=== PATIENT | male | born 1950 | race Caucasian/White ===

== ENCOUNTER 2022-12-11 11:07 | Outpatient (CLI) | payer MEDICARE, BC, SELFPAY ==
[2022-12-11 11:21] VITALS: BP 124/67; RESP 16; O2SAT 96
[2022-12-11] MEDS: TETRACAINE 0.5% OPHTH 1 DROP EYE-BOTH ×3 (11:23→11:44)
[2022-12-11] MEDS: BRIMONIDINE TARTRATE 0.2% OPHTH 1 DROP EYE-BOTH ×2 (11:24→11:55)
--- NOTE | 2022-12-11 12:37 | W.PM.OPTPROC ---
Procedure Note Date of procedure: 12/11/22 Will [facility] bill your pro fee for this procedure?: Yes Procedure Description: SURGEON: Paula Yarbrough MD PREOPERATIVE DIAGNOSIS: Posterior capsular opacity, right and left eye POSTOPERATIVE DIAGNOSIS: Posterior capsular opacity, right and left eye PROCEDURE: YAG laser capsulotomy, both eyes ANESTHESIA: Topical. ESTIMATED BLOOD LOSS: None PATHOLOGY SPECIMEN: None COMPLICATIONS: None INDICATIONS: See consult note for details. The risks, benefits and alternatives of the procedure were explained to the patient, who elected to proceed and signed informed consent to do so. PROCEDURE: The patient was brought to the pre-holding area where the right and left eyes were identified as the operative eyes. I placed my initials above the eyes. The following was given in both eyes: The patient received 2 sets of 1 drop of 0.5% tetracaine and 1 drop of 1% tropicamide. They also received 1 drop of 0.2% brimonidine. They received 1 drop of 0.5% tetracaine immediately prior to bringing them back for the procedure. The patient was then brought to the procedure room where the right and left eyes were again identified as the operative eyes. A YAG Jorgito capsulotomy lens was placed on the right eye. The laser was administered using a total number of 18 shots with an energy of 2.4 mJ per shot for a total energy of 43 mJ. The patient tolerated the procedure well. A YAG Jorgito capsulotomy lens was placed on the left eye. The laser was administered using a total number of 27 shots with an energy of 2.4 mJ per shot for a total energy of 65 mJ. The patient tolerated the procedure well. DISPOSITION: The patient was taken back to the pre-holding area and given 1 drop of 0.2% brimonidine in both eyes. They were discharged to home in stable condition. The patient was instructed to call me or go to the emergency department with any sudden change, including dramatic loss of vision, severe pain in the eye or eyebrow region, nausea, or vomiting. The patient was instructed to use the 0.2% brimonidine 1 drop 2 times a day in both eyes for 1 week. The patient will follow up in the clinic in 1-2 weeks.
== END 2022-12-11 12:00 | disposition home or self-care (01) ==
LOC: OP CLINIC 11:08 → EYE PRC 11:18
PROVIDERS: PCP Surgery; Visit Provider Ophthalmology
DX: H26.9 Unspecified cataract (principal)
CPT/HCPCS: 66821; A9270

== ENCOUNTER 2022-12-17 11:30 | Outpatient (RCR) | payer MEDICARE, BC, SELFPAY | END 2023-03-10 14:36 | disposition home or self-care (01) | PROVIDERS: Visit Provider Family Medicine | DX: S46.812D Strain of other muscles, fascia and tendons at shoulder and upper arm level, left arm, subsequent encounter (principal); M47.817 Spondylosis without myelopathy or radiculopathy, lumbosacral region; M54.2 Cervicalgia; M62.81 Muscle weakness (generalized); M54.9 Dorsalgia, unspecified; Z74.09 Other reduced mobility; Z51.89 Encounter for other specified aftercare | CPT/HCPCS: 97110; 97161 ==

== ENCOUNTER 2023-05-01 12:04 | Outpatient (CLI) | payer OTHER, SELFPAY ==
--- NOTE | 2023-05-01 12:00 | CRLHL7_ITS ---
For Patients: As a result of the 21st Century Cures Act, medical imaging exams and procedure reports are released immediately into your electronic medical record. You may view this report before your referring provider. If you have questions, please contact your health care provider. INDICATION: Low back pain. COMPARISON: One 07/06/2013. TECHNIQUE: Sagittal T1, T2, and STIR sequences. Axial T1 and T2 weighted sequences. Post gadolinium 2 weighted sequences. FINDINGS: Normal alignment. No fractures. No vertebral body loss of height. Since the previous exam, interval postoperative changes of diskectomy interbody fusion L2-3, L3-4 and L4-5. Posterior natasha and transpedicular screw fixation L2-L5. Large fluid collection within the posterior soft tissue the operative bed likely represents postoperative seroma. This fluid collection extends into the dorsal epidural space resulting in compression of the dorsal aspect of thecal sac and overall severe narrowing of spinal canal at the mid body level of L3 through the L3-4 interspace (best appreciated on series 5, images 24-28). Normal conus terminates at L1. T12-L1 L1-2: No spinal canal or neural foraminal narrowing. L2-3: Disc degeneration diffuse disc bulge. Postoperative changes. Postop seroma in a dorsal epidural space flattens the dorsal aspect of thecal sac. Overall, mild narrowing of spinal canal. Mild to moderate narrowing of bilateral foramina. L3-4: Postoperative changes. As described above, there is severe narrowing of the spinal canal with compression of the dorsal aspect of the thecal sac due to presumed postop seroma. Ssyp-jo-dklfpuuf narrowing of the bilateral foramina. L4-5: Disc degeneration. Posterior disc bulge. Mild narrowing of spinal canal. Moderate narrowing of bilateral foramina. L5-S1: Disc degeneration diffuse disc bulge. No narrowing of spinal canal. No impingement of the traversing S1 nerve roots. No neural foraminal narrowing. Mild facet arthropathy. Degenerative changes of the SI joints. Right renal cysts. Although only partially visualized focal area of relative fullness and heterogeneous signal intensity involving the posterior aspect of the right kidney (best appreciated on series 5, image 3). Similarly, on the cold meat cook images, there is asymmetric fullness of the right kidney (series 1, images 10 and 11). Findings indeterminate but a renal mass cannot be completely excluded. Recommend followup with CT or ultrasound for further evaluation. IMPRESSION: 1. Interval recent postop changes of discectomy and interbody fusion at L2-3, L3-4 and L4-5. Posterior fusion hardware L2-L5. 2. Large fluid collection within the posterior soft tissues operative bed likely represents a seroma. This extends into the dorsal epidural space resulting in compression of the thecal sac and overall severe narrowing of spinal canal at the mid body level of L3 through the L3-4 interspace 3. Partially visualized asymmetric relative fullness and heterogeneous signal intensity involving the posterior aspect of the right kidney. An underlying renal mass cannot be completely excluded. Recommend follow-up with CT or ultrasound for further evaluation 4. Lumbar spondylosis. 5. Nqny-se-yjmsjqnk narrowing of either neural foramina at L2-3, L3-4. 6. At L4-5, mild narrowing of spinal canal. Moderate narrowing of bilateral neural foramina Dictated by Alan Suarez MD @ 05/02/2023 10:40:25 AM (Electronically Signed)
== END 2023-05-01 12:05 | disposition home or self-care (01) ==
PROVIDERS: PCP Surgery; Visit Provider Orthopaedic Surgery Orthopaedic Surgery of the Spine
DX: M54.50 Low back pain, unspecified (principal); M47.896 Other spondylosis, lumbar region; M51.26 Other intervertebral disc displacement, lumbar region
CPT/HCPCS: 72158; A9575

== ENCOUNTER 2023-08-29 02:19 | Emergency (ER) | payer MEDICARE, BC, SELFPAY ==
[2023-08-29 02:23] VITALS: BP 175/74; PULSE 53; RESP 18; TEMP 36.7; O2SAT 96; BMI 31.4
[2023-08-29 02:47] VITALS: PULSE 57; O2SAT 97
[2023-08-29 03:00] VITALS: PULSE 52; O2SAT 96
[2023-08-29 03:02] VITALS: BP 138/56; PULSE 51; RESP 18; O2SAT 96
[2023-08-29 03:04] LABS: Chloride* 112 mmol/L (96-114); Potassium* 5.7 mmol/L (3.6-5.1); Sodium* 139 mmol/L (135-149)
[2023-08-29 03:07] LABS: Anion Gap 5 mEq/L (7-15); Blood Urea Nitrogen* 64 mg/dL (7-30); Carbon Dioxide* 22 mmol/L (20-32); Creatinine* 2.3 mg/dL (0.5-1.5); Est. Creatinine Clearance* 31.38; Estimated Glomerular Filt Rate 30 ml/min; Glucose* 144 mg/dL (60-115)
[2023-08-29 03:08] LABS: Calcium* 9.1 mg/dL (8.4-10.6)
--- NOTE | 2023-08-29 03:19 | ED.GENADULT ---
HPI - General Adult General Chief complaint: Unspecified Complaint, Adult Stated complaint: dangerously high potassium levels Time Seen by Provider: 08/29/23 03:06 Source: patient Mode of arrival: ambulatory Limitations: no limitations History of Present Illness HPI narrative: Patient is a 72-year-old male who has been seen in the clinic 3 times in the past 10 days for elevated potassium. Despite that he still remains on lisinopril. His creatinine has also been climbing from a baseline of 1.6. To 90 received a phone call at about 2:[address] Siddiqui who had been paged with a critical potassium of 6.9. His creatinine was also up to 2.7. The patient is asymptomatic but was instructed to come to the emergency department because of his dangerously high potassium. He denies chest pains, shortness of breath, palpitations. In reviewing his medication list lisinopril/hydrochlorothiazide is the only one on the list likely to cause hyperkalemia. Again he is asymptomatic and was sound asleep when he received this call. Related Data Home Medications Medication Instructions Recorded Confirmed allopurinol 300 mg tablet 300 mg PO DAILY 04/29/23 08/29/23 amlodipine 5 mg tablet 5 mg PO DAILY 04/29/23 08/29/23 atenolol 50 mg tablet 50 mg PO DAILY 04/29/23 08/29/23 atorvastatin 20 mg tablet 20 mg PO DAILY 04/29/23 08/29/23 blood sugar diagnostic (Contour #10 ea 04/29/23 04/29/23 Next Test Strips) bupropion HCl 150 mg 24 hr tablet, 150 mg PO DAILY 04/29/23 08/29/23 extended release cyclosporine 0.05 % eye drops in a drp ophthalmic (eye) 04/29/23 04/29/23 dropperette (Restasis) hydroxyzine pamoate 25 mg capsule 25 mg PO Q8H PRN pain 04/29/23 08/29/23 lisinopril 20 1 tab PO DAILY 04/29/23 08/29/23 mg-hydrochlorothiazide 25 mg tablet metformin 500 mg tablet,extended 1,000 mg PO BID 04/29/23 08/29/23 release 24 hr omeprazole 20 mg capsule,delayed 20 mg PO DAILY 04/29/23 08/29/23 release oxycodone 5 mg tablet 5 - 10 mg PO Q4-6H PRN pain 04/29/23 08/29/23 paroxetine HCl 20 mg tablet 20 mg PO DAILY 04/29/23 08/29/23 trazodone 150 mg tablet 150 mg PO QPM 04/29/23 08/29/23 celecoxib 200 mg capsule 200 mg PO DAILY 08/29/23 08/29/23 Allergies Allergy/AdvReac Type Severity Reaction Status Date / Time No Known Drug Allergies Allergy Verified 08/29/23 02:28 Review of Systems Narrative: Review of systems is outlined above otherwise noted to be negative. PFSH PFS Social History Smoking Status: Former smoker Do you use any of these nicotine containing products: None Second hand tobacco smoke exposure: No How often do you have a drink containing alcohol: 2-3 times a week AUDIT-C Alcohol total score: 3 Non-prescribed substance use: denies use Exam Narrative: Exam Narrative: Vitals noted. Lungs: Clear to auscultation in all anthony. No wheezes, rales, rhonchi. Heart: Regular rate and rhythm without murmur. Abdomen: Soft and nontender. No guarding, rigidity, rebound. Bowel sounds are normal. No palpable masses. Extremities: No cyanosis or edema. Good distal pulses. Skin: He is pale. No abnormalities noted of the exposed skin. Neurologic: Awake, alert, fully oriented. Neurologic exam is nonfocal. Const: Vital Signs, click to edit/add: Vital Signs - 24 hr 08/29/23 02:23 08/29/23 02:47 08/29/23 03:00 Temperature 98.0 F Pulse Rate 57 L 52 L Pulse Rate [Pulse Oximeter] 53 L Respiratory Rate 18 Blood Pressure Blood Pressure [Ri ght Upper Arm] 175/74 H Pulse Oximetry 96 97 96 Oxygen Delivery Me thod Room Air 08/29/23 03:02 Temperature Pulse Rate 51 L Pulse Rate [Pulse Oximeter] Respiratory Rate 18 Blood Pressure 138/56 L Blood Pressure [Ri ght Upper Arm] Pulse Oximetry 96 Oxygen Delivery Me thod Room Air Course Course ED Course: Patient seen and examined. EKG shows sinus bradycardia with a rate of 57. No acute ST or T-wave changes noted. Specifically no peaked T-waves or prolonged QRS. His potassium was repeated and found to be at 5.7. His BUN is 64 and his creatinine is 2.3. All of these values are better than what he had had in the clinic earlier today. He is reassured by these values. I will ask him to stop his lisinopril and follow-up next week. Vital Signs Vital signs: Initial Vital Signs Temperature 98.0 F 08/29/23 02:23 Temperature Source Oral 08/29/23 02:23 Pulse Rate 53 L 08/29/23 02:23 Respiratory Rate 18 08/29/23 02:23 Blood Pressure 175/74 H 08/29/23 02:23 Blood Pressure Mean 107 H 08/29/23 02:23 Blood Pressure Position Sitting 08/29/23 02:23 Pulse Oximetry 96 08/29/23 02:23 Oxygen Delivery Method Room Air 08/29/23 02:23 Vital Signs Temperature 98.0 F 08/29/23 02:23 Pulse Rate 53 L 08/29/23 02:23 Respiratory Rate 18 08/29/23 02:23 Blood Pressure 175/74 H 08/29/23 02:23 Pulse Oximetry 96 08/29/23 02:23 Oxygen Delivery Method Room Air 08/29/23 02:23 Temperature 98.0 F 08/29/23 02:23 Pulse Rate 51 L 08/29/23 03:02 Respiratory Rate 18 08/29/23 03:02 Blood Pressure 138/56 L 08/29/23 03:02 Pulse Oximetry 96 08/29/23 03:02 Oxygen Delivery Method Room Air 08/29/23 03:02 Medical Decision Making Lab Data Labs: Lab Results 08/29/23 Range/Units 02:45 Sodium 139 (135-149) mmol/L Potassium 5.7 H (3.6-5.1) mmol/L Chloride 112 (96-114) mmol/L Carbon Dioxide 22 (20-32) mmol/L Anion Gap 5 L (7-15) mEq/L BUN 64 H (7-30) mg/dL Creatinine 2.3 H (0.5-1.5) mg/dL Estimated Creat Clear 31.38 Estimated GFR 30 ml/min Glucose 144 H (60-115) mg/dL Calcium 9.1 (8.4-10.6) mg/dL Discharge Plan Discharge Clinical Impression: Chronic hyperkalemia Patient Disposition: Home, Self-Care Condition: Stable Additional Instructions: Discontinue lisinopril. Continue monitor blood pressure. Follow-up with Dr. Harding next week for blood pressure check and repeat potassium. Prescriptions: No Action cyclosporine [Restasis] 0.05 % dropperette ophthalmic (eye) Patient Comments: [NO ORIGINAL SIG] hydroxyzine pamoate 25 mg capsule 25 mg PO Q8H PRN (Reason: pain) oxycodone 5 mg tablet 5 - 10 mg PO Q4-6H PRN (Reason: pain) allopurinol 300 mg tablet 300 mg PO DAILY omeprazole 20 mg capsule,delayed release(DR/EC) 20 mg PO DAILY amlodipine 5 mg tablet 5 mg PO DAILY atenolol 50 mg tablet 50 mg PO DAILY metformin 500 mg tablet extended release 24 hr 1,000 mg PO BID lisinopril-hydrochlorothiazide 20-25 mg tablet 1 tab PO DAILY trazodone 150 mg tablet 150 mg PO QPM paroxetine HCl 20 mg tablet 20 mg PO DAILY (DME) Contour Next Test Strips Strip See Rx Instructions .ROUTE BID Qty: 10 Rx Instructions: As directed atorvastatin 20 mg tablet 20 mg PO DAILY bupropion HCl 150 mg tablet extended release 24 hr 150 mg PO DAILY celecoxib 200 mg capsule 200 mg PO DAILY Follow Up/Referrals: Niall Harding MD [Primary Care Provider] - Stand Alone Forms: K94 [employer]ies Info Instructions
== END 2023-08-29 03:31 | disposition home or self-care (01) ==
PROVIDERS: Emergency Provider Family Medicine; PCP Surgery
DX: E87.6 Hypokalemia (principal)
CPT/HCPCS: 36415; 80048; 93005; 99281; 99284

== ENCOUNTER 2023-09-04 22:40 | Emergency (ER) | payer MEDICARE, BC, SELFPAY ==
[2023-09-04 22:43] VITALS: BP 164/79; PULSE 58; RESP 16; TEMP 35.9; O2SAT 98; BMI 32.3
[2023-09-04 23:24] LABS: Chloride* 111 mmol/L (96-114); Potassium* 5.4 mmol/L (3.6-5.1); Sodium* 138 mmol/L (135-149)
[2023-09-04 23:27] LABS: Anion Gap 5 mEq/L (7-15); Blood Urea Nitrogen* 39 mg/dL (7-30); Carbon Dioxide* 22 mmol/L (20-32); Creatinine* 2.1 mg/dL (0.5-1.5); Est. Creatinine Clearance* 33.31; Estimated Glomerular Filt Rate 33 ml/min
[2023-09-04 23:28] LABS: Calcium* 9.3 mg/dL (8.4-10.6); Glucose* 139 mg/dL (60-115)
--- OUTSIDE RECORDS SUMMARY | 2023-09-04 23:28 | XMS_ITS | Clinical Summary ---
Author Name Unknown Organization [facility] Address [address] [place] [id number] Care Team Providers Care Trailer Chief Name Role Phone Niall Harding MD Primary Care Provider [phone] Allergies No known active allergies Medications Medication Sig Dispensed Refills Start Date End Date Status amLODIPine (NORVASC) 5 MG tablet Take 5 mg by mouth daily Active atenolol (TENORMIN) 50 MG tablet Take 50 mg by mouth daily Active Glucosamine Sulfate 1500 MG PACK Take 1,500 mg by mouth 2 times daily 1500/1200 Active lisinopril-hydrochl orothiazide (ZESTORETIC) 20-25 MG tablet Take 1 tablet by mouth daily Active PARoxetine (PAXIL) 20 MG tablet Take 20 mg by mouth every morning Active Ascorbic Acid (VITAMIN C) 500 MG CAPS Take 500 mg by mouth daily Active allopurinol (ZYLOPRIM) 300 MG tablet Take 300 mg by mouth daily Active atorvastatin (LIPITOR) 20 MG tablet Take 20 mg by mouth daily Active calcium carbonate (OS-RIGO) 1500 (600 Ca) MG tablet Take 600 mg by mouth daily Active fish oil-omega-3 fatty acids 500 MG capsule Take 1,000 mg by mouth daily Active omeprazole (PRILOSEC) [address] capsule Take 20 mg by mouth daily Active traZODone (DESYREL) 150 MG tablet Take 150 mg by mouth at bedtime Active Vitamin D3 (CHOLECALCIFEROL) 25 mcg (1000 units) tabletIndications:S /P lumbar fusion Take 1 tablet (25 mcg) by mouth 2 times daily 180 tablet 04/17/2023 Active senna-docusate (SENOKOT-S/PERICOLA CE) 8.6-50 MG tabletIndications:S /P lumbar fusion Take 1-2 tablets by mouth 2 times daily Take while on oral narcotics to prevent or treat constipation. 30 tablet 04/17/2023 Active oxyCODONE (ROXICODONE) 5 MG tabletIndications:S /P lumbar fusion Take 1-2 tablets (5-10 mg) by mouth every 4 hours as needed for moderate to severe pain 30 tablet 04/17/2023 Active acetaminophen (TYLENOL) 500 MG tablet Take 1,000 mg by mouth every 6 hours as needed for mild pain Active buPROPion (WELLBUTRIN XL) 150 MG 24 hr tablet Take 150 mg by mouth every morning Active metFORMIN (GLUCOPHAGE XR) 500 MG 24 hr tablet Take 1,000 mg by mouth 2 times daily (with meals) Active methocarbamol (ROBAXIN) 750 MG tablet Take 750 mg by mouth every 6 hours as needed for muscle spasms Active cycloSPORINE (RESTASIS) 0.05 % ophthalmic emulsion Place 1 drop into both eyes 2 times daily Active Active Problems Problem Noted Date Diagnosed Date Postoperative back pain 05/01/2023 S/P lumbar fusion 04/16/2023 Family History Medical History Relation Comments Colon Cancer Brother Heart Disease Brother Diabetes Father Thyroid Disease Mother Relation Status Comments Brother Father Mother Social History Tobacco Use Types Packs/Day Years Used Date Smoking Tobacco: Former Cigarettes Q uit: 1970 Smokeless Tobacco: Never Tobacco Cessation:Counseling Given: Not Answered Alcohol Use Standard Drinks/Week Comments Yes 0 (1 standard drink = 0.6 oz pur e alcohol) 6-7 beers/week Adolescent Education Answer Date Record ed Getting School Help Needed Not on file 03/20 Sex and Gender Information Value Date Recorded Sex Assigned at Not on file Gender Identity Not on file Sexual Orientation Not on file Last Filed Vital Signs Vital Sign Reading Time Taken Comments Blood Pressure 127/52 05/05/2023 8:55 AM [facility] Pulse 64 05/05/2023 8:54 AM [facility] Temperature 36.6 ??C (97.8 ??F) 05/05/2023 7:20 AM CS T Respiratory Rate 18 05/05/2023 7:20 AM [facility] Oxygen Saturation 96% 05/05/2023 7:20 AM [facility] Inhaled Oxygen Concentration - - Weight 101.1 kg (222 lb 12.8 oz) 2022 12:36 AM [facility] Height 180.3 cm (5' 11) 05/02/2023 12: 36 AM [facility] Body Mass Index 31.07 05/02/2023 12:36 AM [facility] Plan of Treatment Health Maintenance Due Date Last Done Comments ADVANCE CARE PLANNING 1950 ANNUAL REVIEW OF HM ORDERS 1950 CT COLONOGRAPHY 1950 FIT 1950 FLEX SIG 1950 LIPID 1950 sDNA (Cologuard) 1950 COLONOSCOPY 09/29/1961 COLORECTAL CANCER SCREENING 09/29/1961 HEPATITIS C SCREENING 09/29/1969 RSV VACCINE ( & 60+) (1 - 1-dose 60+ series) 2011 AORTIC ANEURYSM SCREENING (SYSTEM ASSIGNED) 09/29/2016 FALL RISK ASSESSMENT 09/29/2016 MEDICARE ANNUAL WELLNESS VISIT 04/15/2023 04/15/2022, 03/13/2021 PHQ-2 (once per calendar year) 2023 GLUCOSE 05/05/2026 05/05/2023, 04/18, 05/05/2023, Additional history exists DTAP/TDAP/TD IMMUNIZATION (3 - Td or Tdap) 11/24/2029 11/25/2019, 08/01/2009, 11/02/1994 Pneumococcal Vaccine: 65+ Years Completed 02/24/2019, 10/30/2016, 01/28/2008 ZOSTER IMMUNIZATION Completed 02/21/2020, 11/25/2019, 03/05/2012 COVID-19 Vaccine Completed 02/17/2023, , 08/15/2021, Additional history exists INFLUENZA VACCINE Completed 02/17/2023, , 02/01/2021, Additional history exists HPV IMMUNIZATION Aged Out No longer e ligible based on patient's age to complete this topic IPV IMMUNIZATION Aged Out No longer e ligible based on patient's age to complete this topic MENINGITIS IMMUNIZATION Aged Out No l onger eligible based on patient's age to complete this topic RSV MONOCLONAL ANTIBODY Aged Out No l onger eligible based on patient's age to complete this topic Medical Devices Implanted Type Area Continuous Miner Operator Helper Device Identifier Shelf Expiration Date Model / Serial / Lot Graft Bone Magnifuse [id number] - [id number] Implanted:Qty : 1 on 04/16/2023 by Thang Negrete MD at [facility] Bone/Tissu e/Biologic N/A: Spine Lumbar [employer] [id number] 03/19/2025 [id number] / [id number] / Graft Bone Fibers Dbf 6ml Inj [id number] Preloaded - [id number] Implanted:Qty : 1 on 04/16/2023 by Thang Negrete MD at [facility] Bone/Tissu e/Biologic N/A: Spine Lumbar [employer] 10/21/2024 [id number] / [id number] / Pass Lp Crosslink [id number] Implanted:Qty : 1 on 04/16/2023 by Thang Negrete MD at [facility] Metallic Hardware/A nchor N/A: Spine Lumbar [employer] [id number] / / [id number] 2022 Imp Screw Bn Medt Spine 50x6.5mm 5.5/6mm Paul - [id number] Implanted:Qty : 6 on 04/16/2023 by Thang Negrete MD at [facility] Metallic Hardware/A nchor N/A: Spine Lumbar [employer] [id number] / / [id number] 2022 Imp Screw Bn Medt Spine 45x7.5mm 5.5/6mm Paul - [id number] Implanted:Qty : 2 on 04/16/2023 by Thang Negrete MD at [facility] Metallic Hardware/A nchor N/A: Spine Lumbar [employer] [id number] / / [id number] 2022 Imp Scr Set Medt Solera Break Off 5.5mm Ti [id number] - [id number] Implanted:Qty : 8 on 04/16/2023 by Thang Negrete MD at [facility] Metallic Hardware/A nchor N/A: Spine Lumbar [employer] [id number] / / [id number] 2022 Imp Spi Interbody Medt [address]ft [address] Long 7mm [id number] - [id number] Implanted:Qty : 1 on 04/16/2023 by Thang Negrete MD at [facility] Metallic Hardware/A nchor N/A: Spine Lumbar [employer] 12/26/2029 [id number] / / [id number] Imp Spi Interbody Medt Catalyft Pl Long 7mm [id number] - [id number] Implanted:Qty : 1 on 04/16/2023 by Thang Negrete MD at [facility] Metallic Hardware/A nchor N/A: Spine Lumbar [employer] 11/28/2029 [id number] / / [id number] Imp Spi Interbody Medt Catalyft Pl Long 7mm [id number] - [id number] Implanted:Qty : 1 on 04/16/2023 by Thang Negrete MD at [facility] Metallic Hardware/A nchor N/A: Spine Lumbar [employer] 11/26/2029 [id number] / / [id number] Imp Paul Medt Solera Cvd 5.5x90mm Ti [id number] - [id number] Implanted:Qty : 2 on 04/16/2023 by Thang Negrete MD at [facility] Metallic Hardware/A nchor N/A: Spine Lumbar [employer] [id number] / / [id number] 2022 Procedures Procedure Name Priority Date/Time Associated Diagnosis Comments GLUCOSE BY METER Routine 05/05/2023 1:59 AM [facility] from Last 3 Months or Most Recently Relevant to Health Maintenance Results * (ABNORMAL) Glucose by meter (05/05/2023 1:59 AM [facility]) GLUCOSE BY METER POCT 157(H) 70 - 99 mg/dL 05/05/2023 2:06 AM [facility] LABORATORY POC Blood, Capillary BLOOD SPECIMEN / Unknown 05/05/2023 1:59 AM [facility] 05/05/2023 2:06 AM [facility] Rohit GIRALDO POCT RH LABORATORY POC [facility] [address] Lab (1st floor, no room number) [place] [address], [facility] [phone] from Last 3 Months or Most Recently Relevant to Health Maintenance Advance Directives For more information, please contact: [phone] * Full Code (Latest Code Status on File) Date Activated Date Inactivated Comments 05/01/2023 11:46 PM 05/05/2023 4:39 PM All basic and advanced life-sustaining interventions are performed as appropriate Question Answer Comments Code status determined by: Discussion with patie nt/ legal decision maker * Full Code Date Activated Date Inactivated Comments 04/16/2023 3:21 PM 04/18/2023 2:50 PM All basic a nd advanced life-sustaining interventions are performed as appropriate Question Answer Comments Code status determined by: Other (please patricia t) Care Teams Trailer Chief Relationship Specialty Start Date End Date Niall Harding MD [address] [place] [address] PCP - General 04/16/23
--- OUTSIDE RECORDS SUMMARY | 2023-09-04 23:28 | XMS_ITS | Continuity of Care Document ---
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 Name Role Phone Vinod WARREN Kira Unavailable Unavailable Allergies, Adverse Reactions, Alerts Substance Reaction Status Criticality No Known Allergies Active No Inform ation Medications Medication Instructions Dosage Effective Dates (start - stop) Status Comments amlodipine 5 mg tablet take 1 tablet by oral route every day 5 MG - Active lisinopril 20 mg-hydrochlorothiazi de 25 mg tablet take 1 tablet by oral route every day 1.00 tablet - Active metformin 1,000 mg tablet take 1 tablet by oral route 2 times every day with morning and evening meals 1000 MG - Active paroxetine 20 mg tablet take 1 tablet by oral route every day 20 MG - Active allopurinol 300 mg tablet take 1 tablet by oral route every day 300 MG - Active omeprazole 20 mg capsule,delayed release take 1 capsule by oral route 2 times every day 30 minutes to 1 hour before a meal 20 MG - Active trazodone 150 mg tablet take 1 tablet by oral route every bedtime 150 MG - Active HYDROCODONE BITARTRATE ER (unknown strength) take 1 capsule by oral route every day as needed Not Available - Active Restasis 0.05 % eye drops in a dropperette instill 1 drop by ophthalmic route every 12 hours into affected eye(s) 1.00 drop - Active Dulcolax (bisacodyl) 5 mg tablet,delayed release Take 2 tablets per colonoscopy prep instructions received from [facility] - Active procedure 09/19/22 Miralax 17 gram/dose oral powder Take by oral route per colonoscopy prep instructions received from [facility] - Active 09/19/22 procedure atenolol 50 mg tablet take 1 tablet by oral route every day 50 MG - Active bupropion HCl SR 150 mg tablet,12 hr sustained-release take 1 tablet by ORAL route every day 150 MG - Active celecoxib 200 mg capsule take 1 Tablet by Oral route every day 1 Tablet - Active glimepiride 2 mg tablet take 1 tablet by oral route every day 2 MG - Active cyclobenzaprine 10 mg tablet take 1 tablet by oral route every day 10 MG - Active aspirin 81 mg chewable tablet chew 1 tablet by oral route every day 81 MG - Active atorvastatin 20 mg tablet take 1 tablet by oral route every day 20 MG - Active GLUCOSAMINE-CHONDROI TIN (unknown strength) Not Available - Active Procedures Procedure Date Colorectal Ca Screen Hi Risk I Colonoscopy With EMR Colonoscopy Flex; Dx (sep Pro) Offic Cons New/estab Low Advance Directives Directive Yes / No Effective Date File Name No Information Encounters Encounter Description Practice Location Reason(s) For Visit Diagnoses Date Provider Providers Copied on Encounter [facility], [address] [address], [place], [id number], [place] tel:[phone] [facility] No Information 3 Vinod Malone. [address] [facility], [facility] [address], [place], [place], [id number], [place]. tel:[phone] Referring Provider: Kadeem Acevedo, [address] [facility] [address], [place], [address]. tel:[phone] [facility] [address] [address], [place], [id number], [place] tel:[phone] [facility] GI Symptoms or Concerns (chief complaint) Personal history of colonic polypsEncount er for screening for malignant neoplasm of colonPersonal history of colonic polyps 3 Shahida Quan. [address] [facility], [address], [place], [place], [address], [place]. tel:[phone] Referring Provider: Jaunito Noble, [address] [place] [address], [place], [address]. tel:[phone] [facility], [address] [address], [place], [id number], [place] tel:[phone] [facility] No Information 3 Nain Sharma. [address] [facility], [facility] [address], [place], [place], [address], [place]. tel:[phone] [facility], [address] [address], [place], [place], [address], [place] tel:[phone] [facility] No Information 3 Nain Sharma. [address] [facility], [facility] [address], [place], [id number], [place]. tel:[phone] [facility], [address] [address], [place], [id number], [place] tel:[phone] [facility] No Information 1 Shahida Quan. [address] [facility], [facility] [address], [place], [place], [address], [place]. tel:[phone] Referring Provider: Kadeem Acevedo, [address] [facility] [address], [address]. tel:[phone] [facility], [address] [address], [place], [address], [place] tel:[phone] [facility] Colon adenoma 1 Shahida Quan. [address] [facility], [facility] [address], [place], [address], [place]. tel:[phone] [facility], [address] [address], [place], [address], [place] tel:[phone] [facility] No Information 1 Shahida Quan. [address] [facility], [address], [place], [place], [address], [place]. tel:[phone] Referring Provider: Kadeem Acevedo, [address] [facility] [address], [place], [address]. tel:[phone] [facility], [address] [address], [place], [address], [place] tel:[phone] [facility] Colon adenoma 1 Shahida Quan. [address] [facility], [facility] [address], [place], [address], [place]. tel:[phone] [facility], [address] [address], [place], [address], [place] tel:[phone] [facility] Colon adenoma 1 Shahida Quan. [address] [facility], [facility] [address], [place], [place], [id number], [place]. tel:[phone] Referring Provider: Referral Self, USE FOR SELF REFERRALS. Offic Cons New/estab Low [facility], [address] [address], [place], [address], [place] tel:[phone] [facility] GI Symptoms or Concerns (chief complaint) Personal history of colonic polyps 1 Tarik Segal. [address] [facility], [address], [place], [place], [address], [place]. tel:[phone] Referring Provider: Juanito Noble, [facility], [place], [address]. tel:[phone] [facility], [address] [address], [place], [address], [place] tel:[phone] [facility] No Information 1 Mg Carrera. [address] [address], [place], [place], [address], . tel:[phone] Family History Family Member Type Diagnosis Age At Onset Brother Problem (finding) cancer of colon Brother Problem (finding) Crohn's disease Sister Problem (finding) IBS Father Problem (finding) Cancer, pancreatic Immunizations Vaccine Date Status Comments influenza, high-dose seasona l, quadrivalent, 0.7mL dose, preservative free administered Note: [facility] bi-direct ional interface ; Source: Other Registry SARS-COV-2 (COVID-19) vaccin e, mRNA, spike protein, LNP, bivalent booster, preservative free, 30 mcg/0.3 mL dose, radha-sucrose formulation administered Note: [facility] bi-d irectional interface ; Source: Other Registry SARS-COV-2 (COVID-19) vaccin e, mRNA, spike protein, LNP, preservative free, 30 mcg/0.3mL dose, radha-sucrose formulation administered Note: [facility] C bi- directional interface ; Source: Other Registry SARS-COV-2 (COVID-19) vaccin e, mRNA, spike protein, LNP, preservative free, 30 mcg/0.3mL dose administered Note: [facility] bi-direct ional interface ; Source: Other Registry influenza, seasonal vaccine, quadrivalent, adjuvanted, 0.5mL dose, preservative free administered Note: [facility] bi-di rectional interface ; Source: Other Registry SARS-COV-2 (COVID-19) vaccin e, mRNA, spike protein, LNP, preservative free, 30 mcg/0.3mL dose administered Note: [facility] bi-direct ional interface ; Source: Other Registry SARS-COV-2 (COVID-19) vaccin e, mRNA, spike protein, LNP, preservative free, 30 mcg/0.3mL dose administered Note: [facility] bi-direct ional interface ; Source: Other Registry zoster vaccine recombinant administered N ote: [facility] bi-directional interface ; Source: Other Registry influenza, seasonal vaccine, quadrivalent, adjuvanted, 0.5mL dose, preservative free administered Note: [facility] bi-di rectional interface ; Source: Other Registry influenza, seasonal vaccine, quadrivalent, adjuvanted, .5mL dose, preservative free administered Note: [facility] bi-di rectional interface ; Source: Other Registry tetanus toxoid, reduced diphtheria toxoid, and acellular pertussis vaccine, adsorbed administered Note: [facility] b i-directional interface ; Source: Other Registry zoster vaccine recombinant administered N ote: [facility] bi-directional interface ; Source: Other Registry Seasonal trivalent influenza vaccine, adjuvanted, preservative free administered Note: [facility] bi-direct ional interface ; Source: Other Registry Pneumovax 23 administered Note: [facility] bi-d irectional interface ; Source: Other Registry Pneumovax administered Note: [facility] bi-d irectional interface ; Source: Other Registry influenza virus vaccine, unspecified formulation administered Note: [facility] bi-di rectional interface ; Source: Other Registry Seasonal trivalent influenza vaccine, adjuvanted, preservative free administered Note: [facility] bi-direct ional interface ; Source: Other Registry Seasonal trivalent influenza vaccine, adjuvanted, preservative free administered Note: [facility] bi-direct ional interface ; Source: Other Registry Prevnar 13 administered Note: [facility] bi-d irectional interface ; Source: Other Registry Afluria Qd administered Note: [facility] bi-directional interface ; Source: Other Registry Afluria Qd administered Note: [facility] bi-directional interface ; Source: Other Registry Influenza, seasonal, injectable administe red Note: [facility] bi- directional interface ; Source: Other Registry Afluria Qd administered Note: [facility] bi-directional interface ; Source: Other Registry Afluria Qd administered Note: [facility] bi-directional interface ; Source: Other Registry Influenza, seasonal, injectable administe red Note: [facility] bi- directional interface ; Source: Other Registry zoster vaccine, live administered Note: [facility] bi-directional interface ; Source: Other Registry Influenza, seasonal, injecta ble, preservative free administered Note: [facility] bi-direct ional interface ; Source: Other Registry tetanus toxoid, reduced diphtheria toxoid, and acellular pertussis vaccine, adsorbed administered Note: [facility] b i-directional interface ; Source: Other Registry Novel [id number], all formulations administered Note: [facility] bi-direct ional interface ; Source: Other Registry Influenza, seasonal, injecta ble, preservative free administered Note: [facility] bi-direct ional interface ; Source: Other Registry Influenza, seasonal, injectable administe red Note: [facility] bi- directional interface ; Source: Other Registry Pneumovax 23 administered Note: [facility] bi-d irectional interface ; Source: Other Registry Influenza, seasonal, injectable administe red Note: [facility] bi- directional interface ; Source: Other Registry Payers Payer name Insurance type Covered green party ID Authoriza tion(s) [employer] [place] [employer] BL [id number] Social History Type Description Quantity Date Captured Comments Sex Male Smoking Status No Information Chief Complaint And Reason For Visit No Information Reason For Referral Reason For Referral No Information Plan Of Treatment Date Type Action Status Referral Ordered: COVID-19 PCR Test Appointment date/timeframe: -today ordered Referral Ordered: Colonoscopy Appointment date/timeframe: -today ordered History Of Present Illness Encounter Date Complaint History Of Prese nt Illness GI Symptoms or Concerns GI Symptoms or Concerns Mr. Simons is here at the request of Dr. Niall Harding to discuss removal of 2 very large colon polyps. He has a personal history of colon polyps and has been getting exams every 5 years. A brother had colon cancer at the age of 37. He does not have any problems with bowel movements and is on no blood thinners. At his recent colonoscopy, 2 very large polyps were seen. They were not removed, but biopsies showed sessile serrated adenomas. One is 20 mm opposite the ileocecal valve and the other is 30 mm inferior to the appendix opening. It sounds like the larger of the polyps does not involve the appendiceal orifice. The endoscopist in [place] thought there was a potential that these could be endoscopically removed. Functional Status Date Functional Assessmen t No Information Instructions Date Instruction Additional Infor obed Colon Cancer Prevention Related to Personal history of colonic polyps Colon Cancer Prevention Related to Personal history of colonic polyps Assessments Type Assessment Date No Information Patient Care Teams Name Effective Dates (start - stop) Status Members No Information
--- OUTSIDE RECORDS SUMMARY | 2023-09-04 23:28 | XMS_ITS | Data Portability ---
Author Name Unknown Address [address] [place] [address] Phone [phone] Organization [facility], [facility] Address [address] [place] [address] Care Team Providers Care Freight Coordinator Name Role Phone ANTHONYGAURANG ALYSHA Primary Care Provider Assessment No assessment recorded. Plan of Treatment Reminders Order Date Submit Date Provider Last Modified By Organization Details Last Modified Time Details Appointments POST OP 10 2023 11:00A M Carlos Elizabeth MD Not available Not available Not available Lab None recorded. Referral None recorded. Procedures None recorded. Surgeries nephrecto my, hand assisted laparosco pic (SURG) 2023 024 VIVIEN Not available 08/27/2023 10:55:03 Imaging None recorded. Medication Orders None recorded. Patient TargetsNo targets recorded. Patient InstructionsNo instructions recorded. Reason for Referral None Reported. Results Created Date Observation Date Name Description Value Unit Range Abnormal Flag LastModifiedBy Organization Detail LastModifiedTime 07/31/1907/30/2023 MRI, abdom en, w/wo contr ast No observ ation record ed. Not Available 07/31/2023 16:01:11 07/31/19 24 07/24/2023 US, renal No observ ation record ed. Not Available 07/31/2023 16:02:06 Result Notes None recorded. Procedures Surgical History Date Name Laterality Status Provider Name and Address Organization Details Recorded Time 08/22/19 24 NEPHRECTOMY, HAND ASSISTED LAPAROSCOPIC (SURG) completed Teresa aguilar [facility] 08/27/2023 10:55:06 08/07/19 24 COMPLEX VISIT completed Carlos Elizabeth MD [address], [place], [address], [facility] 08/07/2023 13:52:16 procedure on back completed Carlos Elizabeth MD [address], [place], [address], [facility] 08/07/2023 12:10:59 total replacement of hip completed Carlos Elizabeth MD [address] [place] [address],[address], [place], [address], [facility] 08/07/2023 12:11:10 Imaging Results Imaging Date Name Status LastModified by Organiz ation Details LastModified Time 07/30/2023 MRI, abdomen, w/wo contrast completed Information not available 07/31/2023 16:01:11 07/24/2023 US, renal completed Information no t available 07/31/2023 16:02:06 Procedure Notes None recorded. Medical Equipment None Reported. Allergies No known drug allergies Medications Name Sig Start Date Stop Date Status Note LastModified by Organization Details LastModified Time celecoxib 200 mg capsule TAKE ONE CAPSULE BY MOUTH ONE TIME DAILY WITH A MEAL.* active Not Available Not Available No t Available cyclobenzap rine 10 mg tablet TAKE ONE TABLET BY MOUTH EVERY EIGHT HOURS NEEDED FOR MUSCLE SPASM* active Not Available Not Available No t Available acetaminoph en 325 mg tablet active Not Available Not Available Not Available atorvastati n 20 mg tablet TAKE ONE TABLET BY MOUTH ONE TIME DAILY* active Not Available Not Available No t Available hydrocodone 5 mg-acetamin ophen 325 mg tablet Take 1 Tablet by mouth every 4 hours if needed for Pain* active Not Available Not Available No t Available senna 8.6 mg tablet TAKE TWO TABLETS BY MOUTH TWO TIMES DAILY NEEDED while taking narcotics .* active Not Available Not Available No t Available prednisone 20 mg tablet TAKE 1 TABLET BY MOUTH THREE TIMES A DAY FOR 4 DAYS, THEN TAKE 1 TABLET TWICE A DAY FOR 4 DAYS, THEN TAKE 1 PILL A DAY FOR 4 DAYS* active Not Available Not Available No t Available amlodipine 5 mg tablet TAKE ONE TABLET BY MOUTH ONE TIME DAILY* active Not Available Not Available No t Available tramadol 50 mg tablet TAKE ONE TABLET BY MOUTH EVERY FOUR TO SIX HOURS NEEDED FOR PAIN* active Not Available Not Available No t Available methocarbam ol 750 mg tablet TAKE ONE TABLET BY MOUTH EVERY SIX HOURS NEEDED FOR MUSCLE SPASM* 08/06 completed Not Available Not Available Not Available cephalexin 500 mg capsule Take 1 Capsule (500 mg) by mouth three times daily for 7 days* 08/06 completed Not Available Not Available Not Available paroxetine 20 mg tablet TAKE ONE TABLET BY MOUTH EVERY DAY IN THE MORNING.* active Not Available Not Available No t Available trazodone 150 mg tablet TAKE ONE TABLET BY MOUTH ONE TIME DAILY AT BEDTIME* active Not Available Not Available No t Available omeprazole 20 mg capsule,del ayed release TAKE ONE CAPSULE BY MOUTH ONE TIME DAILY BEFORE A MEAL.* active Not Available Not Available No t Available lisinopril 20 mg-hydrochl orothiazide 25 mg tablet TAKE ONE TABLET BY MOUTH ONE TIME DAILY* active Not Available Not Available No t Available allopurinol 300 mg tablet TAKE ONE TABLET BY MOUTH ONE TIME DAILY* active Not Available Not Available No t Available methylpredn isolone 4 mg tablets in a dose pack Take by mouth as instructe d per packaging (on back of foil pouch).* active Not Available Not Available No t Available metformin ER 500 mg tablet,exte nded release 24 hr TAKE TWO TABLETS by mouth TWICE DAILY WITH MEALS* active Not Available Not Available No t Available atenolol 50 mg tablet TAKE ONE TABLET BY MOUTH ONE TIME DAILY* active Not Available Not Available No t Available oxycodone 5 mg tablet TAKE 1 TO 2 TABLETS by mouth EVERY 4 TO 6 HOURS NEEDED FOR PAIN.* active Not Available Not Available No t Available hydroxyzine pamoate 25 mg capsule TAKE ONE OR TWO CAPSULES BY MOUTH EVERY EIGHT HOURS NEEDED FOR MUSCLE SPASM* active Not Available Not Available No t Available Restasis 0.05 % eye drops in a dropperette instill 1 drop into both eyes twice a day* active Not Available Not Available No t Available Stool Softener-La xative 8.6 mg-50 mg tablet active Not Available Not Available Not Available bupropion HCl XL 300 mg 24 hr tablet, extended release TAKE ONE TABLET BY MOUTH ONE TIME DAILY* active Not Available Not Available No t Available bupropion HCl XL 150 mg 24 hr tablet, extended release TAKE ONE TABLET BY MOUTH ONE TIME DAILY* 08/06 completed Not Available Not Available Not Available cholecalcif hudson (vitamin D3) 25 mcg (1,000 unit) tablet active Not Available Not Available Not Available Contour Next Test Strips USE TO TEST BLOOD GLUCOSE LEVELS TWICE DAILY.* active Not Available Not Available No t Available Vitals Date Recorded Body weight Body mass index (BMI) Body height Provider Name and Address Organization Details Last Updated DateTime 08/07/2023 554510.28 g 31.4 kg/m2 180.34 cm Carlos Elizabeth MD [address] [place] [address],[address], [phone] [place] [address] Urolog 08/07/2023 12:07:38 Social History Question Answer Notes LastModified by Organizat ion Details LastModified Time Tobacco Smoking Status Former Smoker Carlos Elizabeth MD [address] [place] [address],[address] [address] 08/07/2023 12:10:26 What Is Your Level Of Alcohol Consumption? Occasional Information not available 08/07/2023 What Is Your Level Of Caffeine Consumption? Occasional Information not available 08/07/2023 When Did You Quit Smoking? 17+yearssinjudy diaz Information not available 08/07/2023 What Was The Date Of Your Most Recent Tobacco Screening? 08/07/2023 Information not available 08/07/2023 Sex: Male Functional Status None recorded. Mental Status None recorded. Family History Nothing Reported. Medical History Condition Response Sexually Transmitted Infection N Diabetes N Other N Bleeding Disorder N High Blood Pressure Y Kidney Stones N High Cholesterol Y GERD/Acid Reflux Y Heart Disease N Cancer N Lung Disease N Depression Y Immunizations Vaccine Type Date Status Provider Name and Address Organization Details Recorded Time influenza, trivalent, adjuvanted 02/24/2019 toribio Elizabeth MD [address] [place] [address],[address], [address], [facility] 08/07/2023 12:07:49 influenza, trivalent, adjuvanted 02/27/2018 toribio Elizabeth MD [address] [place] [address],[address], [address], [facility] 08/07/2023 12:07:49 influenza, trivalent, adjuvanted 04/09/2017 toribio Elizabeth MD [address] [place] [address],[address], [address], [facility] 08/07/2023 12:07:49 zoster recombinant 11/25/2019 completed Carlos ochoa MD [address] [place] [address],[address], [place], [address], [facility] 08/07/2023 12:07:49 zoster recombinant 02/21/2020 completed Carlos ochoa MD [address] [place] [address],[address], [place], [address], [facility] 08/07/2023 12:07:49 influenza, high-dose, quadrivalent 02/17/2023 completed Carlos Elizabeth MD [address] [place] [address],[address], [place], [address], [facility] 08/07/2023 12:07:49 influenza, high-dose, quadrivalent 03/14/2022 completed Carlos Elizabeth MD [address] [place] [address],[address], [place], [address], [facility] 08/07/2023 12:07:49 Influenza vaccine, quadrivalent, adjuvanted 02/01/2020 completed Carlos Elizabeth MD [address] [place] [address],[address], [place], [address], [facility] 08/07/2023 12:07:49 Influenza vaccine, quadrivalent, adjuvanted 02/01/2021 completed Carlos Elizabeth MD [address] [place] [address],[address], [place], [address], [facility] 08/07/2023 12:07:49 COVID-19, mRNA, LNP-S, PF, 30 mcg/0.3 mL dose 07/05/2020 completed Carlos Elizabeth MD [address] [place] [address],[address], [place], [address], [facility] 08/07/2023 12:07:50 COVID-19, mRNA, LNP-S, PF, 30 mcg/0.3 mL dose 07/26/2020 completed Carlos Elizabeth MD [address] [place] [address],[address], [place], [address], [facility] 08/07/2023 12:07:50 COVID-19, mRNA, LNP-S, PF, 30 mcg/0.3 mL dose 02/09/2021 completed Carlos Elizabeth MD [address] [place] [address],[address], [place], [address], [facility] 08/07/2023 12:07:50 COVID-19, mRNA, LNP-S, PF, 30 mcg/0.3 mL dose, radha-sucrose 08/15/2021 completed Carlos Elizabeth MD [address] [place] [address],[address], [place], [address], [facility] 08/07/2023 12:07:50 COVID-19, mRNA, LNP-S, bivalent, PF, 30 mcg/0.3 mL dose 03/14/2022 completed Carlos Elizabeth MD [address] [place] [address],[address], [place], [address], [facility] 08/07/2023 12:07:50 RSV, recombinant, protein subunit RSVpreF, adjuvant reconstituted, 0.5 mL, PF 03/19/2023 completed Carlos Elizabeth MD [address] [place] [address],[address], [place], [address], [facility] 08/07/2023 12:07:50 COVID-19, mRNA, LNP-S, PF, radha-sucrose, 30 mcg/0.3 mL 02/17/2023 completed Carlos Elizabeth MD [address] [place] [address],[address], [place], [address], [facility] 08/07/2023 12:07:50 pneumococcal polysaccharide PPV23 01/28/2008 completed Carlos Elizabeth MD [address] [place] [address],[address], [place], [address], [facility] 08/07/2023 12:07:50 pneumococcal polysaccharide PPV23 02/24/2019 completed Carlos Elizabeth MD [address] [place] [address],[address], [place], [address], [facility] 08/07/2023 12:07:50 influenza, unspecified formulation 03/11/2018 completed Carlos Elizabeth MD [address] [place] [address],[address], [place], [address], [facility] 08/07/2023 12:07:50 Tdap 08/01/2009 completed Carlos Elizabeth MD [address] [place] [address],[address], [place], [address], [facility] 08/07/2023 12:07:50 Tdap 11/25/2019 completed Carlos Elizabeth MD [address] [place] [address],[address], [place], [address], [facility] 08/07/2023 12:07:50 Novel [id number], all formulations 04/25/2009 completed Carlos Elizabeth MD [address] [place] [address],[address], [place], [address], [facility] 08/07/2023 12:07:50 Pneumococcal conjugate PCV 13 10/30/2016 completed Carlos Elizabeth MD [address] [place] [address],[address], [place], [address], [facility] 08/07/2023 12:07:50 zoster live 03/05/2012 completed Carlos Elizabeth MD [address] [place] [address],[address], [place], [address], [facility] 08/07/2023 12:07:50 Influenza, seasonal, injectable 02/20/2015 completed Carlos Elizabeth MD [address] [place] [address],[address], [place], [address], [facility] 08/07/2023 12:07:50 Influenza, seasonal, injectable 02/23/2013 completed Carlos Elizabeth MD [address] [place] [address],[address], [place], [address], [facility] 08/07/2023 12:07:50 Influenza, seasonal, injectable 03/03/2008 completed Carlos Elizabeth MD [address] [place] [address],[address], [place], [address], [facility] 08/07/2023 12:07:50 Influenza, seasonal, injectable 03/05/2012 completed Carlos Elizabeth MD [address] [place] [address],[address], [place], [address], [facility] 08/07/2023 12:07:50 Influenza, seasonal, injectable 04/01/2007 completed Carlos Elizabeth MD [address] [place] [address],[address] [place] [address], [address], [facility] 08/07/2023 12:07:50 Influenza, seasonal, injectable, preservative free 03/01/2011 completed Carlos Elizabeth MD [address] [place] [address],[address], [address], [facility] 08/07/2023 12:07:50 Influenza, seasonal, injectable, preservative free 04/25/2009 completed Carlos Elizabeth MD [address] [place] [address],[address], [address] [place] [address] Urolog 08/07/2023 12:07:50 influenza, injectable, quadrivalent, preservative free 03/03/2014 completed Carlos Elizabeth MD [address] [place] [address],[address], [address], [facility] 08/07/2023 12:07:50 influenza, injectable, quadrivalent, preservative free 04/05/2016 completed Carlos Elizabeth MD [address] [place] [address],[address], [address] [place] [address] Urolog 08/07/2023 12:07:50 Past Encounters Encounter ID Performer Location Encounter Start Date Encounter Closed Date Diagnosis/Indication Diagnosis SNOMED-CT Code [id number] Carlos Elizabeth MD [facility] [address] [id number] 08/07/2023 11:55:10 08/08/2023 09:52:10 Renal mass [id number] Health Concerns Section Related Observation LastModified by Organization Detai ls LastModified Time None Recorded Concern Status LastModified by Organization Details LastModified Time None Recorded Advance Directives Directive None Recorded Payers Encounter Date Sequence Insurance Name Policy Number Policy Lim Covered Member ID Lim Member ID Guarantor Name 08/07/2023 1 [place] - MEDICARE COST [id number] Edwardo Simons [id number] Edwardo Simons Notes Date Note Type Note Provider Name and Address Organization Details Recorded Time 08/07/2023 text/html HPI Notes: Referred for a large 10x6cm right renal mass. This was detected on a renal ultrasound done for renal insufficiency. I personally reviewed the MRI images with the patient and his , Janet. The mass is large, posterior and has replaced over half of the kidney. The renal artery and vein appear patent. There is a discreet round nodule c/w a lymph node bordering the artery, behind the cava. He is otherwise healthy. He's had two back surgeries and has hardware from that. Those were all from a posterior approach. Carlos Elizabeth MD [address] [place] [address],[address], [place], [address], [facility] 08/07/2023 13:52:30
--- OUTSIDE RECORDS SUMMARY | 2023-09-04 23:28 | XMS_ITS | Continuity of Care Document ---
Author Name Unknown Organization Z [facility] Address [address] [place] [address] [address] [place] [address] Phone Care Team Providers Care Process Coordinator Name Role Phone Sean Sena Unavailable Unavailable Advance Directives Directive Yes / No Effective Date File Name No Information Encounters Encounter Description Practice Location Reason(s) For Visit Diagnoses Date Provider Providers Copied on Encounter Z [facility], [address] [place], [place] [address] [address], [place], [address], [place] tel:[phone] [facility] No Information Jul-2 9-200 8 Louise Estrada. [address], [place], [place], [id number] , [place]. tel:[phone] Family History Family Member Type Diagnosis Age At Onset No Information Payers Payer name Insurance type Covered green party ID Authoriza tion(s) No Information Social History Type Description Quantity Date Captured Comments Sex Male Smoking Status No Information Chief Complaint And Reason For Visit No Information Reason For Referral Reason For Referral No Information History Of Present Illness Encounter Date Complaint History Of Prese nt Illness No Information Functional Status Date Functional Assessmen t No Information Instructions Date Instruction Additional Infor mation No Information Assessments Type Assessment Date No Information Patient Care Teams Name Effective Dates (start - stop) Status Members No Information
--- OUTSIDE RECORDS SUMMARY | 2023-09-04 23:28 | XMS_ITS | Referral Summary ---
Author Name Unknown Organization [facility] Address [address] [place] [address] Care Team Providers Care Ux Consultant Name Role Phone Niall Harding MD Primary Care Provider [phone] Allergies No known active allergies Medications Medication [...] back pain 05/01/2023 S/P lumbar fusion 04/16/2023 Social History Tobacco Use Types Packs/Day Years [...] Comments Blood Pressure 127/52 05/05/2023 8:55 AM [employer] Pulse 64 05/05/2023 8:54 AM [employer] Temperature 36.6 ??C (97.8 ??F) 05/05/2023 7:20 AM CS T Respiratory Rate 18 05/05/2023 7:20 AM [employer] Oxygen Saturation 96% 05/05/2023 7:20 AM [employer] Inhaled Oxygen Concentration - - Weight 101.1 kg (222 lb 12.8 oz) 2022 12:36 AM [employer] Height 180.3 cm (5' 11) 05/02/2023 12: 36 AM [employer] Body Mass Index 31.07 05/02/2023 12:36 AM [employer] Plan of Treatment Not on file Medical Devices Implanted Type Area Community Relations Rep Device Identifier Shelf Expiration Date Model / Serial / Lot Graft Bone Magnifuse [id number] - [id number] Implanted:Qty : 1 on 04/16/2023 by Thang Negrete MD at [facility] Bone/Tissu e/Biologic N/A: Spine Lumbar [employer] [id number] 03/19/2025 [id number] / [id number] / Graft Bone Fibers Dbf 6ml Inj [id number] Preloaded - [id number] Implanted:Qty : 1 on 04/16/2023 by Thang Negrete MD at [facility] Bone/Tissu e/Biologic N/A: Spine Lumbar [employer] 10/21/2024 [id number] / [id number] / Pass Lp Crosslink [id number] Implanted:Qty : 1 on 04/16/2023 by Thang Negrete MD at [facility] Metallic Hardware/A nchor N/A: Spine Lumbar [employer] [id number] / / [id number] NOV 2022 Imp Screw Bn Medt Spine 50x6.5mm 5.5/6mm Paul - [id number] Implanted:Qty : 6 on 04/16/2023 by Thang Negrete MD at [facility] Metallic Hardware/A nchor N/A: Spine Lumbar [employer] [id number] / / [id number] 2022 Imp Screw Bn Medt Spine 45x7.5mm 5.5/6mm Paul - [id number] Implanted:Qty : 2 on 04/16/2023 by Thang Negrete MD at [facility] Metallic Hardware/A nchor N/A: Spine Lumbar [employer] [id number] / / [id number] 2022 Imp Scr Set Medt Solera Break Off 5.5mm Ti [id number] - [id number] Implanted:Qty : 8 on 04/16/2023 by Thang Negrete MD at [facility] Metallic Hardware/A nchor N/A: Spine Lumbar [employer] [id number] / / [id number] [address] Imp Spi Interbody Medt [address] Long 7mm [id number] - [id number] Implanted:Qty : 1 on 04/16/2023 by Thang Negrete MD at [facility] Metallic Hardware/A nchor N/A: Spine Lumbar [employer] 12/26/2029 [id number] / / [id number] Imp Spi Interbody Medt [address] Long 7mm [id number] - [id number] Implanted:Qty : 1 on 04/16/2023 by Thang Negrete MD at [facility] Metallic Hardware/A nchor N/A: Spine Lumbar [employer] 11/28/2029 [id number] / / [id number] Imp Spi Interbody Medt [address] Long 7mm [id number] - [id number] Implanted:Qty : 1 on 04/16/2023 by Thang Negrete MD at [facility] Metallic Hardware/A nchor N/A: Spine Lumbar [employer] 11/26/2029 [id number] / / [id number] Imp Paul Medt Solera Cvd 5.5x90mm Ti [id number] - [id number] Implanted:Qty : 2 on 04/16/2023 by Thang Negrete MD at [facility] Metallic Hardware/A nchor N/A: Spine Lumbar [employer] [id number] / / [id number] 2022 Procedures Procedure Name Priority Date/Time Associated Diagnosis Comments GLUCOSE BY METER Routine 05/05/2023 1:59 AM [employer]GRAMMER [employer] from Last 3 Months or Most Recently Relevant to Health Maintenance Results * (ABNORMAL) Glucose by meter (05/05/2023 1:59 AM [employer]GRAMMER [employer]) GLUCOSE BY METER POCT 157(H) 70 - 99 mg/dL 05/05/2023 2:06 AM [employer]GRAMMER [employer] LABORATORY POC Blood, Capillary BLOOD SPECIMEN / Unknown 05/05/2023 1:59 AM PROGRAMMER BUSINESS 05/05/2023 2:06 AM PROGRAMMER BUSINESS Rohit [facility] [address] Lab (1st floor, no room number) [place] [address], [facility] [phone] from Last 3 Months or Most Recently Relevant to Health Maintenance Advance Directives For more information, please contact: [phone] * Full Code (Latest Code Status on [...] by: Other (please patricia t) Care Teams Ux Consultant Relationship Specialty Start Date End Date Niall Harding MD [address] [place] [address] PCP - General 04/16/23
--- OUTSIDE RECORDS SUMMARY | 2023-09-04 23:28 | XMS_ITS | Continuity of Care Document ---
Author Name Unknown Address [address] [place] [address] Phone [phone] Organization [facility], [facility] Address [address] [place] [address] Care Team Providers Care Stacker Driver Name Role Phone ALYSHA TREADWELL Primary Care Provider [phone] Assessment No assessment recorded. Plan of Treatment [...] HAND ASSISTED LAPAROSCOPIC (SURG) completed Teresa aguilar [facility] 08/27/2023 10:55:06 08/07/19 24 COMPLEX VISIT completed Carlos Elizabeth MD [address] [place], [place] [address], [place], [address], [facility] 08/07/2023 13:52:16 procedure on back completed Carlos Elizabeth MD [address] [place] [address],[address], [place], [address], [facility] 08/07/2023 12:10:59 total replacement of hip completed Carlos Elizabeth MD [address] [place] [address],[facility] [address], [place], [address], [facility] 08/07/2023 12:11:10 Imaging Results None recorded. Procedure Notes None recorded. Medical Equipment None [...] Address Organization Details Last Updated DateTime 08/07/2023 806249.28 g 31.4 kg/m2 180.34 cm Carlos Elizabeth MD [address] [place] [address],[facility] [address], [place], [phone] [place] [address] 08/07/2023 12:07:38 Social History Question Answer Notes LastModified by Organizat ion Details LastModified Time Tobacco Smoking Status Former Smoker Carlos Elizabeth MD [address] [place] [address],[address], [address], [facility] 08/07/2023 12:10:26 What Is Your Level Of Alcohol Consumption? Occasional Information not available 08/07/2023 What Is Your Level Of Caffeine Consumption? Occasional Information not available 08/07/2023 When Did You Quit Smoking? 17+yearssinjudy ellynphilip Information not available 08/07/2023 What Was The Date Of Your Most Recent Tobacco Screening? 08/07/2023 Information not available 08/07/2023 Sex: Male Functional Status None recorded. Mental Status None recorded. Family History Nothing Reported. Medical History Condition Response Other N High Blood Pressure Y Kidney Stones N Lung Disease N Depression Y GERD/Acid Reflux Y Diabetes N Sexually Transmitted Infection N Bleeding Disorder N Cancer N High Cholesterol Y Heart Disease N Immunizations Vaccine Type Date Status Provider Name and Address Organization Details Recorded Time influenza, trivalent, adjuvanted 02/24/2019 completed Carlos Elizabeth MD [address] [place] [address],[address], [phone] [place] [address] 08/07/2023 12:07:49 influenza, trivalent, adjuvanted 02/27/2018 completed Carlos Elizabeth MD [address] [place] [address],[address], [phone] [place] [address] 08/07/2023 12:07:49 influenza, trivalent, adjuvanted 04/09/2017 completed Carlos Elizabeth MD [address] [place] [address],[address] [phone] [place] [address] 08/07/2023 12:07:49 zoster recombinant 11/25/2019 completed Carlos ochoa MD [address] [place] [address],[address], [phone] [place] [address] Urolog 08/07/2023 12:07:49 zoster recombinant 02/21/2020 completed Carlos ochoa MD [address] [place] [address],[address], [place], [address], [facility] 08/07/2023 12:07:49 influenza, high-dose, quadrivalent 02/17/2023 completed Carlos Elizabeth MD [address] [place] [address],[address], [place], [address], [facility] 08/07/2023 12:07:49 influenza, high-dose, quadrivalent 03/14/2022 completed Carlos Elizabeth MD [address] [place] [address],[address], [place], [address], [facility] 08/07/2023 12:07:49 Influenza vaccine, quadrivalent, adjuvanted 02/01/2020 completed Carlos Elizabeth MD [address] [place] [address],[address], [place], [address], [facility] 08/07/2023 12:07:49 Influenza vaccine, quadrivalent, adjuvanted 02/01/2021 completed Carlos Elizabeth MD [address] [place] [address],[address], [place], [address], [facility] 08/07/2023 12:07:49 COVID-19, mRNA, LNP-S, PF, 30 mcg/0.3 mL dose 07/05/2020 completed Carlos Elizabeth MD [address] [place] [address],[address], [place], [address], [facility] 08/07/2023 12:07:50 COVID-19, mRNA, LNP-S, PF, 30 mcg/0.3 mL dose 07/26/2020 completed Carlos Elizabeth MD [address] [place] [address],[address], [place], [address], [facility] 08/07/2023 12:07:50 COVID-19, mRNA, LNP-S, PF, 30 mcg/0.3 mL dose 02/09/2021 completed Carlos Elizabeth MD [address] [place] [address],[address], [place], [address], [facility] 08/07/2023 12:07:50 COVID-19, mRNA, LNP-S, PF, 30 mcg/0.3 mL dose, radha-sucrose 08/15/2021 completed Carlos Elizabeth MD [address] [place] [address],[address], [place], [address], [facility] 08/07/2023 12:07:50 COVID-19, mRNA, LNP-S, bivalent, PF, 30 mcg/0.3 mL dose 03/14/2022 completed Carlos Elizabeth MD [address] [place] [address],[address], [place], [address], [facility] 08/07/2023 12:07:50 RSV, recombinant, protein subunit RSVpreF, adjuvant reconstituted, 0.5 mL, PF 03/19/2023 completed Carlos Elizabeth MD [address] [place] [address],[address], [place], [address], [facility] 08/07/2023 12:07:50 COVID-19, mRNA, LNP-S, PF, radha-sucrose, 30 mcg/0.3 mL 02/17/2023 completed Carlos Elizabeth MD [address] [place] [address],[address], [place], [address], [facility] 08/07/2023 12:07:50 pneumococcal polysaccharide PPV23 01/28/2008 completed Carlos Elizabeth MD [address] [place] [address],[address], [place], [address], [facility] 08/07/2023 12:07:50 pneumococcal polysaccharide PPV23 02/24/2019 completed Carlos Elizabeth MD [address] [place] [address],[facility] [address], [place], [address], [facility] 08/07/2023 12:07:50 influenza, unspecified formulation 03/11/2018 completed Carlos Elizabeth MD [address] [place] [address],[address], [place], [address], [facility] 08/07/2023 12:07:50 Tdap 08/01/2009 completed Carlos Elizabeht MD [address] [place] [address],[address], [place], [address], [facility] 08/07/2023 12:07:50 Tdap 11/25/2019 completed Carlos Elizabeth MD [address] [place] [address],[address], [place], [address], [facility] 08/07/2023 12:07:50 Novel [id number], all formulations 04/25/2009 completed Carlos Elizabeth MD [address] [place] [address],[address], [place], [address], [facility] 08/07/2023 12:07:50 Pneumococcal conjugate PCV 13 10/30/2016 completed Carlos Elizabeth MD [address] [place] [address],[address], [place], [address], [facility] 08/07/2023 12:07:50 zoster live 03/05/2012 completed Carlos Elizabeth MD [address] [place] [address],[address] [place] [address], [address], [facility] 08/07/2023 12:07:50 Influenza, seasonal, injectable 02/20/2015 completed Carlos Elizabeth MD [address] [place] [address],[address], [place], [address], [facility] 08/07/2023 12:07:50 Influenza, seasonal, injectable 02/23/2013 completed Carlos Elizabeth MD [address] [place] [address],[address] [place] [address], [address], [facility] 08/07/2023 12:07:50 Influenza, seasonal, injectable 03/03/2008 completed Carlos Elizabeth MD [address] [place] [address],[address], [place], [address], [facility] 08/07/2023 12:07:50 Influenza, seasonal, injectable 03/05/2012 completed Carlos Elizabeth MD [address] [place] [address],[address], [place], [address], [facility] 08/07/2023 12:07:50 Influenza, seasonal, injectable 04/01/2007 completed Carlos Elizabeth MD [address] [place] [address],[address] [place] [address], [address], [facility] 08/07/2023 12:07:50 Influenza, seasonal, injectable, preservative free 03/01/2011 completed Carlos Elizabeth MD [address] [place] [address],[address] [place] [address], [address], [facility] 08/07/2023 12:07:50 Influenza, seasonal, injectable, preservative free 04/25/2009 completed Carlos Elizabeth MD [address] [place] [address],[address], [address], [facility] 08/07/2023 12:07:50 influenza, injectable, quadrivalent, preservative free 03/03/2014 completed Carlos Elizabeth MD [address] [place] [address],[address], [address], [facility] 08/07/2023 12:07:50 influenza, injectable, quadrivalent, preservative free 04/05/2016 completed Carlos Elizabeth MD [address] [place] [address],[address], [address] [place] [address] Urolog 08/07/2023 12:07:50 Past Encounters Encounter ID Performer Location Encounter Start Date Encounter Closed Date Diagnosis/Indication Diagnosis SNOMED-CT Code [id number] Carlos Elizabeth MD [facility] [address] [place] [id number] 08/07/2023 11:55:10 08/08/2023 09:52:10 Renal mass [id number] Health Concerns Section Related Observation LastModified by Organization Detai ls LastModified Time None Recorded Concern Status LastModified by Organization Details LastModified Time None Recorded Payers Encounter Date Sequence Insurance Name Policy Number Policy Lim Covered Member ID Lim Member ID Guarantor Name 08/07/2023 1 [place] - MEDICARE COST [id number] Edwardo Simons [id number] Edwardo Simons Notes Date Note Type Note [...] from a posterior approach. Carlos Elizabeth MD [address] [facility],[address], [place], [address], [facility] 08/07/2023 13:52:30
--- OUTSIDE RECORDS SUMMARY | 2023-09-04 23:28 | XMS_ITS | Clinical Summary ---
Author Name Unknown Organization [facility] Address [address] [place] [address] Care Team Providers Care Dental Hygiene Professor Name Role Phone Sukhjinder Trinidad MD Primary Care Provider Unavail able Allergies No known active allergies Medications Medication Sig Dispensed Refills Start Date End Date Status aspirin 81 mg oral TbEC Take 81 mg by mouth Once Daily. Active atenolol (TENORMIN) 50 mg oral tablet Take 50 mg by mouth Once Daily. Active buPROPion XL (WELLBUTRIN XL) 150 mg oral 24 hr extended release tablet Take 150 mg by mouth Once Daily. Active celecoxib (CELEBREX) 200 mg oral capsule Take 200 mg by mouth twice a day as needed. Active citalopram (CELEXA) 40 mg oral tablet Take by mouth Once Daily. Active metFORMIN (GLUCOPHAGE) 500 mg oral Tab Take 1,000 mg by mouth once a day with breakfast. Active cyclobenzaprine (FLEXERIL) 10 mg oral tablet Take 10 mg by mouth three times a day as needed for Muscle spasm. Active atorvastatin (LIPITOR) 20 mg oral Tab Take 20 mg by mouth every morning. Active omeprazole (PRILOSEC) 20 mg oral CpDR Take 20 mg by mouth Once Daily. Active traZODone (DESYREL) 50 mg oral tablet Take 150 mg by mouth at bedtime as needed for Sleep. Active HYDROcodone 5 mg-acetaminophen 325 mg (NORCO) 5-325 mg oral Tab Take 2 tablets by mouth every 4 (four) hours as needed for Pain. Active multivitamin (CERTAVITE) 18-400 mg-mcg oral Tab Take 1 tablet by mouth Once Daily. Active peg 400-propylene glycol, PF, (SYSTANE, PF,) 0.4-0.3 % Opht Dpet 1 drop twice a day as needed. Active ascorbic acid, vitamin C, 500 mg oral tablet Take 500 mg by mouth once daily. Active GLUCOSAMINE HCL AND SULFATE (GLUCOSAMINE COMPLEX ORAL) Take by mouth Twice a Day. Active LORATADINE (CLARITIN ORAL) Take by mouth Twice a Day. Active calcium carbonate, 600 mg elemental calcium, 600 mg (1,500 mg) oral tablet Take 1 tablet by mouth Twice a Day. Active OMEGA-3 FATTY ACIDS/FISH OIL (OMEGA 3 FISH OIL ORAL) Take by mouth. Acti ve lifitegrast (XIIDRA OPHT) Instill into the eye. Active Active Problems Problem Noted Date Diagnosed Date Unilateral primary osteoarthritis, left hip 11/2017 Pain in unspecified hip 04/06/2018 Unspecified disturbances of skin sensation 08/07 Lumbosacral spondylosis 03/15/2016 Hx of lumbosacral spine surgery 02/26/2016 Overview: Bilateral medial branch block Lumbar-3 sacral 1 Spondylosis without myelopat hy or radiculopathy, lumbosacral region 01/29/2016 Disorder of sacrum 01/09/2016 Other intervertebral disc degeneration, lumbar r egion 12/19/2015 Spondylosis without myelopat hy or radiculopathy, lumbar region 12/19/2015 Sacrococcygeal disorders, not elsewhere classifi ed 12/19/2015 Immunizations Name Administration Dates Next Due Frengo 12+ Yrs MONOVALENT COVID Vaccine (purple cap) 07/26/2020,07/05/2020 Family History Medical History Relation Comments Colon Cancer Brother Diabetes Father Thyroid Disease Mother Relation Status Comments Brother Father Mother Social History Tobacco Use Types Packs/Day Years Used Date Smoking Tobacco: Former Smokeless Tobacco: Never Comments:quit 1985 Alcohol Use Standard Drinks/Week Comments Yes 4 (1 standard drink = 0.6 oz pur e alcohol) weekly Sex and Gender Information Value Date Recorded Sex Assigned at Male 07/04/2020 1:48 PM SWITCHBOARD AND CONTROL ROOM OPERATOR Gender Identity Male 07/04/2020 1:48 PM SWITCHBOARD AND CONTROL ROOM OPERATOR Sexual Orientation Straight 07/04/2020 1: 48 PM SWITCHBOARD AND CONTROL ROOM OPERATOR Last Filed Vital Signs Vital Sign Reading Time Taken Comments Blood Pressure 189/83 07/07/2018 12:15 PM SWITCHBOARD AND CONTROL ROOM OPERATOR Pulse 65 07/07/2018 12:15 PM SWITCHBOARD AND CONTROL ROOM OPERATOR Temperature 36.2 ??C (97.2 ??F) 07/07/2018 12:[address] Respiratory Rate 14 07/07/2018 12:15 PM SWITCHBOARD AND CONTROL ROOM OPERATOR Oxygen Saturation 96% 07/07/2018 12:15 PM SWITCHBOARD AND CONTROL ROOM OPERATOR Inhaled Oxygen Concentration - - Weight 114.8 kg (253 lb) 07/01/2018 10:20 AM SWITCHBOARD AND CONTROL ROOM OPERATOR Height 175.3 cm (5' 9) 07/01/2018 10:20 AM SWITCHBOARD AND CONTROL ROOM OPERATOR Body Mass Index 37.36 07/01/2018 10:20 AM SWITCHBOARD AND CONTROL ROOM OPERATOR Plan of Treatment Health Maintenance Due Date Last Done Comments AAA Ultrasound Screening 1950 Colonoscopy 1950 Eye Exam 1950 Hepatitis C Screening 1950 Depression Assessment (PHQ-2) 09/29/1952 RSV 60+ Yrs (1 - 1-dose 60+ series) 2011 HgbA1C 10/21/2018 04/22/2018 Creatinine 04/22/2019 04/22/2018 Yearly Review of HCD 06/30/2019 06/30/2018, 05/18/2018, 06/05/2016, Additional history exists COVID-19 Vaccine (2022-2 4 season) 2023 07/26/2020, 07/05/2020 Influenza Vaccine (Season Ended) 2024 04/05/2016, 03/03/2014, 03/01/2011, Additional history exists Adult Tetanus Booster 11/24/2029 11/25/2019 , 08/01/2009, 11/02/1994 Pneumococcal 65+ Completed 02/24/2019, , 01/28/2008 Zoster Vaccine Completed 02/21/2020, 07/0 01/2020, 03/05/2012 Procedures Procedure Name Priority Date/Time Associated Diagnosis Comments XR CHEST AP PORT 11/14/2005 6:40 AM CDT XR CHEST AP PORT 11/12/2005 11:3 9 AM CDT from Last 3 Months or Most Recently Relevant to Health Maintenance Results * XR CHEST AP PORT (11/14/2005 6:40 AM CDT) Only the most recent of2 resultswithin the time period is included. Anatomical Region Laterality Modality Chest Other 11/14/2005 6:40 AM CDT Impressions 11/14/2005 11:45 AM CDT Increased basilar infiltrates and pleural fluid Narrative 11/14/2005 11:45 AM CDT resp failure (SUPINE PORTABLE CHEST: 11/14/2005 (0630 HOURS) CLINICAL DATA: Respiratory failure. COMPARISON: 11/13. Endotracheal tube, feeding tube and right-sided central venous catheter are unchanged. Lungs are not fully expanded. There is increased density to basilar infiltrates and pleural fluid. Heart is enlarged and there is some vascular congestion. Marcus Asher MD XRAY ORDERABLE from Last 3 Months or Most Recently Relevant to Health Maintenance Care Teams Dental Hygiene Professor Relationship Specialty Start Date End Date Sukhjinder Trinidad MD PCP - General 01/15/16
--- OUTSIDE RECORDS SUMMARY | 2023-09-04 23:28 | XMS_ITS | Referral Summary ---
Author Name Unknown Organization [facility] Address [address] [place] [address] Care Team Providers Care Clothing Pattern Preparer Name Role Phone Sukhjinder Trinidad MD Primary [...] 12/19/2015 Immunizations Name Administration Dates Next Due Pfizer 12+ Yrs MONOVALENT COVID Vaccine (purple cap) 07/26/2020,07/05/2020 Social History Tobacco Use Types Packs/Day Years Used Date Smoking Tobacco: Former Smokeless Tobacco: Never Comments:quit 1985 Alcohol Use Standard Drinks/Week Comments Yes 4 (1 standard drink = 0.6 oz pur e alcohol) weekly Sex and Gender Information Value Date Recorded Sex Assigned at Male 07/04/2020 1:48 PM [employer] Gender Identity Male 07/04/2020 1:48 PM [employer] Sexual Orientation Straight 07/04/2020 1: 48 PM [employer] Last Filed Vital Signs Vital Sign Reading Time Taken Comments Blood Pressure 189/83 07/07/2018 12:15 PM [employer] Pulse 65 07/07/2018 12:15 PM [employer] Temperature 36.2 ??C (97.2 ??F) 07/07/2018 12:[address] Respiratory Rate 14 07/07/2018 12:15 PM [employer] Oxygen Saturation 96% 07/07/2018 12:15 PM [employer] Inhaled Oxygen Concentration - - Weight 114.8 kg (253 lb) 07/01/2018 10:20 AM [employer] Height 175.3 cm (5' 9) 07/01/2018 10:20 AM [employer] Body Mass Index 37.36 07/01/2018 10:20 AM [employer] Plan of Treatment Not on file Procedures Procedure Name Priority Date/Time Associated Diagnosis [...] Recently Relevant to Health Maintenance Care Teams Clothing Pattern Preparer Relationship Specialty Start Date End Date Sukhjinder Trinidad MD PCP - General 01/15/16
--- OUTSIDE RECORDS SUMMARY | 2023-09-04 23:29 | XMS_ITS | Clinical Summary ---
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 Right kidney ? 4 10:57 AM [facility] Final Diagnosis A) RIGHT KIDNEY, RADICAL NEPHRECTOMY: 1. Clear cell renal cell carcinoma, ISUP grade 4 of 4 2. Tumor grossly involves the renal vein, adipose tissue at the renal hilum, and pelvicalyceal system 3. The surgical margins are negative for tumor 4. Lymphatic/vascular invasion by tumor is present 5. 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 Please see kidney cancer staging parameters below 4 10:57 AM [facility] Comment Select slides of thi s case seen in consultation with Dr. Canales, who concurs with tumor classification, grade, and stage. 4 10:57 AM [facility] Clinical Information Right renal mass 4 10:57 AM [facility] Gross Description A) Received fresh, labeled with the patient's name and Right Kidney, is a 2800 g right radical nephrectomy specimen to include a kidney (15 x 9 x 7 cm), with attached ureter (10 x 0.4 cm) and attached perinephric fat to a thickness of up to 7 cm. ??The above weight includes a 25 x 18 x 7 cm aggregate of disrupted separate adipose. The hilar vessel margins appear patent without gross renal vein margin tumor involvement. The margins are trimmed en face as is the ureteral margin. The focally intact Gerota's fascia is inked blue. The perinephric fat is inked black. The kidney is bivalved to reveal a tumor located in the upper pole with the following characteristics: Tumor characteristics: Tumor size: 8.6 x 5.5 x 5 cm Tumor color: The mass displays 2 distinct color patterns and approximately 1:1 ratio, dubon-white and lobulated and yellow-dubon with hemorrhage and central white-dubon change Areas of dubon/white change: Present Areas of cystic change: Absent Areas of necrosis: Absent Areas of intra-tumor hemorrhage: Present (15%) Distance of tumor to margins: Ureter margin: 15 cm Vascular margins: 4.8 cm Hilar soft tissue margin: 3 cm Other: N/A Extent of involvement of tumor: Confined to the kidney: No - appears to extend to perinephric fat, into renal sinus and renal pelvis Extension through capsule into perinephric fat: Grossly abuts Involvement of renal vein: Yes Involvement of renal sinus fat: Yes Involvement of a major renal calyx: Yes Involvement of Gerota's fascia: No -Gerota's fascia detached and appears greater than 1 cm Additional findings: Other lesions: Two benign appearing unilocular cysts 2.1 x 1.5 cm and 6 x 5 cm Cortical thickness: 0.9 cm Ureter and renal pelvis: Grossly unremarkable Adrenal gland present: No Lymph nodes: No [employer]ing [employer] sections are submitted in 10 cassettes as follows: 1. ??Ureter and vascular margins, en face 2. ??Tumor invading renal sinus 3. ??Tumor involving renal pelvis 4. ??Tumor involving renal vein 4.8 cm from the margin 5. ??Dubon-white region of tumor 6. ??Transition from dubon-white to yellow area of tumor 7-8. ??Yellow hemorrhagic portion of mass with perinephric fat junction 9. ??Uninvolved kidney 10. ??Both cystic structures 11-12. ??Hilar fat [facility] 08/22/2023 10:57 AM CDT [facility] Microscopic Description The final diagnosis is based on microscopic examination of appropriate sections of all specimens. Immunohistochemical staining was performed, the results of which are as follows: - CK7: Negative - CD10: Positive (strong diffuse membranous) - RCC: Patchy positive - CAIX: Variably positive - GATA3: Negative Support for the interpretation of this case may have included the use of immunohistochemistry and/or in situ hybridization tests that were performed by [employer] and whose performance characteristics were evaluated by pathologists from [facility]. These tests have not been cleared or approved by the U.S. Food and Drug Administration. The FDA has determined that such clearance or approval is not necessary. These tests are used for clinical purposes and should not be regarded as investigational or for research. This laboratory is certified under the Clinical Laboratory Improvement Amendments of 1988 (CLIA) as qualified to perform high complexity clinical laboratory testing. 4 10:57 AM CDT [facility] SYNOPTIC REPORTING KIDNEY: Nephrectomy KIDNEY: NEPHRECTOMY - All Specimens 8th Edition - Protocol posted: 11/15/2020 SPECIMEN ?? Procedure: ?Radical nephrectomy ?? Specimen Laterality: ?Right TUMOR ?? Tumor Focality: ?Unifocal ?? Tumor Site: ?Upper pole ?? Tumor Size: ?Greatest Dimension (Centimeters): 8.6 cm ?? Histologic Type: ?Clear cell renal cell carcinoma ?? Histologic Grade (WHO / ISUP): ?G4 (extreme nuclear pleomorphism and / or multi-nuclear giant cells and / or rhabdoid and / or sarcomatoid differentiation) ?? Tumor Extent: ?Extends into renal sinus ?? Tumor Extent: ?Extends into major vein (renal vein or its segmental branches, inferior vena cava) ?? Tumor Extent: ?Extends into pelvicalyceal system ?? Sarcomatoid Features: ?Not identified ?? Rhabdoid Features: ?Not identified ?? Tumor Necrosis: ?Present ?? Lymphovascular Invasion: ?Present MARGINS ?? Margin Status: ?All margins negative for invasive carcinoma REGIONAL LYMPH NODES ?? Regional Lymph Node Status: ?Not applicable (no regional lymph nodes submitted or found) PATHOLOGIC STAGE CLASSIFICATION (pTNM, AJCC 8th Edition) ?? Reporting of pT, pN, and (when applicable) pM categories is based on information available to the pathologist at the time the report is issued. As per the AJCC (Chapter 1, 8th Ed.) it is the managing physician? s responsibility to establish the final pathologic stage based upon all pertinent information, including but potentially not limited to this pathology report. ?? Primary Tumor (pT): ?pT3a ?? Regional Lymph Nodes (pN): ?pN not assigned (no nodes submitted or found) ADDITIONAL FINDINGS ?? Additional Findings in Nonneoplastic Kidney: ?None identified ?? Additional Findings: ?Cyst(s): Cortical inclusion ?? Comment(s): ?Block for ancillary testing: A6 10:57 AM CDT [facility] Additional Information Interpreted at [facility] - [address] [facility] [address], [place] [address] 10:57 AM CDT [facility] Tissue (Right Kidney) 08/22/2023 11:51 AM CDT 08/22/2023 11:58 AM CDT Carlos Elizabeth MD PATHOLOGY/CYTOLOG Y [facility] [address] [place] [address], * HCHG TUBE PR1, HCHG STYLET PR1 (08/22/2023 10:59 AM CDT) Narrative Rashi Glaser CRNA - 08/22/2023 10:59 AM CDT Rashi Glaser CRNA ? 08/22/2023 11:06 AM Procedure: ETT Patient location during procedure: OR ETT Properties Mask Ventilation: easy Final Technique: direct laryngoscopy Type: straight Location: oral Cuffed: yes Tube Size: 7.5 mm Stylet: yes Laryngoscope Blade: Telles Blade Size: 2 Cormack-Lehane Grade View: 1 Insertion Attempts: 1 Placement Verification: auscultation, end tidal CO2 and symmetrical chest wall movement Assessment: pharynx clear, atraumatic and dentition unchanged Secured at: 22 Measured From: lips Bite Block: soft Difficulty: 0 (not difficult) Rashi Glaser CRNA ANESTHESIA PX NOTE ORDERABLES * (ABNORMAL) GLUCOSE METER (08/22/2023 8:45 AM CDT) GLUCOSE METER 185(H) 65 - 100 mg/dL 08/22/2023 8:51 AM CDT [facility] Blood BLOOD SPECIMEN / Unknown 08/22/2023 8:45 AM CDT 08/22/2023 8:50 AM CDT Carlos Elizabeth MD CHEMISTRY [facility] [address] [place] [address], * TYPE & SCREEN (08/22/2023 8:37 AM CDT) ABORH B Rh Positive 08/22/2023 10:02 AM CDT [facility] ANTIBODY SCREEN Negative Negative 08/22/2023 10:02 AM CDT [facility] SPECIMEN EXPIRATION DATE/TIME 08/25/23 23:59 08/22/2023 10:02 AM CDT [facility] Blood BLOOD SPECIMEN / Unknown Venipuncture / Unknown 08/22/2023 8:37 AM CDT 08/22/2023 9:19 AM CDT Marielle EMERSON BLOOD BANK Performing Organization Address [facility]/ZIP Co de Phone Number [facility] [address] [place] [address], * SCAN-CARDIAC STRIP (08/22/2023 12:00 AM CDT) Narrative 08/22/2023 12:00 AM CDT Ordered by an unspecified provider. Other Clinical Staff OTHER * POTASSIUM,ISTAT (08/21/2023 1:07 PM CDT) POTASSIUM, POCT 4.5 3.5 - 5.0 mmol/L 08/21/2023 1:09 PM CDT [facility] Blood BLOOD SPECIMEN / Unknown 08/21/2023 1:07 PM CDT 08/21/2023 1:09 PM CDT Ralf Siddiqui MD CHEMISTRY [facility] [address] [place] [address], [place] [phone] * (ABNORMAL) HEMOGLOBIN (08/20/2023 1:58 PM CDT) Only the most recent of2 resultswithin the time period is included. HEMOGLOBIN 10.5(L) 13.5 - 17.5 g/dL 08/20/2023 2:06 PM CDT [facility] MCV 81 80 - 100 fL 08/20/2023 2:06 PM CDT [facility] Blood BLOOD SPECIMEN / Unknown Venipuncture / Unknown 08/20/2023 1:58 PM CDT 08/20/2023 2:00 PM CDT Ralf Siddiqui MD HEMATOLOGY [facility] [address] [place] [address], * MR ABDOMEN RENAL WWO (07/30/2023 9:23 AM CDT) Anatomical Region Laterality Modality Abdomen, KIDNEY L, KIDNEY R, KIDNEYS Magnetic Resonance Narrative 07/31/2023 9:50 AM CDT Indication: Renal mass. Comparison: Renal ultrasound dated 24 July 2023. Technique: Abdominal MRI with T1 in and out of phase, T2, diffusion-weighted, and progressively delayed postcontrast images. ??Intravenous gadolinium administered. Findings: Minimal diffuse fatty filtration of the liver. 1.7 cm cyst extending off segment 6 of the liver. ??No other focal abnormalities identified in the visualized portions of the liver, spleen, pancreas, and adrenal glands. 10.0 x 6.3 x 6.0 cm heterogeneous enhancing mass extending posteriorly off the superior pole and interpolar regions of the right kidney. A few cysts in the kidneys with the largest extending off the anterior aspect of the interpolar region of the right kidney measuring 4.9 cm. 1.6 cm septated cyst, with possible minimal enhancement of the septations, extending anteriorly off the lower pole of the left kidney. No hydronephrosis. Right retroperitoneal adenopathy measuring up to 1.8 cm in short axis. The renal veins and IVC are patent. Stabilization hardware in the lumbar spine. Impression: 10.0 cm enhancing right renal mass likely represents a renal cell carcinoma. Recommend urology consultation. Retroperitoneal traci metastases. 1.6 cm septated cyst extending off the lower pole of the left kidney. Bosniak 2F cyst. Recommend follow-up CT or MRI in 6 months. Niall Harding MD MR * US RENAL AND BLADDER COMPLETE (07/24/2023 3:14 PM [facility] [facility]) Anatomical Region Laterality Modality Abdomen, AORTA, KIDNEYS Ultrasou nd 07/24/2023 3:14 PM [facility] Impressions 07/24/2023 3:18 PM [facility] [facility] 1. ??Findings suggestive of medical renal disease. 2. ??Heterogeneous mass in the upper pole of the right kidney measures 6.4 cm. Follow-up with renal mass MRI. 3. ??No hydronephrosis. 4. ??Benign right lower pole renal cyst. No follow up required. Narrative 07/24/2023 3:18 PM [facility] For Patients: As a result of the Cures Act, medical imaging exams and procedure reports are released immediately into your electronic medical record. You may view this report before your referring provider. If you have questions, please contact your health care provider. EXAM: US RENAL AND BLADDER COMPLETE LOCATION: [facility] DATE: 07/24/2023 INDICATION: Stage 3a Chronic Kidney Disease (hc) COMPARISON: None. TECHNIQUE: Routine Bilateral Renal and Bladder Ultrasound. FINDINGS: RIGHT KIDNEY: 13.2 cm. Increased renal cortical echogenicity. No hydronephrosis. Benign right lower pole renal cyst measures 5.3 x 5.3 x 4.9 cm. Heterogeneous mass in the upper pole the right kidney measures 6.4 x 5.5 x 5.1 cm. LEFT KIDNEY: 12.7 cm. Increased renal cortical echogenicity. No hydronephrosis. BLADDER: The bladder is incompletely distended accentuating wall thickening. Procedure Note Adria Pulliam MD - 07/24/2023 For Patients: As a result of the Cures Act, medical imagingexams and procedure reports are released immediately into your electronicmedical record. You may view this report before your referring provider.If you have questions, please contact your health care provider. EXAM: US RENAL AND BLADDER COMPLETE LOCATION: [facility] DATE: 07/24/2023 INDICATION: Stage 3a Chronic Kidney Disease (hc) COMPARISON: None. TECHNIQUE: Routine Bilateral Renal and Bladder Ultrasound. FINDINGS: RIGHT KIDNEY: 13.2 cm. Increased renal cortical echogenicity. Nohydronephrosis. Benign right lower pole renal cyst measures 5.3 x 5.3 x4.9 cm. Heterogeneous mass in the upper pole the right kidney measures 6.4x 5.5 x 5.1 cm. LEFT KIDNEY: 12.7 cm. Increased renal cortical echogenicity. Nohydronephrosis. BLADDER: The bladder is incompletely distended accentuating wallthickening. IMPRESSION: 1. Findings suggestive of medical renal disease. 2. Heterogeneous mass in the upper pole of the right kidney measures 6.4cm. Follow-up with renal mass MRI. 3. No hydronephrosis. 4. Benign right lower pole renal cyst. No follow up required. Niall Harding MD US * (ABNORMAL) PROTEIN ELP SERUM W REFLEX (07/08/2023 1:39 PM [facility] [facility]) ELP,ALBUMIN 2.96(L) 3.31 - 5.31 g/dL 07/09/2023 10:32 AM [employer] [facility] ELP,ALPHA 1 0.52(H) 0.19 - 0.42 g/dL 07/09/2023 10:32 AM [employer] ELP,ALPHA 2 1.10(H) 0.44 - 1.03 g/dL 07/09/2023 10:32 AM [facility] ELP,GAMMA 0.67 0.59 - 1.46 g/dL 07/09/2023 10:32 AM [facility] ELP,BETA 0.74 0.52 - 1.05 g/dL 07/09/2023 10:32 AM [facility] ELP INTERP,SERUM Increased Alpha-globulins, probably reactive. ??Moderate hypoalbuminemia, may be seen in nephrosis, malnutrition, malabsorption and chronic disease. No monoclonal protein detected. Interpreted and electronically signed by: Rodolfo Rodas Jr, MD 07/09/2023 10:32 AM [facility] PROTEIN,TOTAL 6.0 6.0 - 8.0 g/dL 07/09/2023 10:32 AM [facility] Blood BLOOD SPECIMEN / Unknown Venipuncture / Unknown 07/08/2023 1:39 PM [facility] [facility] 07/08/2023 1:40 PM [facility] [facility] Niall Harding MD [facility] [address] [place] [address], * (ABNORMAL) CBC WITH AUTO DIFFERENTIAL (07/08/2023 1:39 PM [facility]) WHITE BLOOD COUNT 9.3 4.5 - 11.0 thou/cu mm 07/08/2023 2:33 PM [facility] RED BLOOD COUNT 3.93(L) 4.30 - 5.90 mil/cu mm 07/08/2023 2:33 PM [facility] HEMOGLOBIN 11.1(L) 13.5 - 17.5 g/dL 07/08/2023 2:33 PM [facility] HEMATOCRIT 34.2(L) 37.0 - 53.0 % 07/08/2023 2:33 PM [facility] MCV 87 80 - 100 fL 07/08/2023 2:33 PM [facility] MCH 28.2 26.0 - 34.0 pg 07/08/2023 2:33 PM [facility] MCHC 32.5 32.0 - 36.0 g/dL 07/08/2023 2:33 PM [facility] RDW 14.9 11.5 - 15.5 % 07/08/2023 2:33 PM [facility] PLATELET COUNT 399 140 - 440 thou/cu mm 07/08/2023 2:33 PM [facility] MPV 10.0 6.5 - 11.0 fL 07/08/2023 2:33 PM [facility] [facility] % NEUT 65.7 % 07/08/2023 2:33 PM [facility] [facility] % LYMPH 24.2 % 07/08/2023 2:33 PM [facility] [facility] % MONO 9.2 % 07/08/2023 2:33 PM [facility] [facility] % EOS 0.7 % 07/08/2023 2:33 PM [facility] [facility] % BASO 0.2 % 07/08/2023 2:33 PM [facility] [facility] ABSOLUTE NEUTROPHILS 6.1 1.7 - 7.0 thou/cu mm 07/08/2023 2:33 PM [facility] [facility] ABSOLUTE LYMPHOCYTES 2.3 0.9 - 2.9 thou/cu mm 07/08/2023 2:33 PM [facility] ABSOLUTE MONOCYTES 0.9(H) <0.9 thou/cu mm 07/08/2023 2:33 PM [facility] ABSOLUTE EOSINOPHILS 0.1 <0.5 thou/cu mm 07/08/2023 2:33 PM [facility] ABSOLUTE BASOPHILS 0.0 <0.3 thou/cu mm 07/08/2023 2:33 PM [facility] Blood BLOOD SPECIMEN / Unknown Venipuncture / Unknown 07/08/2023 1:39 PM [facility] [facility] 07/08/2023 1:40 PM [facility] [facility] Niall Harding MD HEMATOLOGY [facility] [address] [place] [address], * TSH (07/08/2023 1:39 PM [facility] [facility]) TSH 1.95 0.27 - 4.20 uIU/mL 07/09/2023 3:37 AM [facility] [facility] Blood BLOOD SPECIMEN / Unknown Venipuncture / Unknown 07/08/2023 1:39 PM [facility] [facility] 07/08/2023 1:40 PM [facility] [facility] Narrative [facility] - 07/09/2023 3:37 AM [facility] In Adults, TSH values between 5.00 and 10.00 uIU/ml do not necessarily indicate the presence of Hypothyroidism. Correlation with clinical findings such as presence of goiter and/or Thyroperoxidase (TPO) Antibody may be helpful. For more information please refer to DAR 2004; 291: 228-238. Niall Harding MD CHEMISTRY [facility] [address] [place] [address], [place] * PERIPHERAL BLD MORPHOLOGY - ORDER WITH RETIC COUNT AND CBC (07/08/2023 1:39 PM [facility] [facility]) Case Report Special Hematology Report ? Case: [id number] ? Authorizing Provider: ??Niall Harding MD ?Collected: ? 07/08/2023 1339 ? Ordering Location: ? [facility] ?? Received: ?07/08/2023 2212 ? Clinic ? Pathologist: ? Heather Dickens MD ? Specimen: ?Blood ? 07/10/2023 9:36 AM [facility] [employer] LABORAT[facility]-C ENTRAL LABORATORY Final Diagnosis PERIPHERAL BLOOD: 1. Mild normocytic anemia 2. No evidence of dysplasia 3. See comment 07/10/2023 9:36 AM [facility] [employer] [facility]ORAT[facility]-C ENTRAL LABORATORY Comment The features of the anemia are nonspecific. The normal ferritin level (254 ng/mL) performed 07/08/2023 argues against an iron deficiency anemia. The differential includes anemia of chronic disease, anemia of chronic renal insufficiency (EGFR = 46), anatomic blood loss and medication effect. There is no morphologic evidence of hemolysis or findings to suggest a primary bone marrow disorder. This case was also reviewed by Sheridan Nicole MT, MS ([facility]). 07/10/2023 9:36 AM [facility] [employer] LABORATORY-C ENTRAL LABORATORY Clinical Information The patient is a 72-year-old male. Pertinent clinical information: Worsening anemia. ??Please evaluate for MDS. 07/08/23 13:39 CREATININE: ?1.60 (H) eGFR: ?46 (L) FERRITIN: ?254.0 VITAMIN B12: ? 423 HAPTOGLOBIN ?: 434 (H) 07/10/2023 9:36 AM [facility] [employer] LABORATORY-C ENTRAL LABORATORY CBC and Differential HEMATOLOGY PARAMETERS Tested at: ?? [facility] ? RESULTS ??EXPECTED VALUES WBC: ? 9.3 ?4.5-71d5526/cu mm ? RBC: ? 3.93 ? 4.30-5.90 mil/cumm ??DECREASED HGB: ? 11.1 ? 13.5-17.5 gm/di ? DECREASED HCT: ? 34.2 ? 37-53% ?DECREASED MCV: ? 87.0 ? 80-100 fl ? NORMOCYTIC MCH: ? 28.2 ? 26-34 pg ? MCHC: ?32.5 ? 32-36 gm/dl ? NORMOCHROMIC RDW: ? 14.9 ? 11.5-15.5% ? PLT: ? 399 ?140-801k2223/u L ? MPV: ? 10.0 ? 6.5-11 fl ? Retic: ?? 1.5 ?0.5-1.5% ? Differential ?Absolute (%) ?Expected (%) ?(x10*9/L) ? (x10*9/L) Neutrophils: ?6.1 (65.6) ?1.7-7.0 (42-72%) ? Lymphocytes: ?2.3 (24.7) ?0.9-2.9 (20-44%) ?? Monocytes: ?0.9 (9.7) ?<0.9 (0-11%) ? ELEVATED Eosinophils: ?0.1 (1.1) ?<0.5 (0-2%) ? 07/10/2023 9:36 AM [facility] [employer] LABORATORY-C ENTRAL LABORATORY Microscopic Description The final diagnosis is based on microscopic examination of an appropriately stained blood smear. 07/10/2023 9:36 AM [facility] [facility]AL LABORATORY Additional Information Interpreted at [facility], Central Laboratory - [address] [place] [address] [facility] [address], [place] [address] 07/10/2023 9:36 AM [facility]TRAL LABORATORY Blood BLOOD SPECIMEN / Unknown 07/08/2023 1:39 PM [facility] [facility] 07/08/2023 10:12 PM [facility] [facility] Comment:CURRENT MEDICATIONSC urrent Outpatient Medications: ? ? allopurinoL (ZYLOPRIM) 300 mg tablet, Take 1 Tablet (300 mg) by mouth once daily., Disp: 90 Tablet, Rfl: 3? ? amLODIPine (NORVASC) 5 mg tablet, Take 1 Tablet (5 mg) by mouth once daily., Disp: 90 Tablet, Rfl: 3? ? artificial tears, peg 400-propylene glycol, (SYSTANE) 0.4-0.3 % drop ophthalmic, Place 1 Drop into both eyes 2 times daily if needed for Dry Eyes., Disp: 0.1 mL, Rfl: 0? ? ascorbic acid (VITAMIN C) 500 mg tablet, Take 1 tablet by mouth once daily., Disp: , Rfl: 0? ? ASPIRIN 81 MG ORAL TBEC, DAILY, Disp: , Rfl: 0? ? atenoloL (TENORMIN) 50 mg tablet, Take 1 Tablet (50 mg) by mouth once daily., Disp: 90 Tablet, Rfl: 3? ? atorvastatin (LIPITOR) 20 mg tablet, Take 1 Tablet (20 mg) by mouth once daily., Disp: 90 Tablet, Rfl: 3? ? blood sugar diagnostic (Contour Next Test Strips) strip, USE TO TEST BLOOD GLUCOSE LEVELS TWICE DAILY., Disp: 200 Each, Rfl: 3? ? blood-glucose meter, Dispense meter, test strips, lancets covered by pt ins. E11.9 NIDDM type II - Test 1 time/day, Disp: 1 Each, Rfl: 0? ? buPROPion (WELLBUTRIN XL) 300 mg Extended-Release tablet, TAKE ONE TABLET BY MOUTH ONE TIME DAILY, Disp: 90 Tablet, Rfl: 3? ? CALCIUM 600 600 MG TAB, 1 tab BID, Disp: , Rfl: 0? ? celecoxib (CELEBREX) 200 mg capsule, Take 1 Capsule (200 mg) by mouth once daily with a meal., Disp: 90 Capsule, Rfl: 3? ? cholecalciferol (VITAMIN D3) 1,000 unit tablet, Take 25 mcg by mouth once daily., Disp: , Rfl: ? ? CPAP, CPAP machine for home use at pressure 5-15 cmw, nasal mask x1/3month with nasal pillows x 2/mo, Disp: 1 Each, Rfl: 11? ? hydrOXYzine pamoate (VISTARIL) 25 mg capsule, Take 25 mg by mouth every 8 hours if needed., Disp: , Rfl: ? ? indomethacin (INDOCIN) 25 mg capsule, Take 1 Capsule (25 mg) by mouth every 8 hours if needed for Gout Pain., Disp: 30 Capsule, Rfl: 0? ? lancets, Test 2 times per day., Disp: 100 Each, Rfl: PRN? ? lisinopril-hydrochlorothiazide, 20-25 mg, (PRINZIDE, ZESTORETIC) 20-25 mg per tablet, Take 1 Tablet by mouth once daily., Disp: 90 Tablet, Rfl: 3? ? loratadine-pseudoephedrine, 5-120 mg, 12hr (CLARITIN-D 12 HOUR) tablet, Take 1 tablet by mouth every 12 hours., Disp: , Rfl: 0? ? melatonin 3 mg tablet, Take 2 Tablets (6 mg) by mouth once daily., Disp: , Rfl: ? ? metFORMIN (GLUCOPHAGE XR) 500 mg Extended-Release tablet, Take 2 Tablets (1,000 mg) by mouth two times daily with meals., Disp: 360 Tablet, Rfl: 3? ? multivitamin (MULTIPLE VITAMINS) tablet, Take 1 tablet by mouth once daily., Disp: , Rfl: 0? ? omeprazole (PRILOSEC) 20 mg Delayed-Release capsule, Take 1 Capsule (20 mg) by mouth once daily before a meal., Disp: 90 Capsule, Rfl: 3? ? oxyCODONE (ROXICODONE) 5 mg immediate release tablet, Take 1 Tablet (5 mg) by mouth every 6 hours if needed for Pain., Disp: , Rfl: ? ? PARoxetine (PAXIL) 20 mg tablet, Take 1 Tablet (20 mg) by mouth every morning., Disp: 90 Tablet, Rfl: 3? ? RESTASIS 0.05 % ophthalmic emulsion, , Disp: , Rfl: ? ? traZODone (DESYREL) 150 mg tablet, Take 1 Tablet (150 mg) by mouth at bedtime., Disp: 90 Tablet, Rfl: 3 Niall aHrding MD HEMATOLOGY Performing Organization Address [facility] de Phone Number [facility] [address] [address], [place] * BILIRUBIN,TOTAL/DIRECT (07/08/2023 1:39 PM STEAM PAN SPONGER) BILIRUBIN,TOTA L <0.2 0.0 - 1.2 mg/dL 07/09/2023 3:37 AM STEAM PAN SP[employer]ER [facility] BILIRUBIN,DIRE CT <0.2 0.0 - 0.3 mg/dL 07/09/2023 3:37 AM STE[employer] PAN [employer]ER [facility] BILIRUBIN,HILARY RECT 07/09/2023 3:37 AM STE[employer] PAN [employer]ER [facility] Comment:Unable to calculate, Direct Bili <0.2 Blood BLOOD SPECIMEN / Unknown Venipuncture / Unknown 07/08/2023 1:39 PM STEAM PAN [employer]ER 07/08/2023 1:40 PM STEAM PAN SP[employer]ER Niall Harding MD CHEMISTRY Performing Organization Address [facility] de Phone Number [facility] [address] [address], [place] * RETICULOCYTES (07/08/2023 1:39 PM STEAM PAN SPONGER) RETIC% 1.5 0.5 - 1.5 % 07/08/2023 9:33 PM STEAM PAN SP[employer]ER [facility] RETIC (ABSOLUTE) 0.06 0.03 - 0.08 mil/cu mm 07/08/2023 9:33 PM STE[employer] PAN [employer]ER [facility] Blood BLOOD SPECIMEN / Unknown Venipuncture / Unknown 07/08/2023 1:39 PM STEAM PAN SP[employer]ER 07/08/2023 1:40 PM STE[employer] PAN [employer]ER Niall Harding MD HEMATOLOGY Performing Organization Address City/[facility]/ZIP Co de Phone Number [facility] [address] [place] [address], * URIC ACID (07/08/2023 1:39 PM STEAM PAN SPONGER) URIC ACID 4.8 3.4 - 7.0 mg/dL 07/09/2023 3:55 AM STEAM PAN SP[employer]ER [facility] Blood BLOOD SPECIMEN / Unknown Venipuncture / Unknown 07/08/2023 1:39 PM STEAM PAN SPONGER 07/08/2023 1:40 PM STEAM PAN [employer]ER Niall Harding MD CHEMISTRY Performing Organization Address [facility] Co de Phone Number [facility] [address] [place] [address], * (ABNORMAL) HEMOGLOBIN A1C MONITORING (POCT) (07/08/2023 1:39 PM STEAM PAN SPONGER) HEMOGLOBIN A1C MONITORING (POCT) 6.7(H) <=6.4 % 07/08/2023 1:49 PM STEAM PAN SPONGER [facility] Blood BLOOD SPECIMEN / Unknown Venipuncture / Unknown 07/08/2023 1:39 PM STEAM PAN SPONGER 07/08/2023 1:40 PM STEAM PAN SPONGER Narrative [facility] - 07/08/2023 1:49 PM STEAM PAN SPONGER ? (<=6.9%) ? Indicates good control ? (7.0% to 7.9%) ? Indicates fair control ? (>=8.0%) ? Indicates poor control ?? NOTE: ??These thresholds are guidelines and ?individual targets may vary. Falsely low levels may be seen with: Recent Transfusion, Recent Significant Blood Loss, Hemolytic Diseases, or Falsely elevated levels may be seen with: Untreated Anemias, Splenectomy ? Niall Harding MD CHEMISTRY [facility] [address] [place] [address], * (ABNORMAL) HAPTOGLOBIN (07/08/2023 1:39 PM STEAM PAN SPONGER) Haptoglobin 434(H) 30 - 200 mg/dL 07/09/2023 3:41 AM STEAM PAN SPONGER [facility] Blood BLOOD SPECIMEN / Unknown Venipuncture / Unknown 07/08/2023 1:39 PM STEAM PAN SPONGER 07/08/2023 1:40 PM STEAM PAN SPONGER Niall Harding MD CHEMISTRY Performing Organization Address City/[facility]/ZIP Co de Phone Number [facility] [address] [place] [address], * FERRITIN (07/08/2023 1:39 PM STEAM PAN SPONGER) FERRITIN 254.0 30.0 - 400.0 ng/mL 07/09/2023 3:37 AM STEAM PAN SPONGER [facility] Blood BLOOD SPECIMEN / Unknown Venipuncture / Unknown 07/08/2023 1:39 PM STEAM PAN SPONGER 07/08/2023 1:40 PM STEAM PAN SPONGER Niall Harding MD CHEMISTRY Performing Organization Address City/[facility]/ZIP Co de Phone Number [facility] [address] [place] [address], * VITAMIN B12 (07/08/2023 1:39 PM STEAM PAN SPONGER) VITAMIN B12 423 232 - 1,245 pg/mL 07/09/2023 3:37 AM STEAM PAN SP[employer]ER [facility] Blood BLOOD SPECIMEN / Unknown Venipuncture / Unknown 07/08/2023 1:39 PM STEAM PAN SPONGER 07/08/2023 1:40 PM STEAM PAN SPONGER Narrative [facility] - 07/09/2023 3:37 AM STEAM PAN SPONGER Biotin supplements may cause clinically significant interference for this test assay. ??If interference is suspected, it is strongly recommended that biotin is discontinued for at least one week prior to retesting. Niall Harding MD CHEMISTRY Performing Organization Address City/[facility]/ZIP Co de Phone Number [facility] [address] [place] [address], [place] * (ABNORMAL) LIPID PANEL (07/08/2023 1:39 PM STEAM PAN SPONGER) CHOLESTEROL,TOTAL 111 100 - 199 mg/dL 07/09/2023 3:37 AM STEAM PAN SPONGER [facility] Comment: Cholesterol, Total Reference Ranges Desirable <200 mg/dL Borderline 200-239 mg/dL High >=240 mg/dL TRIGLYCERIDES 225(H) <150 mg/dL 07/09/2023 3:37 AM [facility] HDL CHOLESTEROL 33(L) >40 mg/dL 3:37 AM [facility] NON-HDL CHOLESTEROL 78 <145 mg/dl 07/09/2023 3:37 AM [facility] CHOL/HDL RATIO 3.36 <4.50 07/09/2023 3:37 AM [employer]ER [facility] LDL CHOLESTEROL 33 <=130 mg/dL 07/09/2023 3:37 AM [facility] VLDL CHOLESTEROL 45(H) <=30 mg/dL 07/09/2023 3:37 AM STE[employer] PAN [employer]ER [facility] PROVIDER ORDERED STATUS RANDOM 07/09/2023 3:37 AM [facility] Blood BLOOD SPECIMEN / Unknown Venipuncture / Unknown 07/08/2023 1:39 PM STEAM PAN SPONGER 07/08/2023 1:40 PM STEAM PAN SPONGER Niall Harding MD CHEMISTRY Performing Organization Address [facility]/ZIP Co de Phone Number [facility] [address] [place] [address], [place] * PSA TOTAL SCREEN (07/08/2023 1:39 PM STEAM PAN SPONGER) PSA TOTAL (SCREEN) 0.35 <4.00 ng/mL 07/09/2023 3:37 AM STEAM PAN SPONGER [facility] Blood BLOOD SPECIMEN / Unknown Venipuncture / Unknown 07/08/2023 1:39 PM STEAM PAN SPONGER 07/08/2023 1:40 PM STEAM PAN SPONGER Narrative [facility] - 07/09/2023 3:37 AM STEAM PAN SPONGER The test method changed on 11/12/2022. If this test has been used for serial monitoring, rebaselining is recommended. Rebaselining consists of 2 measurements, collected 3-6 weeks apart. The Cher Elecsys total PSA assay is an electrochemiluminescence immunoassay ECLIA performed on the Cher Juliana e immunoassay analyzers. Values obtained with different assay methods may be different and cannot be used interchangeably. Niall Harding MD LABORATORY [facility] [address] [place] [address], * SCAN-COLONOSCOPY (09/19/2022 11:30 AM CDT) Narrative Procedure Note Kadeem Chavira MD - 09/19/2022 10:51 AM CDT [facility] [address] [place] [address], [facility] [address] [address] Patient Name: Edwardo Simons Gender: Male Exam Date: 09/19/2022 Visit Number: [id number] Age: 71 Years 11 Months Date of : 1950 Attending MD: Kadeem Pinedo MD Medical Record#: [id number] ----- Procedure: Colonoscopy Indications: Previous advanced adenomatous polyp(s), high risk colorectalcancer screening Referring MD: Juanito Weston MD Primary MD: Niall Harding MD Medications: Intra Procedure Medications: Patient received monitored anesthesia care. Complications: No immediate complications Procedure: An examination of the heart and lungs was performed and found to be withinacceptable limits. The patient was therefore deemed a reasonablecandidate for endoscopy and monitored anesthesia care. The risks and benefits of the procedure were explained to the patient.After obtaining informed consent, the patient received monitoredanesthesia care and I passed the scope without difficulty via the rectum to the cecum. The appendiceal orificeand ic valve were identified. The scope was retroflexed during theexamination The quality of the prep was good (Esa/Gat Split). This was a complete examination throughout the entire colon. Findings: Normal finding. Location - entire colon. Hemorrhoids. Internal and external hemorrhoids without bleeding. Impression: Personal history of colonic polyps Plan Repeat colonoscopy in 5 years. We will attempt to contact you at appropriate intervals via U.[place]. mail. Wemay not be able to find you or contact you at that time, therefore youshould know that the responsibility for following our recommendation restswith you. If you don't hear from us at the time your procedure is due,please contact our office to schedule an appointment. If your contactinformation should change, please contact our office so that we can updateyour records. Electronically signed by: Kadeem Pinedo MD 09/19/2022 Medications: Medication Dose Sig Description PRN Status PRN Reason Comments allopurinol 300 mg tablet 300 mg take 1 tablet by oral route every day Ntaking as directed amlodipine 5 mg tablet 5 mg take 1 tablet by oral route every day Ntaking as directed aspirin 81 mg chewable tablet 81 mg chew 1 tablet by oral route every dayN taking as directed atenolol 50 mg tablet 50 mg take 1 tablet by oral route every day Ntaking as directed atorvastatin 20 mg tablet 20 mg take 1 tablet by oral route every day Ntaking as directed bupropion HCl SR 150 mg tablet,12 hr sustained-release 150 mg take 1tablet by ORAL route every day N taking as directed celecoxib 200 mg capsule 200 mg take 1 Tablet by Oral route every day Ntaking as directed cyclobenzaprine 10 mg tablet 10 mg take 1 tablet by oral route every dayN taking as directed Dulcolax (bisacodyl) 5 mg tablet,delayed release 5 mg Take 2 tablets percolonoscopy prep instructions received from [facility] N taking as directed glimepiride 2 mg tablet 2 mg take 1 tablet by oral route every day Ntaking as directed glucosamine/chondr chakraborty A sod UNKNOWN N taking as directed hydrocodone bitartrate UNKNOWN take 1 capsule by oral route every day asneeded Y taking as directed lisinopril 20 mg-hydrochlorothiazide 25 mg tablet 20 mg-25 mg take 1tablet by oral route every day N taking as directed metformin 1,000 mg tablet 1,000 mg take 1 tablet by oral route 2 timesevery day with morning and evening meals N taking as directed Miralax 17 gram/dose oral powder 17 gram/dose Take by oral route percolonoscopy prep instructions received from [facility] N taking as directed omeprazole 20 mg capsule,delayed release 20 mg take 1 capsule by oralroute 2 times every day 30 minutes to 1 hour before a meal N taking asdirected paroxetine 20 mg tablet 20 mg take 1 tablet by oral route every day Ntaking as directed Restasis 0.05 % eye drops in a dropperette 0.05 % instill 1 drop byophthalmic route every 12 hours into affected eye(s) N taking asdirected trazodone 150 mg tablet 150 mg take 1 tablet by oral route every bedtimeN taking as directed Allergies: Medication Name Ingredient Reaction Comment NO KNOWN ALLERGIES Vital Signs: Date Time Systolic Diastolic Height Weight BMI 09/19/2022 11:10 AM 146 63 68 in 238.01 36.20 Smoking Status: Use Status Type Smoking Status Usage Per Day Years Used Total Pack Years yes Former smoker Race: White Preferred Language: Bulgarian cc: Niall Harding MD cc: Juanito Weston MD [facility] [phone] Kadeem Barroso MD OTHER * ANTI HCV (07/28/2020 2:14 PM STEAM PAN SPONGER) HEPATITIS C ANTIBODY Non-React carl Non-React carl 07/28/2020 9:31 PM STEAM PAN SPONGER [facility] Comment:Antibodies to HCV no t detected; does not exclude the possibility of exposure to HCV. Blood BLOOD SPECIMEN / Unknown Venipuncture / Unknown 07/28/2020 2:14 PM STEAM PAN SPONGER 07/28/2020 2:14 PM STEAM PAN SPONGER Niall Harding MD SEND OUTS [facility] [address] [place] [address], [place] * US AORTA (12/31/2018 10:05 AM CDT) Anatomical Region Laterality Modality Abdomen, AORTA Ultrasound 12/31/2018 10:1 3 AM CDT Narrative 12/31/2018 10:13 AM CDT INDICATION: Abdominal aortic aneurysm screen COMPARISON: none TECHNIQUE: Salazar scale and color Doppler images were acquired of the abdominal aorta and iliac arteries. FINDINGS: Evaluation of the aorta is limited due to body habitus. The proximal aorta is not visualized. The mid aorta measures 2.0 x 2.1 centimeters. The distal aorta measures 2.0 x 1.7 centimeters. The right common iliac artery measures 1.6 x 1.3 centimeters. The left common iliac artery measures 1.4 x 1.4 centimeters. IMPRESSION: Limited evaluation of the abdominal aorta due to body habitus reveals no evidence of abdominal aortic aneurysm. Dictated by Sukhjinder Boudreaux MD @ Dec 31 2018 10:13AM (Electronically Signed) Procedure Note Sukhjinder Boudreaux MD - 12/31/2018 INDICATION: Abdominal aortic aneurysm screen COMPARISON: none TECHNIQUE: Salazar scale and color Doppler images were acquired of the abdominal aortaand iliac arteries. FINDINGS: Evaluation of the aorta is limited due to body habitus. The proximal aortais not visualized. The mid aorta measures 2.0 x 2.1 centimeters. Thedistal aorta measures 2.0 x 1.7 centimeters. The right common iliac arterymeasures 1.6 x 1.3 centimeters. The left common iliac artery measures 1.4x 1.4 centimeters. IMPRESSION: Limited evaluation of the abdominal aorta due to body habitus reveals noevidence of abdominal aortic aneurysm. 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 Healthcare Directive 01/27/2015 015 * Full Code (Latest Code Status on File) Date Activated Date Inactivated Comments 08/22/2023 8:12 AM 08/24/2023 1:03 PM Question Answer Comments Code Status Discussion: Unable to Assess Preferences, Provider to review later * Full Code Date Activated Date Inactivated Comments 11/15/2020 1:46 PM 11/15/2020 5:35 PM Question Answer Comments Code Status Discussion: Not Discussed * Full Code Date Activated Date Inactivated Comments 11/08/2020 9:00 AM 11/08/2020 5:03 PM Question Answer Comments Code Status Discussion: Not Discussed Care Teams [place] 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
--- OUTSIDE RECORDS SUMMARY | 2023-09-04 23:30 | XMS_ITS | Continuity of Care Document ---
Author Name Unknown Organization [facility] Address [address] [address] [place] [address] Phone Care Team Providers Care Shank Stitcher Name Role Phone Vinod WARREN Kira Unavailable [...] tablets per colonoscopy prep instructions received from [facility] - Active procedure 09/19/22 Miralax 17 gram/dose oral powder Take by oral route per colonoscopy prep instructions received from [facility] - Active 09/19/22 procedure atenolol 50 [...] Diagnoses Date Provider Providers Copied on Encounter [facility], [address] [address], [place], [id number], [place] tel:[phone] [facility] No Information 3 Vinod Malone. [address] [facility], [facility] [address], [place], [place], [id number], [place]. tel:[phone] Referring Provider: Kadeem Acevedo, [address] [facility] [address], [place], [address]. tel:[phone] [facility] [address] [address], [place], [id number], [place] tel:[phone] [facility] GI Symptoms or Concerns (chief complaint) Personal history of colonic polypsEncount er for screening for malignant neoplasm of colonPersonal history of colonic polyps 3 Shahida Quan. [address] [facility], [address], [place], [place], [id number], [place]. tel:[phone] Referring Provider: Juanito Noble, [address] [place] [address], [place], [address]. tel:[phone] [facility], [address] [address], [place], [address], [place] tel:[phone] [facility] No Information 3 Nain Sharma. [address] [facility], [facility] [address], [place], [place], [address], [place]. tel:[phone] [facility], [address] [address], [place], [id number], [place] tel:[phone] [facility] No Information 3 Nain Sharma. [address] [facility], [facility] [address], [place], [id number], [place]. tel:[phone] [facility], [address] [address], [place], [address], [place] tel:[phone] [facility] No Information 1 Shahida Quan. [address] [facility], [facility] [address], [place], [place], [address], [place]. tel:[phone] Referring Provider: Kadeem Acevedo, [address] [facility] [address], [address]. tel:[phone] [facility], [address] [address], [place], [address], [place] tel:[phone] [facility] Colon adenoma 1 Shahida Quan. [address] [facility], [facility] [address], [place], [id number], [place]. tel:[phone] [facility], [address] [address], [place], [address], [place] tel:[phone] [facility] No Information 1 Shahida Quan. [address] [facility], [address], [place], [place], [address], [place]. tel:[phone] Referring Provider: Kadeem Acevedo, [address] [facility] [address], [place], [address]. tel:[phone] [facility], [address] [address], [place], [address], [place] tel:[phone] [facility] Colon adenoma 1 Shahida Quan. [address] [facility], [facility] [address], [place], [address], [place]. tel:[phone] [facility], [address] [address], [place], [address], [place] tel:[phone] [facility] Colon adenoma 1 Shahida Quan. [address] [facility], [facility] [address], [place], [place], [address], [place]. tel:[phone] Referring Provider: Referral Self, USE FOR SELF REFERRALS. Offic Cons New/estab Low [facility], [address] [address], [place], [address], [place] tel:[phone] [facility] GI Symptoms or Concerns (chief complaint) Personal history of colonic polyps 1 Tarik Segal. [address] [facility], [address], [place], [place], [address], [place]. tel:[phone] Referring Provider: Juanito Noble, [facility] [place], [address]. tel:[phone] [facility], [address] [address], [place], [address], [place] tel:[phone] [facility] No Information 1 Mg Carrera. [address] [address], [place], [place], [address], . tel:[phone] Family History Family Member Type Diagnosis Age [...] i-directional interface ; Source: Other Registry Novel [id number], all formulations administered Note: [facility] bi-direct ional [...] Registry Payers Payer name Insurance type Covered constitution party ID Authoriza tion(s) Blue Cross [place] [employer] BL [id number] Social History Type Description Quantity Date Captured [...] involve the appendiceal orifice. The endoscopist in [place] thought there was a potential that these [...]
--- OUTSIDE RECORDS SUMMARY | 2023-09-04 23:30 | XMS_ITS | Continuity of Care Document ---
Author Name Unknown Organization [facility] Address [address] [place] [address] [address] [place] [address] Phone Care Team Providers Care Supervisor Mixing Name Role Phone Sean Sena Unavailable Unavailable Advance Directives Directive Yes / No Effective Date File Name No Information Encounters Encounter Description Practice Location Reason(s) For Visit Diagnoses Date Provider Providers Copied on Encounter [facility], [address] [place], [place] [address] [address], [place], [address], [place] tel:[phone] No Information Jul-2 9-200 8 Louise Estrada. [address], [place], [place], [address] , [place]. tel:[phone] Family History Family Member Type Diagnosis Age [...]
--- NOTE | 2023-09-04 23:39 | ED.GENADULT ---
HPI - General Adult General Chief complaint: Unspecified Complaint, Adult Stated complaint: redraw potassium Time Seen by Provider: 09/04/23 22:53 History of Present Illness HPI narrative: This 72-year-old male comes in to have his potassium recheck. He had a clinic appointment today and his potassium at that visit returned at 6.2. His primary physician called and instructed him to come here for a recheck. He did have some elevation of his potassium a few weeks ago and was checked. The results returned at 6.8 but then after another lab draw at returned at 5.7. The patient did have a nephrectomy a few weeks ago. He states that he feels well and is not having any symptoms. Related Data Home Medications Medication Instructions Recorded Confirmed allopurinol 300 mg tablet 300 mg PO DAILY 04/29/23 08/29/23 amlodipine 5 mg tablet 5 mg PO DAILY 04/29/23 08/29/23 atenolol 50 mg tablet 50 mg PO DAILY 04/29/23 08/29/23 atorvastatin 20 mg tablet 20 mg PO DAILY 04/29/23 08/29/23 blood sugar diagnostic (Contour #10 ea 04/29/23 04/29/23 Next Test Strips) bupropion HCl 150 mg 24 hr tablet, 150 mg PO DAILY 04/29/23 08/29/23 extended release cyclosporine 0.05 % eye drops in a drp ophthalmic (eye) 04/29/23 04/29/23 dropperette (Restasis) hydroxyzine pamoate 25 mg capsule 25 mg PO Q8H PRN pain 04/29/23 08/29/23 lisinopril 20 1 tab PO DAILY 04/29/23 08/29/23 mg-hydrochlorothiazide 25 mg tablet metformin 500 mg tablet,extended 1,000 mg PO BID 04/29/23 08/29/23 release 24 hr omeprazole 20 mg capsule,delayed 20 mg PO DAILY 04/29/23 08/29/23 release oxycodone 5 mg tablet 5 - 10 mg PO Q4-6H PRN pain 04/29/23 08/29/23 paroxetine HCl 20 mg tablet 20 mg PO DAILY 04/29/23 08/29/23 trazodone 150 mg tablet 150 mg PO QPM 04/29/23 08/29/23 celecoxib 200 mg capsule 200 mg PO DAILY 08/29/23 08/29/23 Allergies Allergy/AdvReac Type Severity Reaction Status Date / Time No Known Drug Allergies Allergy Verified 08/29/23 02:28 Review of Systems Status of ROS: Reports: 10 or more systems reviewed and unremarkable except as noted in History and below Narrative: Constitutional: No fevers, no weight gain or loss. Eyes: No discharge. No vision changes. HENT: No congestion, no sore throat, no ear pain. Cardiovascular: No chest pain, no palpitations. Respiratory: No shortness of breath, no wheezes, no cough. Gastrointestinal: No abdominal pain, no vomiting, no diarrhea. Genitourinary: No dysuria, no hematuria. Musculoskeletal: Normal range of motion. Skin: No rashes, no pruritis. Neurological: No dizziness, weakness, sensory change, speech change. Endo/Heme/Allergies: No bruising or bleeding. No polydipsia. Pysch: no suicidality, no anxiety, no insomnia. All other systems reviewed and are negative. PFSH PFSH Social History Smoking Status: Former smoker Do you use any of these nicotine containing products: None Second hand tobacco smoke exposure: No How often do you have a drink containing alcohol: 2-3 times a week AUDIT-C Alcohol total score: 3 Non-prescribed substance use: denies use Exam Narrative: Exam Narrative: Constitutional: Well-developed, well-nourished, no acute distress. HEENT: Normocephalic, atraumatic. Neck: Normal range of motion. Nontender. Supple. Heart: Intact distal pulses. Lungs: No chest discomfort. No wheezes, rhonchi, or rales. Abdomen: Nontender. Back: Normal range of motion. Extremities: Normal range of motion. No injury. Skin: Intact. No rash. Warm. No erythema or pallor. Neurologic: No altered sensation. No weakness. Alert and oriented. Psychiatric: No suicidality. No anxiety or depression. No insomnia. Nursing notes and vitals signs are reviewed. Const: Vital Signs, click to edit/add: Vital Signs - 24 hr 09/04/23 22:43 Temperature 96.6 F L Pulse Rate [Left P ulse Oximeter] 58 L Respiratory Rate 16 Blood Pressure [Ri ght Upper Arm] 164/79 H Pulse Oximetry 98 Oxygen Delivery Me thod Room Air Course Vital Signs Vital signs: Initial Vital Signs Temperature 96.6 F L 09/04/23 22:43 Temperature Source Temporal Artery Scan 09/04/23 22:43 Pulse Rate 58 L 09/04/23 22:43 Pulse Rhythm Regular 09/04/23 22:43 Respiratory Rate 16 09/04/23 22:43 Blood Pressure 164/79 H 09/04/23 22:43 Blood Pressure Mean 107 H 09/04/23 22:43 Blood Pressure Position Sitting 09/04/23 22:43 Pulse Oximetry 98 09/04/23 22:43 Oxygen Delivery Method Room Air 09/04/23 22:43 Vital Signs Temperature 96.6 F L 09/04/23 22:43 Pulse Rate 58 L 09/04/23 22:43 Respiratory Rate 16 09/04/23 22:43 Blood Pressure 164/79 H 09/04/23 22:43 Pulse Oximetry 98 09/04/23 22:43 Oxygen Delivery Method Room Air 09/04/23 22:43 Temperature 96.6 F L 09/04/23 22:43 Pulse Rate 58 L 09/04/23 22:43 Respiratory Rate 16 09/04/23 22:43 Blood Pressure 164/79 H 09/04/23 22:43 Pulse Oximetry 98 09/04/23 22:43 Oxygen Delivery Method Room Air 09/04/23 22:43 Medical Decision Making MDM Narrative Medical decision making narrative: This patient had an elevated potassium level at a clinic visit earlier today. He comes in to recheck his potassium here. Basic metabolic panel returns with potassium at 5.4. This is a bit elevated but according to up-to-date guidelines he can attend to this matter slowly over time. I encouraged him to increase some fluids in avoid potassium rich foods for the time being. He is taking hydrochlorothiazide which can also waist potassium. He does have a follow-up appointment with his primary physician tomorrow. Lab Data Labs: Lab Results 09/04/23 Range/Units 22:58 Sodium 138 (135-149) mmol/L Potassium 5.4 H (3.6-5.1) mmol/L Chloride 111 (96-114) mmol/L Carbon Dioxide 22 (20-32) mmol/L Anion Gap 5 L (7-15) mEq/L BUN 39 H (7-30) mg/dL Creatinine 2.1 H (0.5-1.5) mg/dL Estimated Creat Clear 33.31 Estimated GFR 33 ml/min Glucose 139 H (60-115) mg/dL Calcium 9.3 (8.4-10.6) mg/dL Discharge Plan Discharge Clinical Impression: Feared condition not demonstrated Patient Disposition: Home, Self-Care Condition: Stable Additional Instructions: Continue current medications. Take ample amounts of fluids orally. Avoid potassium rich foods for the time being. Follow up with MD in clinic as scheduled. Return if worsening. Prescriptions: No Action cyclosporine [Restasis] 0.05 % dropperette ophthalmic (eye) Patient Comments: [NO ORIGINAL SIG] hydroxyzine pamoate 25 mg capsule 25 mg PO Q8H PRN (Reason: pain) oxycodone 5 mg tablet 5 - 10 mg PO Q4-6H PRN (Reason: pain) allopurinol 300 mg tablet 300 mg PO DAILY omeprazole 20 mg capsule,delayed release(DR/EC) 20 mg PO DAILY amlodipine 5 mg tablet 5 mg PO DAILY atenolol 50 mg tablet 50 mg PO DAILY metformin 500 mg tablet extended release 24 hr 1,000 mg PO BID lisinopril-hydrochlorothiazide 20-25 mg tablet 1 tab PO DAILY trazodone 150 mg tablet 150 mg PO QPM paroxetine HCl 20 mg tablet 20 mg PO DAILY (DME) Contour Next Test Strips Strip See Rx Instructions .ROUTE BID Qty: 10 Rx Instructions: As directed atorvastatin 20 mg tablet 20 mg PO DAILY bupropion HCl 150 mg tablet extended release 24 hr 150 mg PO DAILY celecoxib 200 mg capsule 200 mg PO DAILY Follow Up/Referrals: Niall Harding MD [Primary Care Provider] - Stand Alone Forms: [employer] Info Instructions
== END 2023-09-04 23:48 | disposition home or self-care (01) ==
PROVIDERS: Emergency Provider Emergency Medicine Emergency Medical Services; PCP Surgery
DX: Z71.1 Person with feared health complaint in whom no diagnosis is made (principal)
CPT/HCPCS: 36415; 80048; 99283; 99284

== ENCOUNTER 2023-09-25 11:15 | Outpatient (RCR) | payer OTHER, SELFPAY | END 2023-12-04 09:26 | disposition home or self-care (01) | PROVIDERS: PCP Surgery; Visit Provider Physician Assistant | DX: Z98.890 Other specified postprocedural states (principal); Z51.89 Encounter for other specified aftercare | CPT/HCPCS: 97110; 97112; 97140; 97161 ==

== ENCOUNTER 2023-10-08 07:24 | Outpatient (CLI) | payer MEDICARE, BC, SELFPAY ==
--- OUTSIDE RECORDS SUMMARY | 2023-10-08 07:27 | XMS_ITS | Clinical Summary ---
Author Organization [facility] Address [address] [place] [address] Phone Care Team Providers Care Operator Command Support Systems Name Role Phone Niall Harding MD Primary Care Provider [phone] Allergies No known active allergies Medications Medication Sig Dispensed Refills Start Date End Date Status omeprazole (PriLOSEC) [address] capsule Take 20 mg by mouth 1 (one) time each day 03/08/2021 Active melatonin 3 MG tablet Take 6 mg by mouth 1 (one) time each day 05/29/2023 Active oxyCODONE (ROXICODONE) 5 MG immediate release tablet Take 5 mg by mouth every 6 (six) hours if needed (pain) 09/06/2023 Active tamsulosin (FLOMAX) 0.4 MG 24 hr capsule Take 0.4 mg by mouth 1 (one) time each day 09/16/2023 Active traZODone (DESYREL) 150 MG tablet TAKE ONE TABLET BY MOUTH ONE TIME DAILY AT BEDTIME* 05/04/2021 Active PARoxetine (PAXIL) 20 MG tablet Take 20 mg by mouth 1 (one) time each day in the morning 10/04/2022 Active cycloSPORINE (Restasis) 0.05 % ophthalmic emulsion Administer 1 drop into both eyes every 12 (twelve) hours 12/28/2018 Active Glycerin-Hypromel lose-PEG 400 0.2-0.2-1 % solution Place 1 Drop into both eyes 2 times daily if needed for Dry Eyes. 03/17/2014 Active atenolol (TENORMIN) 50 MG tablet Take 50 mg by mouth 1 (one) time each day 03/07/2021 Active allopurinol (ZYLOPRIM) 100 MG tablet Take 100 mg by mouth 1 (one) time each day 09/05/2023 Active amLODIPine (NORVASC) 5 MG tablet Take 5 mg by mouth 1 (one) time each day 03/08/2021 Active atorvastatin (LIPITOR) 20 MG tablet Take 20 mg by mouth 1 (one) time each day 04/25/2021 Active Docusate Sodium (DSS) 100 MG capsule Take 1 Capsule (100 mg) by mouth 2 times daily if needed for Constipation. 08/23/2023 Active hydroCHLOROthiazi de 25 MG tablet Take 25 mg by mouth 1 (one) time each day 08/29/2023 Active buPROPion XL (WELLBUTRIN XL) 150 MG 24 hr tablet Take 150 mg by mouth 1 (one) time each day in the morning 03/17/2021 Active predniSONE (DELTASONE) 20 MG tablet take 2 tablets by mouth every day for the first 5 days; then 1 tablet daily for the next 5 days* 09/22/2023 Active loratadine-pseudo ephedrine (CLARITIN-D 12-hour) 5-120 MG per 12 hr tablet Take 1 tablet by mouth 2 (two) times a day if needed for allergies 08/19/2014 09/25/2023 Discontinued (Med List Maintenance) hydrOXYzine (VISTARIL) 25 MG capsule Take 25 mg by mouth every 8 (eight) hours if needed 05/27/2023 09/25/2023 Discontinued (Med List Maintenance) calcium carbonate 1500 (600 Ca) MG tablet Take 600 mg by mouth 1 (one) time each day 09/25/2023 Discontinued (Med List Maintenance) Ferrous Sulfate (IRON PO) Take 1 tablet by mouth 1 (one) time each day 09/25/2023 Discontinued (Med List Maintenance) Active Problems Problem Noted Date Diagnosed Date Hyperkalemia 09/24/2023 Last Assessment & Plan: As result of diminished GFR. Continue current medications as ordered, including hydrochlorothiazide to maintain normokalemia. If this becomes a recurrent, troubling issue, I would consider hydrochlorothiazide discontinuation in favor of loop diuretic initiation at 40 mg a day. No plans to initiate GI based potassium binder at this time. Acute kidney failure with tubular necrosis 09/23 Renal mass 09/24/2023 Overview: Right kidney is first identified on renal ultrasound 07/24/2023. 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 Status post hand-assisted laparoscopic right nephrectomy 08/22/2023. 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 Chronic kidney disease stage 4 06/17/2021 Overview: Baseline creatinine between 1.2-1.4 range stretching back to 2005. Historically benign urinalyses with samples normal from 2006, 2008, 2020, and March 2003. No albuminuria on serial urine albumin/creatinine assays with most recent from March 2023. Renal ultrasound July 2023: Right kidney 13.2 cm, left kidney 12.7 cm; increased renal cortical echogenicity in both kidneys; heterogeneous mass in the upper pole of the right kidney at 2.4 x 5.5 x 5.1 cm. Last Assessment & Plan: Expected loss of GFR following 50% of kidney mass being removed from right nephrectomy earlier this year. GFR has improved slightly which is certainly encouraging. I cannot rule out that we may see some ongoing improvement but at the same time, we may be here chronically. I base the latter conclusion on the findings of the histology of the right kidney as described by the pathologist. Patient had a fair amount of interstitial fibrosis and interstitial nephritis present, most likely driven by chronic exposure to NSAIDs (although I cannot rule out the possibility of chronically administered PPI contributing but my suspicion for this being present is low). I suspect he also had significant glomerular disease as result of secondary FSGS (history of obesity and therefore, hyperfiltration related FSGS), small vessel disease, etc. No further workup at this time aside from avoiding all nephrotoxins. He is at a higher than average risk for requiring renal replacement therapy in his lifetime but also, especially with acute, critical illnesses. Narcotic-based chronic chronic pain management is more than safe and appropriate at this time. Avoid any and all forms of NSAIDs moving forward. Ideally, avoidance of conventional IV contrast is also ideal. At this point in time, I do not feel he is an appropriate candidate for the application of RAAS inhibitors nor sodium glucose transporter-2 inhibitor class of medications. Follow-up basic metabolic panel in early October would be more than appropriate. We will tentatively plan to see him again in 6 months. Hypertensive chronic kidney disease, benign, with chronic kidney disease stage I through stage IV, or unspecified 03/05/2007 Last Assessment & Plan: Currently fine shape overall. Appropriate to maintain systolic blood pressure between 120-145 for the time being as he continues to recover from 2 major surgeries this past year. Also he is at slightly higher than average risk for falls and gait instability based on these recent surgeries and the weakness that has come forth. Again as noted in the CKD section, I do not feel he is an appropriate candidate for RAAS inhibitors application at this time. Encounters Date Type Department Care Team Description 09/25/2023 1:30 PM EDT Office Visit [facility] [place] [place] [address] Giorgio Callejas MD Chronic kidney disease stage 4 (HCC) (Primary Dx); Renal mass; Hypertensive chronic kidney disease, benign, with chronic kidney disease stage I through stage IV, or unspecified; Hyperkalemia 09/09/2023 Office Communication [facility] [address] [place] [place] [address] Niall Harding MD 09/08/2023 Documentation Only [facility] [place] [address] No, Pcp 09/08/2023 Documentation Only [facility] [place] [address] No, Pcp 09/08/2023 Documentation Only [facility] [place] [address] No, Pcp from Last 3 Months Immunizations Name Administration Dates Next Due Influenza Split High Dose Preservative Free IM 1 Market76 Sars-cov-2 (Covid-19) Vaccine, Mrna, Segundo Protein 02/17/2023 Family History Medical History Relation Comments Cancer Brother colon cancer Heart disease Brother from heart cond ition Cancer Father Diabetes Father Heart disease Mother Thyroid disease Mother No Known Problems Sister Relation Status Comments Brother Father Mother Sister Alive Social History Tobacco Use Types Packs/Day Years Used Date Smoking Tobacco: Former Cigarettes 2 22 1 965 - 1986 Smokeless Tobacco: Never Tobacco Cessation:Counseling Given: Not Answered Alcohol Use Standard Drinks/Week Comments Not Currently 4 (1 standard drink = 0.6 oz pur e alcohol) Sex and Gender Information Value Date Recorded Sex Assigned at Not on file Gender Identity Not on file Sexual Orientation Not on file Last Filed Vital Signs Vital Sign Reading Time Taken Comments Blood Pressure 138/66 09/25/2023 1:32 PM CDT Pulse 60 09/25/2023 1:32 PM CDT Temperature - - Respiratory Rate - - Oxygen Saturation 97% 09/25/2023 1:32 PM CDT Inhaled Oxygen Concentration - - Weight 97.1 kg (214 lb) 09/25/2023 1:32 PM CDT Height 179.1 cm (5' 10.5) 09/25/2023 1:32 PM CD T Body Mass Index 30.27 09/25/2023 1:32 PM CDT Plan of Treatment Upcoming Encounters Date Type Department Care Team (Late st Contact Info) Description 10/18/2023 Orders Only [facility] [address] [place] [address] Giorgio Callejas MD [address] [facility] [address] [address] Chronic kidney disease stage 4 (HCC) Health Maintenance Due Date Last Done Comments Pneumococcal Vaccine: 65+ Ye ars (1 of 2 - PCV) 09/29/1956 Colorectal Cancer Screening: Annual FOBT 09/29/2000 Colorectal Cancer Screening: Sigmoidoscopy 09/29/2000 Diabetes: Ophthalmology Exam 09/08/2023 Diabetes: Pedal Pulse Checked 09/08/2023 Diabetes: Sensory Foot Exam 09/08/2023 Diabetes: Visual Foot Exam 09/08/2023 Diabetes: Hemoglobin A1C 10/06/2023 07/08/2023 Colorectal Cancer Screening: Colonoscopy 09/19/2032 09/19/2022 Influenza Vaccine Completed 02/17/2023 Hepatitis B Vaccine Aged Out No longe r eligible based on patient's age to complete this topic Procedures Procedure Name Priority Date/Time Associated Diagnosis Comments CBC Routine 08/28/2023 COMPREHENSIVE METABOLIC PANEL (CMP) (EXTERNAL LAB ENTRY) Routine 08/28/2023 from Last 3 Months Results * (ABNORMAL) Comprehensive Metabolic Panel (CMP) (08/28/2023) Glucose 196(H) mg/dL [facility] BUN 60(H) mg/dL [facility] Creatinine 2.70(H) mg/dL [facility] Sodium 137 mEq/L [facility] Potassium 6.9(Critic al Hig) mEq/L [facility] Chloride 110(H) [facility] Carbon Dioxide 19(L) mmol/L [facility] Calcium 9.3 mg/dL [facility] Albumin (Blood) 3.0(L) g/dL [facility] AST (SGOT) 35 U/L [facility] ALT (SGPT) 44 U/L [facility] Alkaline Phosphatase 103 U/L [facility] Total Bilirubin 0.2 MG/DL [facility] eGFR 24(L) [facility] Total Protein, Serum 5.7(L) [facility] Anion Gap 8 [facility] Blood 08/28/2023 Historical Provider LAB BLOOD ORDERAB LES [facility] * (ABNORMAL) CBC (08/28/2023) WBC 9.1 K/uL [facility] Red Blood Cell Count 3.84(L) [facility] Hemoglobin 10.1(L) g/dL [facility] Hematocrit 30.4(L) % [facility] MCV 79(L) [facility] MCH 26.3 [facility] MCHC 33.2 [facility] RDW 16.1(H) [facility] Platelet Count 523(H) [facility] MPV 9.6 [facility] Blood (Blood, Venous) 08/28/2023 Historical Provider LAB BLOOD ORDERAB LES [facility] from Last 3 Months Care Teams Operator Command Support Systems Relationship Specialty Start Date End Date Niall Harding MD [address] [place] [address] PCP - General Family Medicine 09/08/23
--- OUTSIDE RECORDS SUMMARY | 2023-10-08 07:27 | XMS_ITS | Encounter Summary ---
Author Organization [facility] Address [address] [place] [address] Care Team Providers Care Garment Sewer Hand Name Role Phone Niall Harding MD Primary Care Provider Encounter Details Date Type Department Care Team (Late st Contact Info) Description 09/09/2023 Office Communication [facility] [address] [place] [address] Niall Harding MD [address] [place], [place] [id number] Social History Tobacco Use Types Packs/Day Years Used Date Smoking Tobacco: Never Assessed Sex and Gender Information Value Date Recorded Sex Assigned at Not on file Gender Identity Not on file Sexual Orientation Not on file documented as of this encounter Miscellaneous Notes * Telephone Encounter - Joyce Barrientos RN BSN - 09/10/2023 3:11 PM CDT Pt's returned call and was transferred to the front office help to assist with making a new pt appointment. * Telephone Encounter - Karely Russo - 09/09/2023 2:40 PM CDT Left message for the patient in regards to scheduling a New Patient consultation per the referral received from Niall Harding. documented in this encounter Plan of Treatment Upcoming Encounters Date Type Department Care Team (Late st Contact Info) Description 10/18/2023 Orders Only [facility] [address] [place] [address] Giorigo Callejas MD [address] [id number] Chronic kidney disease stage 4 (HCC) documented as of this encounter Visit Diagnoses Not on filedocumented in this encounter Care Teams Garment Sewer Hand Relationship Specialty Start Date End Date Niall Harding MD [address] [place] [address] PCP - General Family Medicine 09/08/23 documented as of this encounter
--- OUTSIDE RECORDS SUMMARY | 2023-10-08 07:27 | XMS_ITS | Encounter Summary ---
Author Organization [facility] Address [address] [place] [address] Care Team Providers Care Trust Manager Name Role Phone Niall Harding MD Primary Care Provider [phone] Encounter Details Date Type Department Care Team (Late st Contact Info) Description 09/08/2023 Documentation Only [facility] [address] [place] [address] No, Pcp Social History Tobacco Use Types Packs/Day Years Used Date Smoking Tobacco: Former Cigarettes 1 960 - 1970 Smokeless Tobacco: Never Tobacco Cessation:Counseling Given: Not Answered Alcohol Use Standard Drinks/Week Comments Yes 3 (1 standard drink = 0.6 oz pur e alcohol) Sex and Gender Information Value Date Recorded Sex Assigned at Not on file Gender Identity Not on file Sexual Orientation Not on file documented as of this encounter Plan of Treatment Upcoming Encounters Date Type Department Care Team (Late st Contact Info) Description 10/18/2023 Orders Only [facility] [address] [place] [address] Giorgio Callejas MD [address] [place] [address] Chronic kidney disease stage 4 (HCC) documented as of this encounter Procedures Procedure Name Priority Date/Time Associated Diagnosis Comments COMPREHENSIVE METABOLIC PANEL (CMP) (EXTERNAL LAB ENTRY) Routine 08/28/2023 CBC Routine 08/28/2023 BASIC METABOLIC PANEL (BMP) (EXTERNAL LAB ENTRY) Routine 11/05/2022 CBC Routine 11/05/2022 BASIC METABOLIC PANEL (BMP) (EXTERNAL LAB ENTRY) Routine 05/24/2022 documented in this encounter Results * (ABNORMAL) CBC (08/28/2023) WBC 9.1 K/uL [facility] Red Blood Cell Count 3.84(L) [facility] Hemoglobin 10.1(L) g/dL [facility] Hematocrit 30.4(L) % [facility] MCV 79(L) [facility] MCH 26.3 [facility] MCHC 33.2 [facility] RDW 16.1(H) [facility] Platelet Count 523(H) [facility] MPV 9.6 [facility] Blood (Blood, Venous) 08/28/2023 Historical Provider MD LAB BLOOD ORDERAB LES [facility] * (ABNORMAL) Comprehensive Metabolic Panel (CMP) (08/28/2023) [...] Gap 8 [facility] Blood 08/28/2023 Historical Provider MD LAB BLOOD ORDERAB LES Performing Organization Address [facility] Co de Phone Number [facility] * CBC (11/05/2022) WBC 10.0 K/uL [facility] Red Blood Cell Count 4.91 [facility] Hemoglobin 15.4 g/dL [facility] Hematocrit 45.5 % [facility] MCV 93 [facility] MCH 31.4 [facility] MCHC 33.8 [facility] RDW 13.4 [facility] Platelet Count 271 [facility] MPV 10.3 [facility] Blood (Blood, Venous) 11/05/2022 Historical Provider LAB BLOOD ORDERAB LES Performing Organization Address [facility] Co de Phone Number [facility] * (ABNORMAL) Basic Metabolic Panel (BMP) (11/05/2022) Sodium 141 mEq/L [facility] Potassium 4.7 mEq/L [facility] Chloride 104 [facility] Carbon Dioxide 23 mmol/L [facility] Calcium 10.6(H) mg/dL [facility] BUN 25 mg/dL [facility] Creatinine 1.59(H) mg/dL [facility] Glucose 139(H) mg/dL [facility] eGFR 46(L) [facility] Anion Gap 14 [facility] 11/05/2022 Historical Provider LAB BLOOD ORDERAB LES Performing Organization Address [facility] Co de Phone Number [facility] * (ABNORMAL) Basic Metabolic Panel (BMP) (05/24/2022) Sodium 140 mEq/L [facility] Potassium 4.6 mEq/L [facility] Chloride 102 [facility] Carbon Dioxide 23 mmol/L [facility] Calcium 10.3(H) mg/dL [facility] BUN 28(H) mg/dL [facility] Creatinine 1.45(H) mg/dL [facility] Glucose 135(H) mg/dL [facility] eGFR 52(L) [facility] Anion Gap 15 [facility] 05/24/2022 Historical Provider MD LAB BLOOD ORDERAB LES Performing Organization Address [facility] Co de Phone Number [facility] documented in this encounter Visit Diagnoses Not on filedocumented in this encounter Care Teams Trust Manager Relationship Specialty Start Date End Date Niall Harding MD [address] [place] [address] PCP - General Family Medicine 09/08/23 documented as of this encounter
--- OUTSIDE RECORDS SUMMARY | 2023-10-08 07:27 | XMS_ITS | Encounter Summary ---
Author Organization [facility] Address [address] [place] [address] Care Team Providers Care Harm Reduction Worker Name Role Phone Niall Harding MD Primary Care Provider [phone] Encounter Details Date Type Department Care Team (Late st Contact Info) Description 09/08/2023 Documentation Only [facility] [address] [place] [address] No, Pcp Social History Tobacco Use [...] [facility] [address] [place] [address] Giorgio Callejas MD [address] [place] [address] Chronic kidney disease stage 4 (HCC) documented as of this encounter Visit Diagnoses Not on filedocumented in this encounter Care Teams Harm Reduction Worker Relationship Specialty Start Date End Date Niall Harding MD [address] [place] [address] PCP - General Family Medicine 09/08/23 documented as of this encounter
--- OUTSIDE RECORDS SUMMARY | 2023-10-08 07:27 | XMS_ITS | Encounter Summary ---
Author Organization [facility] Address [address] [place] [address] Care Team Providers Care Mc Kay Stitcher Name Role Phone Niall Harding MD Primary Care Provider [phone] Reason for Visit * Reason Comments CKD New Patient * Nephrology Services (Urgent) - Closed Specialty Diagnoses / Procedures Referred By Contac t Referred To Contact Nephrology Diagnoses Chronic kidney disease stage 4 (HCC) Niall Harding MD [address] [place] [address] [facility] [address] [place] [id number] Referral ID Status Reason Start Date Expiration Date Visits Re quested Visits Authorized [id number] Closed 09/08/2023 09/07/2024 1 1 Encounter Details Date Type Department Care Team (Late st Contact Info) Description 09/25/2023 1:30 PM EDT Office Visit [facility] [address] [place] [id number] Giorgio Callejas MD [address] [place] [address] Chronic kidney disease stage 4 (HCC) (Primary Dx); Renal mass; Hypertensive chronic kidney disease, benign, with chronic kidney disease stage I through stage IV, or unspecified; Hyperkalemia Social History Tobacco Use Types Packs/Day Years [...] on file documented as of this encounter Last Filed Vital Signs Vital Sign Reading [...] Mass Index 30.27 09/25/2023 1:32 PM CDT documented in this encounter Patient Instructions * Patient Instructions* Lorraine Burton - 09/25/2023 1:30 PM CDT It was very nice to meet you today. Please contact me anytime with questions or concerns that I canassist you with. Your current medications that you are on at this time are kidney safe. Continue toavoid the medications in the family of NSAIDs (e.g. ibuprofen, Motrin, Advil, Aleve, naproxen). Thenarcotic-based medications for pain management are kidney safe as we discussed. Lets get a surveillance basic metabolic panel in early October as we discussed. Keep healing and keep up the good work. I look forward to seeing you soon. We will contact you to schedule your 6 month follow up when the schedule becomes available. Labs should be completed 1-2 weeks prior. They will be faxed to Blane Roberts. Dr. Callejas/ROB Peters Welcome to [facility] Although we are experts in the care of patients with chronic kidney disease, we understand that youare the expert regarding your own life. Our goal is to work with you in providing the best possiblecare and to meet your individual needs. In addition to our Nephrologists, we have a team of Advanced Practice Providers (DEBRA's) to help closely monitor our patients. Our DEBRA's have specialized training and experience in caring for renal patients. If your Rn Surgery deems it appropriate, you will be scheduled with an DEBRA to manage your care. The keys to managing our patient's care include: Blood Pressure: Our goal is to keep your blood pressure 130/80 or lower. Heart and blood vessels: We want your LDL (bad cholesterol) to be below 100. Blood and Urine testing: Provides a more in depth 'picture' into the current renal status of a patient. If you smoke, it is important to quit. We want you to maintain good nutrition to keep your body healthy, so we do have a Renal Substance Abuse Technician to help you with this. We encourage keeping a log of blood pressures for monitoring efficiency of any blood pressure medications. If you have diabetes, we want to keep your hemoglobin A1c at 7.0 or lower and your blood sugar 80 to 130. Avoid cold medications that include ephedrine, phenylpropolamine or pseudoephedrine (Sudafed, Actifed). If your doctor wants you to have a CT scan or MRI with IV contrast, be sure to let them know that you see a instructor apparel manufacture for your kidney disease. Ask that they contact your instructor apparel manufacture before this type of test is scheduled. When to call for your kidneys: Any new medications prescribed to you by other providers. Any new leg swelling or unexplained weight gain > 3-5 pounds. Consistently elevated Blood Pressure or dizziness (BP greater than 140/90) When to go to the Emergency Room: If you get dehydrated, or have excessive nausea, headache or vomiting, you may need to get IV fluids. If you cannot pass your urine completely (empty your bladder) as this may be a sign of an Acute Injury to your Kidney. Our Doctors, Advanced Practice Providers, nurses, and Renal Substance Abuse Technician are here to provide you with the best renal care. We want you to feel free to call us when you have questions or concerns. To call the nurse at your instructor apparel manufacture's office, please see the address and telephone number listed on your After Visit Summary. Thank you, The Physicians and staff at [facility] UNDERSTANDING YOUR BLOOD PRESSURE & LAB RESULTS People who develop chronic kidney disease may have some or all of the following tests. This sheet is to help you understand the results: Blood Pressure: Achieving the blood pressure goals identified by your kidney doctor is very important in slowing the progression of your kidney disease. Always take blood pressure medications as directed. Other steps to follow may include cutting down on the amount of salt in your diet, losing excess weight and following a regular exercise program. Serum Creatinine: Creatinine is a waste product in your blood that comes from muscle activity. It is normally removed from your blood by your kidneys, but when kidney function slows down, the creatinine level rises. (Lab Normal Range: Male: 0.5--1.3, Female: 0.4--1.1) BUN (Blood Urea Nitrogen): BUN is a waste product in your blood that is normally removed from your body by the kidneys. When your kidney function slows down or if you become dehydrated, the BUN levels rise. (Lab Normal Range: 7--24) Glomerular Filtration Rate (GFR): Your GFR tells how much kidney function you have. It is calculated from your blood level of creatinine. (Lab Normal Range: Equal to or greater than 60) Potassium: Potassium is a mineral in your blood that helps your heart and muscles work properly, too much or too little potassium can be harmful to your heart and other muscles in your body. Potassium levels can be controlled by careful dietary restrictions. Our dietitian can help plan your diet toget the right amount of potassium. (Lab Normal Range: 3.5--5.1) Phosphorus: Failing kidneys do not remove phosphorus efficiently. A high phosphorus level can lead to weak bones. If your level is too high, your kidney doctor may ask you to reduce your intake of foods that are high in phosphorus and take medications called phosphate binders with your meals and snacks. (Lab Normal Range: 2.5--4.9) Calcium: Calcium is a mineral that is important for strong bones. To help balance the amount of calcium in your blood, your kidney doctor may ask you to take calcium supplements and Vitamin D. Take only the supplements and medications recommended by your kidney doctor. (Lab Normal Range: 8.5--10.1) Parathyroid Hormone (PTH): This hormone is a marker for your bone health. High levels may result from a poor balance of calcium and phosphorus in your body that can cause bone disease. Your kidney doctor may order a special prescription form of Vitamin D to help lower your PTH. (Lab Normal Range: 14--72) Hemoglobin: Hemoglobin is the part of red blood cells that carries oxygen from your lungs to all parts of your body. A low hemoglobin level indicates too few red blood cells, which is called anemia. Anemia can make you feel tired or have a low energy level. If you have anemia, you may need treatment with iron supplements or a hormone called erythropoietin (EPO). You will be referred to a [facility] ([facility]) to manage your anemia. (Lab Normal Range: Males: 14-18, Females: 12-16) TSAT and Serum Ferritin: Your TSAT (% iron saturation) and serum ferritin are measures of iron in your body. Abnormal values may indicate iron deficiency. Your kidney doctor may recommend iron supplements when needed. (Lab Normal Range: TSAT: 15--50; Serum Ferritin: 8--388) Cholesterol tests: Patients with kidney disease have an increased risk for cardiovascular disease (heart disease), therefore it is important that your cholesterol is well controlled. Dietary changes,exercise, and cholesterol lowering medication can lower cholesterol levels and decrease cardiovascular risk. Total Cholesterol: Cholesterol is a fat-like substance found in your blood. A high cholesterol level may increase your chance of having heart and circulation problems. For many patients, the target level is less than 200. HDL Cholesterol: HDL is a type of 'good' cholesterol that protects your heart. For many patients, the target level for HDL is above 40. LDL Cholesterol: LDL is a type of 'bad' cholesterol. A high LDL level may increase your chance of having heart and circulation problems. For many patients, a good level for LDL cholesterol is below 100, but some patients may have an even lower goal. Triglyceride: Triglyceride is a type of fat found in your body. A high triglyceride level along with high levels of total and LDL cholesterol may increase your chance of heart and circulation problems. For many patients, the target level is less than 150. HgbA1c: The HgbA1c is a marker of diabetes control for the past two to three months. Adequate diabetes control has been proven to slow the progression of kidney failure. (Lab Normal Range: Less than or equal to 5.6 if average glucose is less than or equal to 114.) Avoiding Non-Steroidal Anti-Inflammatory Drugs (NSAIDs) Taking medications called NSAIDS (list of names below) can damage your kidneys and we recommend youdo not take them. Because many patients do not recognize NSAIDs by their brand or generic names, there may be overlap in prescription and Over the Counter (OTC) use. NSAIDs are sold under many different brand names, so ask your pharmacist or health care provider if the medicines you take are safe to use. Below is a list of common NSAIDs: ibuprofen (Advil, Motrin, Midol, Wal-Profin) naproxen (Aleve, Naprosyn, Midol Extended Relief, Anaprox) meloxicam (Mobic), oxaprozin (Daypro), piroxicam (Feldene) celecoxib (Celebrex) indomethacin (Indocin) If you take OTC or prescription medicines for headaches, pain, fever, or colds, you may be taking NSAIDs. If you are unsure if a product contains an NSAID, ask your pharmacist or your health care provider. You can also look for product contents on the Drug Facts labels. documented in this encounter Progress Notes * Giorgio Callejas MD - 09/25/2023 1:30 PM CDT Images from the original note were not included. Patient: Edwardo Simons Date of : 1950 Chart: [id number] PCP: Niall Harding MD Referring Provider: Niall Harding Date of Service: 09/25/2023 Chief Complaint: I was asked by Josie Harding MD to evaluate Edwardo Simons for elevated creatinine Subjective: Patient is a 72-year-old man referred for the above. He has baseline CKD as described in the CKD section below. Laboratory work performed in June 2023 revealed higher than usual creatinine at 1.60. A renal ultrasound followed thereafter on 07/24/2023 that showed a large right renal mass that was confirmed on MRI of the abdomen on 07/30/2023. He traveled to the operating room at [facility] on 08/22/2023 and underwent hand-assisted laparoscopic right nephrectomy. He was discharged on 08/24/2023. Hospital discharge medications included daily celecoxib, lisinopril, and metformin. Since hospital discharge he has manifested hyperkalemia with a potassium level as high as 6.9 on 08/28/2023 along with a creatinine of 2.70 during that day. Reassessment on 09/04/2019 for potassium of 6.2 and a creatinine of 2.09. Most recent potassium and creatinine on 09/16/2023 were 5.2 and 2.30, respectively. Patient continues to feel well physically speaking. Not noted above is he also had a very recent back surgery that he is recovering from. Physical therapy has been going well. He is completely avoiding any Lemon 2 inhibitors and NSAIDs. He presents today with his spouse. Assessment & Plan Problem List Hypertensive chronic kidney disease, benign, with chronic kidney disease stage I through stage IV, or unspecified Current Assessment & Plan Currently fine shape overall. Appropriate to maintain [...] for RAAS inhibitors application at this time. Chronic kidney disease stage 4 (HCC) - Primary Overview Baseline creatinine between 1.2-1.4 range stretching back [...] at 2.4 x 5.5 x 5.1 cm. Current Assessment & Plan Expected loss of GFR following 50% of kidney mass being removed from right nephrectomy earlier thisyear. GFR has improved slightly which is certainly encouraging. I cannot rule out that we may see some ongoing improvement but at the same time, we may be here chronically. I base the latter conclusion on the findings of the histology of the right kidney as described by the pathologist. Patient hada fair amount of interstitial fibrosis and interstitial nephritis present, most likely driven by chronic exposure to NSAIDs (although I cannot rule out the possibility of chronically administered PPIcontributing but my suspicion for this being present is low). I suspect he also had significant glom erular disease as result of secondary FSGS (history of obesity and therefore, hyperfiltration related FSGS), small vessel disease, etc. No further workup at this time aside from avoiding all nephrotoxins. He is at a higher than average risk for requiring renal replacement therapy in his lifetime but also, especially with acute, critical illnesses. Narcotic-based chronic chronic pain management ismore than safe and appropriate at this time. Avoid any and all forms of NSAIDs moving forward. Ideally, avoidance of conventional IV contrast is also ideal. At this point in time, I do not feel he isan appropriate candidate for the application of RAAS inhibitors nor sodium glucose transporter- 2 inhibitor class of medications. Follow-up basic metabolic panel in early October would be more than appropriate. We will tentatively plan to see him again in 6 months. Relevant Orders Basic metabolic panel Basic metabolic panel Hyperkalemia (Chronic) Current Assessment & Plan As result of diminished GFR. Continue current medications as ordered, including hydrochlorothiazideto maintain normokalemia. If this becomes a recurrent, troubling issue, I would consider hydrochlorothiazide discontinuation in favor of loop diuretic initiation at 40 mg a day. No plans to initiate GI based potassium binder at this time. Renal mass Overview Right kidney is first identified on renal [...] and fibrosis, glomerulosclerosis, and cortical inclusion cysts. Return in about 6 months (around 03/27/2024) for Recheck. Giorgio Callejas MD [facility] The following portions of the patient's chart were reviewed in this encounter and updated as appropriate: Tobacco Allergies Meds Problems Med Hx Surg Hx Fam Hx Review of Systems Musculoskeletal: Positive for back pain. All other systems reviewed and are negative. Comprehensive ROS was obtained and negative unless otherwise noted in HPI Active Problems Patient Active Problem List Diagnosis Hypertensive chronic kidney disease, benign, with chronic kidney disease stage I through stage IV, or unspecified Chronic kidney disease stage 4 (HCC) Hyperkalemia Acute kidney failure with tubular necrosis (HCC) Renal mass History of Present Illness Past Medical History: Diagnosis Date Chronic kidney disease Diabetes mellitus without mention of complication, type II or unspecified type, not stated as uncontrolled (HCC) Esophageal reflux Essential hypertension Gout Other malignant neoplasm of unspecified site (HCC) Renal cell carcinoma <Right side> (HCC) Sleep apnea Past Surgical History: Procedure Laterality Date ABDOMINAL SURGERY NEPHRECTOMY Family History Problem Relation Age of Onset Heart disease Mother Thyroid disease Mother Cancer Father Diabetes Father No Known Problems Sister Heart disease Brother 38 from heart condition Cancer Brother 40 colon cancer Social History Tobacco Use Smoking status: Former Packs/day: 2.00 Years: 22.00 Additional pack years: 0.00 Total pack years: 44.00 Types: Cigarettes Start date: 1964 Quit date: 1986 Years since quittin.3 Smokeless tobacco: Never Vaping Use Vaping Use: Never used Substance Use Topics Alcohol use: Not Currently Alcohol/week: 4.0 standard drinks of alcohol Types: 4 Standard drinks or equivalent per week Drug use: Never Taking? Provider allopurinol (ZYLOPRIM) 100 MG tablet Pattie Forde MD Take 100 mg by mouth 1 (one) time each day amLODIPine (NORVASC) 5 MG tablet Pattie Forde MD Take 5 mg by mouth 1 (one) time each day atenolol (TENORMIN) 50 MG tablet Pattie Forde MD Take 50 mg by mouth 1 (one) time each day atorvastatin (LIPITOR) 20 MG tablet Pattie Forde MD Take 20 mg by mouth 1 (one) time each day buPROPion XL (WELLBUTRIN XL) 150 MG 24 hr tablet Pattie Forde MD Take 150 mg by mouth 1 (one) time each day in the morning cycloSPORINE (Restasis) 0.05 % ophthalmic emulsion Pattie Forde MD Administer 1 drop into both eyes every 12 (twelve) hours Docusate Sodium (DSS) 100 MG capsule Pattie Forde MD Take 1 Capsule (100 mg) by mouth 2 times daily if needed for Constipation. Qsnszvdj-Gupuscawhimz-XPY 400 0.2-0.2-1 % solution Pattie Forde MD Place 1 Drop into both eyes 2 times daily if needed for Dry Eyes. hydroCHLOROthiazide 25 MG tablet Pattie Forde MD Take 25 mg by mouth 1 (one) time each day melatonin 3 MG tablet Pattie Forde MD Take 6 mg by mouth 1 (one) time each day omeprazole (PriLOSEC) [address] capsule Pattie Forde MD Take 20 mg by mouth 1 (one) time each day oxyCODONE (ROXICODONE) 5 MG immediate release tablet Pattie Forde MD Take 5 mg by mouth every 6 (six) hours if needed (pain) PARoxetine (PAXIL) 20 MG tablet Pattie Forde MD Take 20 mg by mouth 1 (one) time each day in the morning predniSONE (DELTASONE) 20 MG tablet Pattie Forde MD take 2 tablets by mouth every day for the first 5 days; then 1 tablet daily for the next 5 days* tamsulosin (FLOMAX) 0.4 MG 24 hr capsule Pattie Forde MD Take 0.4 mg by mouth 1 (one) time each day traZODone (DESYREL) 150 MG tablet Pattie Forde MD TAKE ONE TABLET BY MOUTH ONE TIME DAILY AT BEDTIME* No Known Allergies Physical Exam BP 138/66 (BP Location: Left upper arm, Patient Position: Sitting, BP Cuff Size: Adult) Pulse 60 Ht 5' 10.5 (1.791 m) Wt 214 lb (97.1 kg) SpO2 97% BMI 30.27 kg/m?? Vitals reviewed. Constitutional: He is oriented to person, place, and time. Cardiovascular: Normal rate and regular rhythm. He exhibits no edema. Pulmonary/Chest: Effort normal and breath sounds normal. Abdominal: Soft. Bowel sounds are normal. Musculoskeletal: Normal range of motion. Neurological: He is alert and oriented to person, place, and time. Skin: Skin is warm and dry. Psychiatric: He has a normal mood and affect. His behavior is normal. Judgment normal. Chemistry and Bone Mineral Lab Units 08/28/23 0000 11/05/22 0000 05/24/22 0000 SODIUM mEq/L 137 141 140 POTASSIUM mEq/L 6.9* 4.7 4.6 CHLORIDE 110* 104 102 CO2 mmol/L 19* 23 23 CALCIUM mg/dL 9.3 10.6* 10.3* ALK PHOS U/L 103 -- -- GLUCOSE mg/dL 196* 139* 135* ALBUMIN g/dL 3.0* -- -- BUN mg/dL 60* 25 28* CREATININE mg/dL 2.70* 1.59* 1.45* EGFR 24* 46* 52* CBC and Iron Studies Lab Units 08/28/23 0000 11/05/22 0000 WBC AUTO K/uL 9.1 10.0 HEMATOCRIT % 30.4* 45.5 HEMOGLOBIN g/dL 10.1* 15.4 MCV 79* 93 PLATELETS AUTO 523* 271 No lab exists for component: GLUCOSEUR, BILIRUBINUR, SPECGRAV, RBCUR, LEUKOCYTESUR, NITRITE I have performed a complete review of pertinent lab results. documented in this encounter Miscellaneous Notes * Assessment & Plan Note - Giorgio Callejas MD - 09/25/2023 2:29 PM CDTAssociated Problem(s): Hyperkalemia As result of diminished GFR. Continue current medications as ordered, including hydrochlorothiazideto maintain normokalemia. If this becomes a recurrent, troubling issue, I would consider hydrochlorothiazide discontinuation in favor of loop diuretic initiation at 40 mg a day. No plans to initiate GI based potassium binder at this time. * Assessment & Plan Note - Giorgio Callejas MD - 09/25/2023 2:28 PM CDTAssociated Problem(s): Hypertensive chronic kidney disease, benign, with chronic kidney disease stage I through stage IV, or unspecified Currently fine shape overall. Appropriate to maintain [...] for RAAS inhibitors application at this time. * Assessment & Plan Note - Giorgio Callejas MD - 09/25/2023 2:27 PM CDTAssociated Problem(s): Chronic kidney disease stage 4 (HCC) Expected loss of GFR following 50% of kidney mass being removed from right nephrectomy earlier thisyear. GFR has improved slightly which is certainly encouraging. I cannot rule out that we may see some ongoing improvement but at the same time, we may be here chronically. I base the latter conclusion on the findings of the histology of the right kidney as described by the pathologist. Patient hada fair amount of interstitial fibrosis and interstitial nephritis present, most likely driven by chronic exposure to NSAIDs (although I cannot rule out the possibility of chronically administered PPIcontributing but my suspicion for this being present is low). I suspect he also had significant glom erular disease as result of secondary FSGS (history of obesity and therefore, hyperfiltration related FSGS), small vessel disease, etc. No further workup at this time aside from avoiding all nephrotoxins. He is at a higher than average risk for requiring renal replacement therapy in his lifetime but also, especially with acute, critical illnesses. Narcotic-based chronic chronic pain management ismore than safe and appropriate at this time. Avoid any and all forms of NSAIDs moving forward. Ideally, avoidance of conventional IV contrast is also ideal. At this point in time, I do not feel he isan appropriate candidate for the application of RAAS inhibitors nor sodium glucose transporter- 2 inhibitor class of medications. Follow-up basic metabolic panel in early October would be more than appropriate. We will tentatively plan to see him again in 6 months. documented in this encounter Plan of Treatment Upcoming Encounters Date Type Department Care Team (Late st Contact Info) Description 10/18/2023 Orders Only [facility] [address], [place] [id number] Giorgio Callejas MD [address] [facility] [address] [place] [id number] Chronic kidney disease stage 4 (HCC) Scheduled Orders Name Type Priority Associated Diagnoses Orde r Schedule Basic metabolic panel Lab Routine Chronic kidney disease stage 4 (HCC) Expected: 10/18/2023 (Approximate), Expires: 10/25/2024 Basic metabolic panel Lab Routine Chronic kidney disease stage 4 (HCC) Expected: 03/27/2024 (Approximate), Expires: 10/25/2024 documented as of this encounter Visit Diagnoses Diagnosis Chronic kidney disease stage 4 (HCC)- Primary Renal mass Hypertensive chronic kidney disease, benign, with chronic kidney disease stage I through stage IV, or unspecified Hyperkalemia Chronic kidney disease stage 4 (HCC) documented in this encounter Care Teams Mc Kay Stitcher Relationship Specialty Start Date End Date Niall Harding MD [address] [place] [address] PCP - General Family Medicine 09/08/23 documented as of this encounter
--- OUTSIDE RECORDS SUMMARY | 2023-10-08 07:27 | XMS_ITS | Encounter Summary ---
Author Organization [facility] Address [address] [place] [address] Care Team Providers Care Railroad Dining Car Steward/Stewardess Name Role Phone Niall Harding MD Primary Care Provider [phone] Encounter Details Date Type Department Care Team (Late st Contact Info) Description 09/08/2023 Documentation Only [facility] [address] [place] [address] No, Pcp Social History Tobacco Use [...] [facility] [address] [place] [address] Giorgio Callejas MD [address] [place] [address] Chronic kidney disease stage 4 (HCC) documented as of this encounter Visit Diagnoses Not on filedocumented in this encounter Care Teams Railroad Dining Car Steward/Stewardess Relationship Specialty Start Date End Date Niall Harding MD [address] [place] [address] PCP - General Family Medicine 09/08/23 documented as of this encounter
--- OUTSIDE RECORDS SUMMARY | 2023-10-08 07:28 | XMS_ITS | Referral Summary ---
Author Organization [facility] Address [address] [place] [address] Care Team Providers Care Presser Machine Name Role Phone Niall Harding MD Primary Care Provider [phone] Allergies No known active allergies Medications Medication [...] Comments Blood Pressure 127/52 05/05/2023 8:55 AM [employer] SUPERVISOR Pulse 64 05/05/2023 8:54 AM [employer] SUPERVISOR Temperature 36.6 ??C (97.8 ??F) 05/05/2023 7:20 AM CS T Respiratory Rate 18 05/05/2023 7:20 AM [employer] SUPERVISOR Oxygen Saturation 96% 05/05/2023 7:20 AM [employer] SUPERVISOR Inhaled Oxygen Concentration - - Weight 101.1 kg (222 lb 12.8 oz) 2022 12:36 AM [employer] SUPERVISOR Height 180.3 cm (5' 11) 05/02/2023 12: 36 AM [employer] SUPERVISOR Body Mass Index 31.07 05/02/2023 12:36 AM [employer] SUPERVISOR Plan of Treatment Not on file Medical Devices Implanted Type Area Clothing Trades Workers Device Identifier Shelf Expiration Date Model / Serial / Lot Graft Bone Magnifuse [id number] - [id number] Implanted:Qty : 1 on 04/16/2023 by Thang Negrete MD at [facility] Bone/Tissu e/Biologic N/A: Spine Lumbar [employer] [id number] 03/19/2025 [id number] / [id number] / Graft Bone Fibers Dbf 6ml Inj [id number] Preloaded - [id number] Implanted:Qty : 1 on 04/16/2023 by Thang Negrete MD at [facility] Bone/Tissu e/Biologic N/A: Spine Lumbar [employer] 10/21/2024 [id number] / [id number] / Pass Lp Crosslink [id number] Implanted:Qty : 1 on 04/16/2023 by Thang Negrete MD at [facility] Metallic Hardware/A nchor N/A: Spine Lumbar [employer] [id number] / / [id number] 2022 Imp Screw Bn Medt Spine 50x6.5mm 5.5/6mm Paul - [id number] Implanted:Qty : 6 on 04/16/2023 by Thang Negrete MD at [facility] Metallic Hardware/A nchor N/A: Spine Lumbar [employer] [id number] / / [id number] NOV 2022 Imp Screw Bn Medt Spine 45x7.5mm 5.5/6mm Paul - [id number] Implanted:Qty : 2 on 04/16/2023 by Thang Negrete MD at [facility] Metallic Hardware/A nchor N/A: Spine Lumbar [employer] [id number] / / [id number] 2022 Imp Scr Set Medt Solera Break Off 5.5mm Ti [id number] - [id number] Implanted:Qty : 8 on 04/16/2023 by Thang Negrete MD at [facility] Metallic Hardware/A nchor N/A: Spine Lumbar [employer] [id number] / / [id number] NOV [address]pi [address]body Medt [address] Long 7mm [id number] - [id number] Implanted:Qty : 1 on 04/16/2023 by Thang Negrete MD at [facility] Metallic Hardware/A nchor N/A: Spine Lumbar [employer] 12/26/2029 [id number] / / [id number] Imp Spi Interbody Medt [address] Long 7mm [id number] - [id number] Implanted:Qty : 1 on 04/16/2023 by Thang Negrete MD at [facility] Metallic Hardware/A nchor N/A: Spine Lumbar [employer] 11/28/2029 [id number] / / [id number] Imp Spi Interbody Medt [address] Long 7mm [id number] - [id number] Implanted:Qty : 1 on 04/16/2023 by Thang Negrete MD at [facility] Metallic Hardware/A nchor N/A: Spine Lumbar [employer] 11/26/2029 [id number] / / [id number] Imp Paul Medt Solera Cvd 5.5x90mm Ti [id number] - [id number] Implanted:Qty : 2 on 04/16/2023 by Thang Negrete MD at [facility] Metallic Hardware/A nchor N/A: Spine Lumbar [employer] [id number] / / [id number] 2022 Procedures Procedure Name Priority Date/Time Associated Diagnosis Comments GLUCOSE BY METER Routine 05/05/2023 1:59 AM [employer] SUPERVISOR US AORTA/IVC/ILIAC DUPLEX LIMITED Routine 12/31/2018 10:05 AM CDT from Last 3 Months or Most Recently Relevant to Health Maintenance Results * (ABNORMAL) Glucose by meter (05/05/2023 1:59 AM [employer] SUPERVISOR) GLUCOSE BY METER POCT 157(H) 70 - 99 mg/dL 05/05/2023 2:06 AM [employer] SUPERVISOR LABORATORY POC Blood, Capillary BLOOD SPECIMEN / Unknown 05/05/2023 1:59 AM [employer] SUPERVISOR 05/05/2023 2:06 AM [employer] SUPERVISOR Rohit Page [facility] [address] (1st floor, no room number) [place] [address], [facility] [phone] from Last 3 Months or Most Recently Relevant to Health Maintenance Advance Directives For more information, please contact: [phone] * Full Code (Latest Code Status on File) Date Activated Date Inactivated Comments 05/01/2023 11:46 PM 05/05/2023 4:39 PM All basic and advanced life-sustaining interventions are performed as appropriate Question Answer Comments Code status determined by: Discussion with mariam nt/ legal decision maker * Full Code Date Activated Date Inactivated Comments 04/16/2023 3:21 PM 04/18/2023 2:50 PM All basic a nd advanced life-sustaining interventions are performed as appropriate Question Answer Comments Code status determined by: Other (please documen t) Care Teams Presser Machine Relationship Specialty Start Date End Date Niall Harding MD [address] [place] [address] PCP - General 04/16/23
--- OUTSIDE RECORDS SUMMARY | 2023-10-08 07:28 | XMS_ITS | Continuity of Care Document ---
Author Organization [facility] Address [address] [place] [address] Care Team Providers Care Trade Sales Assistant Name Role Phone ANTHONYALYSHA MERLOS Primary Care Provider Assessment No assessment recorded. Plan of Treatment Reminders Order Date Submit Date Provider Last Modified By Organization Details Last Modified Time Details Appointments ESTABLISH ED 10 2023 10:50A M Carlos Elizabeth MD Not available Not available Not available Lab None recorded. Referral None recorded. Procedures None recorded. Surgeries None recorded. Imaging CT, chest + abdomen + pelvis, w/o contrast 09/30/ 024 [facility], [address] [place], [address], 10/08/2023 04:05:42 Medication Orders None recorded. Patient TargetsNo targets recorded. Patient InstructionsNo instructions recorded. Reason for Referral None Reported. 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 Carlos Elizabeth MD [address] [place] [address],[address], [address], [facility] 09/18/2023 12:35:18 Problem Notes None recorded. Procedures Surgical History Date Name Laterality Status Provider Name and Address Organization Details Recorded Time 09/18/19 24 COMPLEX VISIT completed Carlos Elizabeth MD [address] [place] [address],[address], [address], [facility] 09/18/2023 14:25:08 08/22/19 24 NEPHRECTOMY, HAND ASSISTED LAPAROSCOPIC (SURG) completed Teresa aguilar [facility] 08/27/2023 10:55:06 08/07/19 24 COMPLEX VISIT completed Carlos Elizabeth MD [address] [place] [address],[address], [place], [address], [facility] 08/07/2023 13:52:16 procedure on back completed Carlos Elizabeth MD [address] [place] [address],[address], [place], [address], [facility] 08/07/2023 12:10:59 total replacement of hip completed Carlos Elizabeth MD [address] [place] [address],[address], [place], [address], [facility] 08/07/2023 12:11:10 Imaging Results None recorded. Procedure Notes None recorded. Medical Equipment None Reported. Allergies No known drug allergies Medications Name Sig Start Date Stop Date Status Note LastModified by Organization Details LastModified Time celecoxib 200 mg capsule TAKE ONE CAPSULE BY MOUTH ONE TIME DAILY WITH A MEAL.* 09/17 completed Not Available Not Available Not Available cyclobenzap rine 10 mg tablet TAKE ONE TABLET BY MOUTH EVERY EIGHT HOURS NEEDED FOR MUSCLE SPASM* active Not Available Not Available No t Available acetaminoph en 325 mg tablet 09/17 completed Not Available Not Available Not Available atorvastati [...] 1 PILL A DAY FOR 4 DAYS* 09/17 completed Not Available Not Available Not Available amlodipine 5 mg tablet TAKE ONE TABLET BY MOUTH ONE TIME DAILY* active Not Available Not Available No t Available allopurinol 100 mg tablet Take 1 Tablet (100 mg) by mouth once daily.* active Not Available Not Available No t Available tramadol 50 mg tablet TAKE ONE TABLET BY MOUTH EVERY FOUR TO SIX HOURS NEEDED FOR PAIN* active Not Available Not Available No t Available methocarbam ol 750 mg tablet TAKE ONE TABLET BY MOUTH EVERY SIX HOURS NEEDED FOR MUSCLE SPASM* 08/06 completed Not Available Not Available Not Available tamsulosin 0.4 mg capsule TAKE ONE CAPSULE BY MOUTH ONE TIME DAILY after a meal.* active Not Available Not Available No t Available cephalexin 500 mg capsule Take 1 [...] ONE TABLET BY MOUTH ONE TIME DAILY* 09/17 completed Not Available Not Available Not Available allopurinol 300 mg tablet TAKE ONE TABLET BY MOUTH ONE TIME DAILY* active Not Available Not Available No t Available hydrochloro thiazide 25 mg tablet TAKE ONE TABLET BY MOUTH ONE TIME DAILY* active Not Available Not Available No t Available methylpredn isolone 4 mg tablets in a dose pack Take by mouth as instructe d per packaging (on back of foil pouch).* 09/17 completed Not Available Not Available Not Available metformin ER 500 mg tablet,exte nded release 24 hr Take 1 Tablet (500 mg) by mouth two times daily with meals.* 09/17 completed Not Available Not Available Not Available atenolol 50 mg tablet TAKE ONE TABLET BY MOUTH ONE TIME DAILY* active Not Available Not Available No t Available oxycodone 5 mg tablet Take 1 Tablet (5 mg) by mouth every 6 hours if needed for Pain.* active Not Available Not Available No t [...] Stool Softener-La xative 8.6 mg-50 mg tablet 09/17 completed Not Available Not Available Not Available bupropion HCl XL 300 mg 24 hr tablet, extended release TAKE ONE TABLET BY MOUTH ONE TIME DAILY* active Not Available Not Available No t Available bupropion HCl XL 150 mg 24 hr tablet, extended release Take 1 Tablet (150 mg) by mouth once daily.* active Not Available Not Available No t Available cholecalcif hudson (vitamin D3) 25 mcg (1,000 unit) tablet active Not Available Not Available Not Available Contour Next Test Strips USE TO TEST BLOOD GLUCOSE LEVELS TWICE DAILY.* active Not Available Not Available No t Available Vitals Date Recorded Body height Body mass index (BMI) Body weight Provider Name and Address Organization Details Last Updated DateTime 09/18/2023 180.34 cm 31.4 kg/m2 127316.28 g Carlos Elizabeth MD [address] [place] [address],[address], [id number] [place] [address] [facility] 09/18/2023 12:04:31 Social History Question Answer Notes LastModified by Organizat ion Details LastModified Time Tobacco Smoking Status Former Smoker Carlos Elizabeth MD [address] [place] [address],[address] [address], [facility] 08/07/2023 12:10:26 What Is Your Level Of Alcohol Consumption? Occasional Information not available 08/07/2023 What Is Your Level Of Caffeine Consumption? Occasional Information not available 08/07/2023 When Did You Quit Smoking? 17+yearssinjudy ellynphilip Information not available 08/07/2023 What Was The Date Of Your Most Recent Tobacco Screening? 09/18/2023 Information not available 09/18/2023 Sex: Male Functional Status None recorded. Mental Status None recorded. Family History Nothing Reported. Medical History Condition Response Diabetes N Sexually Transmitted Infection N Other N Bleeding Disorder N High Blood Pressure Y Kidney Stones N Cancer N Lung Disease N Depression Y High Cholesterol Y GERD/Acid Reflux Y Heart Disease N Immunizations Vaccine Type Date Status Provider Name and Address Organization Details Recorded Time influenza, trivalent, adjuvanted 02/24/2019 completed Carlos Elizabeth MD [address] [place] [address],[address], [place], [address], [facility] 08/07/2023 12:07:49 influenza, trivalent, adjuvanted 02/27/2018 completed Carlos Elizabeth MD [address] [place] [address],[address], [place], [address], [facility] 08/07/2023 12:07:49 influenza, trivalent, adjuvanted 04/09/2017 completed Carlos Elizabeth MD [address] [place] [address],[address], [place], [address], [facility] 08/07/2023 12:07:49 zoster recombinant 11/25/2019 completed Carlos ochoa MD [address] [place] [address],[address], [place], [address], [facility] 08/07/2023 12:07:49 zoster recombinant 02/21/2020 completed Carlos ochoa MD [address] [place] [address],[address], [place], [address], [facility] 08/07/2023 12:07:49 influenza, high-dose, quadrivalent 02/17/2023 completed Carlos Elizabeth MD [address] [place] [address],[address], [place], [address], [facility] 08/07/2023 12:07:49 influenza, high-dose, quadrivalent 03/14/2022 completed Carlos Elizabeth MD [address] [place] [address],[address], [place], [address], [facility] 08/07/2023 12:07:49 Influenza vaccine, quadrivalent, adjuvanted 02/01/2020 completed Carlos Elizabeth MD [address] [place] [address],[address], [place], [address], [facility] 08/07/2023 12:07:49 Influenza vaccine, quadrivalent, adjuvanted 02/01/2021 completed Carlos Elizabeth MD [address] [place] [address],[address], [place], [address], [facility] 08/07/2023 12:07:49 COVID-19, mRNA, LNP-S, PF, 30 mcg/0.3 mL dose 07/05/2020 completed Carlos Elizabeth MD [address] [place] [address],[address], [place], [address], [facility] 08/07/2023 12:07:50 COVID-19, mRNA, LNP-S, PF, 30 mcg/0.3 mL dose 07/26/2020 completed Carlos Elizabeth MD [address] [place] [address],[address], [place], [address], [facility] 08/07/2023 12:07:50 COVID-19, mRNA, LNP-S, PF, 30 mcg/0.3 mL dose 02/09/2021 completed Carlos Elizabeth MD [address] [place] [address],[address], [place], [address], [facility] 08/07/2023 12:07:50 COVID-19, mRNA, LNP-S, PF, 30 mcg/0.3 mL dose, radha-sucrose 08/15/2021 completed Carlos Elizabeth MD [address] [place] [address],[address], [place], [address], [facility] 08/07/2023 12:07:50 COVID-19, mRNA, LNP-S, bivalent, PF, 30 mcg/0.3 mL dose 03/14/2022 completed Carlos Elizabeth MD [address] [place] [address],[address], [place], [address], [facility] 08/07/2023 12:07:50 RSV, recombinant, protein subunit RSVpreF, adjuvant reconstituted, 0.5 mL, PF 03/19/2023 completed Carlos Elizabeth MD [address] [place] [address],[address], [place], [address], [facility] 08/07/2023 12:07:50 COVID-19, mRNA, LNP-S, PF, radha-sucrose, 30 mcg/0.3 mL 02/17/2023 completed Carlos Elizabeth MD [address] [place] [address],[address], [place], [address], [facility] 08/07/2023 12:07:50 pneumococcal polysaccharide PPV23 01/28/2008 completed Carlos Elizabeth MD [address] [place] [address],[address], [place], [address], [facility] 08/07/2023 12:07:50 pneumococcal polysaccharide PPV23 02/24/2019 completed Carlos Elizabeth MD [address] [place] [address],[address], [place], [address], [facility] 08/07/2023 12:07:50 influenza, unspecified formulation 03/11/2018 completed Carlos Elizabeth MD [address] [place] [address],[address], [place], [address], [facility] 08/07/2023 12:07:50 Tdap 08/01/2009 completed Carlos Elizabeth MD [address] [place] [address],[address], [place], [address], [facility] 08/07/2023 12:07:50 Tdap 11/25/2019 completed Carlos Elizabeth MD [address] [place] [address],[address], [place], [address], [facility] 08/07/2023 12:07:50 Novel [id number], all formulations 04/25/2009 completed Carlos Elizabeth MD [address] [place] [address],[address], [place], [address], [facility] 08/07/2023 12:07:50 Pneumococcal conjugate PCV 13 10/30/2016 completed Carlos Elizabeth MD [address] [place] [address],[address], [place], [address], [facility] 08/07/2023 12:07:50 zoster live 03/05/2012 completed Carlos Elizabeth MD [address] [place] [address],[address], [place], [address], [facility] 08/07/2023 12:07:50 Influenza, seasonal, injectable 02/20/2015 completed Carlos Elizabeth MD [address] [place] [address],[address], [place], [address], [facility] 08/07/2023 12:07:50 Influenza, seasonal, injectable 02/23/2013 completed Carlos Elizabeth MD [address] [place] [address],[address] [place] [address], [address], [facility] 08/07/2023 12:07:50 Influenza, seasonal, injectable 03/03/2008 completed Carlos Elizabeth MD [address] [place] [address],[address], [place], [address], [facility] 08/07/2023 12:07:50 Influenza, seasonal, injectable 03/05/2012 completed Carlos Elizabeth MD [address] [place] [address],[address] [place] [address], [address], [facility] 08/07/2023 12:07:50 Influenza, seasonal, injectable 04/01/2007 completed Carlos Elizabeth MD [address] [place] [address],[address] [place] [address], [address], [facility] 08/07/2023 12:07:50 Influenza, seasonal, injectable, preservative free 03/01/2011 completed Carlos Elizabeth MD [address] [place] [address],[address] [place] [address], [address], [facility] 08/07/2023 12:07:50 Influenza, seasonal, injectable, preservative free 04/25/2009 completed Carlos Elizabeth MD [address] [place] [address],[address] [place] [address], [address], [facility] 08/07/2023 12:07:50 influenza, injectable, quadrivalent, preservative free 03/03/2014 completed Carlos Elizabeth MD [address] [place] [address],[address] [place] [address], [address], [facility] 08/07/2023 12:07:50 influenza, injectable, quadrivalent, preservative free 04/05/2016 completed Carlos Elizabeth MD [address] [place] [address],[address], [address], [facility] 08/07/2023 12:07:50 Past Encounters Encounter ID Performer Location Encounter Start Date Encounter Closed Date Diagnosis/Indication Diagnosis SNOMED-CT Code [id number] Carlos Elizabeth MD [facility] [address] [address] 09/18/2023 11:53:48 09/19/2023 11:26:56 Malignant tumor of kidney [id number] Health Concerns Section Related Observation LastModified by Organization Detai ls LastModified Time None Recorded Concern Status LastModified by Organization Details LastModified Time None Recorded Payers Encounter Date Sequence Insurance Name Policy Number Policy Lim Covered Member ID Lim Member ID Guarantor Name 09/18/2023 1 [employer] [employer] [place] [employer] - MEDICARE COST [id number] Edwardo Simons [id number] Edwardo Simons Notes Date Note Type Note Provider Name and Address Organization Details Recorded Time 09/18/2023 text/html HPI Notes: Suha w up kidney cancer. He had a nephrectomy and the final pathology showed Grade 4 RCC with invasion into the hilum. 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 He came with his and son. Carlos Elizabeth MD [address] [place] [address],[address], [place], [address], [facility] 09/18/2023 14:25:17
--- OUTSIDE RECORDS SUMMARY | 2023-10-08 07:28 | XMS_ITS | Data Portability ---
Author Organization [place] [facility] [place] [facility], [facility] Address [address] [facility] [address] [place] [address] Care Team Providers Care Outside Maintenance Worker Name Role Phone ANTHONYGAURANGALYSHA Primary Care Provider [phone] Assessment No assessment recorded. Plan of Treatment Reminders Order Date Submit Date Provider Last Modified By Organization Details Last Modified Time Details Appointments ESTABLISH ED 10 2023 10:50A M Carlos Elizabeth MD Not available Not available Not available Lab None recorded. Referral None recorded. Procedures None recorded. Surgeries nephrecto my, hand assisted laparosco pic (SURG) [id number] VIVIEN Not available 08/27/2023 10:55:[address], chest + abdomen + pelvis, w/o contrast 2023 024 [facility], [address] [place], [address], 10/08/2023 04:05:42 Medication Orders None recorded. Patient [...] Available 07/31/2023 16:02:06 Result Notes None recorded. 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 Carlos Elizabeth MD [address] [place] [address],[address], [place], [address], [facility] 09/18/2023 12:35:18 Problem Notes None recorded. Procedures Surgical History Date Name Laterality Status Provider Name and Address Organization Details Recorded Time 09/18/19 24 COMPLEX VISIT completed Carlos Elizabeth MD [address] [place] [address],[facility] [address], [place], [address], [facility] 09/18/2023 14:25:08 08/22/19 24 NEPHRECTOMY, HAND ASSISTED LAPAROSCOPIC [facility]SURG) [facility] 10:55:06 08/07/19 24 COMPLEX VISIT completed Carlos Elizabeth MD [address] [place] [address],[address], [place], [address], [facility] 08/07/2023 13:52:16 procedure on back completed Carlos Elizabeth MD [address] [place] [address],[address], [place], [address], [facility] 08/07/2023 12:10:59 total replacement of hip completed Carlos Elizabeth MD [address] [place] [address],[address], [address], [facility] 08/07/2023 12:11:10 Imaging Results Imaging Date Name [...] Address Organization Details Last Updated DateTime 08/07/2023 871594.28 g 31.4 kg/m2 180.34 cm Carlos Elizabeth MD [address] [place] [address],[address], [address], [facility] 08/07/2023 12:07:38 Date Recorded Body height Body mass index (BMI) Body weight Provider Name and Address Organization Details Last Updated DateTime 09/18/2023 180.34 cm 31.4 kg/m2 788953.28 g Carlos Elizabeth MD [address] [place] [address],[address], [address], [facility] 09/18/2023 12:04:31 Social History Question Answer Notes LastModified by Organizat ion Details LastModified Time Tobacco Smoking Status Former Smoker Carlos Elizabeth MD [address] [place] [address],[address], [address], [facility] 08/07/2023 12:10:26 What Is Your Level Of [...] trivalent, adjuvanted 02/24/2019 completed Carlos Elizabeth MD [address] [place] [address],[address], [address], [facility] 08/07/2023 12:07:49 influenza, trivalent, adjuvanted 02/27/2018 completed Carlos Elizabeth MD [address] [place] [address],[address], [address], [facility] 08/07/2023 12:07:49 influenza, trivalent, adjuvanted 04/09/2017 completed Carlos Elizabeth MD [address] [place] [address],[address], [address], [facility] 08/07/2023 12:07:49 zoster recombinant 11/25/2019 completed Carlos ochoa MD [address] [place] [address],[address], [address], [facility] 08/07/2023 12:07:49 zoster recombinant 02/21/2020 completed Carlos ochoa MD [address] [place] [address],[address], [address], [facility] 08/07/2023 12:07:49 influenza, high-dose, quadrivalent 02/17/2023 completed Carlos Elizabeth MD [address] [place] [address],[address], [place], [address], [facility] 08/07/2023 12:07:49 influenza, high-dose, quadrivalent 03/14/2022 completed Carlos Elizabeth MD [address] [place] [address],[address], [place], [address], [facility] 08/07/2023 12:07:49 Influenza vaccine, quadrivalent, adjuvanted 02/01/2020 completed Carlos Elizabeth MD [address] [place] [address],[address], [place], [address], [facility] 08/07/2023 12:07:49 Influenza vaccine, quadrivalent, adjuvanted 02/01/2021 completed Carlos Elizabeth MD [address] [place] [address],[address], [place], [address], [facility] 08/07/2023 12:07:49 COVID-19, mRNA, LNP-S, PF, 30 mcg/0.3 mL dose 07/05/2020 completed Carlos Elizabeth MD [address] [place] [address],[address], [place], [address], [facility] 08/07/2023 12:07:50 COVID-19, mRNA, LNP-S, PF, 30 mcg/0.3 mL dose 07/26/2020 completed Carlos Elizabeth MD [address] [place] [address],[address], [place], [address], [facility] 08/07/2023 12:07:50 COVID-19, mRNA, LNP-S, PF, 30 mcg/0.3 mL dose 02/09/2021 completed Carlos Elizabeth MD [address] [place] [address],[address], [place], [address], [facility] 08/07/2023 12:07:50 COVID-19, mRNA, LNP-S, PF, 30 mcg/0.3 mL dose, rahda-sucrose 08/15/2021 completed Carlos Elizabeth MD [address] [place] [address],[address], [place], [address], [facility] 08/07/2023 12:07:50 COVID-19, mRNA, LNP-S, bivalent, PF, 30 mcg/0.3 mL dose 03/14/2022 completed Carlos Elizabeth MD [address] [place] [address],[address], [place], [address], [facility] 08/07/2023 12:07:50 RSV, recombinant, protein subunit RSVpreF, adjuvant reconstituted, 0.5 mL, PF 03/19/2023 completed Carlos Elizabeth MD [address] [place] [address],[address], [place], [address], [facility] 08/07/2023 12:07:50 COVID-19, mRNA, LNP-S, PF, radha-sucrose, 30 mcg/0.3 mL 02/17/2023 completed Carlos Elizabeth MD [address] [place] [address],[address], [place], [address], [facility] 08/07/2023 12:07:50 pneumococcal polysaccharide PPV23 01/28/2008 completed Carlos Elizabeth MD [address] [place] [address],[address], [place], [address], [facility] 08/07/2023 12:07:50 pneumococcal polysaccharide PPV23 02/24/2019 completed Carlos Elizabeth MD [address] [place] [address],[address], [place], [address], [facility] 08/07/2023 12:07:50 influenza, unspecified formulation 03/11/2018 completed Carlos Elizabeth MD [address] [place] [address],[address], [place], [address], [facility] 08/07/2023 12:07:50 Tdap 08/01/2009 completed Carlos Elizabeth MD [address] [place] [address],[address], [place], [address], [facility] 08/07/2023 12:07:50 Tdap 11/25/2019 completed Carlos Elizabeth MD [address] [place] [address],[address], [place], [address], [facility] 08/07/2023 12:07:50 Novel Tsbhollvm-[id number], all formulations 04/25/2009 completed Carlos Elizabeth MD [address] [place] [address],[address], [place], [address], [facility] 08/07/2023 12:07:50 Pneumococcal conjugate PCV 13 10/30/2016 completed Carlos Elizabeth MD [address] [place] [address],[address], [place], [address], [facility] 08/07/2023 12:07:50 zoster live 03/05/2012 completed Carlos Elizabeth MD [address] [place] [address],[address], [place], [address], [facility] 08/07/2023 12:07:50 Influenza, seasonal, injectable 02/20/2015 completed Carlos Elizabeth MD [address] [place] [address],[address], [place], [address], [facility] 08/07/2023 12:07:50 Influenza, seasonal, injectable 02/23/2013 completed Carlos Elizabeth MD [address] [place] [address],[address], [place], [address], [facility] 08/07/2023 12:07:50 Influenza, seasonal, injectable 03/03/2008 completed Carlos Elizabeth MD [address] [place] [address],[address], [place], [address], [facility] 08/07/2023 12:07:50 Influenza, seasonal, injectable 03/05/2012 completed Carlos Elizabeth MD [address] [place] [address],[address], [place], [address], [facility] 08/07/2023 12:07:50 Influenza, seasonal, injectable 04/01/2007 completed Carlos Elizabeth MD [address] [place] [address],[address], [place], [address], [facility] 08/07/2023 12:07:50 Influenza, seasonal, injectable, preservative free 03/01/2011 completed Carlos Elizabeth MD [address] [place] [address],[address], [place], [address], [facility] 08/07/2023 12:07:50 Influenza, seasonal, injectable, preservative free 04/25/2009 completed Carlos Elizabeth MD [address] [place] [address],[address], [place], [address], [facility] 08/07/2023 12:07:50 influenza, injectable, quadrivalent, preservative free 03/03/2014 completed Carlos Elizabeth MD [address] [place] [address],[address], [address], [facility] 08/07/2023 12:07:50 influenza, injectable, quadrivalent, preservative free 04/05/2016 completed Carlos Elizabeth MD [address] [place] [address],[address], [address], [facility] 08/07/2023 12:07:50 Past Encounters Encounter ID Performer Location Encounter Start Date Encounter Closed Date Diagnosis/Indication Diagnosis SNOMED-CT Code [id number] MD [facility] [address] [place] [id number] 08/07/2023 11:55:10 08/08/2023 09:52:10 Renal mass [id number] MD [facility] [address] [place] [id number] 09/18/2023 11:53:48 09/19/2023 11:26:56 Malignant tumor of kidney [id number] Health Concerns Section Related Observation LastModified by Organization Detai ls LastModified Time None Recorded Concern Status LastModified by Organization Details LastModified Time None Recorded Advance Directives Directive None Recorded Payers Encounter Date Sequence Insurance Name Policy Number Policy Lim Covered Member ID Lim Member ID Guarantor Name 09/18/2023 1 [place] [id number] Brooke J Ronak [id number] Brooke Ronak 08/07/2023 1 [place] [id number] Brooke J Ronak [id number] Brooke Ronak Notes Date Note Type Note Provider Name [...] from a posterior approach. Carlos Elizabeth MD [address] [place] [address],[address], [place], [address], [facility] 08/07/2023 13:52:30 09/18/2023 text/html HPI Notes: Follo w up kidney cancer. He had a nephrectomy and the final pathology showed Grade 4 RCC with invasion into the hilum. Stage T3a. He came with his and son. Carlos Elizabeth MD [address],[address], [place], [address], [facility] 09/18/2023 14:25:17
--- OUTSIDE RECORDS SUMMARY | 2023-10-08 07:28 | XMS_ITS | Referral Summary ---
Author Organization [facility] Address [address] [place] [address] Care Team Providers Care Turntable Operator Name Role Phone Sukhjinder Trinidad MD Primary [...] Sex Assigned at Male 07/04/2020 1:48 PM PARALEGAL Gender Identity Male 07/04/2020 1:48 PM PARALEGAL Sexual Orientation Straight 07/04/2020 1: 48 PM PARALEGAL Last Filed Vital Signs Vital Sign Reading Time Taken Comments Blood Pressure 189/83 07/07/2018 12:15 PM PARALEGAL Pulse 65 07/07/2018 12:15 PM PARALEGAL Temperature 36.2 ??C (97.2 ??F) 07/07/2018 12:[address] Respiratory Rate 14 07/07/2018 12:15 PM PARALEGAL Oxygen Saturation 96% 07/07/2018 12:15 PM PARALEGAL Inhaled Oxygen Concentration - - Weight 114.8 kg (253 lb) 07/01/2018 10:20 AM PARALEGAL Height 175.3 cm (5' 9) 07/01/2018 10:20 AM PARALEGAL Body Mass Index 37.36 07/01/2018 10:20 AM PARALEGAL Plan of Treatment Not on file Care Teams Turntable Operator Relationship Specialty Start Date End Date Sukhjinder Trinidad MD PCP - General 01/15/16
--- OUTSIDE RECORDS SUMMARY | 2023-10-08 07:28 | XMS_ITS | Clinical Summary ---
Author Organization [facility] Address [address] [place] [address] Care Team Providers Care Manager Film Name Role Phone Sukhjinder Trinidad MD Primary [...] 12/19/2015 Immunizations Name Administration Dates Next Due [employer] 12+ Yrs MONOVALENT COVID Vaccine (purple cap) [...] Sex Assigned at Male 07/04/2020 1:48 PM [employer] SUPERVISOR Gender Identity Male 07/04/2020 1:48 PM [employer] SUPERVISOR Sexual Orientation Straight 07/04/2020 1: 48 PM [employer] SUPERVISOR Last Filed Vital Signs Vital Sign Reading Time Taken Comments Blood Pressure 189/83 07/07/2018 12:15 PM [employer] SUPERVISOR Pulse 65 07/07/2018 12:15 PM [employer] SUPERVISOR Temperature 36.2 ??C (97.2 ??F) 07/07/2018 12:[address] Respiratory Rate 14 07/07/2018 12:15 PM [employer] SUPERVISOR Oxygen Saturation 96% 07/07/2018 12:15 PM [employer] SUPERVISOR Inhaled Oxygen Concentration - - Weight 114.8 kg (253 lb) 07/01/2018 10:20 AM [employer] SUPERVISOR Height 175.3 cm (5' 9) 07/01/2018 10:20 AM [employer] SUPERVISOR Body Mass Index 37.36 07/01/2018 10:20 AM [employer] SUPERVISOR Plan of Treatment Health Maintenance Due Date [...] Zoster Vaccine Completed 02/21/2020, 07/0 01/2020, 03/05/2012 Care Teams Manager Film Relationship Specialty Start Date End Date Sukhjinder Trinidad MD PCP - General 01/15/16
--- OUTSIDE RECORDS SUMMARY | 2023-10-08 07:28 | XMS_ITS | Continuity of Care Document ---
Author Organization [facility], [facility] Address [address] [place] [address] Care Team Providers Care Dial Polisher Name Role Phone ALYSHA TREADWELL Primary Care Provider Assessment No assessment recorded. 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 Carlos Elizabeth MD [address] [facility],[address], [place], [address], [facility] 09/18/2023 12:35:18 Problem Notes None recorded. Procedures Surgical History Date Name Laterality Status Provider Name and Address Organization Details Recorded Time 09/18/19 24 COMPLEX VISIT completed Carlos Elizabeth MD [address] [place] [address],[address] [facility], [place], [address], [facility] 09/18/2023 14:25:08 08/22/19 24 NEPHRECTOMY, HAND ASSISTED LAPAROSCOPIC (SURG) [facility] 08/27/2023 10:55:06 08/07/19 24 COMPLEX VISIT completed Carlos Elizabeth MD [address] [place] [address],[address], [place], [address], [facility] 08/07/2023 13:52:16 procedure on back completed Carlos Elizabeth MD [address] [place] [address],[address], [address], [facility] 08/07/2023 12:10:59 total replacement of hip completed Carlos Elizabeth MD [address] [place] [address],[address], [address], [facility] 08/07/2023 12:11:10 Imaging Results None recorded. [...] Address Organization Details Last Updated DateTime 08/07/2023 746973.28 g 31.4 kg/m2 180.34 cm Carlos Elizabeth MD [address] [place] [address],[address], [address] [place] [address] [facility] 08/07/2023 12:07:38 Social History Question Answer Notes LastModified by Organizat ion Details LastModified Time Tobacco Smoking Status Former Smoker Carlos Elizabeth MD [address] [place] [address],[address], [address], [facility] 08/07/2023 12:10:26 What Is Your Level Of Alcohol Consumption? Occasional Information not available 08/07/2023 What Is Your Level Of Caffeine Consumption? Occasional Information not available 08/07/2023 When Did You Quit Smoking? 17+yearssinjuan luisa emily Information not available 08/07/2023 What Was The Date Of Your Most Recent Tobacco Screening? 09/18/2023 Information not available 09/18/2023 Sex: Male Functional Status None recorded. Mental Status None recorded. Family History Nothing Reported. Medical History Condition Response Other N High Blood Pressure Y Kidney Stones N Depression Y Lung Disease N GERD/Acid Reflux Y Diabetes N Sexually Transmitted Infection N Bleeding Disorder N Cancer N High Cholesterol Y Heart Disease N Immunizations Vaccine Type Date Status Provider Name and Address Organization Details Recorded Time influenza, trivalent, adjuvanted 02/24/2019 completed Cralos Elizabeth MD [address] [place] [address],[address], [place], [address], [facility] 08/07/2023 12:07:49 influenza, trivalent, adjuvanted 02/27/2018 completed Carlos Elizabeth MD [address] [place] [address],[address], [place], [address], [facility] 08/07/2023 12:07:49 influenza, trivalent, adjuvanted 04/09/2017 completed Carlos Elizabeth MD [address] [place] [address],[address], [place], [address], [facility] 08/07/2023 12:07:49 zoster recombinant 11/25/2019 completed Carlos ochoa MD [address] [place] [address],[address], [place], [address], [facility] 08/07/2023 12:07:49 zoster recombinant 02/21/2020 completed Carlos ochoa MD [address] [place] [address],[address], [place], [address], [facility] 08/07/2023 12:07:49 influenza, high-dose, quadrivalent 02/17/2023 completed Carlos Elizabeth MD [address] [place] [address],[address], [place], [address], [facility] 08/07/2023 12:07:49 influenza, high-dose, quadrivalent 03/14/2022 completed Carlos Elizabeth MD [address] [place] [address],[address], [place], [address], [facility] 08/07/2023 12:07:49 Influenza vaccine, quadrivalent, adjuvanted 02/01/2020 completed Carlos Elizabeth MD [address] [place] [address],[address], [place], [address], [facility] 08/07/2023 12:07:49 Influenza vaccine, quadrivalent, adjuvanted 02/01/2021 completed Carlos Elizabeth MD [address] [place] [address],[address], [place], [address], [facility] 08/07/2023 12:07:49 COVID-19, mRNA, LNP-S, PF, 30 mcg/0.3 mL dose 07/05/2020 completed Carlos Elizabeth MD [address] [place] [address],[address], [place], [address], [facility] 08/07/2023 12:07:50 COVID-19, mRNA, LNP-S, PF, 30 mcg/0.3 mL dose 07/26/2020 completed Carlos Elizabeth MD [address] [place] [address],[address], [place], [address], [facility] 08/07/2023 12:07:50 COVID-19, mRNA, LNP-S, PF, 30 mcg/0.3 mL dose 02/09/2021 completed Carlos Elizabeth MD [address] [place] [address],[address], [place], [address], [facility] 08/07/2023 12:07:50 COVID-19, mRNA, LNP-S, PF, 30 mcg/0.3 mL dose, radha-sucrose 08/15/2021 completed Carlos Elizabeth MD [address] [place] [address],[address], [place], [address], [facility] 08/07/2023 12:07:50 COVID-19, mRNA, LNP-S, bivalent, PF, 30 mcg/0.3 mL dose 03/14/2022 completed Carlos Elizabeth MD [address] [place] [address],[address], [place], [address], [facility] 08/07/2023 12:07:50 RSV, recombinant, protein subunit RSVpreF, adjuvant reconstituted, 0.5 mL, PF 03/19/2023 completed Carlos Elizabeth MD [address] [place] [address],[address], [place], [address], [facility] 08/07/2023 12:07:50 COVID-19, mRNA, LNP-S, PF, radha-sucrose, 30 mcg/0.3 mL 02/17/2023 completed Carlos Elizabeth MD [address] [place] [address],[address], [place], [address], [facility] 08/07/2023 12:07:50 pneumococcal polysaccharide PPV23 01/28/2008 completed Carlos Elizabeth MD [address] [place] [address],[address], [place], [address], [facility] 08/07/2023 12:07:50 pneumococcal polysaccharide PPV23 02/24/2019 completed Carlos Elizabeth MD [address] [place] [address],[address], [place], [address], [facility] 08/07/2023 12:07:50 influenza, unspecified formulation 03/11/2018 completed Carlos Elizabeth MD [address] [place] [address],[address], [place], [address], [facility] 08/07/2023 12:07:50 Tdap 08/01/2009 completed Carlos Elizabeth MD [address] [place] [address],[address], [place], [address], [facility] 08/07/2023 12:07:50 Tdap 11/25/2019 completed Carlos Elizabeth MD [address] [place] [address],[address], [place], [address], [facility] 08/07/2023 12:07:50 Novel Cnvaprvhl-[id number], all formulations 04/25/2009 completed Carlos Elizabeth MD [address] [place] [address],[address], [address], [facility] 08/07/2023 12:07:50 Pneumococcal conjugate PCV 13 10/30/2016 completed Carlos Elizabeth MD [address] [place] [address],[address], [place], [address], [facility] 08/07/2023 12:07:50 zoster live 03/05/2012 completed Carlos Elizabeth MD [address] [place] [address],[address], [place], [address], [facility] 08/07/2023 12:07:50 Influenza, seasonal, injectable 02/20/2015 completed Carlos Elizabeth MD [address] [place] [address],[address], [place], [address], [facility] 08/07/2023 12:07:50 Influenza, seasonal, injectable 02/23/2013 completed Carlos Elizabeth MD [address] [place] [address],[address], [address], [facility] 08/07/2023 12:07:50 Influenza, seasonal, injectable 03/03/2008 completed Carlos Elizabeth MD [address] [place] [address],[address], [address], [facility] 08/07/2023 12:07:50 Influenza, seasonal, injectable 03/05/2012 completed Carlos Elizabeth MD [address] [place] [address],[address], [address], [facility] 08/07/2023 12:07:50 Influenza, seasonal, injectable 04/01/2007 completed Carlos Elizabeth MD [address] [place] [address],[address], [address], [facility] 08/07/2023 12:07:50 Influenza, seasonal, injectable, preservative free 03/01/2011 completed Carlos Elizabeth MD [address] [place] [address],[address], [address], [facility] 08/07/2023 12:07:50 Influenza, seasonal, injectable, preservative free 04/25/2009 completed Carlos Elizabeth MD [address] [place] [address],[address], [address], [facility] 08/07/2023 12:07:50 influenza, injectable, quadrivalent, preservative free 03/03/2014 completed Carlos Elizabeth MD [address] [place] [address],[address], [address], [facility] 08/07/2023 12:07:50 influenza, injectable, quadrivalent, preservative free 04/05/2016 completed Carlos Elizabeth MD [address] [place] [address],[address], [address], [facility] 08/07/2023 12:07:50 Past Encounters Encounter ID Performer Location Encounter Start Date Encounter Closed Date Diagnosis/Indication Diagnosis SNOMED-CT Code [id number] Carlos Elizabeth MD [facility] [address] [place] [id number] 08/07/2023 11:55:10 08/08/2023 09:52:10 Renal mass [id number] Health Concerns Section Related Observation LastModified by Organization Detai ls LastModified Time None Recorded Concern Status LastModified by Organization Details LastModified Time None Recorded Payers Encounter Date Sequence Insurance Name Policy Number Policy Lim Covered Member ID Lim Member ID Guarantor Name 08/07/2023 1 [place] COST [id number] Edwardo Simons [id number] Edwardo Simons Notes Date Note Type Note [...] from a posterior approach. Carlos Elizabeth MD [address] [facility],[address], [place], [address], [facility] 08/07/2023 13:52:30
--- OUTSIDE RECORDS SUMMARY | 2023-10-08 07:28 | XMS_ITS | Clinical Summary ---
Author Organization [place] Address [address] [place] [address] Care Team Providers Care Client Success Manager Name Role Phone Niall Harding MD Primary Care Provider [phone] Allergies No known active allergies Medications Medication [...] Comments Blood Pressure 127/52 05/05/2023 8:55 AM [facility] Pulse 64 05/05/2023 8:54 AM [facility] Temperature 36.6 ??C (97.8 ??F) 05/05/2023 7:20 AM CS T Respiratory Rate 18 05/05/2023 7:20 AM [facility] Oxygen Saturation 96% 05/05/2023 7:20 AM [facility] Inhaled Oxygen Concentration - - Weight 101.1 kg (222 lb 12.8 oz) 2022 12:36 AM [facility] Height 180.3 cm (5' 11) 05/02/2023 12: 36 AM [facility] Body Mass Index 31.07 05/02/2023 12:36 AM [facility] Plan of Treatment Health Maintenance Due Date Last Done Comments ADVANCE CARE PLANNING 1950 ANNUAL REVIEW OF HM ORDERS 1950 CT COLONOGRAPHY 1951 FIT 1950 FLEX SIG 1950 LIPID 1950 sDNA (Cologuard) 1950 COLONOSCOPY 09/29/1961 COLORECTAL CANCER SCREENING 09/29/1961 HEPATITIS C SCREENING 09/29/1969 RSV VACCINE ( & 60+) (1 - 1-dose 60+ series) 2011 FALL RISK ASSESSMENT 09/29/2016 COVID-19 Vaccine (2022- season) 2023 02/17/2023, 03/14/2022, 08/15/2021, Additional history exists MEDICARE ANNUAL WELLNESS VISIT 04/15/2023 04/15/2022, 03/13/2021 PHQ-2 (once per calendar year) 2023 GLUCOSE 05/05/2026 05/05/2023, 04/18, 05/05/2023, Additional history exists DTAP/TDAP/TD IMMUNIZATION (3 - Td or Tdap) 11/24/2029 11/25/2019, 08/01/2009, 11/02/1994 AORTIC ANEURYSM SCREENING (SYSTEM ASSIGNED) Completed 12/31/2018 Pneumococcal Vaccine: 65+ Years Completed 02/24/2019, 10/30/2016, 01/28/2008 ZOSTER IMMUNIZATION Completed 02/21/2020, 11/25/2019, 03/05/2012 INFLUENZA VACCINE Completed 02/17/2023, , 02/01/2021, Additional [...] this topic Medical Devices Implanted Type Area Filament Cutter Device Identifier Shelf Expiration Date Model / Serial / Lot Graft Bone Magnifuse [id number] - [id number] Implanted:Qty : 1 on 04/16/2023 by Thang Negrete MD at [facility] Bone/Tissu e/Biologic N/A: Spine Lumbar [employer] [id number] 03/19/2025 [id number] / [id number] / Graft Bone Fibers Dbf 6ml Inj [id number] Preloaded - [id number] Implanted:Qty : 1 on 04/16/2023 by Thang Negrete MD at [facility] Bone/Tissu e/Biologic N/A: Spine Lumbar [employer] 10/21/2024 [id number] / [id number] / Pass Lp Crosslink [id number] Implanted:Qty : 1 on 04/16/2023 by Thang Negrete MD at [facility] Metallic Hardware/A nchor N/A: Spine Lumbar [employer] [id number] / / [id number] 2022 Imp Screw Bn Medt Spine 50x6.5mm 5.5/6mm Paul - [id number] Implanted:Qty : 6 on 04/16/2023 by Thang Negrete MD at [facility] Metallic Hardware/A nchor N/A: Spine Lumbar [employer] [id number] / / [id number] 2022 Imp Screw Bn Medt Spine 45x7.5mm 5.5/6mm Paul - [id number] Implanted:Qty : 2 on 04/16/2023 by Thang Negrete MD at [facility] Metallic Hardware/A nchor N/A: Spine Lumbar [employer] [id number] / / [id number] 2022 Imp Scr Set Medt Solera Break Off 5.5mm Ti [id number] - [id number] Implanted:Qty : 8 on 04/16/2023 by Thang Negrete MD at [facility] Metallic Hardware/A nchor N/A: Spine Lumbar [employer] [id number] / / [id number] [address]pi Interbody Medt [address] Long 7mm [id number] - [id number] Implanted:Qty : 1 on 04/16/2023 by Thang Negrete MD at [facility] Metallic Hardware/A nchor N/A: Spine Lumbar [employer] 12/26/2029 [id number] / / [id number] Imp Spi Interbody Medt [address] Long 7mm [id number] - [id number] Implanted:Qty : 1 on 04/16/2023 by Thang Negrete MD at [facility] Metallic Hardware/A nchor N/A: Spine Lumbar [employer] 11/28/2029 [id number] / / [id number] Imp Spi Interbody Medt [address] Long 7mm [id number] - [id number] Implanted:Qty : 1 on 04/16/2023 by Thang Negrete MD at [facility] Metallic Hardware/A nchor N/A: Spine Lumbar [employer] 11/26/2029 [id number] / / [id number] Imp Paul Medt Solera Cvd 5.5x90mm Ti [id number] - [id number] Implanted:Qty : 2 on 04/16/2023 by Thang Negrete MD at [facility] Metallic Hardware/A nchor N/A: Spine Lumbar [employer] [id number] / / [id number] 2022 Procedures Procedure Name Priority Date/Time Associated Diagnosis Comments GLUCOSE BY METER Routine 05/05/2023 1:59 AM [facility]ER US AORTA/IVC/ILIAC DUPLEX LIMITED Routine 12/31/2018 10:05 AM CDT from Last 3 Months or Most Recently Relevant to Health Maintenance Results * (ABNORMAL) Glucose by meter (05/05/2023 1:59 AM B[facility]ER) GLUCOSE BY METER POCT 157(H) 70 - 99 mg/dL 05/05/2023 2:06 AM [facility] LABORATORY POC Blood, Capillary BLOOD SPECIMEN / Unknown 05/05/2023 1:59 AM [facility]ER 05/05/2023 2:06 AM [facility] Rohit GIRALDO POCT RH LABORATORY POC [facility] [address] Lab (1st floor, no room number) [place] [address], [facility] [phone] from Last 3 Months or Most Recently Relevant to Health Maintenance Advance Directives For more information, please contact: [phone] * Full Code (Latest Code Status on [...] Code status determined by: Other (please patricia montes) Care Teams Client Success Manager Relationship Specialty Start Date End Date Niall Harding MD [address] [facility] [address] P[facility] - General 04/16/23
--- OUTSIDE RECORDS SUMMARY | 2023-10-08 07:28 | XMS_ITS | Continuity of Care Document ---
Author Organization [facility] Address [address] [place] [address] [address] [place] [address] Phone Care Team Providers Care Visual Inspector Name Role Phone Sean Sena Unavailable Unavailable Advance Directives Directive Yes / No Effective Date File Name No Information Encounters Encounter Description Practice Location Reason(s) For Visit Diagnoses Date Provider Providers Copied on Encounter [facility], [address] [place], [place] [address] [address], [place], [address], [place] tel:[phone] [facility] No Information Mar-2 9-200 8 Louise Estrada. [address], [place], [place], [id number] , [place]. tel:[phone] Family History Family Member Type Diagnosis Age At Onset No Information Payers Payer name Insurance type Covered republican ID Authoriza tion(s) No Information Social History [...]
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
--- NOTE | 2023-10-08 08:00 | CT_ITS ---
Patient: ESTHER DOUGLAS Facility:?[facility] Patient ID:?[id number] Site Patient ID:?[id number]. Site :?1950 Study:?CT-Chest/Abd/Pelvis WITHOUT-10/08/2023 7:50:27 AM Ordering Physician:?DR. AYALA Final Report: Indication: Follow-up kidney cancer Technique: Noncontrast CT chest, abdomen and pelvis Please note that all CT scans at this facility use dose modulation, iterative reconstruction, and/or weight-based dosing when appropriate to reduce radiation dose to as low as reasonably achievable. Comparison: None Findings: In the chest, multiple pulmonary nodules are present bilaterally. The largest on the right measures up to 1.1 cm within the posterior right lower lobe. The largest on the left is a lobular nodule measuring up to 15 millimeters within the lingula. An additional 15 millimeter lobular cluster of nodules within the more inferior lingula noted. Other nodular densities including a peripheral nodule within the right lung adjacent to the fissure measuring 9 millimeters. Smaller nodules are present elsewhere. No pleural effusion. There is an enlarged lymph node at the left thoracic inlet measuring 1.5 cm. Additional enlarged lymph node in the prevascular space measuring 1.1 cm. AP window lymph node measures 9 millimeters. Subcarinal lymph node measures 15 millimeters. Subcentimeter GE junction lymph node noted. Axillary lymph nodes are normal. No fracture. Degenerative disc disease midthoracic spine and lower cervical spine. In the abdomen, the noncontrast enhanced liver is unremarkable. Normal gallbladder. The pancreas is normal. Normal spleen. Adrenal glands are normal. Right kidney is absent. Coarse calcifications associated with the left kidney involving an exophytic structure. Enlarged lymph nodes are present at the upper retroperitoneum superior to the pancreas within the aortocaval space measuring up to 14 millimeters. Bulky adenopathy in the aortocaval space measuring up to 3.7 cm within the lower retroperitoneum. Atherosclerotic change. No aneurysm. No bowel obstruction. In the pelvis, no enlarged inguinal or pelvic sidewall lymph nodes. Bladder normal. No pelvic mass. No bowel obstruction or free air. No free fluid. Old ostomy noted within the right lateral abdomen which is filled with fat. No fracture. Postop changes lumbar spine. Left hip replacement hardware. Impression: Bilateral pulmonary nodules measuring up to 15 millimeters. Mediastinal and upper abdominal adenopathy including bulky aortocaval adenopathy measuring up to 3.7 cm. Status post right nephrectomy. Postprocedural changes to an exophytic structure arising from the anterior left kidney. Please note that all CT scans at this facility use dose modulation, iterative reconstruction, and/or weight-based dosing when appropriate to reduce radiation dose to as low as reasonably achievable. Dictated by Sukhjinder Boudreaux MD @ 10/08/2023 11:40:21 AM Signed by:?Sukhjinder Boudreaux MD @10/08/2023 11:40:21 AM (Electronic Signature)
== END 2023-10-08 07:25 | disposition home or self-care (01) ==
PROVIDERS: PCP Surgery; Visit Provider Urology
DX: C64.9 Malignant neoplasm of unspecified kidney, except renal pelvis (principal); R91.8 Other nonspecific abnormal finding of lung field
CPT/HCPCS: 71250; 74176

== ENCOUNTER 2023-10-23 15:27 | Outpatient (CLI) | payer MEDICARE, BC, SELFPAY ==
--- NOTE | 2023-10-23 15:30 | PE_ITS ---
[facility] [address] [address] Phone:?[phone] Fax:?[phone] Referring Physician Information: Karen Tiwari M.D. [address] [facility] [address] Phone:?[phone] Fax:?[phone] Patient:?Edwardo Simons D.O.B:?1950 Sex:?Male Phone:?[phone] [facility] MRN:?[id number] Exam Date:?10/23/2023 EXAM:?PET/CT EYES TO THIGHS, CANCER INITIAL STAGING CLINICAL INFORMATION: Kidney cancer. History of recent retroperitoneal biopsy. TECHNICAL INFORMATION: Helical acquisition of data was obtained from the orbits to the upper thighs with reconstruction of 3.75 mm thick images at 3.[address] data was used for attenuation correction. PET scanning was performed through the same anatomic range 60 minutes following administration of 12.45 mCi of 18-FDG delivered intravenously. The patient's glucose at the time of the injection was 144 mg/dL. PET, CT and PET/CT fusion images are interpreted using a computer viewing workstation. PET, CT and PET/CT fusion images were archived and saved in the patient's permanent medical record. COMPARISON: CT chest, abdomen and pelvis 10/08/2023 INTERPRETATION: Head and Neck: There is enlarged left level 4 lymph node measuring 1.4 cm in short axis with an SUV max of 6.15. There is physiologic uptake in the intracranial soft tissues. Chest: Mediastinal blood pool activity with an mean SUV of 2.47. Enlarged radiotracer avid mediastinal and bilateral hilar lymph nodes. A customer solutions representative subcarinal lymph node measures 1.0 cm in short axis with an SUV max of 20.63. A customer solutions representative right hilar lymph node is difficult to measure with an SUV max of 19.06. A left hilar lymph node measures 1.1 cm in short axis with an SUV max of 18.04. Scattered radiotracer avid pulmonary nodules bilaterally which appear similar in size to the comparison CT chest, within the limitations of this exam. A customer solutions representative right lower lobe nodule measures 0.8 cm (series 202 image 121) with an SUV max of 4.84. Cluster of nodular densities in the left upper lobe (series 202 image 110) with a conglomerate measurement of 1.1 x 1.2 cm an SUV max of 6.91. Ectatic ascending thoracic aorta measuring up to 4.1 cm. No pericardial effusion. Abdomen and Pelvis: Background liver parenchymal uptake with a mean SUV of. Enlarged radiotracer avid retroperitoneal lymph nodes. A customer solutions representative conglomerate lymph node in the aortocaval region measures 4.5 x 1.9 cm (series 202 image 199) with an SUV max of 21.07. Postsurgical changes of right nephrectomy. A 1 cm focus of soft tissue adjacent to the sutures with associated radiotracer avidity with an SUV max of 9.51 (series 202 image 180). A nodular soft tissue focus in the region is better appreciated on the recent comparison CT. There is physiologic excretion of radiotracer in the urine and bowel. There is inflammation adjacent to the ascending colon (series 202 image 192) with a few foci of gas in the region. Redemonstrated postsurgical changes of the anterior left kidney. Aortoiliac atherosclerosis. Skeleton, Musculature, and Integument: No abnormal hypermetabolic foci within the skeleton. No sergio osteoblastic or osteolytic disease. Posterior fixation hardware in the lumbar spine. Postsurgical changes of left hip arthroplasty. CONCLUSION: * Radiotracer avid lymphadenopathy in the left lower neck, chest and retroperitoneal regions suspicious for metastasis. * Scattered mildly FDG avid lung nodules are stable in size from the recent comparison CT chest and are suspicious for metastasis. * Postsurgical changes of right nephrectomy. A small radiotracer avid lesion adjacent to the surgical sutures. A nodular focus was better visualized on the comparison CT chest and this may reflect an adjacent lymph node versus residual disease. Attention on follow up imaging. * Minimal inflammation adjacent to the ascending colon posteriorly in the right upper quadrant region with a few small foci of gas in the region. Findings may be related to provided history of recent retroperitoneal biopsy. Electronically signed on 10/27/2023 9:23:00 AM by Zachary Howard D.O
--- OUTSIDE RECORDS SUMMARY | 2023-10-23 15:31 | XMS_ITS | Encounter Summary ---
Author Organization [facility] Address [address] [place] [address] Care Team Providers Care Oil Field Equipment Mechanic Name Role Phone Niall Harding MD Primary Care Provider [phone] Encounter Details Date Type Department Care Team (Late st Contact Info) Description 09/08/2023 Documentation Only [facility] [address] [place], [place] [address] [address] No, Pcp Social History Tobacco Use Types Packs/Day Years Used Date Smoking Tobacco: Former Cigarettes 1 960 - 1969 Smokeless Tobacco: Never Tobacco Cessation:Counseling Given: Not Answered Alcohol Use Standard Drinks/Week Comments Yes 3 (1 standard drink = 0.6 oz pur e alcohol) Sex and Gender Information Value Date Recorded Sex Assigned at Not on file Gender Identity Not on file Sexual Orientation Not on file documented as of this encounter Plan of Treatment Not on file documented as of this encounter Procedures Procedure [...] MD LAB BLOOD ORDERAB LES [facility] * CBC (11/05/2022) WBC 10.0 K/uL [facility] Red Blood Cell Count 4.91 [facility] Hemoglobin 15.4 g/dL [facility] Hematocrit 45.5 % [facility] MCV 93 [facility] MCH 31.4 [facility] MCHC 33.8 [facility] RDW 13.4 [facility] Platelet Count 271 [facility] MPV 10.3 [facility] Blood (Blood, Venous) 11/05/2022 Historical Provider LAB BLOOD ORDERAB LES Performing Organization Address [facility] Co de Phone Number [facility] * (ABNORMAL) Basic Metabolic Panel (BMP) (11/05/2022) Sodium 141 mEq/L [facility] Potassium 4.7 mEq/L [facility] Chloride 104 [facility] Carbon Dioxide 23 mmol/L [facility] Calcium 10.6(H) mg/dL [facility] BUN 25 mg/dL [facility] Creatinine 1.59(H) mg/dL [facility] Glucose 139(H) mg/dL [facility] eGFR 46(L) [facility] Anion Gap 14 [facility] 11/05/2022 Historical Provider LAB BLOOD ORDERAB LES Performing Organization Address [facility] Co de Phone Number [facility] * (ABNORMAL) Basic Metabolic Panel (BMP) (05/24/2022) Sodium 140 mEq/L [facility] Potassium 4.6 mEq/L [facility] Chloride 102 [facility] Carbon Dioxide 23 mmol/L [facility] Calcium 10.3(H) mg/dL [facility] BUN 28(H) mg/dL [facility] Creatinine 1.45(H) mg/dL [facility] Glucose 135(H) mg/dL [facility] eGFR 52(L) [facility] Anion Gap 15 [facility] 05/24/2022 Historical Provider LAB BLOOD ORDERAB LES Performing Organization Address [facility] Co de Phone Number [facility] documented in this encounter Visit Diagnoses Not on filedocumented in this encounter Care Teams Oil Field Equipment Mechanic Relationship Specialty Start Date End Date Niall Harding MD [address] [place] [address] PCP - General Family Medicine 09/08/23 documented as of this encounter
--- OUTSIDE RECORDS SUMMARY | 2023-10-23 15:31 | XMS_ITS | Continuity of Care Document ---
Author Organization [facility] Address [address] [place] [address] Care Team Providers Care Desktop Analyst Name Role Phone ALYSHA TREADWELL Primary Care Provider [phone] Assessment No assessment recorded. Plan of Treatment Reminders Order Date Submit Date Provider Last Modified By Organization Details Last Modified Time Details Appointments ESTABLI SHED 10 2023 10:50A M Carlos Elizabeth MD Not available Not available Not available Lab None recorde d. Referral None recorde d. Procedures None recorde d. Surgeries None recorde d. Imaging CT, chest + abdomen + pelvis, w/o contras t 2023 0515/ 024 [facility], [address] [place], [address], 10/08/2023 08:51:15 Medication Orders None recorde d. Patient TargetsNo targets recorded. Patient InstructionsNo instructions recorded. Reason for Referral None Reported. Results Created Date Observation Date Name Description Value Unit Range Abnormal Flag LastModifiedBy Organization Detail LastModifiedTime 10/08/19 24 10/08/2023 CT, chest + abdom en + pelvi s, w/o contr ast No observ ation record ed. [facility] [address] [place], [address], 10/10/2023 12:32:02 Result Notes None recorded. 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 Carlos Elizabeth MD [address] [facility],[address], [place], [address], [facility] 09/18/2023 12:35:18 Problem Notes None recorded. Procedures Surgical History Date Name Laterality Status Provider Name and Address Organization Details Recorded Time 09/18/19 24 COMPLEX VISIT completed Carlos Elizabeth MD [address] [place] [address],[address], [place], [address], [facility] 09/18/2023 14:25:08 08/22/19 24 NEPHRECTOMY, HAND ASSISTED LAPAROSCOPIC (SURG) [facility] 10:55:06 08/07/19 24 COMPLEX VISIT completed Carlos Elizabeth MD [address] [place] [address],[address], [place], [address], [facility] 08/07/2023 13:52:16 procedure on back completed Carlos Elizabeth MD [address] [place] [address],[address], [place], [address], [facility] 08/07/2023 12:10:59 total replacement of hip completed Carlos Elizabeth MD [address] [place] [address],[address], [place], [address], [facility] 08/07/2023 12:11:10 Imaging Results None recorded. Procedure [...] Updated DateTime 09/18/2023 180.34 cm 31.4 kg/m2 479870.28 g Carlos Elizabeth MD [address] [place] [address], [phone] 09/18/2023 12:04:31 Social History Question Answer Notes LastModified by Organizat ion Details LastModified Time Tobacco Smoking Status Former Smoker Carlos Elizabeth MD [address] [place] [address], [phone] 08/07/2023 12:10:26 What Is Your Level Of Alcohol Consumption? Occasional Information not available 08/07/2023 What Is Your Level Of Caffeine Consumption? Occasional Information not available 08/07/2023 When Did You Quit Smoking? 17+yearstheodore diaz Information not available 08/07/2023 What Was [...] Name and Address Organization Details Recorded Time Influenza, adjuvanted, trivalent, PF 02/24/2019 completed Carlos Elizabeth MD [address] [place] [address],[address], [place], [address], [facility] 08/07/2023 12:07:49 Influenza, adjuvanted, trivalent, PF 02/27/2018 completed Carlos Elizabeth MD [address] [place] [address],[address], [place], [address], [facility] 08/07/2023 12:07:49 Influenza, adjuvanted, trivalent, PF 04/09/2017 completed Carlos Elizabeth MD [address] [place] [address],[address], [place], [address], [facility] 08/07/2023 12:07:49 zoster recombinant 11/25/2019 completed Carlos ochoa MD [address] [place] [address],[address] [place] [address], [address], [facility] 08/07/2023 12:07:49 zoster recombinant 02/21/2020 completed Carlos ochoa MD [address] [place] [address],[address] [place] [address], [address], [facility] 08/07/2023 12:07:49 Influenza, high-dose, quadrivalent, PF 02/17/2023 completed Carlos Elizabeth MD [address] [place] [address],[address], [address], [facility] 08/07/2023 12:07:49 Influenza, high-dose, quadrivalent, PF 03/14/2022 completed Carlos Elizabeth MD [address] [place] [address],[address] [place] [address], [address], [facility] 08/07/2023 12:07:49 Influenza, adjuvanted, quadrivalent, PF 02/01/2020 completed Carlos Elizabeth MD [address] [place] [address],[address], [place], [address], [facility] 08/07/2023 12:07:49 Influenza, adjuvanted, quadrivalent, PF 02/01/2021 completed Carlos Elizabeth MD [address] [place] [address],[address], [place], [address], [facility] 08/07/2023 12:07:49 COVID-19, mRNA, LNP-S, PF, 30 mcg/0.3 mL dose 07/05/2020 completed Carlos Elizabeth MD [address] [place] [address],[address], [place], [address], [facility] 08/07/2023 12:07:50 COVID-19, mRNA, LNP-S, PF, 30 mcg/0.3 mL dose 07/26/2020 completed Carlos Elizabeth MD [address] [place] [address],[address], [place], [address], [facility] 08/07/2023 12:07:50 COVID-19, mRNA, LNP-S, PF, 30 mcg/0.3 mL dose 02/09/2021 completed Carlos Elizabeth MD [address] [place] [address],[address], [place], [address], [facility] 08/07/2023 12:07:50 COVID-19, mRNA, LNP-S, PF, 30 mcg/0.3 mL dose, radha-sucrose 08/15/2021 completed Carlos Elizabeth MD [address] [place] [address],[address], [place], [address], [facility] 08/07/2023 12:07:50 COVID-19, mRNA, LNP-S, bivalent, PF, 30 mcg/0.3 mL dose 03/14/2022 completed Carlos Elizabeth MD [address] [place] [address],[address], [place], [address], [facility] 08/07/2023 12:07:50 RSV, recombinant, protein subunit RSVpreF, adjuvant reconstituted, 0.5 mL, PF 03/19/2023 completed Carlos Elizabeth MD [address] [place] [address],[address], [place], [address], [facility] 08/07/2023 12:07:50 COVID-19, mRNA, LNP-S, PF, radha-sucrose, 30 mcg/0.3 mL 02/17/2023 completed Carlos Elizabeth MD [address] [place] [address],[address], [place], [address], [facility] 08/07/2023 12:07:50 pneumococcal polysaccharide PPV23 01/28/2008 completed aCrlos Elizabeth MD [address] [place] [address],[address], [place], [address], [facility] 08/07/2023 12:07:50 pneumococcal polysaccharide PPV23 02/24/2019 completed Carlos Elizabeth MD [address] [place] [address],[address], [place], [address], [facility] 08/07/2023 12:07:50 influenza, unspecified formulation 03/11/2018 completed Carlos Elizabeth MD [address] [place] [address],[address], [place], [address], [facility] 08/07/2023 12:07:50 Tdap 08/01/2009 completed Carlos Elizabeth MD [address] [place] [address],[address] [place] [address], [address], [facility] 08/07/2023 12:07:50 Tdap 11/25/2019 completed Carlos Elizabeth MD [address] [place] [address],[address] [place] [address], [address], [facility] 08/07/2023 12:07:50 Novel Ganonqizv-U6S3-40, all formulations 04/25/2009 completed Carlos Elizabeth MD [address] [place] [address],[address] [place] [address], [address], [facility] 08/07/2023 12:07:50 Pneumococcal conjugate PCV 13 10/30/2016 completed Carlos Elizabeth MD [address] [place] [address],[address], [place], [address], [facility] 08/07/2023 12:07:50 zoster live 03/05/2012 completed Carlos Elizabeth MD [address] [place] [address],[address], [place], [address], [facility] 08/07/2023 12:07:50 Influenza, split virus, trivalent, preservative 02/20/2015 completed Carlos Elizabeth MD [address] [place] [address],[address] [place] [address], [address], [facility] 08/07/2023 12:07:50 Influenza, split virus, trivalent, preservative 02/23/2013 completed Carlos Elizabeth MD [address] [place] [address],[address], [place], [address], [facility] 08/07/2023 12:07:50 Influenza, split virus, trivalent, preservative 03/03/2008 completed Carlos Elizabeth MD [address] [place] [address],[address], [place], [address], [facility] 08/07/2023 12:07:50 Influenza, split virus, trivalent, preservative 03/05/2012 completed Carlos Elizabeth MD [address] [place] [address],[address], [place], [address], [facility] 08/07/2023 12:07:50 Influenza, split virus, trivalent, preservative 04/01/2007 completed Carlos Elizabeth MD [address] [place] [address],[address], [place], [address], [facility] 08/07/2023 12:07:50 Influenza, split virus, trivalent, PF 03/01/2011 completed Carlos Elizabeth MD [address] [place] [address],[address], [place], [address], [facility] 08/07/2023 12:07:50 Influenza, split virus, trivalent, PF 04/25/2009 completed Carlos Elizabeth MD [address] [place] [address],[address], [address], [facility] 08/07/2023 12:07:50 Influenza, split virus, quadrivalent, PF 03/03/2014 completed Carlos Elizabeth MD [address] [place] [address],[address], [address], [facility] 08/07/2023 12:07:50 Influenza, split virus, quadrivalent, PF 04/05/2016 completed Carlos Elizabeth MD [address] [place] [address],[address], [place], [address], [facility] 08/07/2023 12:07:50 Past Encounters Encounter ID Performer Location Encounter Start Date Encounter Closed Date Diagnosis/Indication Diagnosis SNOMED-CT Code [id number] Carlos Elizabeth MD [facility] [address] [address] 09/18/2023 11:53:48 09/19/2023 11:26:56 Malignant tumor of kidney [id number] Health Concerns Section Related Observation LastModified by Organization Detai ls LastModified Time None Recorded Concern Status LastModified by Organization Details LastModified Time None Recorded Payers Encounter Date Sequence Insurance Name Policy Number Policy Lim Covered Member ID Lim Member ID Guarantor Name 09/18/2023 1 [place] MEDICARE COST [id number] Edwardo Hernandeza [id number] Edwardo Simons Notes Date Note Type Note Provider Name and Address Organization Details Recorded Time 09/18/2023 text/html HPI Notes: Follo w up kidney cancer. He had a nephrectomy and the final pathology showed Grade 4 RCC with invasion into the hilum. Stage T3a. He came with his and son. Carlos Elizabeth MD [address] [facility],[address], [place], [address], [facility] 09/18/2023 14:25:17
--- OUTSIDE RECORDS SUMMARY | 2023-10-23 15:31 | XMS_ITS | Encounter Summary ---
Author Organization [facility] Address [address] [place] [address] Care Team Providers Care Fiberglass Luggage Molder Name Role Phone Niall Harding MD Primary Care Provider [phone] Encounter Details Date Type Department Care Team (Late st Contact Info) Description 10/18/2023 Orders Only [facility] [address] [place] [address] Giorgio Callejas MD [address] [place] [address] Chronic kidney disease stage 4 (HCC) Social History Tobacco Use Types Packs/Day Years Used Date Smoking Tobacco: Former Cigarettes 2 1 965 - 1987 Smokeless Tobacco: Never Alcohol Use Standard Drinks/Week Comments Not Currently 4 (1 standard drink = 0.6 oz pur e alcohol) Sex and Gender Information Value Date Recorded Sex Assigned at Not on file Gender Identity Not on file Sexual Orientation Not on file documented as of this encounter Plan of Treatment Not on file documented as of this encounter Visit Diagnoses Diagnosis Chronic kidney disease stage 4 (HCC) documented in this encounter Care Teams Fiberglass Luggage Molder Relationship Specialty Start Date End Date Niall Harding MD [address] [facility] [place] [address] PCP - General Family Medicine 09/08/23 documented as of this encounter
--- OUTSIDE RECORDS SUMMARY | 2023-10-23 15:31 | XMS_ITS | Encounter Summary ---
Author Organization [facility] Address [address] [place] [address] Care Team Providers Care Parts Counter Associate Name Role Phone Niall Harding MD Primary Care Provider Encounter Details Date Type Department Care Team (Late st Contact Info) Description 10/08/2023 Telephone [facility] [address] [place] [address] Lorraine Burton [address] [place] [address] Social History Tobacco Use Types Packs/Day Years Used Date Smoking Tobacco: Former Cigarettes 2 22 1 965 - 1987 Smokeless Tobacco: Never Alcohol Use Standard Drinks/Week Comments Not Currently 4 (1 standard drink = 0.6 oz pur e alcohol) Sex and Gender Information Value Date Recorded Sex Assigned at Not on file Gender Identity Not on file Sexual Orientation Not on file documented as of this encounter Miscellaneous Notes * Telephone Encounter - Lorraine Burton - 10/08/2023 12:34 PM CDT Called patient to remind them to get recheck labs completed in early October. Order faxed to Blane Roberts. documented in this encounter Plan of Treatment Not on file documented as of this encounter Visit Diagnoses Not on filedocumented in this encounter Care Teams Parts Counter Associate Relationship Specialty Start Date End Date Niall Harding MD [address] [place] [address] PCP - General Family Medicine 09/08/23 documented as of this encounter
--- OUTSIDE RECORDS SUMMARY | 2023-10-23 15:31 | XMS_ITS | Clinical Summary ---
Author Organization [facility] Address [address] [place] [address] Phone Care Team Providers Care Talent Acquisition Program Manager Name Role Phone Niall Harding MD Primary Care Provider [phone] Allergies No known active allergies Medications Medication [...] Encounters Date Type Department Care Team Description 10/18/2023 Orders Only [facility] [place] [address] Giorgio Callejas MD Chronic kidney disease stage 4 (HCC) 10/08/2023 Telephone [facility] [address] [facility] [address] [place] [address] Lorraine Burton 09/25/2023 1:30 PM EDT Office Visit [facility] [address] [place] [address] Giorgio Callejas MD Chronic kidney disease stage 4 (HCC) (Primary Dx); Renal mass; Hypertensive chronic kidney disease, benign, with chronic kidney disease stage I through stage IV, or unspecified; Hyperkalemia 09/09/2023 Office Communication [facility] [address] [place] [address] Niall Harding MD 09/08/2023 Documentation Only [facility] [address] [place] [address] No, Pcp 09/08/2023 Documentation Only [facility] [place] [address] No, Pcp 09/08/2023 Documentation Only [facility] [place] [address] No, Pcp from Last 3 Months Immunizations Name Administration Dates Next Due Influenza Split High Dose Preservative Free IM 1 [email or web address] Sars-cov-2 (Covid-19) Vaccine, Mrna, Segundo Protein 02/17/2023 Family History Medical History Relation Comments Cancer Brother colon cancer Heart disease Brother from heart cond ition Cancer Father Diabetes Father Heart disease Mother Thyroid disease Mother No Known Problems Sister Relation Status Comments Brother Father Mother Sister Alive Social History Tobacco Use Types Packs/Day Years Used Date Smoking Tobacco: Former Cigarettes 2 1 965 - 1986 Smokeless Tobacco: Never [...] 09/25/2023 1:32 PM CDT Plan of Treatment Health Maintenance Due Date Last Done Comments Pneumococcal Vaccine: 65+ Years (1 of 2 - PCV) 09/29/1956 Colorectal Cancer Screening: Annual FOBT 09/29/2000 Colorectal Cancer Screening: Colonoscopy 09/29/2000 Colorectal Cancer Screening: Sigmoidoscopy 09/29/2000 Diabetes: Ophthalmology Exam 09/08/2023 Diabetes: Pedal Pulse Checked 09/08/2023 Diabetes: Sensory Foot Exam 09/08/2023 Diabetes: Visual Foot Exam 09/08/2023 Diabetes: Hemoglobin A1C 01/07/2024 024, 07/08/2023 Influenza Vaccine Completed 02/17/2023 Hepatitis B Vaccine [...] ALLINA from Last 3 Months Care Teams Talent Acquisition Program Manager Relationship Specialty Start Date End Date Niall Harding MD [address] [place] [address] PCP - General Family Medicine 09/08/23
--- OUTSIDE RECORDS SUMMARY | 2023-10-23 15:31 | XMS_ITS | Encounter Summary ---
Author Organization [facility] Address [address] [place] [address] Care Team Providers Care Communications Intern Name Role Phone Niall Harding MD Primary Care Provider [phone] Encounter Details Date Type Department Care Team (Late st Contact Info) Description 09/08/2023 Documentation Only [facility] [address] [place] [address] No, Pcp Social History Tobacco Use [...] on filedocumented in this encounter Care Teams Communications Intern Relationship Specialty Start Date End Date Niall Harding MD [facility] [place] [address] PCP - General Family Medicine 09/08/23 documented as of this encounter
--- OUTSIDE RECORDS SUMMARY | 2023-10-23 15:31 | XMS_ITS | Clinical Summary ---
Author Organization [facility] Address [address] [place] [address] Care Team Providers Care Shift Engineer Name Role Phone Niall Harding MD Primary Care Provider [phone] Allergies No known active allergies Medications Medication [...] Comments Blood Pressure 127/52 05/05/2023 8:55 AM SECURITY DOOR INSTALLER Pulse 64 05/05/2023 8:54 AM SECURITY DOOR INSTALLER Temperature 36.6 ??C (97.8 ??F) 05/05/2023 7:20 AM CS T Respiratory Rate 18 05/05/2023 7:20 AM SECURITY DOOR INSTALLER Oxygen Saturation 96% 05/05/2023 7:20 AM SECURITY DOOR INSTALLER Inhaled Oxygen Concentration - - Weight 101.1 kg (222 lb 12.8 oz) 2022 12:36 AM SECURITY DOOR INSTALLER Height 180.3 cm (5' 11) 05/02/2023 12: 36 AM SECURITY DOOR INSTALLER Body Mass Index 31.07 05/02/2023 12:36 AM SECURITY DOOR INSTALLER Plan of Treatment Health Maintenance Due Date [...] this topic Medical Devices Implanted Type Area Craft Manager Device Identifier Shelf Expiration Date Model / Serial / Lot Graft Bone Magnifuse [id number] - [id number] Implanted:Qty : 1 on 04/16/2023 by Thang Negrete MD at [facility] Bone/Tissu e/Biologic N/A: Spine Lumbar [employer] [id number] 03/19/2025 [id number] / [id number] / Graft Bone Fibers Dbf 6ml Inj [id number] Preloaded - [id number] Implanted:Qty : 1 on 04/16/2023 by Thang Negrete MD at [facility] Bone/Tissu e/Biologic N/A: Spine Lumbar [employer] 10/21/2024 [id number] / [id number] / Pass Lp Crosslink [id number] Implanted:Qty : 1 on 04/16/2023 by Thang Negrete MD at [facility] Metallic Hardware/A nchor N/A: Spine Lumbar [employer] [id number] / / [id number] 2022 Imp Screw Bn Medt Spine 50x6.5mm 5.5/6mm Paul - [id number] Implanted:Qty : 6 on 04/16/2023 by Thang Negrete MD at [facility] Metallic Hardware/A nchor N/A: Spine Lumbar [employer] [id number] / / [id number] 2022 Imp Screw Bn Medt Spine 45x7.5mm 5.5/6mm Paul - [id number] Implanted:Qty : 2 on 04/16/2023 by Thang Negrete MD at [facility] Metallic Hardware/A nchor N/A: Spine Lumbar [employer] [id number] / / [id number] 2022 Imp Scr Set Medt Solera Break Off 5.5mm Ti [id number] - [id number] Implanted:Qty : 8 on 04/16/2023 by Thang Negrete MD at [facility] Metallic Hardware/A nchor N/A: Spine Lumbar [employer] [id number] / / [id number] [address] Medt [address] Long 7mm [id number] - [id number] Implanted:Qty : 1 on 04/16/2023 by Thang Negrete MD at [facility] Metallic Hardware/A nchor N/A: Spine Lumbar [employer] 12/26/2029 [id number] / / [id number] Imp Spi Interbody Medt [address] Long 7mm [id number] - [id number] Implanted:Qty : 1 on 04/16/2023 by Thang Negrete MD at [facility] Metallic Hardware/A nchor N/A: Spine Lumbar [employer] 11/28/2029 [id number] / / [id number] Imp Spi Interbody Medt [address] Long 7mm [id number] - [id number] Implanted:Qty : 1 on 04/16/2023 by Thang Negrete MD at [facility] Metallic Hardware/A nchor N/A: Spine Lumbar [employer] 11/26/2029 [id number] / / [id number] Imp Paul Medt Solera Cvd 5.5x90mm Ti [id number] - [id number] Implanted:Qty : 2 on 04/16/2023 by Thang Negrete MD at [facility] Metallic Hardware/A nchor N/A: Spine Lumbar [employer] [id number] / / [id number] 2022 Procedures Procedure Name Priority Date/Time Associated Diagnosis Comments GLUCOSE BY METER Routine 05/05/2023 1:59 AM SECURITY DOOR INSTALLER US AORTA/IVC/ILIAC DUPLEX LIMITED Routine 12/31/2018 10:05 AM CDT from Last 3 Months or Most Recently Relevant to Health Maintenance Results * (ABNORMAL) Glucose by meter (05/05/2023 1:59 AM SECURITY DOOR INSTALLER) GLUCOSE BY METER POCT 157(H) 70 - 99 mg/dL 05/05/2023 2:06 AM SECURITY DOOR INSTALLER LABORATORY POC Blood, Capillary BLOOD SPECIMEN / Unknown 05/05/2023 1:59 AM SECURITY DOOR INSTALLER 05/05/2023 2:06 AM SECURITY DOOR INSTALLER Rohit GIRALDO POCT RH LABORATORY POC [facility] [address] (1st floor, no room number) [place] [address], [facility] [phone] from Last 3 Months or Most Recently Relevant to Health Maintenance Advance Directives For more information, please contact: [phone] * Full Code (Latest Code Status on [...] by: Other (please patricia montes) Care Teams Shift Engineer Relationship Specialty Start Date End Date Niall Harding MD [address] [facility] [address] PCP - General 04/16/23
--- OUTSIDE RECORDS SUMMARY | 2023-10-23 15:31 | XMS_ITS | Referral Summary ---
Author Organization [facility] Address [address] [place] [address] Care Team Providers Care Securities Clerk Name Role Phone Sukhjinder Trinidad MD Primary [...] Sex Assigned at Male 07/04/2020 1:48 PM TELESALES TEAM LEADER Gender Identity Male 07/04/2020 1:48 PM TELESALES TEAM LEADER Sexual Orientation Straight 07/04/2020 1: 48 PM TELESALES TEAM LEADER Last Filed Vital Signs Vital Sign Reading Time Taken Comments Blood Pressure 189/83 07/07/2018 12:15 PM TELESALES TEAM LEADER Pulse 65 07/07/2018 12:15 PM TELESALES TEAM LEADER Temperature 36.2 ??C (97.2 ??F) 07/07/2018 12:[address] Respiratory Rate 14 07/07/2018 12:15 PM TELESALES TEAM LEADER Oxygen Saturation 96% 07/07/2018 12:15 PM TELESALES TEAM LEADER Inhaled Oxygen Concentration - - Weight 114.8 kg (253 lb) 07/01/2018 10:20 AM TELESALES TEAM LEADER Height 175.3 cm (5' 9) 07/01/2018 10:20 AM TELESALES TEAM LEADER Body Mass Index 37.36 07/01/2018 10:20 AM TELESALES TEAM LEADER Plan of Treatment Not on file Care Teams Securities Clerk Relationship Specialty Start Date End Date Sukhjinder Trinidad MD PCP - General 01/15/16
--- OUTSIDE RECORDS SUMMARY | 2023-10-23 15:31 | XMS_ITS | Encounter Summary ---
Author Organization [facility] Address [address] [place] [address] Care Team Providers Care Election Watcher Name Role Phone Niall Harding MD Primary Care Provider [phone] Encounter Details Date Type Department Care Team (Late st Contact Info) Description 09/08/2023 Documentation Only [facility] [place] [address] No, Pcp Social History Tobacco [...] on filedocumented in this encounter Care Teams Election Watcher Relationship Specialty Start Date End Date Niall Harding MD [facility] [place] [address] PCP - General Family Medicine 09/08/23 documented as of this encounter
--- OUTSIDE RECORDS SUMMARY | 2023-10-23 15:31 | XMS_ITS | Clinical Summary ---
Author Organization [facility] Address [address] [place] [address] Care Team Providers Care Correspondence Section Supervisor Name Role Phone Sukhjinder Trinidad MD Primary [...] 12/19/2015 Immunizations Name Administration Dates Next Due uberall 12+ Yrs MONOVALENT COVID Vaccine (purple cap) [...] Sex Assigned at Male 07/04/2020 1:48 PM CODING TEAM LEAD Gender Identity Male 07/04/2020 1:48 PM CODING TEAM LEAD Sexual Orientation Straight 07/04/2020 1: 48 PM CODING TEAM LEAD Last Filed Vital Signs Vital Sign Reading Time Taken Comments Blood Pressure 189/83 07/07/2018 12:15 PM CODING TEAM LEAD Pulse 65 07/07/2018 12:15 PM CODING TEAM LEAD Temperature 36.2 ??C (97.2 ??F) 07/07/2018 12:[address] Respiratory Rate 14 07/07/2018 12:15 PM CODING TEAM LEAD Oxygen Saturation 96% 07/07/2018 12:15 PM CODING TEAM LEAD Inhaled Oxygen Concentration - - Weight 114.8 kg (253 lb) 07/01/2018 10:20 AM CODING TEAM LEAD Height 175.3 cm (5' 9) 07/01/2018 10:20 AM CODING TEAM LEAD Body Mass Index 37.36 07/01/2018 10:20 AM CODING TEAM LEAD Plan of Treatment Health Maintenance Due Date [...] Completed 02/21/2020, 07/0 01/2020, 03/05/2012 Care Teams Correspondence Section Supervisor Relationship Specialty Start Date End Date Sukhjinder Trinidad MD PCP - General 01/15/16
--- OUTSIDE RECORDS SUMMARY | 2023-10-23 15:31 | XMS_ITS | Encounter Summary ---
Author Organization [facility] Address [address] [place] [address] Care Team Providers Care Bank Runner Name Role Phone Niall Harding MD Primary Care Provider [phone] Encounter Details Date Type Department Care Team (Late st Contact Info) Description 09/09/2023 Office Communication [facility] [address] [place] [address] Niall Harding MD [address] [place], [place] [id number] Social History Tobacco Use Types Packs/Day Years [...] call and was transferred to the front desk person to assist with making a new pt [...] on filedocumented in this encounter Care Teams Bank Runner Relationship Specialty Start Date End Date Niall Harding MD [address] [place] [address] PCP - General Family Medicine 09/08/23 documented as of this encounter
--- OUTSIDE RECORDS SUMMARY | 2023-10-23 15:31 | XMS_ITS | Encounter Summary ---
Author Organization [facility] Address [address] [place] [address] Care Team Providers Care Methods Study Analyst Name Role Phone Niall Harding MD Primary Care Provider [phone] Reason for Visit * Reason Comments CKD New Patient * Nephrology Services (Urgent) - Closed Specialty Diagnoses / Procedures Referred By Contac t Referred To Contact Nephrology Diagnoses Chronic kidney disease stage 4 (HCC) Niall Harding MD [address] [place] [address] [facility] [address] [place] [address] Referral ID Status Reason Start Date Expiration Date Visits Re quested Visits Authorized [id number] Closed 09/08/2023 09/07/2024 1 1 Encounter Details Date Type Department Care Team (Late st Contact Info) Description 09/25/2023 1:30 PM EDT Office Visit [facility] [address] [place] [address] Giorgio Callejas MD [address] [place] [address] Chronic kidney disease stage 4 [...] Callejas/ROB Peters Welcome to [facility] Although we are experts in the [...] in caring for renal patients. If your Refrigeration Mechanic deems it appropriate, you will be scheduled [...] healthy, so we do have a Renal Electrical And Instrument Technician to help you with this. We [...] let them know that you see a supervisor harvesting for your kidney disease. Ask that they contact your supervisor harvesting before this type of test is scheduled. [...] Doctors, Advanced Practice Providers, nurses, and Renal Electrical And Instrument Technician are here to provide you with the best renal care. We want you to feel free to call us when you have questions or concerns. To call the nurse at your supervisor harvesting's office, please see the address and telephone number listed on your After Visit Summary. Thank you, The Physicians and staff at [facility], Sh[facility].A. UNDERSTANDING YOUR BLOOD PRESSURE & LAB [...] Edwardo Simons Date of : 1950 Chart: [id number] PCP: Niall Harding MD Referring Provider: Niall [...] He traveled to the operating room at [facility] on 08/22/2023 and underwent hand-assisted laparoscopic right [...] Recheck. Giorgio Callejas MD [facility] The following portions of the patient's chart [...] 2 times daily if needed for Constipation. Imdpjeej-Fobupddvxwey-KFT 400 0.2-0.2-1 % solution Pattie Forde MD [...] documented in this encounter Plan of Treatment Scheduled Orders Name Type Priority Associated Diagnoses [...] I through stage IV, or unspecified Hyperkalemia documented in this encounter Care Teams Methods Study Analyst Relationship Specialty Start Date End Date Niall Harding MD [address] [place] [address] PCP - General Family Medicine 09/08/23 documented as of this encounter
--- OUTSIDE RECORDS SUMMARY | 2023-10-23 15:31 | XMS_ITS | Data Portability ---
Author Organization [facility] Address [address] [place] [address] Care Team Providers Care Elder Assistant Name Role Phone ALYSHA TREADWELL Primary Care Provider Assessment No assessment recorded. Plan of Treatment Reminders Order Date Submit Date Provider Last Modified By Organization Details Last Modified Time Details Appointments ESTABLI SHED 10 2023 10:50A M Carlos Elizabeth MD Not available Not available Not available Lab None recorde d. Referral None recorde d. Procedures None recorde d. Surgeries nephrec katlyn, hand assiste d laparos copic (SURG) 2023 024 VIVIEN Not available 08/27/2023 10:55:[address], chest + abdomen + pelvis, w/o contras t 2023 024 [facility], [address] [place], [address], 10/08/2023 08:51:15 Medication Orders None recorde d. [...] ation record ed. Not Available 07/31/2023 16:02:06 10/08/19 24 10/08/2023 CT, chest + abdom en + pelvi s, w/o contr ast No observ ation record ed. [facility] [address], [place], [address], 10/10/2023 12:32:02 Result Notes None recorded. 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 Carlos Elizabeth MD [address] [place] [address],[address], [place], [address], [facility] 09/18/2023 12:35:18 Problem Notes None recorded. Procedures Surgical History Date Name Laterality Status Provider Name and Address Organization Details Recorded Time 09/18/19 COMPLEX VISIT completed Carlos Elizabeth MD [address] [place] [address],[address], [place], [address], [facility] 09/18/2023 14:25:08 08/22/19 24 NEPHRECTOMY, HAND ASSISTED LAPAROSCOPIC (SURG) completed Teresa aguilar [facility] 08/27/2023 10:55:06 08/07/19 24 COMPLEX VISIT completed Carlos Elizabeth MD [address] [place] [address],[address], [place], [address], [facility] 08/07/2023 13:52:16 procedure on back completed Carlos Elizabeth MD [address] [place] [address],[address], [place], [address], [facility] 08/07/2023 12:10:59 total replacement of hip completed Carlos Elizabeth MD [address] [place] [address],[address], [place], [address], [facility] 08/07/2023 12:11:10 Imaging Results Imaging Date Name Status LastModified by Organiz ation Details LastModified Time 07/30/2023 MRI, abdomen, w/wo contrast completed Information not available 07/31/2023 16:01:11 07/24/2023 US, renal completed Information no t available 07/31/2023 16:02:06 10/08/2023 CT, chest + abdomen + pelvis, w/o contrast completed [facility] [address], [place], [address], 10/10/2023 12:32:02 Procedure Notes None recorded. Medical Equipment None [...] Address Organization Details Last Updated DateTime 08/07/2023 712093.28 g 31.4 kg/m2 180.34 cm Carlos Elizabeth MD [address] [place] [address],[place] [address] [place] [address] 08/07/2023 12:07:38 Date Recorded Body height Body mass index (BMI) Body weight Provider Name and Address Organization Details Last Updated DateTime 09/18/2023 180.34 cm 31.4 kg/m2 123689.28 g Carlos Elizabeth MD [address] [place] [address],[address] 09/18/2023 12:04:31 Social History Question Answer Notes LastModified by Organizat ion Details LastModified Time Tobacco Smoking Status Former Smoker Carlos Elizabeth MD [address] [place] [address],[address] [place] [address] 08/07/2023 12:10:26 What Is Your Level Of [...] trivalent, PF 02/24/2019 completed Carlos Elizabeth MD [address] [place] [address],[address], [address], [facility] 08/07/2023 12:07:49 Influenza, adjuvanted, trivalent, PF 02/27/2018 completed Carlos Elizabeth MD [address] [place] [address],[address], [address], [facility] 08/07/2023 12:07:49 Influenza, adjuvanted, trivalent, PF 04/09/2017 completed Carlos Elizabeth MD [address] [place] [address],[address], [place], [address], [facility] 08/07/2023 12:07:49 zoster recombinant 11/25/2019 completed Carlos ochoa MD [address] [place] [address],[address], [place], [address], [facility] 08/07/2023 12:07:49 zoster recombinant 02/21/2020 completed Carlos ochoa MD [address] [place] [address],[address], [place], [address], [facility] 08/07/2023 12:07:49 Influenza, high-dose, quadrivalent, PF 02/17/2023 completed Carlos Elizabeth MD [address] [place] [address],[address], [place], [address], [facility] 08/07/2023 12:07:49 Influenza, high-dose, quadrivalent, PF 03/14/2022 completed Carlos Elizabeth MD [address] [place] [address],[address], [place], [address], [facility] 08/07/2023 12:07:49 Influenza, adjuvanted, quadrivalent, PF 02/01/2020 completed Carlos Elizabeth MD [address] [place] [address],[address], [place], [address], [facility] 08/07/2023 12:07:49 Influenza, adjuvanted, quadrivalent, PF 02/01/2021 completed Carlos Elizabeth MD [address] [place] [address],[address], [place], [address], [facility] 08/07/2023 12:07:49 COVID-19, mRNA, LNP-S, PF, 30 mcg/0.3 mL dose 07/05/2020 completed Carlos Elizabeth MD [address] [place] [address],[address], [place], [address], [facility] 08/07/2023 12:07:50 COVID-19, mRNA, LNP-S, PF, 30 mcg/0.3 mL dose 07/26/2020 completed Carlos Elizabeth MD [address] [place] [address],[address], [place], [address], [facility] 08/07/2023 12:07:50 COVID-19, mRNA, LNP-S, PF, 30 mcg/0.3 mL dose 02/09/2021 completed Carlos Elizabeth MD [address] [place] [address],[address], [place], [address], [facility] 08/07/2023 12:07:50 COVID-19, mRNA, LNP-S, PF, 30 mcg/0.3 mL dose, radha-sucrose 08/15/2021 completed Carlos Elizabeth MD [address] [place] [address],[address], [place], [address], [facility] 08/07/2023 12:07:50 COVID-19, mRNA, LNP-S, bivalent, PF, 30 mcg/0.3 mL dose 03/14/2022 completed Carlos Elizabeth MD [address] [place] [address],[address], [place], [address], [facility] 08/07/2023 12:07:50 RSV, recombinant, protein subunit RSVpreF, adjuvant reconstituted, 0.5 mL, PF 03/19/2023 completed Carlos Elizabeth MD [address] [place] [address],[address], [place], [address], [facility] 08/07/2023 12:07:50 COVID-19, mRNA, LNP-S, PF, radha-sucrose, 30 mcg/0.3 mL 02/17/2023 completed Carlos Elizabeth MD [address] [place] [address],[address], [place], [address], [facility] 08/07/2023 12:07:50 pneumococcal polysaccharide PPV23 01/28/2008 completed Carlos Elizabeth MD [address] [place] [address],[address], [place], [address], [facility] 08/07/2023 12:07:50 pneumococcal polysaccharide PPV23 02/24/2019 completed Carlos Elizabeth MD [address] [place] [address],[address], [place], [address], [facility] 08/07/2023 12:07:50 influenza, unspecified formulation 03/11/2018 completed Carlos Elizabeth MD [address] [place] [address],[address], [place], [address], [facility] 08/07/2023 12:07:50 Tdap 08/01/2009 completed Carlos Elizabeth MD [address] [place] [address],[address], [place], [address], [facility] 08/07/2023 12:07:50 Tdap 11/25/2019 completed Carlos Elizabeth MD [address] [place] [address],[address], [place], [address], [facility] 08/07/2023 12:07:50 Novel [id number]-[id number], all formulations 04/25/2009 completed Carlos Elizabeth MD [address] [place] [address],[address], [place], [address], [facility] 08/07/2023 12:07:50 Pneumococcal conjugate PCV 13 10/30/2016 completed Carlos Elizabeth MD [address] [place] [address],[address], [place], [address], [facility] 08/07/2023 12:07:50 zoster live 03/05/2012 completed Carlos Elizabeth MD [address] [place] [address],[address] [place] [address], [address], [facility] 08/07/2023 12:07:50 Influenza, split virus, trivalent, preservative 02/20/2015 completed Carlos Elizabeth MD [address] [place] [address],[address], [place], [address], [facility] 08/07/2023 12:07:50 Influenza, split virus, trivalent, preservative 02/23/2013 completed Carlos Elizabeth MD [address] [place] [address],[address], [place], [address], [facility] 08/07/2023 12:07:50 Influenza, split virus, trivalent, preservative 03/03/2008 completed Carlos Elizabeth MD [address] [place] [address],[address], [place], [address], [facility] 08/07/2023 12:07:50 Influenza, split virus, trivalent, preservative 03/05/2012 completed Carlos Elizabeth MD [address] [place] [address],[address] [place] [address], [address], [facility] 08/07/2023 12:07:50 Influenza, split virus, trivalent, preservative 04/01/2007 completed Carlos Elizabeth MD [address] [place] [address],[address], [place], [address], [facility] 08/07/2023 12:07:50 Influenza, split virus, trivalent, PF 03/01/2011 completed Carlos Elizabeth MD [address] [place] [address],[address], [place], [address], [facility] 08/07/2023 12:07:50 Influenza, split virus, trivalent, PF 04/25/2009 completed Carlos Elizabeth MD [address] [place] [address],[address], [place], [address], [facility] 08/07/2023 12:07:50 Influenza, split virus, quadrivalent, PF 03/03/2014 completed Carlos Elizabeth MD [address] [place] [address],[address] [place] [address], [address], [facility] 08/07/2023 12:07:50 Influenza, split virus, quadrivalent, PF 04/05/2016 completed Carlos Elizabeth MD [address] [place] [address],[address] [place] [address], [address], [facility] 08/07/2023 12:07:50 Past Encounters Encounter ID Performer Location Encounter Start Date Encounter Closed Date Diagnosis/Indication Diagnosis SNOMED-CT Code [id number] MD May Jasmine [address] [place] [id number] 08/07/2023 11:55:10 08/08/2023 09:52:10 Renal mass [id number] MD May Jasmine [address] [place] [id number] 09/18/2023 11:53:48 09/19/2023 11:26:56 Malignant tumor of kidney [id number] Health Concerns Section Related Observation LastModified by Organization Detai ls LastModified Time None Recorded Concern Status LastModified by Organization Details LastModified Time None Recorded Advance Directives Directive None Recorded Payers Encounter Date Sequence Insurance Name Policy Number Policy Lim Covered Member ID Lim Member ID Guarantor Name 09/18/2023 1 [id number] [id number] Edwardo Simons [id number] Brooke Ronak 08/07/2023 1 [id number] [id number] Edwardo Simons [id number] Brooke Ronak Notes Date Note Type Note [...] from a posterior approach. Carlos Elizabeth MD [address] [place] [address],[address], [place], [address], [facility] 08/07/2023 13:52:30 09/18/2023 text/html HPI Notes: Follo w up kidney cancer. He had a nephrectomy and the final pathology showed Grade 4 RCC with invasion into the hilum. Stage T3a. He came with his and son. Carlos Elizabeth MD [address] [place] [address],[address], [place], [address], [facility] 09/18/2023 14:25:17
--- OUTSIDE RECORDS SUMMARY | 2023-10-23 15:31 | XMS_ITS | Referral Summary ---
Author Organization [facility] Address [address] [place] [address] Care Team Providers Care Recycling Crew Supervisor Name Role Phone Niall Harding MD Primary Care Provider [phone] Allergies No known active allergies Medications Medication [...] Comments Blood Pressure 127/52 05/05/2023 8:55 AM STEAM HEATING INSTALLER Pulse 64 05/05/2023 8:54 AM STEAM HEATING INSTALLER Temperature 36.6 ??C (97.8 ??F) 05/05/2023 7:20 AM CS T Respiratory Rate 18 05/05/2023 7:20 AM STEAM HEATING INSTALLER Oxygen Saturation 96% 05/05/2023 7:20 AM STEAM HEATING INSTALLER Inhaled Oxygen Concentration - - Weight 101.1 kg (222 lb 12.8 oz) 2022 12:36 AM STEAM HEATING INSTALLER Height 180.3 cm (5' 11) 05/02/2023 12: 36 AM STEAM HEATING INSTALLER Body Mass Index 31.07 05/02/2023 12:36 AM STEAM HEATING INSTALLER Plan of Treatment Not on file Medical Devices Implanted Type Area Directory Assistance Operator Device Identifier Shelf Expiration Date Model / Serial / Lot Graft Bone Magnifuse [id number] - [id number] Implanted:Qty : 1 on 04/16/2023 by Thang Negrete MD at [facility] Bone/Tissu e/Biologic N/A: Spine Lumbar [employer] [id number] 03/19/2025 [id number] / [id number] / Graft Bone Fibers Dbf 6ml Inj [id number] Preloaded - [id number] Implanted:Qty : 1 on 04/16/2023 by Thang Negrete MD at [facility] Bone/Tissu e/Biologic N/A: Spine Lumbar [employer] 10/21/2024 [id number] / [id number] / Pass Lp Crosslink [id number] Implanted:Qty : 1 on 04/16/2023 by Thang Negrete MD at [facility] Metallic Hardware/A nchor N/A: Spine Lumbar [employer] [id number] / / [id number] 2022 Imp Screw Bn Medt Spine 50x6.5mm 5.5/6mm Paul - [id number] Implanted:Qty : 6 on 04/16/2023 by Thang Negrete MD at [facility] Metallic Hardware/A nchor N/A: Spine Lumbar [employer] [id number] / / [id number] NOV 2022 Imp Screw Bn Medt Spine 45x7.5mm 5.5/6mm Paul - [id number] Implanted:Qty : 2 on 04/16/2023 by Thang Negrete MD at [facility] Metallic Hardware/A nchor N/A: Spine Lumbar [employer] [id number] / / [id number] 2022 Imp Scr Set Medt Solera Break Off 5.5mm Ti [id number] - [id number] Implanted:Qty : 8 on 04/16/2023 by Thang Negrete MD at [facility] Metallic Hardware/A nchor N/A: Spine Lumbar [employer] [id number] / / [id number] NOV [address]body Medt [address] Long 7mm [id number] - [id number] Implanted:Qty : 1 on 04/16/2023 by Thang Negrete MD at [facility] Metallic Hardware/A nchor N/A: Spine Lumbar [employer] 12/26/2029 [id number] / / [id number] Imp Spi Interbody Medt [address] Long 7mm [id number] - [id number] Implanted:Qty : 1 on 04/16/2023 by Thang Negrete MD at [facility] Metallic Hardware/A nchor N/A: Spine Lumbar [employer] 11/28/2029 [id number] / / [id number] Imp Spi Interbody Medt [address] Long 7mm [id number] - [id number] Implanted:Qty : 1 on 04/16/2023 by Thang Negrete MD at [facility] Metallic Hardware/A nchor N/A: Spine Lumbar [employer] 11/26/2029 [id number] / / [id number] Imp Paul Medt Solera Cvd 5.5x90mm Ti [id number] - [id number] Implanted:Qty : 2 on 04/16/2023 by Thang Negrete MD at [facility] Metallic Hardware/A nchor N/A: Spine Lumbar [employer] [id number] / / [id number] 2022 Procedures Procedure Name Priority Date/Time Associated Diagnosis Comments GLUCOSE BY METER Routine 05/05/2023 1:59 AM STEAM HEATING INSTALLER US AORTA/IVC/ILIAC DUPLEX LIMITED Routine 12/31/2018 10:05 AM CDT from Last 3 Months or Most Recently Relevant to Health Maintenance Results * (ABNORMAL) Glucose by meter (05/05/2023 1:59 AM STEAM HEATING INSTALLER) GLUCOSE BY METER POCT 157(H) 70 - 99 mg/dL 05/05/2023 2:06 AM STEAM HEATING INSTALLER LABORATORY POC Blood, Capillary BLOOD SPECIMEN / Unknown 05/05/2023 1:59 AM STEAM HEATING INSTALLER 05/05/2023 2:06 AM STEAM HEATING INSTALLER Rohit Page MD [facility] PO[facility] LAB[facility] POC [facility] [address] (1st floor, no room number) [place] [address], [facility] [phone] from Last 3 Months or Most Recently Relevant to Health Maintenance Advance Directives For more information, please contact: [phone] * Full Code (Latest Code Status on [...] by: Other (please documen t) Care Teams Recycling Crew Supervisor Relationship Specialty Start Date End Date Niall Harding MD [address] [place] [address] PCP - General 04/16/23
--- OUTSIDE RECORDS SUMMARY | 2023-10-23 15:32 | XMS_ITS | Clinical Summary ---
Author Organization [facility] Address [place], [place] [address] Care Team Providers [employer] Team Leader Name Role Phone Eliana Lakhwinder CASANOVA Unavailable + [phone] Niall Harding MD Primary Care Provider [phone] Allergies No known active allergies Medications Medication [...] for Pain (Pain). 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 28 Tablet 09/06/2023 Discontinue d(Reorder (E-cancel not sent)) Active Problems [...] Encounters Date Type Department Care Team Description 10/16/2023 9:30 AM CDT Ancillary Procedure [facility] [place] [address] [address] 10/16/2023 Travel 10/14/2023 Transcribe Orders [facility] [address] [place] [address] Karen Tiwari MBBS 10/09/2023 11:05 AM CDT Phone Office Visit [facility] [place] [address] [address] Niall Harding MD Results (CT results ) 10/09/2023 Telephone [facility] [address] [place] [address] [place], [facility] Referral (Clear cell adenocarcinoma of kidney, right) 10/09/2023 Travel 10/09/2023 Telephone [facility] [place] [address] [address] Niall Harding MD Results 10/07/2023 9:40 AM CDT Office Visit [facility] [place] [address] [address] Niall Harding MD Diabetes 10/07/2023 Travel 09/25/2023 Orders Only [facility] [place] [address] [address] [address] Niall Harding MD Outside Order (Ordered by Giorgio Callejas) 09/22/2023 Orders Only [facility] Scanner 1 scan: (1-Ord) INCOMING RECORDS-DIABETIC EYE, [facility], 09/22/2023 09/16/2023 9:15 AM CDT Office Visit [facility] [place] [address] [address] [address] Niall Harding MD Follow Up 09/16/2023 Travel 09/09/2023 Telephone [facility] [place] [address] [address] [address] Niall Harding MD FYI (Appointment) 09/05/2023 3:40 PM CDT Office Visit [facility] [address] [place] [address] Niall Harding MD ER Follow up 09/05/2023 Telephone [facility] [address] [place] [address] Alicia Ibrahim PA Abnormal Lab Results 09/04/2023 1:50 PM CDT Nurse/Clinic Staff Only [facility] [address] [place] [address] Blood Pressure (143/60) 09/04/2023 1:30 PM CDT Orders Only [facility] [address] [facility] [place] [address] Lab, [place] [facility] 09/04/2023 Telephone [facility] [address] [place] [place] [address] Niall Harding MD 09/04/2023 Travel 09/02/2023 Medical Messaging [facility] [address] [place] [place] [address] Niall Harding MD Talked to doctor 09/02/2023 Travel 09/01/2023 Telephone [facility] [address] [place] [address] Niall Harding MD Prior Authorization (oxyCODONE (ROXICODONE) 5 mg immediate release tablet (CLOSED/WORKERS COMP)) 08/29/2023 Telephone [facility] [address] [place] [address] Ralf Siddiqui MD Abnormal Lab Results 08/28/2023 12:45 PM CDT Office Visit [facility] [address] [place] [address] Niall Harding MD Hospital F/U 08/28/2023 Travel 08/25/2023 Patient Outreach [facility] [address] [facility] [place] [address] Stephanie Savage, RN Primary RN Care Management; Hospital F/U (LACE 30) 08/22/2023 10:35 AM CDT Anesthesia Event [facility] [address] [place] [address] Rufina Yan MD Howard, Darwin Thomas, CRNA 08/22/2023 9:43 AM CDT - 08/22/2023 11:56 AM CDT Surgery [facility] [address] [place] [address] Carlos Elizabeth MD HAND ASSISTED LAPAROSCOPIC RIGHT NEPHRECTOMY 08/22/2023 8:04 AM CDT - 08/24/2023 11:03 AM CDT Hospital Encounter [facility] [address] [place] [address] Carlos Elizabeth MD Renal mass (Primary Dx) Discharge Disposition: Home Self Care 08/22/2023 Refill [facility] [address] [place] [address] Ralf Siddiqui MD Refill Request (Oxycodone) 08/22/2023 Telephone [facility] [address] [place] [address] Ralf Siddiqui MD Letter (Work comp) 08/21/2023 1:00 PM CDT Orders Only [address] [address] Lab, [place] [facility] 08/21/2023 Travel 08/21/[address] [address] Ralf Siddiqui MD Results 08/20/2023 1:15 PM CDT Preop Visit [facility] [address] [place] [address] Ralf Siddiqui MD Preoperative Exam (DOS: 08/22/2023, HAND ASSISTED LAPAROSCOPIC RIGHT NEPHRECTOMY, ANW, Dr. Elizabeth) 08/20/2023 Travel 07/31/2023 Transcribe Orders [facility] [address] [place] [address] Niall Harding MD 07/30/2023 8:00 AM CDT - 07/30/2023 11:59 PM CDT Hospital Encounter [facility] [address] [place] [address] Niall Harding MD Renal mass 07/30/2023 Travel 07/24/2023 2:45 PM SECOND HELPER Ancillary Procedure [facility] [address] [place] [phone] 07/24/2023 Travel from Last 3 Months Immunizations Name Administration Dates Next Due AMB INFLUENZA IIV3 (AGE 65+ YRS) PF (Flu Clinic Only) 02/27/2018 COVID-19 vaccine (Simply [employer] NTNovaliq 30mcg/0.3mL) PF, MDV 02/09/2021,07/26/2020,07/05/2020 Influenza A (H1N1), [...] Description 01/09/2024 9:40 AM CDT Office Visit [facility] [address] [place] [address] Niall Harding MD [address] [place] [address] Health Maintenance Due Date Last Done Comments [...] Procedure Name Priority Date/Time Associated Diagnosis Comments MR HEAD BRAIN WO VAISHALI 10/16/2023 9:34 AM CDT Chronic kidney disease, stage 3a (HC) Dizziness and giddiness Hypercholesterolemia Hypertensive disorder Multiple pulmonary nodules Renal cell carcinoma (HC) 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) HEMOGLOBIN A1C Routine 10/07/2023 9:51 AM CDT [...] AND BLADDER COMPLETE Routine 07/24/2023 3:14 PM SECOND HELPER Stage 3a chronic kidney disease (HC) LIPID PANEL Routine 07/08/2023 1:39 PM SECOND HELPER Hyperlipidemia, unspecified hyperlipidemia type SCAN-COLONOSCOPY 09/19/2022 11:3 0 AM CDT ANTI HCV Routine 07/28/2020 2:14 PM SECOND HELPER Need for hepatitis C screening test US AORTA Routine 12/31/2018 10:05 AM CDT Screening for AAA (abdominal aortic aneurysm) from Last 3 Months or Most Recently Relevant to Health Maintenance Results * MR HEAD BRAIN WO (10/16/2023 9:34 AM CDT) Anatomical Region Laterality Modality BRAIN, HEAD Magnetic Resonan ce 10/16/2023 10:2 1 AM CDT Impressions 10/16/2023 10:21 AM CDT 1. No acute intracranial abnormality. 2. Mild diffuse cerebral volume loss and minimal chronic microvascular ischemic changes. Dictated by Manny Rendon MD @ 10/16/2023 10:21:01 AM (Electronically Signed) Narrative 10/16/2023 10:21 AM CDT For Patients: ??As a result of the Cures Act, medical imaging exams and procedure reports are released immediately into your electronic medical record. ??You may view this report before your referring provider. ??If you have questions, please contact your health care provider. INDICATION: Dizziness and giddiness. TECHNIQUE: Multiplanar multisequence noncontrast MR images of the brain. COMPARISON: None. FINDINGS: Mild diffuse cerebral volume loss. No mass effect or midline shift. Minimal FLAIR hyperintensities in the supratentorial white matter, typical for chronic microvascular ischemic changes. No diffusion restriction to suggest acute infarction. No intracranial hemorrhage or pathologic extra-axial fluid collection. The major arterial flow voids of the skullbase are preserved. Thinning of the ocular lenses. Minimal paranasal sinus mucosal thickening. The mastoid air cells are clear. Procedure Note Manny Rendon MD - 10/16/2023 For Patients: As a result of the Cures Act, medical imagingexams and procedure reports are released immediately into your electronicmedical record. You may view this report before your referring provider.If you have questions, please contact your health care provider. INDICATION: Dizziness and giddiness. TECHNIQUE: Multiplanar multisequence noncontrast MR images of the brain. COMPARISON: None. FINDINGS: Mild diffuse cerebral volume loss. No mass effect or midline shift.Minimal FLAIR hyperintensities in the supratentorial white matter, typicalfor chronic microvascular ischemic changes. No diffusion restriction to suggest acute infarction. No intracranialhemorrhage or pathologic extra-axial fluid collection. The major arterial flow voids of the skullbase are preserved. Thinning ofthe ocular lenses. Minimal paranasal sinus mucosal thickening. The mastoidair cells are clear. IMPRESSION: 1. No acute intracranial abnormality. 2. Mild diffuse cerebral volume loss and minimal chronic microvascularischemic changes. Dictated by Manny Rendon MD @ 10/16/2023 10:21:01 AM (Electronically Signed) Karen CASANOVA MR * (ABNORMAL) HEMOGLOBIN A1C MONITORING (POCT) (10/07/2023 9:51 AM CDT) HEMOGLOBIN A1C MONITORING (POCT) 7.2(H) <=6.4 % 10/07/2023 10:01 AM CDT [facility] Blood BLOOD SPECIMEN / Unknown Venipuncture / Unknown 10/07/2023 9:51 AM CDT 10/07/2023 9:52 AM CDT Narrative [facility] - 10/07/2023 10:01 AM CDT ? (<=6.9%) [...] Anemias, Splenectomy ? Niall Harding MD CHEMISTRY [facility] [address] [place] [address], [place] [phone] * SCAN-EYE EXAM (09/22/2023 12:00 AM CDT) Scanner OTHER * (ABNORMAL) POTASSIUM,ISTAT (09/16/2023 9:10 AM CDT) Only the most recent of2 resultswithin the time period is included. POTASSIUM, POCT 5.2(H) 3.5 - 5.0 mmol/L 09/16/2023 9:12 AM CDT [facility] Blood BLOOD SPECIMEN / Unknown 09/16/2023 9:10 AM CDT 09/16/2023 9:12 AM CDT Niall Harding MD CHEMISTRY Performing Organization Address [facility] Co de Phone Number [facility] [address] [place] [address], [place] [phone] * (ABNORMAL) CREATININE,ISTAT (09/16/2023 9:06 AM CDT) CREATININE, POCT 2.30(H) 0.57 - 1.11 mg/dL 09/16/2023 9:12 AM CDT [facility] Comment:Caution: Patients ta talisha Hydroxyurea have falsely increased iStat Creatinine results. Verify creatinine results ordering a Creatinine (37953.2) eGFR 30(L) >90 mL/min/1.7 3m2 09/16/2023 9:12 AM CDT [facility] Comment:As of 2021, eG FR is calculated by the CKD-EPI creatinine equation without race adjustment. eGFR can be influenced by muscle mass, exercise, and diet. The reported eGFR is an estimation only and is only applicable if the renal function is stable. Blood BLOOD SPECIMEN / Unknown 09/16/2023 9:06 AM CDT 09/16/2023 9:12 AM CDT Niall Harding MD CHEMISTRY Performing Organization Address [facility]/ZIP Co de Phone Number [facility] [address] [place] [address], [place] [phone] * (ABNORMAL) POTASSIUM (09/04/2023 1:34 PM CDT) [facility] POTASSIUM 6.2(HH) 3.5 - 5.1 mmol/L 09/04/2023 9:28 PM CDT [facility] Blood BLOOD SPECIMEN / Unknown Venipuncture / Unknown 09/04/2023 1:34 PM CDT 09/04/2023 1:34 PM CDT Niall Harding MD CHEMISTRY [facility] [address] [place] [address], * (ABNORMAL) CREATININE (09/04/2023 1:34 PM CDT) [facility] eGFR 33(L) >90 mL/min/1.7 3m2 09/04/2023 9:12 PM CDT [facility] Comment:As of 2021, eG FR is calculated by the CKD-EPI creatinine equation without race adjustment. ??eGFR can be influenced by muscle mass, exercise, and diet. ??The reported eGFR is an estimation only and is only applicable if the renal function is stable. CREATININE 2.09(H) 0.70 - 1.20 mg/dL 09/04/2023 9:12 PM CDT [facility] Blood BLOOD SPECIMEN / Unknown Venipuncture / Unknown 09/04/2023 1:34 PM CDT 09/04/2023 1:34 PM CDT Niall Harding MD CHEMISTRY [facility] [address] [place] [address], [place] * VITAMIN D 25 (DEFICIENCY) (08/28/2023 2:20 PM CDT) [facility] VITAMIN D TOTAL 57.9 20.0 - 80.0 ng/mL 08/28/2023 11:02 PM CDT [facility] Blood BLOOD SPECIMEN / Unknown Butterfly / Unknown 08/28/2023 2:20 PM CDT 08/28/2023 2:22 PM CDT Narrative [facility] - 08/28/2023 11:02 PM CDT ? Vitamin D Status Deficiency: ? <20 ng/mL Insufficiency: ?20-29 ng/mL Sufficiency: ?30-80 ng/mL Possible Toxicity: ??>80 ng/mL Based on [place] of Medicine recommendations Biotin supplements may cause clinically significant interference for this test assay. ??If interference is suspected, it is strongly recommended that biotin is discontinued for at least one week prior to retesting. Niall Harding MD SEND OUTS [facility] [address] [place] [address], [place] * (ABNORMAL) CBC W PLT NO DIFF (08/28/2023 2:20 PM CDT) Only the most recent of2 resultswithin the time period is included. WHITE BLOOD COUNT 9.1 4.5 - 11.0 thou/cu mm 08/28/2023 2:31 PM CDT [facility] RED BLOOD COUNT 3.84(L) 4.30 - 5.90 mil/cu mm 08/28/2023 2:31 PM CDT [facility] HEMOGLOBIN 10.1(L) 13.5 - 17.5 g/dL 08/28/2023 2:31 PM CDT [facility] HEMATOCRIT 30.4(L) 37.0 - 53.0 % 08/28/2023 2:31 PM CDT [facility] MCV 79(L) 80 - 100 fL 08/28/2023 2:31 PM CDT [facility] MCH 26.3 26.0 - 34.0 pg 08/28/2023 2:31 PM CDT [facility] MCHC 33.2 32.0 - 36.0 g/dL 08/28/2023 2:31 PM CDT [facility] RDW 16.1(H) 11.5 - 15.5 % 08/28/2023 2:31 PM CDT [facility] PLATELET COUNT 523(H) 140 - 440 thou/cu mm 08/28/2023 2:31 PM CDT [facility] MPV 9.6 6.5 - 11.0 fL 08/28/2023 2:31 PM CDT [facility] Blood BLOOD SPECIMEN / Unknown Butterfly / Unknown 08/28/2023 2:20 PM CDT 08/28/2023 2:22 PM CDT Niall Harding MD HEMATOLOGY [facility] [address] [place] [address], * (ABNORMAL) COMP METABOLIC PANEL (08/28/2023 2:20 PM CDT) SODIUM 137 136 - 145 mmol/L 08/29/2023 1:31 AM CDT [facility] POTASSIUM 6.9(HH) 3.5 - 5.1 mmol/L 08/29/2023 1:31 AM T [facility] CHLORIDE 110(H) 98 - 107 mmol/L 08/29/2023 1:31 AM T [facility] CO2,TOTAL 19(L) 22 - 29 mmol/L 08/29/2023 1:31 AM T [facility] ANION GAP 8 5 - 18 08/29/2023 1:31 AM T [facility] GLUCOSE 196(H) 70 - 99 mg/dL 08/29/2023 1:31 AM T [facility] CALCIUM 9.3 8.8 - 10.2 mg/dL 08/29/2023 1:31 AM T [facility] BUN 60(H) 8 - 23 mg/dL 08/29/2023 1:31 AM T [facility] CREATININE 2.70(H) 0.70 - 1.20 mg/dL 08/29/2023 1:31 AM CDT [facility] BUN/CREAT RATIO 22(H) 10 - 20 1:31 AM CDT [facility] eGFR 24(L) >90 mL/min/1.7 3m2 08/29/2023 1:31 AM CDT [facility] Comment:As of 2021, eG FR is calculated by the CKD-EPI creatinine equation without race adjustment. ??eGFR can be influenced by muscle mass, exercise, and diet. ??The reported eGFR is an estimation only and is only applicable if the renal function is stable. ALBUMIN 3.0(L) 4.0 - 4.9 g/dL 08/29/2023 1:31 AM CDT [facility] PROTEIN,TOTAL 5.7(L) 6.0 - 8.0 g/dL 08/29/2023 1:31 AM CDT [facility] BILIRUBIN,TOTAL 0.2 0.0 - 1.2 mg/dL 08/29/2023 1:31 AM CDT [facility] ALK PHOSPHATASE 103 40 - 129 IU/L 08/29/2023 1:31 AM CDT [facility] ALT (SGPT) 44 10 - 50 IU/L 08/29/2023 1:31 AM CDT [facility] AST (SGOT) 35 10 - 50 IU/L 08/29/2023 1:31 AM CDT [facility] Blood BLOOD SPECIMEN / Unknown Butterfly / Unknown 08/28/2023 2:20 PM CDT 08/28/2023 2:22 PM CDT Niall Harding MD CHEMISTRY [facility] [address] [place] [address], * (ABNORMAL) Basic Metabolic Panel (08/23/2023 5:53 AM CDT) Only the most recent of2 resultswithin the time period is included. SODIUM 134(L) 136 - 145 mmol/L 08/23/2023 7:[address] [facility] POTASSIUM 5.3(H) 3.5 - 5.1 mmol/L 08/23/2023 7:[address] [facility] CHLORIDE 102 98 - 107 mmol/L 08/23/2023 7:[address] [facility] CO2,TOTAL 21(L) 22 - 29 mmol/L [...] 38(L) >90 mL/min/1.7 3m2 08/23/2023 7:[address] [facility] Comment:As of 2021, eG FR is calculated by the CKD-EPI creatinine equation without race adjustment. ??eGFR can be influenced by muscle mass, exercise, and diet. ??The reported eGFR is an estimation only and is only applicable if the renal function is stable. Blood BLOOD SPECIMEN / Unknown Butterfly / Unknown 08/23/2023 5:53 AM CDT 08/23/2023 6:29 AM T Marielle EMERSON CHEMISTRY [facility] [address] [place] [address], * PATH TISSUE EXAM (08/22/2023 11:51 AM CDT) Case Report Pathology Report ?Case: [id number] ? Authorizing Provider: ??Carlos Elizabeth MD ?? Collected: ? 08/22/2023 1151 ? Ordering Location: ? [facility] ?Received: ?08/22/2023 1158 ? Hospital ? Pathologist: ? Godwin Dowell MD ? Specimen: ?Right Kidney, Right kidney ? 4 10:57 AM CDT [facility] Final Diagnosis A) RIGHT KIDNEY, [...] cancer staging parameters below 4 10:57 AM T [facility] Comment Select slides of thi s case seen in consultation with Dr. Canales, who concurs with tumor classification, grade, and stage. 4 10:57 AM T [facility] Clinical Information Right renal mass 10:57 AM T [facility] Gross Description A) Received fresh, [...] Adrenal gland present: No Lymph nodes: No Welcome Desk Agent sections are submitted in 10 cassettes as [...] ??Both cystic structures 11-12. ??Hilar fat [facility] 08/22/2023 10:57 AM [facility] Microscopic Description The final diagnosis is [...] situ hybridization tests that were performed by [employer] and whose performance characteristics were evaluated by [...] to perform high complexity clinical laboratory testing. 10:57 AM [facility] SYNOPTIC REPORTING KIDNEY: Nephrectomy KIDNEY: [...] ?? Comment(s): ?Block for ancillary testing: A6 4 10:57 AM T [facility] Additional Information Interpreted at [facility], Central Laboratory - [address] [facility] [address], [place] [address] 4 10:57 AM [facility] Tissue (Right Kidney) 08/22/2023 11:51 AM CDT 08/22/2023 11:58 AM CDT Carlos Elizabeth MD PATHOLOGY/CYTOLOG [facility] [address] [place] [address], [place] * HCHG TUBE PR1, HCHG STYLET PR1 [...] (ABNORMAL) GLUCOSE METER (08/22/2023 8:45 AM CDT) Pathologist [facility] GLUCOSE METER 185(H) 65 - 100 mg/dL 08/22/2023 8:51 AM CDT [facility] Blood BLOOD SPECIMEN / Unknown 08/22/2023 8:45 AM CDT 08/22/2023 8:50 AM CDT Carlos Elizabeth MD CHEMISTRY [facility] [address] [place] [address], [place] * TYPE & SCREEN (08/22/2023 8:37 AM CDT) Pathologist [facility] ABORH B Rh Positive 08/22/2023 10:02 AM CDT [facility] ANTIBODY SCREEN Negative Negative 08/22/2023 10:02 AM CDT [facility] BLOOD BANK SPECIMEN EXPIRATION DATE/TIME 08/25/23 23:59 08/22/2023 10:02 AM CDT [facility] BLOOD BANK Blood BLOOD SPECIMEN / Unknown Venipuncture / Unknown 08/22/2023 8:37 AM CDT 08/22/2023 9:19 AM CDT Marielle EMERSON BLOOD BANK [facility] BLOOD BANK [address] [place] [address], [place] [phone] * SCAN-CARDIAC STRIP (08/22/2023 12:00 AM CDT) Narrative 08/22/2023 12:00 AM CDT Ordered by an unspecified provider. Other Clinical Staff OTHER * (ABNORMAL) HEMOGLOBIN (08/20/2023 1:58 PM CDT) HEMOGLOBIN 10.5(L) 13.5 - 17.5 g/dL 08/20/2023 2:06 PM CDT [facility] MCV 81 80 - 100 fL 08/20/2023 2:06 PM CDT [facility] Blood BLOOD SPECIMEN / Unknown Venipuncture / Unknown 08/20/2023 1:58 PM CDT 08/20/2023 2:00 PM CDT Ralf Siddiqui MD HEMATOLOGY [facility] [address] [place] [address], [place] [phone] * MR ABDOMEN RENAL WWO (07/30/2023 9:23 [...] RENAL AND BLADDER COMPLETE (07/24/2023 3:14 PM SECOND HELPER) Anatomical Region Laterality Modality Abdomen, AORTA, KIDNEYS Ultrasou nd 07/24/2023 3:14 PM SECOND HELPER Impressions 07/24/2023 3:18 PM SECOND HELPER 1. ??Findings suggestive of medical renal disease. 2. ??Heterogeneous mass in the upper pole of the right kidney measures 6.4 cm. Follow-up with renal mass MRI. 3. ??No hydronephrosis. 4. ??Benign right lower pole renal cyst. No follow up required. Narrative 07/24/2023 3:18 PM SECOND HELPER For Patients: As a result of the 21st Century Cures Act, medical imaging exams and procedure reports are released immediately into your electronic medical record. You may view this report before your referring provider. If you have questions, please contact your health care provider. EXAM: US RENAL AND BLADDER COMPLETE LOCATION: [facility] DATE: 07/24/2023 INDICATION: Stage 3a Chronic Kidney [...] For Patients: As a result of the Century Cures Act, medical imagingexams and procedure reports are released immediately into your electronicmedical record. You may view this report before your referring provider.If you have questions, please contact your health care provider. EXAM: US RENAL AND BLADDER COMPLETE LOCATION: [facility] DATE: 07/24/2023 INDICATION: Stage 3a Chronic Kidney [...] No follow up required. Niall Harding MD * (ABNORMAL) LIPID PANEL (07/08/2023 1:39 PM SECOND HELPER) Pathologist [facility] CHOLESTEROL,TOTAL 111 100 - 199 mg/dL 07/09/2023 3:37 AM SECOND HELPER [facility] Comment: Cholesterol, Total Reference Ranges Desirable <200 mg/dL Borderline 200-239 mg/dL High >=240 mg/dL TRIGLYCERIDES 225(H) <150 mg/dL 07/09/2023 3:37 AM [facility] HDL CHOLESTEROL 33(L) >40 mg/dL 3:37 AM [facility] NON-HDL CHOLESTEROL 78 <145 mg/dl 07/09/2023 3:37 AM [facility] CHOL/HDL RATIO 3.36 <4.50 07/09/2023 3:37 AM [facility] LDL CHOLESTEROL 33 <=130 mg/dL 07/09/2023 3:37 AM [facility] VLDL CHOLESTEROL 45(H) <=30 mg/dL 07/09/2023 3:37 AM [facility] PROVIDER ORDERED STATUS RANDOM 07/09/2023 3:37 AM [facility] Blood BLOOD SPECIMEN / Unknown Venipuncture / Unknown 07/08/2023 1:39 PM SECOND HELPER 07/08/2023 1:40 PM SECOND HELPER Niall Harding MD CHEMISTRY [facility] [address] [place] [address], * SCAN-COLONOSCOPY (09/19/2022 11:30 AM CDT) Narrative Procedure Note Kadeem Chvaira MD - 09/19/2022 10:51 AM CDT [facility] [address] [place] [address], [address] [address] Patient Name: Edwardo Simons Gender: Male Exam Date: 09/19/2022 Visit Number: [id number] Age: 71 Years 11 Months Date of : 1950 Attending MD: Kadeem Pinedo MD Medical Record#: [id number] ----- Procedure: Colonoscopy Indications: Previous advanced adenomatous [...] we can updateyour records. Electronically signed by: Avel Pinedo MD 09/19/2022 Medications: Medication Dose Sig [...] 2 tablets percolonoscopy prep instructions received from [facility] N taking as directed glimepiride 2 mg [...] oral route percolonoscopy prep [facility] [facility] N taking as directed omeprazole 20 mg [...] yes Former smoker Race: White Preferred Language: Rwand[place] cc: Niall Harding MD cc: Juanito Weston MD [facility] [phone] Kadeem Barroso MD OTHER * ANTI HCV (07/28/2020 2:14 PM SECOND HELPER) HEPATITIS C ANTIBODY Non-React carl Non-React carl 07/28/2020 9:31 PM SECOND HELPER [facility] Comment:Antibodies to HCV no t detected; does not exclude the possibility of exposure to HCV. Blood BLOOD SPECIMEN / Unknown Venipuncture / Unknown 07/28/2020 2:14 PM SECOND HELPER 07/28/2020 2:14 PM SECOND HELPER Niall Harding MD SEND OUTS [facility] [address] [place] [address], * [place] AORTA (12/31/2018 10:05 AM CDT) [...] 2018 10:13AM (Electronically Signed) Sukhjinder Trinidad MD US from Last 3 Months or Most Recently Relevant to Health Maintenance Advance Directives Documents on File Type Date Recorded Patient Welcome Desk Agent Expl anation Healthcare Directive 01/27/2015 015 * [...] Code Status Discussion: Not Discussed Care Teams [employer] Team Leader Relationship Specialty Start Date End Date Niall Harding MD [address] [place] [address] PCP - General Family Practice 08/07/20 Lakhwinder Monroy MBBS [address] [place] [address] Physical Medicine and Rehabilitation 09/02/12
== END 2023-10-23 15:28 | disposition home or self-care (01) ==
LOC: RAD 15:28
PROVIDERS: PCP Surgery; Visit Provider Internal Medicine Hematology & Oncology
DX: N18.31 Chronic kidney disease, stage 3a (principal); R91.8 Other nonspecific abnormal finding of lung field; C64.1 Malignant neoplasm of right kidney, except renal pelvis; C77.9 Secondary and unspecified malignant neoplasm of lymph node, unspecified
CPT/HCPCS: 78815; A9552

== ENCOUNTER 2024-01-18 21:32 | Observation (INO) | payer MEDICARE, BC, SELFPAY ==
[2024-01-18 21:38] VITALS: BP 146/63; PULSE 73; RESP 20; TEMP 36.7; O2SAT 97; BMI 33.4
--- NOTE | 2024-01-18 21:43 | ED_ITS ---
HPI - General Adult General Date Seen: 01/18/24 <Sean Brito MD - Last Filed: 01/18/24 22:28> Chief complaint: Fall/Minor Trauma <Sean Brito MD - Last Filed: 01/18/24 22:28> Stated complaint: fall <Sean Brito MD - Last Filed: 01/18/24 22:28> Time Seen by Provider: 01/18/24 21:43 <Sean Brito MD - Last Filed: 01/18/24 22:28> History of Present Illness HPI narrative: 73-year-old male brought to the ER today by EMS. He has had 2 falls today. He had a fainting/near syncopal episode when EMS tried to stand him up. He denies any fever. No nausea or vomiting. No diarrhea. He has a history of stage IV kidney cancer and previous right nephrectomy. 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 Med list includes: Allopurinol Amlodipine 5 mg Atenolol 50 mg Hydrochlorothiazide 25 mg Bupropion Paxil Colace Gabapentin Yervoy (ipilimumab) Lantus 14 units per day (possibly higher dose) Melatonin Nivolumab Omeprazole Oxycodone Tamsulosin Trazodone He follows with [place] [facility] for treatment of his metastatic kidney cancer. He is currently on immunotherapy. He started his immunotherapy a couple of months ago but had to miss a couple of rounds because he was on prednisone for gout. He finished up his prednisone therapy for gout this week and had his most recent round of immunotherapy 3 days ago Two days ago started to have some chills and weakness. Yesterday evening he a lso developed diarrhea. He has had multiple episodes of watery brown/light brown diarrhea beginning yesterday evening and persisting overnight last night and through the day today. He is not nauseous or vomiting. No abdominal pain. He has had chills but no objective fever. No chest pain. No trouble breathing. The patient says he thinks he has had a bit of a cough, but his , who is very attentive to his care, has not noticed any cough lately. He has no recent travel. No suspicious food. No recent antibiotics. No headache. No blurry vision. This evening he was getting up to go to the bathroom but his legs got weak and he fell. He did not really black out the more he was just too weak to stand up. He tried to get up again later and fell a 2nd time. He had his called the ambulance because he was so weak. When paramedics arrived they tried to stand him up and he had another near syncopal event <Sean Brito MD - Last Filed: 01/18/24 22:28> Related Data Home medications: Home Medications ?Medication ?Instructions ?Recorded ?Confirmed amlodipine 5 mg tablet 5 mg PO DAILY 04/29/23 01/18/24 atenolol 50 mg tablet 50 mg PO DAILY 04/29/23 01/18/24 atorvastatin 20 mg tablet 20 mg PO DAILY 04/29/23 01/18/24 blood sugar diagnostic (Contour #10 ea 04/29/23 01/18/24 Next Test Strips) bupropion HCl 150 mg 24 hr tablet, 150 mg PO DAILY 04/29/23 01/18/24 extended release omeprazole 20 mg capsule,delayed 20 mg PO DAILY 04/29/23 01/18/24 release paroxetine HCl 20 mg tablet 20 mg PO DAILY 04/29/23 01/18/24 trazodone 150 mg tablet 150 mg PO QPM 04/29/23 01/18/24 allopurinol 100 mg tablet 100 mg PO DAILY 01/18/24 01/18/24 cyclosporine 0.05 % eye drops in a 1 drp ophthalmic (eye) BID 01/18/24 01/18/24 dropperette (Restasis) gabapentin 100 mg capsule 100 mg PO 3XD 01/18/24 01/18/24 hydrochlorothiazide 25 mg tablet 25 mg PO DAILY 01/18/24 01/18/24 insulin glargine 100 unit/mL (3 14 unit subcut DIRECTED 01/18/24 01/18/24 mL) subcutaneous pen (Lantus Solostar U-100 Insulin) tamsulosin 0.4 mg capsule 0.4 mg PO DAILY 01/18/24 01/18/24 <Sean Brito MD - Last Filed: 01/18/24 22:28> Allergies/adverse reactions: Allergies Allergy/AdvReac Type Severity Reaction Status Date / Time No Known Drug Allergies Allergy Verified 01/18/24 21:43 <Sean Brito MD - Last Filed: 01/18/24 22:28> [facility] Medical History: Medical History (Updated 01/18/24 @ 23:56 by Santhosh Barton MD) Stage 4 chronic kidney disease ?N18.4 - Chronic kidney disease, stage 4 (severe) (ICD-10) Obesity ?E66.9 - Obesity, unspecified (ICD-10) Gastroesophageal reflux disease ?K21.9 - Gastro-esophageal reflux disease without esophagitis (ICD-10) Hyperlipidemia ?E78.5 - Hyperlipidemia, unspecified (ICD-10) Low back pain ?M54.50 - Low back pain, unspecified (ICD-10) Hypertension ?I10 - Essential (primary) hypertension (ICD-10) Obstructive sleep apnea ?G47.33 - Obstructive sleep apnea (adult) (pediatric) (ICD-10) Diabetes mellitus ?E11.9 - Type 2 diabetes mellitus without complications (ICD-10) Metastatic clear cell carcinoma of kidney ?C64.9 - Malignant neoplasm of unspecified kidney, except renal pelvis (ICD-10) <Sean Brito MD - Last Filed: 01/18/24 22:28> Surgical History: Surgical History (Updated 01/18/24 @ 23:52 by Santhosh Barton MD) History of lumbar fusion ?Z98.1 - Arthrodesis status (ICD-10) History of nephrectomy ?Z90.5 - Acquired absence of kidney (ICD-10) H/O radiofrequency ablation (RFA) of nerve of lumbar spine ?Z98.890 - Other specified postprocedural states (ICD-10) H/O total hip arthroplasty ?Z96.649 - Presence of unspecified artificial hip joint (ICD-10) <Sean Brito MD - Last Filed: 01/18/24 22:28> Family History: Family History (Updated 01/18/24 @ 23:49 by Santhosh Barton MD) Brother Colon cancer Heart disease Father Diabetes Mother Thyroid disease <Sean Brito MD - Last Filed: 01/18/24 22:28> Social History: Social History (Updated 01/18/24 @ 23:50 by Santhosh Barton MD) Narrative: He lives with his Janet. She sets up in manages his medications. He is a former smoker with a remote history. He occasionally drinks beer, about 2 a week. Code status is full code for witnessed arrest. What is your current living situation?: I presently have a place to live Problems where you live: no known problems Problems where you live details: na In the past 12 months, utilities in danger of being shut off: no In past 12 months, lack of transportation kept you from medical appts, meetings, work, or getting things needed for daily living: no In the past 12 mos, have been you worried that your food would run out before you had money to buy more?: never true In the past 12 mos, the food you bought just didn't last and you didn't have money to buy more?: never true Highest level of school completed/degree received: high school graduate Smoking Status: Former smoker Do you use any of these nicotine containing products: None Second hand tobacco smoke exposure: No How often do you have a drink containing alcohol: 2-3 times a week How often do you have six or more drinks on one occasion: Never AUDIT-C Alcohol total score: 3 Non-prescribed substance use: denies use How often does anyone, including family, friends and others, physically hurt you : never How often does anyone, including family, friends and others, insult or talk down to you: never How often does anyone, including family, friends and others, threaten you with harm: never How often does anyone, including family, friends and others, scream or curse at you: never service: No <Sean Brito MD - Last Filed: 01/18/24 22:28> Exam Narrative: Exam Narrative: Constitutional: Appears well-developed and generally well-nourished (not cachectic). However he looks very tired and weak. He is alert and polite. Not ?septic? appearing HENT: Head: Atraumatic. Nose: Nose normal. Mouth/Throat: Oral mucosa is clear but mucous membranes are quite dry. no trismus. Pharynx normal. Tonsils symmetric. No tonsillar enlargement, erythema, or exudate. Eyes: Conjunctivae normal. EOM normal. Pupils equal, round, and reactive to light. No scleral icterus. Neck: Normal range of motion. Neck supple. No tracheal deviation present. No JVD Cardiovascular: Normal rate, regular rhythm. No gallop. No friction rub. No murmur heard. Symmetric radial and PT artery pulses Pulmonary/Chest: Effort normal. No stridor. No respiratory distress. No wheezes. No rales. No rhonchi . No tenderness. . Port site in right upper chest looks good Abdominal: Soft. Bowel sounds normal. No distension. No mass. Right lower quadrant and left lower quadrant tenderness. No rebound. No guarding. Healed right lower quadrant incision from right nephrectomy. Musculoskeletal: RUE: Normal range of motion. No tenderness. No deformity LUE: Normal range of motion. No tenderness. No deformity RLE: Normal range of motion. No edema. No tenderness. No deformity LLE: Normal range of motion. No edema. No tenderness. No deformity Neurological: Alert and oriented to person, place, and time. Normal strength. CN II-VII intact. No sensory deficit. GCS eye subscore is 4. GCS verbal subscore is 5. GCS motor subscore is 6. Normal coordination . No focal weakness. He has general weakness and requires assistance to sit up in bed. Skin: Skin is warm and dry. Skin looks pale but not mottled or diaphoretic. No rash noted. No pallor. Normal capillary refill. Psychiatric: Normal mood. Normal affect. Polite <Sean Brito MD - Last Filed: 01/18/24 22:28> Const: Vital Signs, click to edit/add: Vital Signs - 24 hr 01/18/24 21:38 Temperature 98.1 F Pulse Rate [Right Pulse Oximeter] 73 Respiratory Rate 20 Blood Pressure [Le ft Upper Arm] 146/63 H Pulse Oximetry 97 Oxygen Delivery Me thod Room Air <Sean Brito MD - Last Filed: 01/18/24 22:28> Vital Signs, click to edit/add: Vital Signs - 24 hr 01/18/24 21:38 Temperature 98.1 F Pulse Rate [Right Pulse Oximeter] 73 Respiratory Rate 20 Blood Pressure [Le ft Upper Arm] 146/63 H Pulse Oximetry 97 Oxygen Delivery Me thod Room Air <Brandi Miner MD - Last Filed: 01/19/24 02:15> Course Vital Signs Vital signs: Initial Vital Signs Temperature 98.1 F 01/18/24 21:38 Temperature Source Temporal Artery Scan 01/18/24 21:38 Pulse Rate 73 01/18/24 21:38 Pulse Rhythm Regular 01/18/24 21:38 Pulse Strength 3+ Normal 01/18/24 21:38 Respiratory Rate 20 01/18/24 21:38 Blood Pressure 146/63 H 01/18/24 21:38 Blood Pressure Mean 90 01/18/24 21:38 Blood Pressure Position Sitting 01/18/24 21:38 Pulse Oximetry 97 01/18/24 21:38 Oxygen Delivery Method Room Air 01/18/24 21:38 Vital Signs Temperature 98.1 F 01/18/24 21:38 Pulse Rate 73 01/18/24 21:38 Respiratory Rate 20 01/18/24 21:38 Blood Pressure 146/63 H 01/18/24 21:38 Pulse Oximetry 97 01/18/24 21:38 Oxygen Delivery Method Room Air 01/18/24 21:38 Temperature 101.1 F H 01/19/24 00:15 Pulse Rate 80 01/19/24 00:15 Respiratory Rate 20 01/19/24 00:15 Blood Pressure 143/60 H 01/19/24 00:15 Pulse Oximetry 97 01/19/24 00:15 Oxygen Delivery Method Room Air 01/19/24 00:15 <Sean Brito MD - Last Filed: 01/18/24 22:28> Initial Vital Signs Temperature 98.1 F 01/18/24 21:38 Temperature Source Temporal Artery Scan 01/18/24 21:38 Pulse Rate 73 01/18/24 21:38 Pulse Rhythm Regular 01/18/24 21:38 Pulse Strength 3+ Normal 01/18/24 21:38 Respiratory Rate 01/18/24 21:38 Blood Pressure 146/63 H 01/18/24 21:38 Blood Pressure Mean 90 01/18/24 21:38 Blood Pressure Position Sitting 01/18/24 21:38 Pulse Oximetry 97 01/18/24 21:38 Oxygen Delivery Method Room Air 01/18/24 21:38 Vital Signs Temperature 98.1 F 01/18/24 21:38 Pulse Rate 73 01/18/24 21:38 Respiratory Rate 20 01/18/24 21:38 Blood Pressure 146/63 H 01/18/24 21:38 Pulse Oximetry 97 01/18/24 21:38 Oxygen Delivery Method Room Air 01/18/24 21:38 Temperature 101.1 F H 01/19/24 00:15 Pulse Rate 80 01/19/24 00:15 Respiratory Rate 20 01/19/24 00:15 Blood Pressure 143/60 H 01/19/24 00:15 Pulse Oximetry 97 01/19/24 00:15 Oxygen Delivery Method Room Air 01/19/24 00:15 <Brandi Miner MD - Last Filed: 01/19/24 02:15> Medications Administered Medications: Generic Name Dose Route Start Last Admin Trade Name Freq PRN Reason Stop Dose Admin Enoxaparin Sodium 30 mg 01/18/24 23:30 01/19/24 00:05 Enoxaparin 30 Mg/0.3ml Inj SUBCUT 30 mg HS MARIA FERNANDA Administration Gabapentin 100 mg 01/18/24 23:30 01/19/24 00:05 Gabapentin 100 Mg Capsule PO 100 mg TID MARIA FERNANDA Administration Sodium Chloride 1,000 mls @ 125 mls/hr 01/19/24 00:30 01/19/24 00:30 0.9 % Sodium Chloride 1000 Ml IV 125 mls/hr .Q8H MARIA FERNANDA Administration Discontinued Medications Generic Name Dose Route Start Last Admin Trade Name Freq PRN Reason Stop Dose Admin Sodium Chloride 1,000 mls @ 1,000 mls/hr 01/18/24 22:15 01/19/24 01:40 0.9 % Sodium Chloride 1000 Ml IV 01/18/24 23:14 Infused .Q1H MARIA FERNANDA Infusion Lactated Ringer's 1,000 ml 01/18/24 22:04 01/19/24 01:40 Lactated Ringers 1000 Ml IV 01/18/24 22:05 Not Given ONCE ONE <Sean Brito MD - Last Filed: 01/18/24 22:28> Generic Name Dose Route Start Last Admin Trade Name Freq PRN Reason Stop Dose Admin Enoxaparin Sodium 30 mg 01/18/24 23:30 01/19/24 00:05 Enoxaparin 30 Mg/0.3ml Inj SUBCUT 30 mg HS MARIA FERNANDA Administration Gabapentin 100 mg 01/18/24 23:30 01/19/24 00:05 Gabapentin 100 Mg Capsule PO 100 mg TID MARIA FERNANDA Administration Sodium Chloride 1,000 mls @ 125 mls/hr 01/19/24 00:30 01/19/24 00:30 0.9 % Sodium Chloride 1000 Ml IV 125 mls/hr .Q8H MARIA FERNANDA Administration Discontinued Medications Generic Name Dose Route Start Last Admin Trade Name Celia PRN Reason Stop Dose Admin Sodium Chloride 1,000 mls @ 1,000 mls/hr 01/18/24 22:15 01/19/24 01:40 0.9 % Sodium Chloride 1000 Ml IV 01/18/24 23:14 Infused .Q1H MARIA FERNANDA Infusion Lactated Ringer's 1,000 ml 01/18/24 22:04 01/19/24 01:40 Lactated Ringers 1000 Ml IV 01/18/24 22:05 Not Given ONCE ONE <Brandi Miner MD - Last Filed: 01/19/24 02:15> Medical Decision Making MDM Narrative Medical decision making narrative: This is a 73-year-old medically complex male presenting to the ER today by EMS from home with generalized weakness, to falls related to weakness and near- syncope, in the setting of diarrhea. He is currently on immunotherapy for metastatic kidney cancer. 1. He has developed chills and weakness beginning 2 days ago and has had multiple episodes of diarrhea beginning last night and through today. Cause the diarrhea is unclear at this time. Could be infectious. Most likely would be viral given absence of bloody or mucousy stool, absence of fever. He is also currently on immunotherapy for his metastatic kidney cancer so this could be a side effect of that treatment. I have ordered stool culture and C diff just to check for bacterial enteritis and a CT scan of his abdomen pelvis to look for other causes such as diverticulitis, or colitis. He is having mild abdominal discomfort but no severe pain or guarding or rebound. 2. He had 2 episodes of falling due to generalized weakness tonight when he was trying to go to the bathroom. Fortunately no injury from falling. He did not hit his head. He is not anticoagulated. No neck pain or back pain or other symptoms of orthopedic injury. 3. Although we suspect that his falls are due to dehydration from the diarrhea, will check EKG and troponin to look for cardiac ischemia or arrhythmia as a cause for weakness and falls. 4. He does not have any recent black or bloody stools but clinically his skin looks a bit pale. Consider possible and anemia. Most recent hemoglobin measurement in his [facility] chart was 10.1 on August 27. Hemoglobin tonight is 12.2. 5. He does have chronic renal insufficiency with most recent baseline creatinine about 2.1 in August. He also has chronic hyperkalemia with potassium 6.2 in August 22. He has poorly controlled diabetes and has recently been trying to. Get under better control for that. Most recent hemoglobin A1c was 7.2 in September I have discussed this patient preliminarily with our hospitalist Dr. Barton who anticipates the patient will be admitted. I have also discussed with my ER partner, Dr. Schmitt who will follow-up with the patient lab results. She will contact Dr. Barton after labs/imaging are all back.. <Sean Brito MD - Last Filed: 01/18/24 22:28> This is a 73-year-old medically complex male presenting to the ER today by EMS from home with generalized weakness, to falls related to weakness and near- syncope, in the setting of diarrhea. He is currently on immunotherapy for metastatic kidney cancer. 1. He has developed chills and weakness beginning 2 days ago and has had multiple episodes of diarrhea beginning last night and through today. Cause the diarrhea is unclear at this time. Could be infectious. Most likely would be viral given absence of bloody or mucousy stool, absence of fever. He is also currently on immunotherapy for his metastatic kidney cancer so this could be a side effect of that treatment. I have ordered stool culture and C diff just to check for bacterial enteritis and a CT scan of his abdomen pelvis to look for other causes such as diverticulitis, or colitis. He is having mild abdominal discomfort but no severe pain or guarding or rebound. 2. He had 2 episodes of falling due to generalized weakness tonight when he was trying to go to the bathroom. Fortunately no injury from falling. He did not hit his head. He is not anticoagulated. No neck pain or back pain or other symptoms of orthopedic injury. 3. Although we suspect that his falls are due to dehydration from the diarrhea, will check EKG and troponin to look for cardiac ischemia or arrhythmia as a cause for weakness and falls. 4. He does not have any recent black or bloody stools but clinically his skin looks a bit pale. Consider possible and anemia. Most recent hemoglobin measurement in his [facility] chart was 10.1 on August 27. Hemoglobin tonight is 12.2. 5. He does have chronic renal insufficiency with most recent baseline creatinine about 2.1 in August. He also has chronic hyperkalemia with potassium 6.2 in August 22. He has poorly controlled diabetes and has recently been trying to. Get under better control for that. Most recent hemoglobin A1c was 7.2 in September I have discussed this patient preliminarily with our hospitalist Dr. Barton who anticipates the patient will be admitted. I have also discussed with my ER partner, Dr. Schmitt who will follow-up with the patient lab results. She will contact Dr. Barton after labs/imaging are all back.. Mr. Simons was initially seen by Dr. Brito and then signed out to myself after some talking with the hospitalist. Dr. Barton has assumed care of this patient. I did review the EKG which shows sinus rhythm at a rate of [address] or T-wave changes. Also QT and WA intervals were within normal limits. <Brandi Miner MD - Last Filed: 01/19/24 02:15> Medical Records Medical records reviewed: Yes I reviewed the patient's medical records <Brandi Miner MD - Last Filed: 01/19/24 02:15> Lab Data Lab results reviewed: Yes I reviewed the patient's lab results <Brandi Miner MD - Last Filed: 01/19/24 02:15> Labs: Lab Results 01/18/24 01/18/24 01/18/24 Range/Units 21:44 22:30 22:39 WBC 5.51 (4.50-11.00) K/uL RBC 4.34 (4.30-5.90) m/uL Hgb 12.2 L (13.5-17.5) gm/dL Hct 38.1 (37.0-53.0) % MCV 88 (80-100) fL MCH 28 (26-34) pg MCHC 32 (32-36) gm/dL RDW Coeff of Claudia 16.1 H (11.5-15.5) % Plt Count 185 (140-440) K/uL Neut % (Auto) 53.7 (42.0-72.0) % Lymph % (Auto) 31.0 (20-44) % [place] % (Auto) 13.8 H (0.0-11.0) % Eos % (Auto) 1.1 (0.0-7.0) % Baso % (Auto) 0.0 (0.0-3.0) % Neut # (Auto) 2.96 (1.7-7.0) K/uL Lymph # (Auto) 1.71 (0.90-2.90) K/uL [place] # (Auto) 0.80 (0.00-0.90) K/UL Eos # (Auto) 0.06 (0.00-0.50) K/uL Baso # (Auto) 0.00 (0.00-0.30) K/uL Abs Immat Gran (auto) 0.02 (0.00-0.30) K/uL Imm/Tot Granulo (auto) 0.4 % D-Dimer Quant (PE/DVT) 0.59 H (0.00-0.50) ug/ml Sodium 132 L (135-149) mmol/L Potassium 3.9 (3.6-5.1) mmol/L Chloride 101 (96-114) mmol/L Carbon Dioxide 22 (20-32) mmol/L Anion Gap 9 (7-15) mEq/L BUN 38 H (7-30) mg/dL Creatinine 2.2 H (0.5-1.5) mg/dL Estimated Creat Clear 27.39 Estimated GFR 31 ml/min Glucose 178 H (60-115) mg/dL Lactate 1.6 (0.5-1.9) mmol/L Calcium 9.2 (8.4-10.6) mg/dL Total Bilirubin 0.4 (0.1-1.5) mg/dL AST 14 (12-35) U/L ALT 14 (4-50) U/L Alkaline Phosphatase 76 (40-150) U/L Troponin I < 0.01 L (0.01-0.04) ng/mL C-Reactive Protein 6.5 H (0.5-1.0) mg/dL Total Protein 6.2 (6.0-8.3) g/dL Albumin 3.8 (3.3-5.0) g/dL TSH 0.771 (0.270-4.20) uIU/mL Urine Color Yellow (Yellow) Urine Appearance Clear (Clear) Urine pH 5.5 (5.0-8.5) Ur Specific [place] 1.010 (1.000-1.030) Urine Protein Negative (Negative) Urine Glucose (UA) Negative (Negative) Urine Ketones Negative (Negative) Urine Blood Negative (Negative) Urine Nitrite Negative (Negative) Urine Bilirubin Negative (Negative) Urine Urobilinogen 0.2 (0.2-1.0) Ur Leukocyte Esterase Negative (Negative) Urine RBC 0-2 (0-2) Urine WBC 0-2 (0-5) Ur Squamous Epith Cells Few (None-Few) Amorphous Sediment Many A (None) Urine Bacteria Few A (None) Stl C. diff Tox B Gene (Negative) Stl C. diff [id number]-NAP1-BI (Negative) SARS-CoV-2 (PCR) Negative SARS-CoV-2 (Negative) Influenza Type A (PCR) Negative PCR FLU A (Negative) Influenza Type B (PCR) Negative PCR FLU B (Negative) RSV (PCR) Negative PCR RSV (Negative) Lab Acknowledgement Test Added 01/18/24 Range/Units 22:40 WBC (4.50-11.00) K/uL RBC (4.30-5.90) m/uL Hgb (13.5-17.5) gm/dL Hct (37.0-53.0) % MCV (80-100) fL MCH (26-34) pg MCHC (32-36) gm/dL RDW Coeff of Claudia (11.5-15.5) % Plt Count (140-440) K/uL Neut % (Auto) (42.0-72.0) % Lymph % (Auto) (20-44) % [place] % (Auto) (0.0-11.0) % Eos % (Auto) (0.0-7.0) % Baso % (Auto) (0.0-3.0) % Neut # (Auto) (1.7-7.0) K/uL Lymph # (Auto) (0.90-2.90) K/uL [place] # (Auto) (0.00-0.90) K/UL Eos # (Auto) (0.00-0.50) K/uL Baso # (Auto) (0.00-0.30) K/uL Abs Immat Gran (auto) (0.00-0.30) K/uL Imm/Tot Granulo (auto) % D-Dimer Quant (PE/DVT) (0.00-0.50) ug/ml Sodium (135-149) mmol/L Potassium (3.6-5.1) mmol/L Chloride (96-114) mmol/L Carbon Dioxide (20-32) mmol/L Anion Gap (7-15) mEq/L BUN (7-30) mg/dL Creatinine (0.5-1.5) mg/dL Estimated Creat Clear Estimated GFR ml/min Glucose (60-115) mg/dL Lactate (0.5-1.9) mmol/L Calcium (8.4-10.6) mg/dL Total Bilirubin (0.1-1.5) mg/dL AST (12-35) U/L ALT (4-50) U/L Alkaline Phosphatase (40-150) U/L Troponin I (0.01-0.04) ng/mL C-Reactive Protein (0.5-1.0) mg/dL Total Protein (6.0-8.3) g/dL Albumin (3.3-5.0) g/dL TSH (0.270-4.20) uIU/mL Urine Color (Yellow) Urine Appearance (Clear) Urine pH (5.0-8.5) Ur Specific [place] (1.000-1.030) Urine Protein (Negative) Urine Glucose (UA) (Negative) Urine Ketones (Negative) Urine Blood (Negative) Urine Nitrite (Negative) Urine Bilirubin (Negative) Urine Urobilinogen (0.2-1.0) Ur Leukocyte Esterase (Negative) Urine RBC (0-2) Urine WBC (0-5) Ur Squamous Epith Cells (None-Few) Amorphous Sediment (None) Urine Bacteria (None) Stl C. diff Tox B Gene Negative (Negative) Stl C. diff [id number]-NAP1-[id number] PRESUMPTIVE NEGATIVE (Negative) SARS-CoV-2 (PCR) (Negative) Influenza Type A (PCR) (Negative) Influenza Type B (PCR) (Negative) RSV (PCR) (Negative) Lab Acknowledgement <Sean Brito MD - Last Filed: 01/18/24 22:28> Lab Results 01/18/24 01/18/24 01/18/24 Range/Units 21:44 22:30 22:39 WBC 5.51 (4.50-11.00) K/uL RBC 4.34 (4.30-5.90) m/uL Hgb 12.2 L (13.5-17.5) gm/dL Hct 38.1 (37.0-53.0) % MCV 88 (80-100) fL MCH 28 (26-34) pg MCHC 32 (32-36) gm/dL RDW Coeff of Claudia 16.1 H (11.5-15.5) % Plt Count 185 (140-440) K/uL Neut % (Auto) 53.7 (42.0-72.0) % Lymph % (Auto) 31.0 (20-44) % [place] % (Auto) 13.8 H (0.0-11.0) % Eos % (Auto) 1.1 (0.0-7.0) % Baso % (Auto) 0.0 (0.0-3.0) % Neut # (Auto) 2.96 (1.7-7.0) K/uL Lymph # (Auto) 1.71 (0.90-2.90) K/uL [place] # (Auto) 0.80 (0.00-0.90) K/UL Eos # (Auto) 0.06 (0.00-0.50) K/uL Baso # (Auto) 0.00 (0.00-0.30) K/uL Abs Immat Gran (auto) 0.02 (0.00-0.30) K/uL Imm/Tot Granulo (auto) 0.4 % D-Dimer Quant (PE/DVT) 0.59 H (0.00-0.50) ug/ml Sodium 132 L (135-149) mmol/L Potassium 3.9 (3.6-5.1) mmol/L Chloride 101 (96-114) mmol/L Carbon Dioxide 22 (20-32) mmol/L Anion Gap 9 (7-15) mEq/L BUN 38 H (7-30) mg/dL Creatinine 2.2 H (0.5-1.5) mg/dL Estimated Creat Clear 27.39 Estimated GFR 31 ml/min Glucose 178 H (60-115) mg/dL Lactate 1.6 (0.5-1.9) mmol/L Calcium 9.2 (8.4-10.6) mg/dL Total Bilirubin 0.4 (0.1-1.5) mg/dL AST 14 (12-35) U/L ALT 14 (4-50) U/L Alkaline Phosphatase 76 (40-150) U/L Troponin I < 0.01 L (0.01-0.04) ng/mL C-Reactive Protein 6.5 H (0.5-1.0) mg/dL Total Protein 6.2 (6.0-8.3) g/dL Albumin 3.8 (3.3-5.0) g/dL TSH 0.771 (0.270-4.20) uIU/mL Urine Color Yellow (Yellow) Urine Appearance Clear (Clear) Urine pH 5.5 (5.0-8.5) Ur Specific [place] 1.010 (1.000-1.030) Urine Protein Negative (Negative) Urine Glucose (UA) Negative (Negative) Urine Ketones Negative (Negative) Urine Blood Negative (Negative) Urine Nitrite Negative (Negative) Urine Bilirubin Negative (Negative) Urine Urobilinogen 0.2 (0.2-1.0) Ur Leukocyte Esterase Negative (Negative) Urine RBC 0-2 (0-2) Urine WBC 0-2 (0-5) Ur Squamous Epith Cells Few (None-Few) Amorphous Sediment Many A (None) Urine Bacteria Few A (None) Stl C. diff Tox B Gene (Negative) Stl C. diff 027-NAP1-BI (Negative) SARS-CoV-2 (PCR) Negative SARS-CoV-2 (Negative) Influenza Type A (PCR) Negative PCR FLU A (Negative) Influenza Type B (PCR) Negative PCR FLU B (Negative) RSV (PCR) Negative PCR RSV (Negative) Lab Acknowledgement Test Added 01/18/24 Range/Units 22:40 WBC (4.50-11.00) K/uL RBC (4.30-5.90) m/uL Hgb (13.5-17.5) gm/dL Hct (37.0-53.0) % MCV (80-100) fL MCH (26-34) pg MCHC (32-36) gm/dL RDW Coeff of Claudia (11.5-15.5) % Plt Count (140-440) K/uL Neut % (Auto) (42.0-72.0) % Lymph % (Auto) (20-44) % [place] % (Auto) (0.0-11.0) % Eos % (Auto) (0.0-7.0) % Baso % (Auto) (0.0-3.0) % Neut # (Auto) (1.7-7.0) K/uL Lymph # (Auto) (0.90-2.90) K/uL [place] # (Auto) (0.00-0.90) K/UL Eos # (Auto) (0.00-0.50) K/uL Baso # (Auto) (0.00-0.30) K/uL Abs Immat Gran (auto) (0.00-0.30) K/uL Imm/Tot Granulo (auto) % D-Dimer Quant (PE/DVT) (0.00-0.50) ug/ml Sodium (135-149) mmol/L Potassium (3.6-5.1) mmol/L Chloride (96-114) mmol/L Carbon Dioxide (20-32) mmol/L Anion Gap (7-15) mEq/L BUN (7-30) mg/dL Creatinine (0.5-1.5) mg/dL Estimated Creat Clear Estimated GFR ml/min Glucose (60-115) mg/dL Lactate (0.5-1.9) mmol/L Calcium (8.4-10.6) mg/dL Total Bilirubin (0.1-1.5) mg/dL AST (12-35) U/L ALT (4-50) U/L Alkaline Phosphatase (40-150) U/L Troponin I (0.01-0.04) ng/mL C-Reactive Protein (0.5-1.0) mg/dL Total Protein (6.0-8.3) g/dL Albumin (3.3-5.0) g/dL TSH (0.270-4.20) uIU/mL Urine Color (Yellow) Urine Appearance (Clear) Urine pH (5.0-8.5) Ur Specific [place] (1.000-1.030) Urine Protein (Negative) Urine Glucose (UA) (Negative) Urine Ketones (Negative) Urine Blood (Negative) Urine Nitrite (Negative) Urine Bilirubin (Negative) Urine Urobilinogen (0.2-1.0) Ur Leukocyte Esterase (Negative) Urine RBC (0-2) Urine WBC (0-5) Ur Squamous Epith Cells (None-Few) Amorphous Sediment (None) Urine Bacteria (None) Stl C. diff Tox B Gene Negative (Negative) Stl C. diff 027-NAP1-BI PRESUMPTIVE NEGATIVE (Negative) SARS-CoV-2 (PCR) (Negative) Influenza Type A (PCR) (Negative) Influenza Type B (PCR) (Negative) RSV (PCR) (Negative) Lab Acknowledgement <Brandi Miner MD - Last Filed: 01/19/24 02:15> ECG Data Attestation: I personally reviewed and interpreted this ECG as follows: <Brandi Miner MD - Last Filed: 01/19/24 02:15> Discharge Plan Discharge Clinical Impression: Diarrhea, Acute dehydration, Falls <Sean Brito MD - Last Filed: 01/18/24 22:28>
--- NOTE | 2024-01-18 22:04 | CRLHL7_ITS ---
For Patients: As a result of the Century Cures Act, medical imaging exams and procedure reports are released immediately into your electronic medical record. You may view this report before your referring provider. If you have questions, please contact your health care provider. Indication: Abdominal pain, diarrhea, history of renal cancer Technique: Noncontrast CT of the chest, abdomen, and pelvis with multiplanar reformats. Comparison: CT abdomen pelvis performed 10/08/2023, MRI of the abdomen performed 07/30/2023 Findings: Chest: Lungs: Allowing for respiratory motion degradation, no significant abnormality is appreciated. Mediastinum: No acute abnormality appreciated. Right chest MediPort. Calcified atherosclerosis. Mild cardiomegaly. Lymph nodes: No gross lymphadenopathy. Soft tissues: No acute abnormality appreciated. Bones: No acute abnormality appreciated. Abdomen and Pelvis: Hepatobiliary: No significant parenchymal abnormality is appreciated. Spleen: Unremarkable. Pancreas: No acute abnormality appreciated. Adrenal glands: No acute abnormality appreciated. Kidneys: Status post right nephrectomy. Partially calcified left renal nodule. Bowel: No obstruction. No focal perienteric or pericolonic stranding is appreciated. The appendix is visualized and appears unremarkable. Vascular: Calcified atherosclerosis. Lymph nodes: Enlarged upper mesenteric lymph nodes, largest measuring 14 millimeters. Peritoneum: No free air. No free fluid. : No acute abnormality appreciated. Soft tissues: No acute abnormality appreciated. Bones: No acute fracture. No lytic or blastic lesion. Lumbar fusion. Left hip replacement. Impression: 1. No acute abnormality appreciated. 2. Status post right nephrectomy. Decreased size of pulmonary nodules and abdominopelvic lymphadenopathy. Please note that all CT scans at this facility use dose modulation, iterative reconstruction, and/or weight-based dosing when appropriate to reduce radiation dose to as low as reasonably achievable. Dictated by Boubacar Taylor MD @ 01/19/2024 1:09:35 AM (Electronically Signed)
[2024-01-18 22:12] LABS: Lactate* 1.6 mmol/L (0.5-1.9)
--- OUTSIDE RECORDS SUMMARY | 2024-01-18 22:13 | XMS_ITS | Clinical Summary ---
Author Organization [facility] Address [address] [address] Phone Care Team Providers Care Otter Trawler Boatswain Name Role Phone Niall Harding MD Primary Care Provider [phone] Allergies No known active allergies Medications Medication Sig Dispensed Refills Start Date End Date Status ATENOLOL OR Take 50 mg by mouth. Act carl TRAZODONE HCL OR Take by mouth. Acti ve HYDROcodone-acetami nophen 2.5-325 MG oral tablet Take 1 Tab by mouth every six hours as needed for Pain or Other. Limit acetaminophen to 4000 mg per day from all sources. Active CYCLOBENZAPRINE HCL OR Take 10 mg by mouth. Acti ve Celecoxib (CELEBREX OR) Take 200 mg by mouth two times a day as needed. Active aspirin 81 MG chewable tablet Chew and swallow 81 mg one time a day. Take with food. Active buPROPion SR (WELLBUTRIN SR, ZYBAN) 150 MG 12 hour sustained release tablet Take 150 mg by mouth one time a day. Do not crush. Active Multiple Vitamins-Minerals (MULTIVITAL OR) Take by mouth. Activ e Ascorbic Acid (VITAMIN C) 500 MG Cap Take by mouth. Active citalopram (CELEXA) 40 MG tablet Take 40 mg by mouth one time a day. Active atorvaSTATin (LIPITOR) 20 MG tablet Take 20 mg by mouth one time a day. Active omega-3 fatty acid (FISH OIL) 1000 MG capsule Take 1,000 mg by mouth one time a day. Active Glucosamine-Chondro it-Vit C-Mn (GLUCOSAMINE CHONDR 1500 COMPLX) Cap Take by mouth. Acti ve traZODone (DESYREL) 150 MG tablet Take 150 mg by mouth at bedtime. Active omeprazole (PRILOSEC OTC) 20 MG delayed-release tablet Take 20 mg by mouth every morning before breakfast. Tablet should be swallowed whole; do not crush or chew. Take before meals. Active metFORMIN (GLUCOPHAGE) 500 MG tablet Take 2 Tabs by mouth two times a day with meals. 10/09/2018 Active Active Problems Problem Noted Date Diagnosed Date Essential hypertension 09/29/2015 Hyperlipidemia LDL goal <100 09/29/2015 Depression, major, in remission 09/29/2015 Prediabetes 09/29/2015 Gastroesophageal reflux disease without esophagi tis 09/29/2015 Encounters Date Type Department Care Team Description 12/30/2023 Telephone [facility] Emergency Department [address] [facility] [address] Karlee Romero RN 12/29/2023 3:59 PM CDT - 12/29/2023 7:27 PM CDT Emergency [facility] Emergency Department [address] [facility] [place] [address] Benito Gill MD Hyperglycemia (Primary Dx) Discharge Disposition: Home and/or Self Care 12/29/2023 Travel from Last 3 Months Immunizations Name Administration Dates Next Due Influenza Unspecified Formulation 2014,03/03/2014,02/23/2013, 2,03/01/2011,04/25/2009,03/03/2008 Pneumovax 23 01/28/2008 TD >7Yrs Preservative Free 08/01/2009 Zoster Zostavax (Shingles) 03/05/2012 Surgical History Surgery Date Site/Laterality Comments COLONOSCOPY 09/13/2015 [facility]; 5yr repeat TOTAL HIP ARTHROPLASTY Medical History Medical History Date Comments Hypertension Hyperlipidemia Insomnia Back pain Social History Tobacco Use Types Packs/Day Years Used Date Smoking Tobacco: Former Cigarettes Q uit: 1985 Smokeless Tobacco: Never PHQ-2 Answer Date Recorded PHQ-2 Score 0 03/08/2018 EH IP Custom IPV Answer Date Recorded Do you feel UNSAFE in any of your personal relationships with your family members or any other acquaintances? No 2023 Sex and Gender Information Value Date Recorded Sex Assigned at Not on file Gender Identity Not on file Sexual Orientation Not on file Job Start Date Occupation Industry Not on file Not on file Not on file Obstetrics History Last Filed Vital Signs Vital Sign Reading Time Taken Comments Blood Pressure 141/74 12/29/2023 2:56 PM CDT Pulse 74 12/29/2023 2:56 PM CDT Temperature 36.6 ??C (97.9 ??F) 12/29/2023 2:56 PM CD T Respiratory Rate 18 12/29/2023 2:56 PM CDT Oxygen Saturation 97% 12/29/2023 2:56 PM CDT Inhaled Oxygen Concentration - - Weight 118.8 kg (262 lb) 10/27/2018 4:38 PM CDT Height 180.3 cm (5' 11) 10/09/2018 12:51 PM CDT Body Mass Index 36.54 10/09/2018 12:51 PM CDT Plan of Treatment Health Maintenance Due Date Last Done Comments CT Colonography 1951 Cologuard 1950 Colonoscopy 1950 Colorectal Cancer Screening 1950 FIT/FOBT 1951 MEDICARE AWV 1951 Sigmoidoscopy 1950 PERTUSSIS (Standing Order) 09/29/1970 RSV Vaccination (60+ yrs) (Abrysvo/Arexvy) (1 - 1-dose 60+ series) 2011 Shingrix (Zoster recombinant) vaccine (Standing Order) (1 of 2) 04/30/2012 Pneumococcal Vaccine: 65+ yrs (Standing Order) (2 of 2 - PCV) 09/29/2016 01/28/2008 TETANUS (Standing Order) 08/02/2019 08/01/2009 COLONOSCOPY Q 5 YRS 09/12/2020 09/13/2015 ( Previously completed) Influenza Vaccine Seasonal (Standing Order) (#1) 2024 02/20/2015, 03/03/2014, 02/23/2013, Additional history exists HPV Vaccine (Standing Order) Aged Out No longer eligible based on patient's age to complete this topic Hepatitis B Vaccine (Standing Order) Aged Out No longer eligible based on patient's age to complete this topic Procedures Procedure Name Priority Date/Time Associated Diagnosis Comments GLUCOSE, METER Routine 12/29/2023 7:02 PM CDT GLUCOSE, METER Routine 12/29/2023 5:47 PM CDT HEMOGLOBIN A1C STAT 12/29/2023 4:38 PM CDT BASIC METABOLIC PANEL STAT 12/29/2023 4:38 PM CDT HEMOGRAM/DIFF STAT 12/29/2023 4:38 PM CDT BETA-HYDROXYBUTYRATE STAT 12/29/2023 4:38 PM CDT LACTIC ACID, VENOUS STAT 12/29/2023 4 :38 PM CDT GLUCOSE, METER Routine 12/29/2023 3:01 PM CDT from Last 3 Months Results * (ABNORMAL) GLUCOSE, METER (12/29/2023 7:02 PM CDT) Glucose Meter 279(H) 70 - 99 mg/dL 12/29/2023 7:09 PM CDT [facility] POINT OF CARE Blood WHOLE BLOOD SPECIMEN / Unknown 12/29/2023 7:02 PM CDT 12/29/2023 7:09 PM CDT Benito Gill MD EC CHEMISTRY ORDERAB LES Performing Organization Address City/State/[facility] Co de Phone Number [facility] POINT OF CARE [address] [place] [address] * (ABNORMAL) GLUCOSE, METER (12/29/2023 5:47 PM CDT) Glucose Meter 350(H) 70 - 99 mg/dL 12/29/2023 5:54 PM CDT [facility] POINT OF CARE Blood WHOLE BLOOD SPECIMEN / Unknown 12/29/2023 5:47 PM CDT 12/29/2023 5:54 PM CDT Benito Gill MD EC CHEMISTRY ORDERAB LES [facility] POINT OF CARE [address] [place] [address], [facility] * (ABNORMAL) BASIC METABOLIC PANEL (12/29/2023 4:38 PM CDT) Sodium 133(L) 134 - 143 mEq/L 12/29/2023 5:00 PM CDT [facility] Potassium 4.9 3.4 - 5.1 mEq/L 12/29/2023 5:00 PM CDT [facility] Chloride 101 99 - 110 mEq/L 12/29/2023 5:00 PM CDT [facility] Carbon Dioxide 24 19 - 29 mEq/L 12/29/2023 5:00 PM CDT [facility] Anion Gap 8.0 3.0 - 15.0 mEq/L 12/29/2023 5:00 PM CDT [facility] Blood Urea Nitrogen 43(H) 5 - 24 mg/dL 12/29/2023 5:00 PM CDT [facility] Creatinine 2.24(H) 0.70 - 1.20 mg/dL 12/29/2023 5:00 PM CDT [facility] Glomerular Filtration Rate 30(L) >60 mL/min/1. 73 m*2 12/29/2023 5:00 PM CDT [facility] Comment:Risk of cardiovascul ar disease increases when GFR is abnormal; persistently reduced GFR values are a specific indication of CKD. This calculation uses CKD- EPI 202 equation without adjustment for race; it has not been validated in women. Calcium 9.3 8.4 - 10.5 mg/dL 12/29/2023 5:00 PM CDT [facility] Glucose 416(H) 70 - 99 mg/dL 12/29/2023 5:00 PM CDT [facility] Blood BLOOD SPECIMEN / Unknown Venipuncture / Unknown 12/29/2023 4:38 PM CDT 12/29/2023 4:40 PM CDT Narrative [facility] - 12/29/2023 5:00 PM CDT Current ADA criteria for Glucose: ?Normal: 70-99 mg/dL ?Impaired Fasting Glucose: 100-125 mg/dL ?Diabetes Mellitus: at or above 126 mg/dL The diagnosis of diabetes must be confirmed on a subsequent day by measuring Fasting Plasma Glucose, 2-hr PG or random plasma glucose (if symptoms are present). Current ADA criteria for Glucose: ?Normal: 70-99 mg/dL ?Impaired Fasting Glucose: 100-125 mg/dL ?Diabetes Mellitus: at or above 126 mg/dL The diagnosis of diabetes must be confirmed on a subsequent day by measuring Fasting Plasma Glucose, 2-hr PG or random plasma glucose (if symptoms are present). Recommended NA correction for Glucose >250: Measured NA + (0.016X(glucose-100)) for the [employer] chemistry analyzers. Benito Gill MD EC CHEMISTRY ORDERAB LES [facility] [address] * (ABNORMAL) HEMOGRAM/DIFFERENTIAL (12/29/2023 4:38 PM CDT) WBC 8.5 3.2 - 11.0 10*9/L 12/29/2023 4:43 PM CDT [facility] RBC 4.39 4.14 - 5.76 10*12/L 12/29/2023 4:43 PM CDT [facility] HGB 12.3(L) 12.9 - 16.9 g/dL 12/29/2023 4:43 PM CDT [facility] HCT 37.5(L) 38.4 - 49.7 % 12/29/2023 4:43 PM CDT [facility] MCV 85.4 81.4 - 99.0 fL 12/29/2023 4:43 PM CDT [facility] MCH 28.0 26.7 - 33.1 pg 12/29/2023 4:43 PM [facility] MCHC 32.8 31.6 - 35.5 g/dL 12/29/2023 4:43 PM [facility] RDW 15.0(H) 11.3 - 14.6 % 12/29/2023 4:43 PM [facility] PLT 407(H) 130 - 375 10*9/L 12/29/2023 4:43 PM [facility] Neutrophils % 84.7 % 12/29/2023 4:43 PM [facility] Lymphocytes % 13.0 % 12/29/2023 4:43 PM [facility] Monocytes % 1.9 % 12/29/2023 4:43 PM [facility] Eosinophils % 0.0 % 12/29/2023 4:43 PM [facility] Basophils % 0.0 % 12/29/2023 4:43 PM [facility] Immature Granulocytes % 0.4 % 12/29/2023 4:43 PM [facility] Neutrophils Absolute 7.2 1.5 - 7.6 10*9/L 12/29/2023 4:43 PM [facility] Lymphocytes Absolute 1.1 0.8 - 3.3 10*9/L 12/29/2023 4:43 PM [facility] Monocytes Absolute 0.2 0.2 - 0.9 10*9/L 12/29/2023 4:43 PM [facility] Eosinophils Absolute 0.0 0.0 - 0.4 10*9/L 12/29/2023 4:43 PM [facility] Basophils Absolute 0.0 0.0 - 0.1 10*9/L 12/29/2023 4:43 PM [facility] Immature Granulocytes Absolute 0.03 0.00 - 0.06 10*9/L 12/29/2023 4:43 PM CDT [facility] Blood BLOOD SPECIMEN / Unknown Venipuncture / Unknown 12/29/2023 4:38 PM CDT 12/29/2023 4:41 PM CDT Benito Gill MD EC HEMATOLOGY ORDERA BLES Performing Organization Address City/[facility] Co de Phone Number [facility] [address] [place] [address] * LACTIC ACID, VENOUS (12/29/2023 4:38 PM CDT) Lactic Acid, Venous 1.2 0.5 - 2.0 mmol/L 12/29/2023 4:57 PM CDT [facility] Blood BLOOD SPECIMEN / Unknown Venipuncture / Unknown 12/29/2023 4:38 PM CDT 12/29/2023 4:40 PM CDT Benito Gill MD EC CHEMISTRY ORDERAB LES Performing Organization Address City/[facility] Co de Phone Number [facility] [address] [place] [address] * (ABNORMAL) HEMOGLOBIN A1C (12/29/2023 4:38 PM CDT) Hemoglobin A1c 9.2(H) 4.0 - 5.6 % 12/29/2023 4:50 PM CDT [facility] Estimated Average Glucose 217 mg/dL 12/29/2023 4:50 PM CDT [facility] Blood BLOOD SPECIMEN / Unknown Venipuncture / Unknown 12/29/2023 4:38 PM CDT 12/29/2023 4:41 PM CDT Narrative [facility] - 12/29/2023 4:50 PM CDT HGA1C Reference Ranges ??>= 6.5 ?? Diabetes* ??5.7-6.4 ??Impaired glucose tolerance ?? <5.7 ?Normal *In the absence of unequivocal hyperglycemia, results should be confirmed by repeat testing for the diagnosis of diabetes. [employer] 2018 Benito Gill MD EC CHEMISTRY ORDERAB LES ABN Performing Organization Address City/[facility]/ZIP Co de Phone Number [facility] [id number] [place] [address] * BETA-HYDROXYBUTYRATE (12/29/2023 4:38 PM CDT) Beta-Hydroxybu tyrate 0.07 0.02 - 0.27 mM 12/29/2023 5:00 PM CDT [facility] Blood BLOOD SPECIMEN / Unknown Venipuncture / Unknown 12/29/2023 4:38 PM CDT 12/29/2023 4:40 PM CDT Narrative [facility] - 12/29/2023 5:00 PM CDT Of the 3 ketone bodies contributing to ketosis and ketoacidosis (acetoacetate, acetone and B-hydroxybutyrate), the B-hydroxybutyrate normally represents over 75% of the total. Benito Gill MD EC CHEMISTRY ORDERAB LES Performing Organization Address [facility] Co de Phone Number [facility] [address] [address], [facility] * (ABNORMAL) GLUCOSE, METER (12/29/2023 3:01 PM CDT) Glucose Meter 405(H) 70 - 99 mg/dL 12/29/2023 3:09 PM CDT [facility] POINT [facility] CARE Blood WHOLE BLOOD SPECIMEN / Unknown 12/29/2023 3:01 PM CDT 12/29/2023 3:09 PM CDT Gregorio Mendez EC CHEMISTRY ORDERAB LES Performing Organization Address [facility] Co de Phone Number [facility] POINT OF CARE [address] [place] [address], [facility] from Last 3 Months Care Teams Otter Trawler Boatswain Relationship Specialty Start Date End Date Niall Harding MD [address] [place] [id number] PCP - General Family Medicine 12/29/23
--- OUTSIDE RECORDS SUMMARY | 2024-01-18 22:14 | XMS_ITS | Continuity of Care Document ---
Author Organization [facility] Address [address] [place] [address] Care Team Providers Care Community Nutrition Educator Name Role Phone ANTHONYALYSHA MERLOS Primary Care Provider [phone] Assessment No assessment recorded. Plan of Treatment Reminders Order Date Submit Date Provider Last Modified By Organization Details Last Modified Time Details Appointments ESTABLISH ED 10 2023 02:10P M Not available Not available Not available Lab None recorded. Referral None recorded. Procedures None recorded. Surgeries None recorded. Imaging None recorded. Medication Orders None recorded. Patient TargetsNo targets recorded. Patient InstructionsNo instructions recorded. Reason for Referral None Reported. 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 T3b. Carlos Elizabeth MD [address] [place] [address],[address] [place] [address], [phone], [facility] 12:18:57 Problem Notes None recorded. Procedures Surgical History Date Name Laterality Status Provider Name and Address Organization Details Recorded Time 09/18/19 24 COMPLEX VISIT completed Carlos Elizabeth MD [address] [place] [address],[address], [place], [address], [facility] 09/18/2023 14:25:08 08/22/19 24 NEPHRECTOMY, HAND ASSISTED LAPAROSCOPIC (SURG) completed Teresa aguilar [facility] 08/27/2023 10:55:06 08/07/19 24 COMPLEX VISIT completed Carlos Elizabeth MD [address] [place] [address],[address], [place], [address], [facility] 08/07/2023 13:52:16 procedure on back completed Carlos Elizabeth MD [address],[address], [place], [address], [facility] 08/07/2023 12:10:59 total replacement of hip completed Carlos Elizabeth MD [address],[address], [place], [address], [facility] 08/07/2023 12:11:10 Imaging Results None recorded. [...] every 4 hours if needed for Pain* 11/26 completed Not Available Not Available Not Available senna 8.6 mg tablet TAKE TWO TABLETS BY MOUTH TWO TIMES DAILY NEEDED while taking narcotics .* 11/26 completed Not Available Not Available Not Available prednisone 20 mg tablet take 2 tablets by mouth every day for the first 5 days; then 1 tablet daily for the next 5 days* 11/26 completed Not Available Not Available Not Available metronidazo le 500 mg tablet TAKE ONE TABLET BY MOUTH THREE TIMES DAILY UNTIL GONE* 11/26 completed Not Available Not Available Not Available [...] FOUR TO SIX HOURS NEEDED FOR PAIN* 11/26 completed Not Available Not Available Not Available methocarbam ol 750 mg tablet TAKE [...] ONE CAPSULE BY MOUTH ONE TIME DAILY before a meal.* active Not Available Not Available [...] Not Available Not Available No t Available gabapentin 100 mg capsule TAKE ONE CAPSULE BY MOUTH THREE TIMES DAILY as tolerated * active Not Available Not Available No t [...] every 6 hours if needed for Pain. for pain* 11/26 completed Not Available Not Available Not Available hydroxyzine pamoate 25 mg capsule TAKE [...] and Address Organization Details Last Updated DateTime 11/27/2023 180.34 cm 30 kg/m2 01684.36 g Carlos Elizabeth MD [address] [place] [address],[address] [place] [address] [facility] 11/27/2023 12:01:31 Social History Question Answer Notes LastModified by Organizat ion Details LastModified Time Tobacco Smoking Status Former Smoker Carlos Elizabeth MD [address] [place] [address],[place] [phone] [place] [address] [facility] 08/07/2023 12:10:26 What Is Your Level Of Alcohol Consumption? Occasional Information not available 08/07/2023 What Is Your Level Of Caffeine Consumption? Occasional Information not available 08/07/2023 When Did You Quit Smoking? 17+yearssinjuan luiskane diaz Information not available 08/07/2023 What Was The Date Of Your Most Recent Tobacco Screening? 11/27/2023 Information not available 11/27/2023 Sex: Unknown Functional Status None recorded. Mental Status None recorded. Family History Relationship Description Onset Age of this Age Resolved Age Notes Father No current problems or disability Mother No current problems or disability Medical History Condition Response Diabetes N Sexually Transmitted Infection N Other N Bleeding Disorder N High Blood Pressure Y Kidney Stones N High Cholesterol Y GERD/Acid Reflux Y Heart Disease N Cancer N Lung Disease N Depression Y Immunizations Vaccine Type Date Status Provider Name and Address Organization Details Recorded Time Influenza, adjuvanted, trivalent, PF 02/24/2019 completed Carlos Elizabeth MD [address] [place] [address],[address], [address] [place] [address] [facility] 08/07/2023 12:07:49 Influenza, adjuvanted, trivalent, PF 02/27/2018 completed Carlos Elizabeth MD [address] [place] [address],[address], [place], [address], [facility] 08/07/2023 12:07:49 Influenza, adjuvanted, trivalent, PF 04/09/2017 completed Carlos Elizabeth MD [address] [place] [address],[address], [place], [address], [facility] 08/07/2023 12:07:49 zoster recombinant 11/25/2019 completed Carlos ochoa MD [address] [place] [address],[address], [place], [address], [facility] 08/07/2023 12:07:49 zoster recombinant 02/21/2020 completed Carlos ochoa MD [address] [place] [address],[address], [place], [address], [facility] 08/07/2023 12:07:49 Influenza, high-dose, quadrivalent, PF 02/17/2023 completed Carlos Elizabeth MD [address] [place] [address],[address], [place], [address], [facility] 08/07/2023 12:07:49 Influenza, high-dose, quadrivalent, PF 03/14/2022 completed Carlos Elizabeth MD [address] [place] [address],[address], [place], [address], [facility] 08/07/2023 12:07:49 Influenza, adjuvanted, quadrivalent, PF 02/01/2020 completed Carlos Elizabeth MD [address] [place] [address],[address], [place], [address], [facility] 08/07/2023 12:07:49 Influenza, adjuvanted, quadrivalent, PF 02/01/2021 completed Carlos Elizabeth MD [address] [place] [address],[address], [place], [address], [facility] 08/07/2023 12:07:49 COVID-19, mRNA, LNP-S, PF, 30 mcg/0.3 mL dose 07/05/2020 completed Carlos Elizabeth MD [address] [place] [address],[address], [place], [address], [facility] 08/07/2023 12:07:50 COVID-19, mRNA, LNP-S, PF, 30 mcg/0.3 mL dose 07/26/2020 completed Carlos Elizabeth MD [address] [place] [address],[address], [place], [address], [facility] 08/07/2023 12:07:50 COVID-19, mRNA, LNP-S, PF, 30 mcg/0.3 mL dose 02/09/2021 completed Carlos Elizabeth MD [address] [place] [address],[address], [place], [address], [facility] 08/07/2023 12:07:50 COVID-19, mRNA, LNP-S, PF, 30 mcg/0.3 mL dose, radha-sucrose 08/15/2021 completed Carlos Elizabeth MD [address] [place] [address],[place] [address], [place], [address], [facility] 08/07/2023 12:07:50 COVID-19, mRNA, LNP-S, bivalent, PF, 30 mcg/0.3 mL dose 03/14/2022 completed Carlos Elizabeth MD [address] [place] [address],[address], [address], [facility] 08/07/2023 12:07:50 RSV, recombinant, protein subunit RSVpreF, adjuvant reconstituted, 0.5 mL, PF 03/19/2023 completed Carlos Elizabeth MD [address] [place] [address],[facility] [address], [place], [address], [facility] 08/07/2023 12:07:50 COVID-19, mRNA, LNP-S, PF, radha-sucrose, 30 mcg/0.3 mL 02/17/2023 completed Carlos Elizabeth MD [address] [place] [address],[address], [place], [address], [facility] 08/07/2023 12:07:50 pneumococcal polysaccharide PPV23 01/28/2008 completed Carlos Elizabeth MD [address] [place] [address],[address], [address], [facility] 08/07/2023 12:07:50 pneumococcal polysaccharide PPV23 02/24/2019 completed Carlos Elizabeth MD [address] [place] [address],[address], [place], [address], [facility] 08/07/2023 12:07:50 influenza, unspecified formulation 03/11/2018 completed Carlos Elizabeth MD [address] [place] [address],[address], [place], [address], [facility] 08/07/2023 12:07:50 Tdap 08/01/2009 completed Carlos Elizabeth MD [address] [place] [address],[address], [place], [address], [facility] 08/07/2023 12:07:50 Tdap 11/25/2019 completed Carlos Elizabeth MD [address] [place] [address],[address], [place], [address], [facility] 08/07/2023 12:07:50 Novel Lzraimqza-X2E8-00, all formulations 04/25/2009 completed Carlos Elizabeth MD [address] [place] [address],[address], [place], [address], [facility] 08/07/2023 12:07:50 Pneumococcal conjugate PCV 13 10/30/2016 completed Carlos Elizabeth MD [address] [place] [address],[address], [place], [address], [facility] 08/07/2023 12:07:50 zoster live 03/05/2012 completed Carlos Elizabeth MD [address] [place] [address],[address], [place], [address], [facility] 08/07/2023 12:07:50 Influenza, split virus, trivalent, preservative 02/20/2015 completed Carlos Elizabeth MD [address] [place] [address],[address], [place], [address], [facility] 08/07/2023 12:07:50 Influenza, split virus, trivalent, preservative 02/23/2013 completed Carlos Elizabeth MD [address] [place] [address],[address], [place], [address], [facility] 08/07/2023 12:07:50 Influenza, split virus, trivalent, preservative 03/03/2008 completed Carlos Elizabeth MD [address] [place] [address],[address], [place], [address], [facility] 08/07/2023 12:07:50 Influenza, split virus, trivalent, preservative 03/05/2012 completed Carlos Elizabeth MD [address] [place] [address],[address] [place] [address], [address], [facility] 08/07/2023 12:07:50 Influenza, split virus, trivalent, preservative 04/01/2007 completed Carlos Elizabeth MD [address] [place] [address],[address] [place] [address], [address], [facility] 08/07/2023 12:07:50 Influenza, split virus, trivalent, PF 03/01/2011 completed Carlos Elizabeth MD [address] [place] [address],[address] [place] [address], [address], [facility] 08/07/2023 12:07:50 Influenza, split virus, trivalent, PF 04/25/2009 completed Carlos Elizabeth MD [address] [place] [address],[address] [place] [address], [address], [facility] 08/07/2023 12:07:50 Influenza, split virus, quadrivalent, PF 03/03/2014 completed Carlos Elizabeth MD [address] [place] [address],[address], [address], [facility] 08/07/2023 12:07:50 Influenza, split virus, quadrivalent, PF 04/05/2016 completed Carlos Elizabeth MD [address] [place] [address],[address] [place] [address], [address], [facility] 08/07/2023 12:07:50 Past Encounters Encounter ID Performer Location Encounter Start Date Encounter Closed Date Diagnosis/Indication Diagnosis SNOMED-CT Code Diagnosis ICD10 Code [id number] Carlos Elizabeth MD [facility] [address] [phone] 11/27/2023 11:42:20 12/04/2023 11:52:06 Malignant tumor of kidney 415714195 C64.9 Health Concerns Section Related Observation LastModified by Organization Detai ls LastModified Time None Recorded Concern Status LastModified by Organization Details LastModified Time None Recorded Payers Encounter Date Sequence Insurance Name Policy Number Policy Lim Covered Member ID Lim Member ID Guarantor Name 11/27/2023 1 [place] [employer] [place] MEDICARE COST [id number] Edwardo Simons [id number] Brookebrunilda Hernandeza Notes Date Note Type Note Provider Name and Address Organization Details Recorded Time 11/27/2023 text/html HPI Notes: Malloryo w up kidney cancer. His nephrectomy was in July,. He is undergoing immunotherapy for metastatic disease. He has lymphadenopathy and lung mets. Carlos Elizabeth MD [address] [facility],[address], [place], [address], [facility] 11/27/2023 12:19:08
--- OUTSIDE RECORDS SUMMARY | 2024-01-18 22:14 | XMS_ITS | Clinical Summary ---
Author Organization [facility] Address [address] [place] [address] Phone Care Team Providers Care Field Artillery Basic Name Role Phone Niall Harding MD Primary Care Provider [phone] Allergies No known active allergies Medications Medication [...] eyes every 12 (twelve) hours 12/28/2018 Active Glycerin-Hypromellos e-PEG 400 0.2-0.2-1 % solution Place 1 Drop [...] daily if needed for Constipation. 08/23/2023 Active hydroCHLOROthiazide 25 MG tablet Take 25 mg by [...] for the next 5 days* 09/22/2023 Active Active Problems Problem Noted Date Diagnosed [...] Encounters Date Type Department Care Team Description 01/07/2024 Office Communication [facility] [address] [place] [id number] Giorgio Callejas MD 10/18/2023 Orders Only [facility] [address] [place] [address] Giorgio Callejas MD Chronic kidney disease stage 4 (HCC) from Last 3 Months Immunizations Name Administration Dates Next Due Influenza Split High Dose Preservative Free IM 1 Kiwiple Sars-cov-2 (Covid-19) Vaccine, Mrna, Segundo Protein 02/17/2023 [...] Hemoglobin A1C 01/07/2024 024, 07/08/2023 Influenza Vaccine (#1) 2024 02/17/2023 Hepatitis B Vaccine Aged Out No longe r eligible based on patient's age to complete this topic Care Teams Field Artillery Basic Relationship Specialty Start Date End Date Niall Harding MD [address] [place] [address] PCP - General Family Medicine 09/08/23
--- OUTSIDE RECORDS SUMMARY | 2024-01-18 22:14 | XMS_ITS | Referral Summary ---
Author Organization [facility] Address [address] [place] [address] Care Team Providers Care Boat Camp Operator Name Role Phone Niall Harding MD Primary Care Provider [phone] Allergies No known active allergies Medications Medication [...] Comments Blood Pressure 127/52 05/05/2023 8:55 AM MANAGER COMMUNITY Pulse 64 05/05/2023 8:54 AM MANAGER COMMUNITY Temperature 36.6 ??C (97.8 ??F) 05/05/2023 7:20 AM CS T Respiratory Rate 18 05/05/2023 7:20 AM MANAGER COMMUNITY Oxygen Saturation 96% 05/05/2023 7:20 AM MANAGER COMMUNITY Inhaled Oxygen Concentration - - Weight 101.1 kg (222 lb 12.8 oz) 2022 12:36 AM MANAGER COMMUNITY Height 180.3 cm (5' 11) 05/02/2023 12: 36 AM MANAGER COMMUNITY Body Mass Index 31.07 05/02/2023 12:36 AM MANAGER COMMUNITY Plan of Treatment Not on file Medical Devices Implanted Type Area Hospitality Recruiter Device Identifier Shelf Expiration Date Model / Serial / Lot Graft Bone Magnifuse [id number] - [id number] Implanted:Qty : 1 on 04/16/2023 by Thang Negrete MD at [facility] Bone/Tissu e/Biologic N/A: Spine Lumbar [employer] [id number] 03/19/2025 [id number] / [id number] / Graft Bone Fibers Dbf 6ml Inj [id number] Preloaded - [id number] Implanted:Qty : 1 on 04/16/2023 by Thang Negrete MD at [facility] Bone/Tissu e/Biologic N/A: Spine Lumbar [employer] 10/21/2024 [id number] / [id number] / Pass Lp Crosslink [id number] Implanted:Qty : 1 on 04/16/2023 by Thang Negrete MD at [facility] Metallic Hardware/A nchor N/A: Spine Lumbar [employer] [id number] / / [id number] 2022 Imp Screw Bn Medt Spine 50x6.5mm 5.5/6mm Paul - [id number] Implanted:Qty : 6 on 04/16/2023 by Thang Negrete MD at [facility] Metallic Hardware/A nchor N/A: Spine Lumbar [employer] [id number] / / [id number] NOV 2022 Imp Screw Bn Medt Spine 45x7.5mm 5.5/6mm Paul - [id number] Implanted:Qty : 2 on 04/16/2023 by Thang Negrete MD at [facility] Metallic Hardware/A nchor N/A: Spine Lumbar [employer] [id number] / / [id number] 2022 Imp Scr Set Medt Solera Break Off 5.5mm Ti [id number] - [id number] Implanted:Qty : 8 on 04/16/2023 by Thang Negrete MD at [facility] Metallic Hardware/A nchor N/A: Spine Lumbar [employer] [id number] / / 8005 NOV [address]pi Interbody Medt [address] Long 7mm [id number] - [id number] Implanted:Qty : 1 on 04/16/2023 by Thang Negrete MD at [facility] Metallic Hardware/A nchor N/A: Spine Lumbar [employer] 12/26/2029 [id number] / / [id number] Imp Spi Interbody Medt [address] Long 7mm [id number] - [id number] Implanted:Qty : 1 on 04/16/2023 by Thang Negrete MD at [facility] Metallic Hardware/A nchor N/A: Spine Lumbar [employer] 11/28/2029 [id number] / / [id number] Imp Spi Interbody Medt [address] Long 7mm [id number] - [id number] Implanted:Qty : 1 on 04/16/2023 by Thang Negrete MD at [facility] Metallic Hardware/A nchor N/A: Spine Lumbar [employer] 11/26/2029 [id number] / / [id number] Imp Paul Medt Solera Cvd 5.5x90mm Ti [id number] - [id number] Implanted:Qty : 2 on 04/16/2023 by Thang Negrete MD at [facility] Metallic Hardware/A nchor N/A: Spine Lumbar [employer] [id number] / / [id number] 2022 Procedures Procedure Name Priority Date/Time Associated Diagnosis Comments GLUCOSE BY METER Routine 05/05/2023 1:59 AM MANAGER COMMUNITY from Last 3 Months or Most Recently Relevant to Health Maintenance Results * (ABNORMAL) Glucose by meter (05/05/2023 1:59 AM MANAGER COMMUNITY) [facility] GLUCOSE BY METER POCT 157(H) 70 - 99 mg/dL 05/05/2023 2:06 AM MANAGER COMMUNITY LABORATORY POC Blood, Capillary BLOOD SPECIMEN / Unknown 05/05/2023 1:59 AM MANAGER COMMUNITY 05/05/2023 2:06 AM MANAGER COMMUNITY Rohit GIRALDO POCT LABORATORY [facility] Lab [address] Lab (1st floor, no room number) [place] [address], [facility] [phone] from Last 3 Months or Most Recently Relevant to Health Maintenance Advance Directives For more information, please contact: [phone] * Full Code (Latest Code Status on [...] by: Other (please patricia t) Care Teams Boat Camp Operator Relationship Specialty Start Date End Date Niall Harding MD [address] [place] [address] [facility] - General 04/16/23
--- OUTSIDE RECORDS SUMMARY | 2024-01-18 22:14 | XMS_ITS | Referral Summary ---
Author Organization [facility] Address [address] [place] [address] Care Team Providers Care Camp Guard Name Role Phone Sukhjinder Trinidad MD Primary [...] 03/15/2016 Hx of lumbosacral spine surgery 02/26/2016 Overview (02/26/2016): Bilateral medial branch block Lumbar-3 sacral 1 [...] Smoking Tobacco: Former Smokeless Tobacco: Never Comments:quit 1984 Alcohol Use Standard Drinks/Week Comments Yes 4 (1 standard drink = 0.6 oz pur e alcohol) weekly Sex and Gender Information Value Date Recorded Sex Assigned at Male 07/04/2020 1:48 PM REHABILITATION SERVICES AIDE Gender Identity Male 07/04/2020 1:48 PM REHABILITATION SERVICES AIDE Sexual Orientation Straight 07/04/2020 1: 48 PM REHABILITATION SERVICES AIDE Last Filed Vital Signs Vital Sign Reading Time Taken Comments Blood Pressure 189/83 07/07/2018 12:15 PM REHABILITATION SERVICES AIDE Pulse 65 07/07/2018 12:15 PM REHABILITATION SERVICES AIDE Temperature 36.2 ??C (97.2 ??F) 07/07/2018 12:[address] Respiratory Rate 14 07/07/2018 12:15 PM REHABILITATION SERVICES AIDE Oxygen Saturation 96% 07/07/2018 12:15 PM REHABILITATION SERVICES AIDE Inhaled Oxygen Concentration - - Weight 114.8 kg (253 lb) 07/01/2018 10:20 AM REHABILITATION SERVICES AIDE Height 175.3 cm (5' 9) 07/01/2018 10:20 AM REHABILITATION SERVICES AIDE Body Mass Index 37.36 07/01/2018 10:20 AM REHABILITATION SERVICES AIDE Plan of Treatment Not on file Care Teams Camp Guard Relationship Specialty Start Date End Date Sukhjinder Trinidad MD PCP - General 01/15/16
--- OUTSIDE RECORDS SUMMARY | 2024-01-18 22:14 | XMS_ITS | Encounter Summary ---
Author Organization [facility] Address [address] [place] [address] Care Team Providers Care Paunch Trimmer Name Role Phone Niall Harding MD Primary Care Provider [phone] Encounter Details Date Type Department Care Team (Late st Contact Info) Description 09/08/2023 Documentation Only [facility] [address] [place], [place] [address] [address] No, Pcp Social History Tobacco [...] on filedocumented in this encounter Care Teams Paunch Trimmer Relationship Specialty Start Date End Date Niall Harding [place] [address] PCP - General Family Medicine 09/08/23 documented as of this encounter
--- OUTSIDE RECORDS SUMMARY | 2024-01-18 22:14 | XMS_ITS | Continuity of Care Document ---
Author Organization [facility] Address [address] [place] [address] [address] [place] [address] Phone Care Team Providers Care Computational Sciences Professor Name Role Phone Sean Sena Unavailable Unavailable Advance Directives Directive Yes / No Effective Date File Name No Information Encounters Encounter Description Practice Location Reason(s) For Visit Diagnoses Date Provider Providers Copied on Encounter Z [facility], [address] [place], [place] [address], [place], [address], [place] tel:[phone] [facility] No Information Jul-2 9-200 8 Louise Estrada. [address], [place], [place], [id number] , [place]. tel:[phone] Family History Family Member Type Diagnosis Age At Onset No Information Payers Payer name Insurance type Covered libertarian ID Authoriza tion(s) No Information Social History [...]
--- OUTSIDE RECORDS SUMMARY | 2024-01-18 22:14 | XMS_ITS | Data Portability ---
Author Organization [facility], 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 Plan of Treatment Reminders Order Date Submit Date Provider Last Modified By Organization Details Last Modified Time Details Appointments ESTABLI SHED 10 2023 02:10P M Not available Not available Not available Lab None recorde d. Referral None recorde d. Procedures None recorde d. Surgeries nephrec katlyn, hand assiste d laparos copic (SURG) 2023 024 VIVIEN Not available 08/27/2023 10:55:[address], chest + abdomen + pelvis, w/o contras t 2023 024 [facility], [address] [place], [address], 10/08/2023 08:51:15 Medication Orders None recorde d. Patient TargetsNo targets recorded. Patient InstructionsNo instructions recorded. Reason for Referral None Reported. Results Created Date Observation Date Name Description Value Unit Range Abnormal Flag Note LastModifiedBy Organization Detail LastModifiedTime 07/31/1907/30/2023 MRI, abdom en, w/wo contr ast No observ ation record ed. Not Available 2023 16:01:11 07/31/19 24 07/24/2023 US, renal No observ ation record ed. Not Available 2023 16:02:06 10/08/19 24 10/08/2023 CT, chest + abdom en + pelvi s, w/o contr ast No observ ation record ed. [facility] [address], [place], [address], 11/24/2023 12:14:43 Result Notes None recorded. 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 T3b. Carlos Elizabeth MD [address] [place] [address],[address], [place], [address], [facility] 12:18:57 Problem Notes None recorded. Procedures Surgical History Date Name Laterality Status Provider Name and Address Organization Details Recorded Time 09/18/19 24 COMPLEX VISIT completed Carlos Elizabeth MD [address] [place] [address],[address], [place], [address], [facility] 09/18/2023 14:25:08 08/22/19 24 NEPHRECTOMY, HAND ASSISTED LAPAROSCOPIC (SURG) completed Teresa aguilar [facility] 08/27/2023 10:55:06 08/07/19 24 COMPLEX VISIT completed Carlos Elizabeth MD [address] [place] [address],[address], [place], [address], [facility] 08/07/2023 13:52:16 procedure on back completed Carlos Elizabeth MD [address] [place] [address],[address], [place], [address], [facility] 08/07/2023 12:10:59 total replacement of hip completed Carlos Elizabeth MD [address] [place] [address],[address], [place], [address], [facility] 08/07/2023 12:11:10 Imaging Results Imaging Date Name Status LastModified by [facility] Details LastModified Time 07/30/2023 MRI, abdomen, w/wo contrast completed Information not available 07/31/2023 16:01:11 07/24/2023 US, renal completed Information no t available 07/31/2023 16:02:06 10/08/2023 CT, chest + abdomen + pelvis, w/o contrast completed [facility] [address], [place], [address], 11/24/2023 12:14:43 Procedure Notes None recorded. Medical Equipment None [...] Address Organization Details Last Updated DateTime 08/07/2023 017723.28 g 31.4 kg/m2 180.34 cm Carlos Elizabeth MD [address] [place] [address],[address] [facility] 08/07/2023 12:07:38 Date Recorded Body height Body mass index (BMI) Body weight Provider Name and Address Organization Details Last Updated DateTime 09/18/2023 180.34 cm 31.4 kg/m2 343621.28 g Carlos Elizabeth MD [address] [place] [address],[address] [facility] 09/18/2023 12:04:31 Date Recorded Body height Body mass index (BMI) Body weight Provider Name and Address Organization Details Last Updated DateTime 11/27/2023 180.34 cm 30 kg/m2 29180.36 g Carlos Elizabeth MD [address] [place] [address] [facility] 11/27/2023 12:01:31 Social History Question Answer Notes LastModified by Organizat ion Details LastModified Time Tobacco Smoking Status Former Smoker Carlos Elizabeth MD [address] [place] [address], [address] [place] [address], [facility] 08/07/2023 12:10:26 What Is Your Level [...] problems or disability Medical History Condition Response Other N High Blood Pressure Y Kidney Stones N Lung Disease N Depression Y GERD/Acid Reflux Y Sexually Transmitted Infection N Cancer N High Cholesterol Y Diabetes N Bleeding Disorder N Heart Disease N Immunizations Vaccine Type Date Status Provider Name and Address Organization Details Recorded Time Influenza, adjuvanted, trivalent, PF 02/24/2019 completed Carlos Elizabeth MD [address] [place] [address],[address] [place] [address], [phone], [facility] 08/07/2023 12:07:49 Influenza, adjuvanted, trivalent, PF 02/27/2018 completed Carlos Elizabeth MD [address] [place] [address],[address] [place] [address], [address], [facility] 08/07/2023 12:07:49 Influenza, adjuvanted, trivalent, PF 04/09/2017 completed Carlos Elizabeth MD [address] [place] [address],[address] [place] [address], [address], [facility] 08/07/2023 12:07:49 zoster recombinant 11/25/2019 completed Carlos ochoa MD [address] [place] [address],[address], [place], [address], [facility] 08/07/2023 12:07:49 zoster recombinant 02/21/2020 completed Carlos ochoa MD [address] [place] [address],[address] [place] [address], [address], [facility] 08/07/2023 12:07:49 Influenza, high-dose, quadrivalent, PF 02/17/2023 completed Carlos Elizabeth MD [address] [place] [address],[address], [place], [address], [facility] 08/07/2023 12:07:49 Influenza, high-dose, quadrivalent, PF 03/14/2022 completed Carlos Elizabeth MD [address] [place] [address],[address], [address], [facility] 08/07/2023 12:07:49 Influenza, adjuvanted, quadrivalent, PF 02/01/2020 completed Carlos Elizabeth MD [address] [place] [address],[address], [address], [facility] 08/07/2023 12:07:49 Influenza, adjuvanted, quadrivalent, PF 02/01/2021 completed Carlos Elizabeth MD [address] [place] [address],[address], [place], [address], [facility] 08/07/2023 12:07:49 COVID-19, mRNA, LNP-S, PF, 30 mcg/0.3 mL dose 07/05/2020 completed Carlos Elizabeth MD [address] [place] [address],[address], [place], [address], [facility] 08/07/2023 12:07:50 COVID-19, mRNA, LNP-S, PF, 30 mcg/0.3 mL dose 07/26/2020 completed Carlos Elizabeth MD [address] [place] [address],[address], [place], [address], [facility] 08/07/2023 12:07:50 COVID-19, mRNA, LNP-S, PF, 30 mcg/0.3 mL dose 02/09/2021 completed Carlos Elizabeth MD [address] [place] [address],[address], [place], [address], [facility] 08/07/2023 12:07:50 COVID-19, mRNA, LNP-S, PF, 30 mcg/0.3 mL dose, radha-sucrose 08/15/2021 completed aCrlos Elizabeth MD [address] [place] [address],[address], [place], [address], [facility] 08/07/2023 12:07:50 COVID-19, mRNA, LNP-S, bivalent, PF, 30 mcg/0.3 mL dose 03/14/2022 completed Carlos Elizabeth MD [address] [place] [address],[address], [place], [address], [facility] 08/07/2023 12:07:50 RSV, recombinant, protein subunit RSVpreF, adjuvant reconstituted, 0.5 mL, PF 03/19/2023 completed Carlos Elizabeth MD [address] [place] [address],[address], [place], [address], [facility] 08/07/2023 12:07:50 COVID-19, mRNA, LNP-S, PF, radha-sucrose, 30 mcg/0.3 mL 02/17/2023 completed Carlos Elizabeth MD [address] [place] [address],[address], [place], [address], [facility] 08/07/2023 12:07:50 pneumococcal polysaccharide PPV23 01/28/2008 completed Carlos Elizabeth MD [address] [place] [address],[address], [place], [address], [facility] 08/07/2023 12:07:50 pneumococcal polysaccharide PPV23 02/24/2019 completed Carlos Elizabeth MD [address] [place] [address],[address], [place], [address], [facility] 08/07/2023 12:07:50 influenza, unspecified formulation 03/11/2018 completed Carlos Elizabeth MD [address] [place] [address],[address], [place], [address], [facility] 08/07/2023 12:07:50 Tdap 08/01/2009 completed Carlos Elizabeth MD [address] [place] [address],[address], [place], [address], [facility] 08/07/2023 12:07:50 Tdap 11/25/2019 completed Carlos Elizabeth MD [address] [place] [address],[address], [place], [address], [facility] 08/07/2023 12:07:50 Novel Dptjojsra-[id number], all formulations 04/25/2009 completed Carlos Elizabeth MD [address] [place] [address],[address], [place], [address], [facility] 08/07/2023 12:07:50 Pneumococcal conjugate PCV 13 10/30/2016 completed Carlos Elizabeth MD [address] [place] [address],[address], [place], [address], [facility] 08/07/2023 12:07:50 zoster live 03/05/2012 completed Carlos Elizabeth MD [address] [place] [address],[address], [place], [address], [facility] 08/07/2023 12:07:50 Influenza, split virus, trivalent, preservative 02/20/2015 completed Carlos Elizabeth MD [address] [place] [address],[address] [place] [address], [address], [facility] 08/07/2023 12:07:50 Influenza, split virus, trivalent, preservative 02/23/2013 completed Carlos Elizabeth MD [address] [place] [address],[address], [place], [address], [facility] 08/07/2023 12:07:50 Influenza, split virus, trivalent, preservative 03/03/2008 completed Carlos Elizabeth MD [address] [place] [address],[address], [place], [address], [facility] 08/07/2023 12:07:50 Influenza, split virus, trivalent, preservative 03/05/2012 completed Carlos Elizabeth MD [address] [place] [address],[address] [place] [address], [address], [facility] 08/07/2023 12:07:50 Influenza, split virus, trivalent, preservative 04/01/2007 completed Carlos Elizabeth MD [address] [place] [address],[address] [place] [address], [address], [facility] 08/07/2023 12:07:50 Influenza, split virus, trivalent, PF 03/01/2011 completed Carlos Elizabeth MD [address] [place] [address],[address] [place] [address], [phone], [facility] 08/07/2023 12:07:50 Influenza, split virus, trivalent, PF 04/25/2009 completed Carlos Elizabeth MD [address] [place] [address],[address] [place] [address], [address], [facility] 08/07/2023 12:07:50 Influenza, split virus, quadrivalent, PF 03/03/2014 completed Carlos Elizabeth MD [address] [place] [address],[address], [address], [facility] 08/07/2023 12:07:50 Influenza, split virus, quadrivalent, PF 04/05/2016 completed Carlos Elizabeth MD [address] [place] [address],[address] [place] [address], [address], [facility] 08/07/2023 12:07:50 Past Encounters Encounter ID Performer Location Encounter Start Date Encounter Closed Date Diagnosis/Indication Diagnosis SNOMED-CT Code Diagnosis ICD10 Code [id number] MD ADRIANA Jasmine_[facility] [address] [place] [id number] 08/07/2023 11:55:10 08/08/2023 09:52:10 Renal mass 960443943 N28.89 [id number] MD ADRIANA Jasmine_[facility] [address] [place] [id number] 09/18/2023 11:53:48 09/19/2023 11:26:56 Malignant tumor of kidney 793672716 C64.9 [id number] MD ADRIANA Jasmine[facility] [address] [place] [id number] 11/27/2023 11:42:20 12/04/2023 11:52:06 Malignant tumor of kidney 500200636 C64.9 Health Concerns Section Related Observation LastModified by Organization Detai ls LastModified Time None Recorded Concern Status LastModified by Organization Details LastModified Time None Recorded Advance Directives Directive None Recorded Payers Encounter Date Sequence Insurance Name Policy Number Policy Lim Covered Member ID Lim Member ID Guarantor Name 08/07/2023 1 [place] [id number] Brooke J Ronak [id number] Brooke Ronak 09/18/2023 1 [place] [id number] Brooke J Ronak [id number] Brooke Ronak 11/27/2023 1 [place] [id number] Brooke J Ronak [id number] Brooke Ronak Notes Date Note Type Note Provider Name and Address Organization Details Recorded Time 08/07/2023 text/html HPI Notes: Refer red for a large 10x6cm right renal mass. [...] from a posterior approach. Carlos Elizabeth MD [address] [place] [address],[address], [place], [address], [facility] 08/07/2023 13:52:30 09/18/2023 text/html HPI Notes: Suha schaeffer up kidney cancer. He had a nephrectomy and the final pathology showed Grade 4 RCC with invasion into the hilum. Stage T3a. He came with his and son. Carlos Elizabeth MD [address], [place], [address], [facility] 09/18/2023 14:25:17 11/27/2023 text/html HPI Notes: Suha schaeffer up kidney cancer. His nephrectomy was in July,. He is undergoing immunotherapy for metastatic disease. He has lymphadenopathy and lung mets. Carlos Elizabeth MD [address] [place] [address],[address], [place], [address], [facility] 11/27/2023 12:19:08
--- OUTSIDE RECORDS SUMMARY | 2024-01-18 22:14 | XMS_ITS | Encounter Summary ---
Author Organization [facility] Address [address] [address] Phone Care Team Providers Care Senior Construction Project Manager Name Role Phone Niall Harding MD Primary Care Provider [phone] Reason for Visit * Reason Comments High Blood Sugar- Asymptomatic Encounter Details Date Type Department Care Team (Late st Contact Info) Description 12/29/2023 3:59 PM CDT - 12/29/2023 7:[address] [facility] Emergency Department [address] [place] [id number] Benito Gill MD [address] [place] [address] [id number] Hyperglycemia (Primary Dx) Discharge Disposition: Home and/or Self Care Social History Tobacco Use Types Packs/Day Years Used Date Smoking Tobacco: Former Cigarettes Q uit: 1985 Smokeless Tobacco: Never PHQ-2 Answer Date Recorded PHQ-2 Score 0 03/08/2018 [facility] Custom IPV Answer Date Recorded Do you feel UNSAFE in any of your personal relationships with your family members or any other acquaintances? No 2023 Sex and Gender Information Value Date Recorded Sex Assigned at Not on file Gender Identity Not on file Sexual Orientation Not on file Job Start Date Occupation Industry Not on file Not on file Not on file documented as of this encounter Last Filed Vital Signs Vital Sign Reading Time Taken Comments Blood Pressure 141/74 12/29/2023 2:56 PM CDT Pulse 74 12/29/2023 2:56 PM CDT Temperature 36.6 ??C (97.9 ??F) 12/29/2023 2:56 PM CD T Respiratory Rate 18 12/29/2023 2:56 PM CDT Oxygen Saturation 97% 12/29/2023 2:56 PM CDT Inhaled Oxygen Concentration - - Weight - - Height - - Body Mass Index - - documented in this encounter Functional Status Functional Status Response Date of Assess ment Patient's Vision Adequate to Safely Complete Daily Activities Yes 12/29/2023 Patient's Memory Adequate to Safely Complete Daily Activities Yes 12/29/2023 Cognitive Status Response Date of Assessm ent Patient's Judgment Adequate to Safely Complete Daily Activities Yes 12/29/2023 documented as of this encounter Discharge Instructions * Discharge Instructions* Benito Gill MD - 12/29/2023 7:17 PM CDT Continue current regimen of Lantus. Follow-up with primary care provider tomorrow by phone as planned. documented in this encounter Medications at Time of Discharge Medication Sig Dispensed Refills Start Date End Date metFORMIN (GLUCOPHAGE) 500 MG tablet Take 2 Tabs by mouth two times a day with meals. 10/09/2018 aspirin 81 MG chewable tablet Chew and swallow 81 mg one time a day. Take with food. buPROPion SR (WELLBUTRIN SR, ZYBAN) 150 MG 12 hour sustained release tablet Take 150 mg by mouth one time a day. Do not crush. Multiple Vitamins-Minerals (MULTIVITAL OR) Take by mouth. Ascorbic Acid (VITAMIN C) 500 MG Cap Take by mouth. citalopram (CELEXA) 40 MG tablet Take 40 mg by mouth one time a day. atorvaSTATin (LIPITOR) 20 MG tablet Take 20 mg by mouth one time a day. omega-3 fatty acid (FISH OIL) 1000 MG capsule Take 1,000 mg by mouth one time a day. Glucosamine-Chondroit- Vit C-Mn (GLUCOSAMINE CHONDR 1500 COMPLX) Cap Take by mouth. traZODone (DESYREL) 150 MG tablet Take 150 mg by mouth at bedtime. omeprazole (PRILOSEC OTC) 20 MG delayed-release tablet Take 20 mg by mouth every morning before breakfast. Tablet should be swallowed whole; do not crush or chew. Take before meals. ATENOLOL OR Take 50 mg by mouth. TRAZODONE HCL OR Take by mouth. HYDROcodone-acetaminop hen 2.5-325 MG oral tablet Take 1 Tab by mouth every six hours as needed for Pain or Other. Limit acetaminophen to 4000 mg per day from all sources. CYCLOBENZAPRINE HCL OR Take 10 mg by mouth. Celecoxib (CELEBREX OR) Take 200 mg by mouth two times a day as needed. documented as of this encounter Discharge Disposition Disposition Code Departure Means Destination Home and/or Self Shelter documented in this encounter ED Notes * Samanta Brito RN - 12/29/2023 7:27 PM CDT Copy of AVS provided, verbalizes understanding of discharge instructions, verbalizes understanding of follow-up appointments. No further questions at this time. * Benito Gill MD - 12/29/2023 4:23 PM CDT Images from the original note were not included. Patient: Edwardo Simons Means of Arrival: Car Chief Complaint: High Blood Sugar- Asymptomatic History of Present Illness: HPI The patient is a 73-year-old male who presents to the emergency department today with a chief complaint of high blood sugar. The patient does have a history of diabetes mellitus type 2. He was recently started on Lantus for this. He is up to 12 units in the morning. He reports over the last severaldays he has been noticing his blood sugars running higher ranging between 200-400. In general he isfeeling slightly weak. He has been urinating more. He has not having any chest pain or shortness ofbreath. No abdominal pain. He reports that he has had one of his kidneys removed in the past because of cancer. Review of Systems Please see HPI No Known Allergies Prior to Admission Medication List Ascorbic Acid (VITAMIN C) 500 MG Cap Take by mouth. aspirin 81 MG chewable tablet Chew and swallow 81 mg one time a day. Take with food. ATENOLOL OR Take 50 mg by mouth. atorvaSTATin (LIPITOR) 20 MG tablet Take 20 mg by mouth one time a day. buPROPion SR (WELLBUTRIN SR, ZYBAN) 150 MG 12 hour sustained release tablet Take 150 mg by mouth one time a day. Do not crush. Celecoxib (CELEBREX OR) Take 200 mg by mouth two times a day as needed. citalopram (CELEXA) 40 MG tablet Take 40 mg by mouth one time a day. CYCLOBENZAPRINE HCL OR Take 10 mg by mouth. Thybkrsczme-Vuajklmil-Yiu C-Mn (GLUCOSAMINE CHONDR 1500 COMPLX) Cap Take by mouth. HYDROcodone-acetaminophen 2.5-325 MG oral tablet Take 1 Tab by mouth every six hours as needed for Pain or Other. Limit acetaminophen to 4000 mg perday from all sources. metFORMIN (GLUCOPHAGE) 500 MG tablet Take 2 Tabs by mouth two times a day with meals. Multiple Vitamins-Minerals (MULTIVITAL OR) Take by mouth. omega-3 fatty acid (FISH OIL) 1000 MG capsule Take 1,000 mg by mouth one time a day. omeprazole (PRILOSEC OTC) 20 MG delayed-release tablet Take 20 mg by mouth every morning before breakfast. Tablet should be swallowed whole; do not crush or chew. Take before meals. traZODone (DESYREL) 150 MG tablet Take 150 mg by mouth at bedtime. TRAZODONE HCL OR Take by mouth. Past Medical History: Past Medical History: Diagnosis Date Back pain Hyperlipidemia Hypertension Insomnia Past Surgical History: Past Surgical History: Procedure Laterality Date COLONOSCOPY 09/13/2015 Per [facility] records [facility]; 5yr repeat TOTAL HIP ARTHROPLASTY Family History: No family history on file. Social History: Social History Tobacco Use Smoking status: Former Current packs/day: 0.00 Types: Cigarettes Quit date: 1984 Years since quittin.6 Smokeless tobacco: Never Vaping Use Vaping status: Never Used Exam: Initial Vitals Most Recent Vitals Temp: 97.9 ??F (36.6 ??C) (12/29/23 1456) Temp: 97.9 ??F (36.6 ??C) (12/29/23 1456) Pulse: 74 (12/29/23 1456) Pulse: 74 (12/29/23 1456) Resp: 18 (12/29/23 1456) Resp: 18 (12/29/23 1456) BP: (!) 141/74 (12/29/23 1456) BP: (!) 141/74 (12/29/23 1456) SpO2: 97 % (12/29/23 1456) SpO2: 97 % (12/29/23 1456) Physical Exam: Physical Exam HENT: Head: Normocephalic. Mouth/Throat: Mouth: Mucous membranes are dry. Eyes: Extraocular Movements: Extraocular movements intact. Pupils: Pupils are equal, round, and reactive to light. Cardiovascular: Rate and Rhythm: Normal rate and regular rhythm. Pulmonary: Effort: Pulmonary effort is normal. Breath sounds: Normal breath sounds. Abdominal: General: Abdomen is flat. Musculoskeletal: General: Normal range of motion. Skin: General: Skin is warm. Neurological: General: No focal deficit present. Mental Status: He is alert and oriented to person, place, and time. Psychiatric: Mood and Affect: Mood normal. Lab Results: Results for orders placed or performed during the hospital encounter of 12/29/23 GLUCOSE, METER Collection Time: 12/29/23 7:02 PM Result Value Ref Range Glucose Meter 279 (H) 70 - 99 mg/dL GLUCOSE, METER Collection Time: 12/29/23 5:47 PM Result Value Ref Range Glucose Meter 350 (H) 70 - 99 mg/dL BASIC METABOLIC PANEL Collection Time: 12/29/23 4:38 PM Result Value Ref Range Sodium 133 (L) 134 - 143 mEq/L Potassium 4.9 3.4 - 5.1 mEq/L Chloride 101 99 - 110 mEq/L Carbon Dioxide 24 19 - 29 mEq/L Anion Gap 8.0 3.0 - 15.0 mEq/L Blood Urea Nitrogen 43 (H) 5 - 24 mg/dL Creatinine 2.24 (H) 0.70 - 1.20 mg/dL Glomerular Filtration Rate 30 (L) >60 mL/min/1.73 m*2 Calcium 9.3 8.4 - 10.5 mg/dL Glucose 416 (H) 70 - 99 mg/dL HEMOGRAM/DIFFERENTIAL Collection Time: 12/29/23 4:38 PM Result Value Ref Range WBC 8.5 3.2 - 11.0 10*9/L RBC 4.39 4.14 - 5.76 10*12/L HGB 12.3 (L) 12.9 - 16.9 g/dL HCT 37.5 (L) 38.4 - 49.7 % MCV 85.4 81.4 - 99.0 fL MCH 28.0 26.7 - 33.1 pg MCHC 32.8 31.6 - 35.5 g/dL RDW 15.0 (H) 11.3 - 14.6 % PLT 407 (H) 130 - 375 10*9/L Neutrophils % 84.7 % Lymphocytes % 13.0 % Monocytes % 1.9 % Eosinophils % 0.0 % Basophils % 0.0 % Immature Granulocytes % 0.4 % Neutrophils Absolute 7.2 1.5 - 7.6 10*9/L Lymphocytes Absolute 1.1 0.8 - 3.3 10*9/L Monocytes Absolute 0.2 0.2 - 0.9 10*9/L Eosinophils Absolute 0.0 0.0 - 0.4 10*9/L Basophils Absolute 0.0 0.0 - 0.1 10*9/L Immature Granulocytes Absolute 0.03 0.00 - 0.06 10*9/L LACTIC ACID, VENOUS Collection Time: 12/29/23 4:38 PM Result Value Ref Range Lactic Acid, Venous 1.2 0.5 - 2.0 mmol/L HEMOGLOBIN A1C Collection Time: 12/29/23 4:38 PM Result Value Ref Range Hemoglobin A1c 9.2 (H) 4.0 - 5.6 % Estimated Average Glucose 217 mg/dL BETA-HYDROXYBUTYRATE Collection Time: 12/29/23 4:38 PM Result Value Ref Range Beta-Hydroxybutyrate 0.07 0.02 - 0.27 mM GLUCOSE, METER Collection Time: 12/29/23 3:01 PM Result Value Ref Range Glucose Meter 405 (H) 70 - 99 mg/dL Imaging Results: Imaging Results None Emergency Department Course: The patient is a 73-year-old male who presents to the emergency department today with a chief complaint of elevated blood sugars. The patient's chart was briefly reviewed. A broad differential was considered. A laboratory evaluation showed a normal white blood cell count and hemoglobin. Lactic acid and betahydroxybutyrate were normal. Hemoglobin A1c was 9.2. A basic metabolic panel did show an elevated BUN of 43 and creatinine near his baseline at 2.24. Sodium was mildly low at 133 An IV was established and the patient was given initial 1 L bolus of normal saline. A repeat blood glucose was 350. The patient was given an additional 1 L bolus of normal saline and 10 units of regular insulin. On reevaluation his blood glucose was 279. At this point there is no evidence of DKA. He is feeling better following the IV fluids. I am goingto have him continue on his current regimen of Lantus and follow-up with his primary MD tomorrow todiscuss further management of his diabetes. He was comfortable with the plan. Medications sodium chloride 0.9% (NS) infusion 1,000 mL (0 mL Intravenous Stopped 12/29/23 174) sodium chloride 0.9% (NS) infusion 1,000 mL (0 mL Intravenous Stopped 12/29/23 1906) insulin regular (HumuLIN-R) 10 Units in sodium chloride 0.9 % PF (NS) IV syringe (10 Units IV Push Given 12/29/231818) Procedures: Procedures Medical Decision Making Problems Addressed: Hyperglycemia: complicated acute illness or injury Amount and/or Complexity of Data Reviewed Labs: ordered. Risk Prescription drug management. Assessment: Hyperglycemia (Primary) Plan: Discharge Discharge Prescriptions None Disposition: ED Disposition ED Disposition Discharge Condition Stable Comment [facility] thanks you for allowing us to assist you with your healthcare needs. This document contains patient education materials and information regarding your injury/illness. *If you need copies of your x-rays for a f ollow up appointment please call [phone] to arrangefor cigar packer and picker. If you had an IV in place during your stay, please continue to monitor the site for the next 48 hours. Report any redness, swelling, drainage, or fever to your primary care phys ician. Discharge Instructions Continue current regimen of Lantus. Follow-up with primary care provider tomorrow by phone as planned. ExitCare Instructions None Benito Gill MD 12/29/231919 * Vanita Muniz RN - 12/29/2023 4:04 PM CDT Patient comes to ED with concerns of high blood sugar. Patient reports his sugars have been in the 500's. He was recently started on steroids insulin on Friday of last week. He denies symptoms related to hyperglycemia. * Cordelia Navarro - 12/29/2023 3:59 PM CDT Bed: 06 Expected date: Expected time: Means of arrival: Comments: Oh No Room * Genevieve Snow RN - 12/29/2023 2:55 PM CDT Pt started on prednisone for gout, now blood sugars are high, also started on Lantuss documented in this encounter Plan of Treatment Not on file documented as of this encounter Procedures Procedure Name Priority Date/Time Associated Diagnosis Comments GLUCOSE, METER Routine 12/29/2023 7:02 PM CDT GLUCOSE, METER Routine 12/29/2023 5:47 PM CDT BASIC METABOLIC PANEL STAT 12/29/2023 4:38 PM CDT HEMOGRAM/DIFF STAT 12/29/2023 4:38 PM CDT LACTIC ACID, VENOUS STAT 12/29/2023 4 :38 PM CDT HEMOGLOBIN A1C STAT 12/29/2023 4:38 PM CDT BETA-HYDROXYBUTYRATE STAT 12/29/2023 4:38 PM CDT GLUCOSE, METER Routine 12/29/2023 3:01 PM CDT documented in this encounter Results * (ABNORMAL) GLUCOSE, METER (12/29/2023 7:02 PM CDT) [facility] Glucose Meter 279(H) 70 - 99 mg/dL 12/29/2023 7:09 PM CDT [facility] Blood WHOLE BLOOD SPECIMEN / Unknown 12/29/2023 7:02 PM CDT 12/29/2023 7:09 PM CDT Benito Gill MD EC CHEMISTRY ORDERAB LES Performing Organization Address [facility] Co de Phone Number [facility] [address] * (ABNORMAL) GLUCOSE, METER (12/29/2023 5:47 PM CDT) Glucose Meter 350(H) 70 - 99 mg/dL 12/29/2023 5:54 PM CDT [facility] Blood WHOLE BLOOD SPECIMEN / Unknown 12/29/2023 5:47 PM CDT 12/29/2023 5:54 PM CDT Benito Gill MD EC CHEMISTRY ORDERAB LES Performing Organization Address [facility] de Phone Number [facility] [address] * (ABNORMAL) HEMOGLOBIN A1C (12/29/2023 4:38 PM CDT) Hemoglobin A1c 9.2(H) 4.0 - 5.6 % 12/29/2023 4:50 PM CDT [facility] Estimated Average Glucose 217 mg/dL 12/29/2023 4:50 PM CDT [facility] Blood BLOOD SPECIMEN / Unknown Venipuncture / Unknown 12/29/2023 4:38 PM CDT 12/29/2023 4:41 PM CDT Narrative [facility] - 12/29/2023 4:50 PM CDT HGA1C Reference Ranges ??>= 6.5 ?? Diabetes* ??5.7-6.4 ??Impaired glucose tolerance ?? <5.7 ?Normal *In the absence of unequivocal hyperglycemia, results should be confirmed by repeat testing for the diagnosis of diabetes. [employer] 2018 Benito Gill MD EC CHEMISTRY ORDERAB LES ABN [facility] [address] * (ABNORMAL) BASIC METABOLIC PANEL (12/29/2023 4:38 PM CDT) Sodium 133(L) 134 - 143 mEq/L 12/29/2023 5:00 PM CDT [facility] Potassium 4.9 3.4 - 5.1 mEq/L 12/29/2023 5:00 PM CDT [facility] Chloride 101 99 - 110 mEq/L 12/29/2023 5:00 PM CDT [facility] Carbon Dioxide 24 19 - 29 mEq/L 12/29/2023 5:00 PM CDT [facility] Anion Gap 8.0 3.0 - 15.0 mEq/L 12/29/2023 5:00 PM CDT [facility] Blood Urea Nitrogen 43(H) 5 - 24 mg/dL 12/29/2023 5:00 PM CDT [facility] Creatinine 2.24(H) 0.70 - 1.20 mg/dL 12/29/2023 5:00 PM CDT [facility] Glomerular Filtration Rate 30(L) >60 mL/min/1. 73 m*2 12/29/2023 5:00 PM CDT [facility] Comment:Risk of cardiovascul ar disease increases when GFR is abnormal; persistently reduced GFR values are a specific indication of CKD. This calculation uses CKD- EPI 2020 equation without adjustment for race; it has not been validated in women. Calcium 9.3 8.4 - 10.5 mg/dL 12/29/2023 5:00 PM CDT [facility] Glucose 416(H) 70 - 99 mg/dL 12/29/2023 5:00 PM T [facility] Blood BLOOD SPECIMEN / Unknown Venipuncture / Unknown 12/29/2023 4:38 PM CDT 12/29/2023 4:40 PM CDT Narrative [facility] - 12/29/2023 5:00 PM CDT Current [...] >250: Measured NA + (0.016X(glucose-100)) for the [employer] chemistry analyzers. Benito Gill MD EC CHEMISTRY ORDERAB LES [facility] [address] [place] [address], [facility] * (ABNORMAL) HEMOGRAM/DIFFERENTIAL (12/29/2023 4:38 PM CDT) WBC 8.5 3.2 - 11.0 10*9/L 12/29/2023 4:43 PM CDT [facility] RBC 4.39 4.14 - 5.76 10*12/L 12/29/2023 4:43 PM CDT [facility] HGB 12.3(L) 12.9 - 16.9 g/dL 12/29/2023 4:43 PM CDT [facility] HCT 37.5(L) 38.4 - 49.7 % 12/29/2023 4:43 PM CDT [facility] MCV 85.4 81.4 - 99.0 fL 12/29/2023 4:43 PM CDT [facility] MCH 28.0 26.7 - 33.1 pg 12/29/2023 4:43 PM [facility] MCHC 32.8 31.6 - 35.5 g/dL 12/29/2023 4:43 PM [facility] RDW 15.0(H) 11.3 - 14.6 % 12/29/2023 4:43 PM [facility] PLT 407(H) 130 - 375 10*9/L 12/29/2023 4:43 PM [facility] Neutrophils % 84.7 % 12/29/2023 4:43 PM [facility] Lymphocytes % 13.0 % 12/29/2023 4:43 PM [facility] Monocytes % 1.9 % 12/29/2023 4:43 PM [facility] Eosinophils % 0.0 % 12/29/2023 4:43 PM [facility] Basophils % 0.0 % 12/29/2023 4:43 PM [facility] Immature Granulocytes % 0.4 % 12/29/2023 4:43 PM [facility] Neutrophils Absolute 7.2 1.5 - 7.6 10*9/L 12/29/2023 4:43 PM [facility] Lymphocytes Absolute 1.1 0.8 - 3.3 10*9/L 12/29/2023 4:43 PM [facility] Monocytes Absolute 0.2 0.2 - 0.9 10*9/L 12/29/2023 4:43 PM [facility] Eosinophils Absolute 0.0 0.0 - 0.4 10*9/L 12/29/2023 4:43 PM [facility] Basophils Absolute 0.0 0.0 - 0.1 10*9/L 12/29/2023 4:43 PM [facility] Immature Granulocytes Absolute 0.03 0.00 - 0.06 10*9/L 12/29/2023 4:43 PM CDT [facility] Blood BLOOD SPECIMEN / Unknown Venipuncture / Unknown 12/29/2023 4:38 PM CDT 12/29/2023 4:41 PM CDT Benito Gill MD EC HEMATOLOGY ORDERA BLES Performing Organization Address [facility] de Phone Number [facility] [address] [place] [address] * BETA-HYDROXYBUTYRATE (12/29/2023 4:38 PM CDT) Beta-Hydroxybu tyrate 0.07 0.02 - 0.27 mM 12/29/2023 5:00 PM CDT [facility] Blood BLOOD SPECIMEN / Unknown Venipuncture / Unknown 12/29/2023 4:38 PM CDT 12/29/2023 4:40 PM CDT Narrative [facility] - 12/29/2023 5:00 PM CDT Of the 3 ketone bodies contributing to ketosis and ketoacidosis (acetoacetate, acetone and B-hydroxybutyrate), the B-hydroxybutyrate normally represents over 75% of the total. Benito Gill MD EC CHEMISTRY ORDERAB LES Performing Organization Address [facility] de Phone Number [facility] [address] [place] [address] * LACTIC ACID, VENOUS (12/29/2023 4:38 PM CDT) Lactic Acid, Venous 1.2 0.5 - 2.0 mmol/L 12/29/2023 4:57 PM CDT [facility] Blood BLOOD SPECIMEN / Unknown Venipuncture / Unknown 12/29/2023 4:38 PM CDT 12/29/2023 4:40 PM CDT Benito Gill MD EC CHEMISTRY ORDERAB LES [facility] [address] * (ABNORMAL) GLUCOSE, METER (12/29/2023 3:01 PM CDT) Glucose Meter 405(H) 70 - 99 mg/dL 12/29/2023 3:09 PM CDT [facility] Blood WHOLE BLOOD SPECIMEN / Unknown 12/29/2023 3:01 PM CDT 12/29/2023 3:09 PM CDT Pcp Elsewhere EC CHEMISTRY ORDERAB LES Performing Organization Address City/[facility] Co de Phone Number [facility] [address] documented in this encounter Visit Diagnoses Diagnosis Hyperglycemia- Primary Other abnormal glucose documented in this encounter Administered Medications Inactive Administered Medications Medication Order MAR Action Action Date Dose Rate Site insulin regular (HumuLIN-R) 10 Units in sodium chloride 0.9 % PF (NS) IV syringe 10 Units, IV Push, ONCE, 1 dose, On Fri12/29/23 at 1755 Given 12/29/2023 6:19 PM CDT 10 Units sodium chloride 0.9% (NS) infusion 1,000 mL 1,000 mL, Intravenous, at 1,000 mL/hr, CONTINUOUS, Starting on Fri12/29/23 at 1625, Until Fri12/29/23 at 1743 New Bag 12/29/2023 4:44 PM CDT 1,000 mL 1000 mL/hr sodium chloride 0.9% (NS) infusion 1,000 mL 1,000 mL, Intravenous, at 1,000 mL/hr, CONTINUOUS, Starting on Fri12/29/23 at 1755, Until Fri12/29/23 at 1906 New Bag 12/29/2023 6:07 PM CDT 1,000 mL 1000 mL/hr documented in this encounter Active and Recently Administered Medications Times are shown in CDT. Scheduled Medication Order 12/27/2023 12/28/2023 12/29/2023 insulin regular (HumuLIN-R) 10 Units in sodium chloride 0.9 % PF (NS) IV syringe (COMPLETED) 10 Units, IV Push, ONCE, 1 dose, On Fri12/29/23 at 1755 1819 (Given - Provid er: Samanta Brito RN) Continuous Medication Order 12/27/2023 12/28/2023 12/29/2023 sodium chloride 0.9% (NS) infusion 1,000 mL 1,000 mL, Intravenous, at 1,000 mL/hr, CONTINUOUS, Starting on Fri12/29/23 at 1625, Until Fri12/29/23 at 1743 1644 (New Bag - Prov ider: Vanita Muniz RN)1749 (Stopped - Provider: Samanta Brito RN) sodium chloride 0.9% (NS) infusion 1,000 mL 1,000 mL, Intravenous, at 1,000 mL/hr, CONTINUOUS, Starting on Fri12/29/23 at 1755, Until Fri12/29/23 at 1906 1807 (New Bag - Prov ider: Samanta Brito RN)1906 (Stopped - Provider: Samanta Brito RN) documented in this encounter Orders Lab Orders Without Results Count Last Ordered D ate First Ordered Date POCT BEDSIDE GLUCOSE TESTING 2 12/29/2023 documented in this encounter Care Teams Senior Construction Project Manager Relationship Specialty Start Date End Date Niall Harding MD [address] [place] [id number] PCP - General Family Medicine 12/29/23 documented as of this encounter
--- OUTSIDE RECORDS SUMMARY | 2024-01-18 22:14 | XMS_ITS | Clinical Summary ---
Author Organization [facility] Address [address] [place] [address] Care Team Providers Care Media Analytics Manager Name Role Phone Sukhjinder Trinidad MD Primary [...] Sex Assigned at Male 07/04/2020 1:48 PM AGRICULTURAL ECONOMIST Gender Identity Male 07/04/2020 1:48 PM AGRICULTURAL ECONOMIST Sexual Orientation Straight 07/04/2020 1: 48 PM AGRICULTURAL ECONOMIST Last Filed Vital Signs Vital Sign Reading Time Taken Comments Blood Pressure 189/83 07/07/2018 12:15 PM AGRICULTURAL ECONOMIST Pulse 65 07/07/2018 12:15 PM AGRICULTURAL ECONOMIST Temperature 36.2 ??C (97.2 ??F) 07/07/2018 12:[address] Respiratory Rate 14 07/07/2018 12:15 PM AGRICULTURAL ECONOMIST Oxygen Saturation 96% 07/07/2018 12:15 PM AGRICULTURAL ECONOMIST Inhaled Oxygen Concentration - - Weight 114.8 kg (253 lb) 07/01/2018 10:20 AM AGRICULTURAL ECONOMIST Height 175.3 cm (5' 9) 07/01/2018 10:20 AM AGRICULTURAL ECONOMIST Body Mass Index 37.36 07/01/2018 10:20 AM AGRICULTURAL ECONOMIST Plan of Treatment Health Maintenance Due Date Last Done Comments AAA Ultrasound Screening 1950 Colonoscopy 1950 Eye Exam 1950 Hepatitis C Screening 1950 Depression Assessment (PHQ-2) 09/29/1952 RSV 60+ Yrs (1 - 1-dose 60+ series) 2011 HgbA1C 10/21/2018 04/22/2018 Creatinine 04/22/2019 04/22/2018 Yearly Review of HCD 06/30/2019 06/30/2018, 05/18/2018, 06/05/2016, Additional history exists COVID-19 Vaccine (3 2022-2 4 season) 2023 07/26/2020, 07/05/2020 Influenza Vaccine (#1) 2024 6, 03/03/2014, 03/01/2011, Additional history exists Adult Tetanus Booster 11/24/2029 11/25/2019 , 08/01/2009, 11/02/1994 Pneumococcal 65+ Completed 02/24/2019, , 01/28/2008 Zoster Vaccine Completed 02/21/2020, 0701/2020, 03/05/2012 Care Teams Media Analytics Manager Relationship Specialty Start Date End Date Sukhjinder Trinidad MD PCP - General 01/15/16
--- OUTSIDE RECORDS SUMMARY | 2024-01-18 22:14 | XMS_ITS | Encounter Summary ---
Author Organization [facility] Address [address] [address] Phone Care Team Providers Care Archival Studies Professor Name Role Phone Niall Harding MD Primary Care Provider [phone] Encounter Details Date Type Department Care Team (Latest Contact Info) Description 12/29/2023 Travel Social History Tobacco Use Types Packs/Day Years Used Date Smoking Tobacco: Former Cigarettes Q uit: 1985 Smokeless Tobacco: Never PHQ-2 Answer Date Recorded PHQ-2 Score 0 03/08/2018 IP Custom IPV Answer Date Recorded Do [...] on file documented as of this encounter Functional Status Functional Status Response Date of Assess ment Patient's Vision Adequate to Safely Complete Daily Activities Yes 12/29/2023 Patient's Memory Adequate to Safely Complete Daily Activities Yes 12/29/2023 Cognitive Status Response Date of Assessm ent Patient's Judgment Adequate to Safely Complete Daily Activities Yes 12/29/2023 documented as of this encounter Plan of Treatment Not on file documented as of this encounter Visit Diagnoses Not on filedocumented in this encounter Care Teams Archival Studies Professor Relationship Specialty Start Date End Date Niall Harding MD [address] [place] [address] PCP - General Family Medicine 12/29/23 documented as of this encounter
--- OUTSIDE RECORDS SUMMARY | 2024-01-18 22:14 | XMS_ITS | Encounter Summary ---
Author Organization [facility] Address [address] [place] [address] Care Team Providers Care Lithoduplicator Operator Name Role Phone Niall Harding MD Primary Care Provider [phone] Encounter Details Date Type Department Care Team (Late st Contact Info) Description 01/07/2024 Office Communication [facility] [address] [place] [address] Giorgio Callejas MD [address] [place] [address] Social History Tobacco Use Types Packs/Day Years Used Date Smoking Tobacco: Former Cigarettes 2 22 1 965 - 1986 Smokeless Tobacco: Never Alcohol Use Standard Drinks/Week Comments Not Currently 4 (1 standard drink = 0.6 oz pur e alcohol) Sex and Gender Information Value Date Recorded Sex Assigned at Not on file Gender Identity Not on file Sexual Orientation Not on file documented as of this encounter Miscellaneous Notes * Telephone Encounter - Manny Martell - 01/07/2024 2:15 PM CDT Second call attempt made to reach the patient for scheduling. Mailed the Established Patient Letter to the patient to schedule 6M follow up in March with Dr. Callejas. documented in this encounter Plan of Treatment Not on file documented as of this encounter Visit Diagnoses Not on filedocumented in this encounter Care Teams Lithoduplicator Operator Relationship Specialty Start Date End Date Niall Harding MD [address] [place] [address] PCP - General Family Medicine 09/08/23 documented as of this encounter
--- OUTSIDE RECORDS SUMMARY | 2024-01-18 22:14 | XMS_ITS | Encounter Summary ---
Author Organization [facility] Address [address] [place] [address] Care Team Providers Care Practice Support Specialist Name Role Phone Niall Harding MD Primary Care Provider [phone] Encounter Details Date Type Department Care Team (Late st Contact Info) Description 09/08/2023 Documentation Only [facility] [address] [place], [place] [address] [address] No, Pcp Social History Tobacco [...] on filedocumented in this encounter Care Teams Practice Support Specialist Relationship Specialty Start Date End Date [place] [address] PCP - General Family Medicine 09/08/23 documented as of this encounter
--- OUTSIDE RECORDS SUMMARY | 2024-01-18 22:14 | XMS_ITS | Clinical Summary ---
Author Organization [facility] Address [address] [place] [address] Care Team Providers Care Shore Worker Name Role Phone Niall Harding MD Primary Care Provider [phone] Allergies No known active allergies Medications Medication [...] Comments Blood Pressure 127/52 05/05/2023 8:55 AM TONE ARTIST APPRENTICE Pulse 64 05/05/2023 8:54 AM TONE ARTIST APPRENTICE Temperature 36.6 ??C (97.8 ??F) 05/05/2023 7:20 AM CS T Respiratory Rate 18 05/05/2023 7:20 AM TONE ARTIST APPRENTICE Oxygen Saturation 96% 05/05/2023 7:20 AM TONE ARTIST APPRENTICE Inhaled Oxygen Concentration - - Weight 101.1 kg (222 lb 12.8 oz) 2022 12:36 AM TONE ARTIST APPRENTICE Height 180.3 cm (5' 11) 05/02/2023 12: 36 AM TONE ARTIST APPRENTICE Body Mass Index 31.07 05/02/2023 12:36 AM TONE ARTIST APPRENTICE Plan of Treatment Health Maintenance Due Date Last Done Comments ADVANCE CARE PLANNING 1950 ANNUAL REVIEW OF HM ORDERS 1950 CT COLONOGRAPHY 1950 FIT 1950 FLEX SIG 1950 LIPID 1950 sDNA (Cologuard) 1950 COLONOSCOPY 09/29/1961 COLORECTAL CANCER SCREENING 09/29/1961 HEPATITIS C SCREENING 09/29/1969 RSV VACCINE (1 - 1-dose 60+ series) 2011 FALL RISK ASSESSMENT 09/29/2016 MEDICARE ANNUAL WELLNESS VISIT 04/15/2023 04/15/2022, 03/13/2021 PHQ-2 (once per calendar year) 2023 COVID-19 Vaccine ( season) 2023 02/17/2023, 03/14/2022, 08/15/2021, Additional history exists INFLUENZA VACCINE (#1) 2024 , 03/14/2022, 02/01/2021, Additional history exists GLUCOSE 05/05/2026 05/05/2023, 04/18, 05/05/2023, Additional history exists DTAP/TDAP/TD IMMUNIZATION (3 - Td or Tdap) 11/24/2029 11/25/2019, 08/01/2009, 11/02/1994 AORTIC ANEURYSM SCREENING (SYSTEM ASSIGNED) Completed 12/31/2018 Pneumococcal Vaccine: 65+ Years Completed 02/24/2019, 10/30/2016, 01/28/2008 ZOSTER IMMUNIZATION Completed 02/21/2020, 11/25/2019, 03/05/2012 HPV IMMUNIZATION Aged Out No longer e ligible based on patient's age to complete this topic MENINGITIS IMMUNIZATION Aged Out No l onger eligible based on patient's age to complete this topic RSV MONOCLONAL ANTIBODY Aged Out No l onger eligible based on patient's age to complete this topic Medical Devices Implanted Type Area Concrete Mason Device Identifier Shelf Expiration Date Model / Serial / Lot Graft Bone Magnifuse [id number] - [id number] Implanted:Qty : 1 on 04/16/2023 by Thang Negrete MD at [facility] Bone/Tissu e/Biologic N/A: Spine Lumbar [employer] [id number] 03/19/2025 [id number] / [id number] / Graft Bone Fibers Dbf 6ml Inj [id number] Preloaded - [id number] Implanted:Qty : 1 on 04/16/2023 by Thang Negrete MD at [facility] Bone/Tissu e/Biologic N/A: Spine Lumbar [employer] 10/21/2024 [id number] / [id number] / Pass Lp Crosslink [id number] Implanted:Qty : 1 on 04/16/2023 by Thang Negrete MD at [facility] Metallic Hardware/A nchor N/A: Spine Lumbar [employer] [id number] / / [id number] NOV 2022 Imp Screw Bn Medt Spine 50x6.5mm 5.5/6mm Paul - [id number] Implanted:Qty : 6 on 04/16/2023 by Thang Negrete MD at [facility] Metallic Hardware/A nchor N/A: Spine Lumbar [employer] [id number] / / [id number] NOV 2022 Imp Screw Bn Medt Spine 45x7.5mm 5.5/6mm Paul - [id number] Implanted:Qty : 2 on 04/16/2023 by Thang Negrete MD at [facility] Metallic Hardware/A nchor N/A: Spine Lumbar [employer] [id number] / / [id number] 2022 Imp Scr Set Medt Solera Break Off 5.5mm Ti [id number] - [id number] Implanted:Qty : 8 on 04/16/2023 by Thang Negrete MD at [facility] Metallic Hardware/A nchor N/A: Spine Lumbar [employer] [id number] / / [id number] 20[address] Imp Spi Interbody Medt [address] Long 7mm [id number] - [id number] Implanted:Qty : 1 on 04/16/2023 by Thang Negrete MD at [facility] Metallic Hardware/A nchor N/A: Spine Lumbar [employer] 12/26/2029 [id number] / / [id number] Imp Spi Interbody Medt [address] Long 7mm [id number] - [id number] Implanted:Qty : 1 on 04/16/2023 by Thang Negrete MD at [facility] Metallic Hardware/A nchor N/A: Spine Lumbar [employer] 11/28/2029 [id number] / / [id number] Imp Spi Interbody Medt [address] Long 7mm [id number] - [id number] Implanted:Qty : 1 on 04/16/2023 by Thang Negrete MD at [facility] Metallic Hardware/A nchor N/A: Spine Lumbar [employer] 11/26/2029 [id number] / / [id number] Imp Paul Medt Solera Cvd 5.5x90mm Ti [id number] - [id number] Implanted:Qty : 2 on 04/16/2023 by Thang Negrete MD at [facility] Metallic Hardware/A nchor N/A: Spine Lumbar [employer] [id number] / / [id number] 2022 Procedures Procedure Name Priority Date/Time Associated Diagnosis Comments GLUCOSE BY METER Routine 05/05/2023 1:59 AM TONE ARTIST APPRENTICE from Last 3 Months or Most Recently Relevant to Health Maintenance Results * (ABNORMAL) Glucose by meter (05/05/2023 1:59 AM TONE ARTIST APPRENTICE) GLUCOSE BY METER POCT 157(H) 70 - 99 mg/dL 05/05/2023 2:06 AM TONE ARTIST APPRENTICE LABORATORY POC Blood, Capillary BLOOD SPECIMEN / Unknown 05/05/2023 1:59 AM TONE ARTIST APPRENTICE 05/05/2023 2:06 AM TONE ARTIST APPRENTICE Rohit GIRALDO POCT RH LABORATORY POC [facility] Acute Care Lab [address] Lab (1st floor, no room number) [place] [address], [facility] [phone] from Last 3 Months or Most Recently Relevant to Health Maintenance Advance Directives For more information, please contact: [phone] * Full Code (Latest Code Status on [...] by: Other (please patricia t) Care Teams Shore Worker Relationship Specialty Start Date End Date Niall Harding MD [address] [place] [address] PCP - General 04/16/23
--- OUTSIDE RECORDS SUMMARY | 2024-01-18 22:14 | XMS_ITS | Encounter Summary ---
Author Organization [facility] Address [address] [address] Phone Care Team Providers Care Land Measurer Name Role Phone Niall Harding MD Primary Care Provider [phone] Encounter Details Date Type Department Care Team (Late st Contact Info) Description 12/30/2023 Telephone [facility] Emergency Department [address] [place] [address] Karlee Romero RN Social History Tobacco Use Types Packs/Day Years [...] Yes 12/29/2023 documented as of this encounter Miscellaneous Notes * Telephone Encounter - Karlee Romero RN - 12/30/2023 9:09 PM CDT Pts called w/ c/o hyperglycemia, BG is 429. Pts asked if another dose of lantus could be given tonight, he usually only takes one dose in the morning. Dr. Escobar approved. Pts was informed to bring pt back to the ER or PCP if he cannot get his BG under control. Educated him to drinkplenty of water. Pt reports he feels just fine but can't get his blood sugar down. He was told to wa tch his carb intake as well. documented in this encounter Plan of Treatment Not on file documented as of this encounter Visit Diagnoses Not on filedocumented in this encounter Care Teams Land Measurer Relationship Specialty Start Date End Date Niall Harding MD [address] [place] [address] PCP - General Family Medicine 12/29/23 documented as of this encounter
--- OUTSIDE RECORDS SUMMARY | 2024-01-18 22:14 | XMS_ITS | Encounter Summary ---
Author Organization [facility] Address [address] [place] [address] Care Team Providers Care Clammer Name Role Phone Niall Harding MD Primary Care Provider [phone] Encounter Details Date Type Department Care Team (Late st Contact Info) Description 10/18/2023 Orders Only [facility] [address] [place] [address] Giorgio Callejas MD [address] [place] [address] Chronic kidney disease stage 4 [...] (HCC) documented in this encounter Care Teams Clammer Relationship Specialty Start Date End Date Niall Harding MD [address] [facility] [address] [place] [address] PCP - General Family Medicine 09/08/23 documented as of this encounter
[2024-01-18 22:15] LABS: Eosinophils Absolute Auto 0.06 K/uL (0.00-0.50); Eosinophils Percent Auto 1.1 % (0.0-7.0); Hematocrit 38.1 % (37.0-53.0); Hemoglobin* 12.2 gm/dL (13.5-17.5); Immature Granulocytes Abs Auto 0.02 K/uL (0.00-0.30); Immature Granulocytes Pct Auto 0.4 %; Lymphocytes Absolute Auto 1.71 K/uL (0.90-2.90); Mean Corpuscular HGB Conc 32 gm/dL (32-36); Mean Corpuscular Hemoglobin 28 pg (26-34); Mean Corpuscular Volume 88 fL (80-100); Monocytes Percent Auto 13.8 % (0.0-11.0); Neutrophils Absolute Auto 2.96 K/uL (1.7-7.0); Neutrophils Percent Auto 53.7 % (42.0-72.0); Platelet Count* 185 K/uL (140-440); RDW Coefficient of Variation % 16.1 % (11.5-15.5); Red Blood Count 4.34 m/uL (4.30-5.90); White Blood Count* 5.51 K/uL (4.50-11.00)
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
--- OUTSIDE RECORDS SUMMARY | 2024-01-18 22:15 | XMS_ITS | Continuity of Care Document ---
Author Organization [facility] Address [address] [address] [place] [address] Phone Care Team Providers Care Consumer Affairs Director Name Role Phone Kira Brock CRNA Unavailable Unavailable Allergies, Adverse Reactions, Alerts Substance [...] tablets per colonoscopy prep instructions received from [facility] - Active procedure 09/19/22 Miralax 17 gram/dose oral powder Take by oral route per colonoscopy prep instructions received from [facility] - Active 09/19/22 procedure atenolol 50 [...] Diagnoses Date Provider Providers Copied on Encounter [facility] [place] [address] [address], [place], [id number], [place] tel:[phone] [facility] No Information 3 Vinod Malone. [address] [facility] [address], [place], [place], [id number], [place]. tel:[phone] Referring Provider: Kadeem Middleton, [address], [place], [address]. tel:[phone] [facility] IDANIA [address] [address], [place], [id number], [place] tel:[phone] [facility] GI Symptoms or Concerns (chief complaint) Personal history of colonic polypsEncount er for screening for malignant neoplasm of colonPersonal history of colonic polyps 3 Shahida Quan. [address] [facility] [address], [place], [place], [id number], [place]. tel:[phone] Referring Provider: Juanito Noble, [address] , [place], [address]. tel:[phone] [facility], [address] [address], [place], [address], [place] tel:[phone] [facility] No Information 3 Nain Sharma. [address], [facility] [address], [place], [place], [address], [place]. tel:[phone] [facility], [address] [address], [place], [id number], [place] tel:[phone] [facility] No Information 3 Nain Sharma. [address] [facility] [address], [place], [address], [place]. tel:[phone] [facility], [address] [address], [place], [address], [place] tel:[phone] [facility] No Information 1 Shahida Quan. [address], [facility] [address], [place], [place], [address], [place]. tel:[phone] Referring Provider: Kadeem Middleton, [address] [facility] [address], [place], [address]. tel:[phone] [facility], [address] [address], [place], [address], [place] tel:[phone] [facility] Colon adenoma 1 Shahida Quan. [address] [facility] [address], [place], [address], [place]. tel:[phone] [facility], [address] [address], [place], [address], [place] tel:[phone] [facility] No Information 1 Shahida Quan. [address] [facility] [address], [place], [place], [address], [place]. tel:[phone] Referring Provider: Kadeem Middleton, [address], [place], [address]. tel:[phone] [facility], [address] [address], [place], [address], [place] tel:[phone] [facility] Colon adenoma 1 Shahida Quan. [address] [facility] [address] [facility] [address], [place], [address], [place]. tel:[phone] [facility], [address] [address], [place], [address], [place] tel:[phone] [facility] Colon adenoma 1 Shahida Quan. [address], [facility] [address], [place], [place], [address], [place]. tel:[phone] Referring Provider: Referral Self, USE FOR SELF REFERRALS. Offic Cons New/estab Low [facility], [address] [address], [place], [address], [place] tel:[phone] [facility] GI Symptoms or Concerns (chief complaint) Personal history of colonic polyps 1 Tarik Segal. [address], [place], [place], [address], [place]. tel:[phone] Referring Provider: Juanito Noble, [facility] [address] , [place], [address]. tel:[phone] [facility], [address] [address], [place], [address], [place] tel:[phone] [facility] No Information 1 Mg Carrera. [address], [address] [address], [place], [place], [address], . tel:[phone] Family History Family Member Type Diagnosis Age [...] i-directional interface ; Source: Other Registry Novel [id number], all formulations administered Note: [facility] bi-direct ional [...] constitution party ID Authoriza tion(s) [employer] [place] [employer] [id number] Social History Type Description Quantity Date Captured [...] involve the appendiceal orifice. The endoscopist in [place] thought there was a potential that these [...]
[2024-01-18 22:17] LABS: Slide Review Reflex No
[2024-01-18] MEDS: 0.9 % SODIUM CHLORIDE 1000 ml 1,000 ML IV (22:22)
[2024-01-18 22:32] LABS: Albumin* 3.8 g/dL (3.3-5.0)
[2024-01-18 22:33] LABS: Chloride* 101 mmol/L (96-114); Potassium* 3.9 mmol/L (3.6-5.1); Sodium* 132 mmol/L (135-149)
[2024-01-18 22:35] LABS: Anion Gap 9 mEq/L (7-15); Aspartate Amino Transferase* 14 U/L (12-35); Bilirubin Total* 0.4 mg/dL (0.1-1.5); Carbon Dioxide* 22 mmol/L (20-32); Creatinine* 2.2 mg/dL (0.5-1.5); Est. Creatinine Clearance* 27.39; Estimated Glomerular Filt Rate 31 ml/min; Total Protein* 6.2 g/dL (6.0-8.3)
[2024-01-18 22:36] LABS: Alanine Aminotransferase* 14 U/L (4-50); Alkaline Phosphatase* 76 U/L (40-150); Blood Urea Nitrogen* 38 mg/dL (7-30); Calcium* 9.2 mg/dL (8.4-10.6); Glucose* 178 mg/dL (60-115)
[2024-01-18 22:37] LABS: C Reactive Protein* 6.5 mg/dL (0.5-1.0)
[2024-01-18 22:38] LABS: D Dimer Quantitative* 0.59 ug/ml (0.00-0.50)
[2024-01-18 22:39] LABS: Appearance Urine Clear (Clear); Bilirubin Urine Negative (Negative); Blood Urine Negative (Negative); Color Urine Yellow (Yellow); Glucose Urine Negative (Negative); Ketones Urine Negative (Negative); Leukocyte Esterase Urine Negative (Negative); Nitrite Urine Negative (Negative); Protein Urine Negative (Negative); Urobilinogen Urine 0.2 (0.2-1.0); pH Urine 5.5 (5.0-8.5)
[2024-01-18 22:53] LABS: PCR FLU A Negative PCR FLU A (Negative); PCR FLU B Negative PCR FLU B (Negative); PCR RSV Negative PCR RSV (Negative); SARS PCR* Negative SARS-CoV-2 (Negative)
[2024-01-18 23:00] LABS: Troponin I* < 0.01 ng/mL (0.01-0.04)
[2024-01-18 23:08] LABS: Amorphous Sediment Urine Many; Bacteria Urine Few; RBC Urine 0-2 (0-2); Squamous Epithelial Cell Urine Few (None-Few); WBC Urine 0-2 (0-5)
[2024-01-18 23:23] LABS: Thyroid Stimulating Hormone* 0.771 uIU/mL (0.270-4.20)
--- NOTE | 2024-01-18 23:40 | PM.IMHP1 ---
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 He is being treated by [facility], Dr. Tiwari, for his metastatic cancer. He has been on combination immunotherapy with ipilimumab and nivolumab. His last treatment was Friday, 6 days prior to admission. This was his 3rd round of therapy. The previous rounds were in October and November. He had milder but similar reactions to those treatments as well. His nonbloody diarrhea but frequent and difficult to control. He has not had nausea or vomiting. He has a poor appetite and is eating poorly. He is not having abdominal pain. He does not have fever. He denies respiratory illness symptoms. He reports profound weakness. Today he was unable to walk to the bathroom due to weakness. He fell twice when attempting to walk to the bathroom. He reports urinary frequency which is chronic. He reports low back pain which is longstanding and normally interferes with his mobility. No focal weakness. No visual disturbance or sensory disturbance. No loss of consciousness. Review of Systems Narrative: Unremarkable except as noted above [facility] Medical History (Updated 01/18/24 @ 23:56 by Santhosh Barton MD) Stage 4 chronic kidney disease ?N18.4 - Chronic kidney disease, stage 4 (severe) (ICD-10) Obesity ?E66.9 - Obesity, unspecified (ICD-10) Gastroesophageal reflux disease ?K21.9 - Gastro-esophageal reflux disease without esophagitis (ICD-10) Hyperlipidemia ?E78.5 - Hyperlipidemia, unspecified (ICD-10) Low back pain ?M54.50 - Low back pain, unspecified (ICD-10) Hypertension ?I10 - Essential (primary) hypertension (ICD-10) Obstructive sleep apnea ?G47.33 - Obstructive sleep apnea (adult) (pediatric) (ICD-10) Diabetes mellitus ?E11.9 - Type 2 diabetes mellitus without complications (ICD-10) Metastatic clear cell carcinoma of kidney ?C64.9 - Malignant neoplasm of unspecified kidney, except renal pelvis (ICD-10) Surgical History (Updated 01/18/24 @ 23:52 by Santhosh Barton MD) History of lumbar fusion ?Z98.1 - Arthrodesis status (ICD-10) History of nephrectomy ?Z90.5 - Acquired absence of kidney (ICD-10) H/O radiofrequency ablation (RFA) of nerve of lumbar spine ?Z98.890 - Other specified postprocedural states (ICD-10) H/O total hip arthroplasty ?Z96.649 - Presence of unspecified artificial hip joint (ICD-10) Family History (Updated 01/18/24 @ 23:49 by Santhosh Barton MD) Brother Colon cancer Heart disease Father Diabetes Mother Thyroid disease Social History (Updated 01/18/24 @ 23:50 by Santhosh Barton MD) Narrative: He lives with his Janet. She sets up in manages his medications. He is a former smoker with a remote history. He occasionally drinks beer, about 2 a week. Code status is full code for witnessed arrest. Smoking Status: Former smoker Do you use any of these nicotine containing products: None Second hand tobacco smoke exposure: No How often do you have a drink containing alcohol: 2-3 times a week How many standard drinks containing alcohol do you have on a typical day: 1 or 2 AUDIT-C Alcohol total score: 3 Non-prescribed substance use: denies use service: No Meds Home Medications and Allergies Home Medications ?Medication ?Instructions ?Recorded ?Confirmed ?Type amlodipine 5 mg tablet 5 mg PO DAILY 04/29/23 01/18/24 History atenolol 50 mg tablet 50 mg PO DAILY 04/29/23 01/18/24 History atorvastatin 20 mg tablet 20 mg PO DAILY 04/29/23 01/18/24 History blood sugar diagnostic (Contour #10 ea 04/29/23 01/18/24 History Next Test Strips) bupropion HCl 150 mg 24 hr tablet, 150 mg PO DAILY 04/29/23 01/18/24 History extended release omeprazole 20 mg capsule,delayed 20 mg PO DAILY 04/29/23 01/18/24 History release paroxetine HCl 20 mg tablet 20 mg PO DAILY 04/29/23 01/18/24 History trazodone 150 mg tablet 150 mg PO QPM 04/29/23 01/18/24 History allopurinol 100 mg tablet 100 mg PO DAILY 01/18/24 01/18/24 History cyclosporine 0.05 % eye drops in a 1 drp ophthalmic (eye) BID 01/18/24 01/18/24 History dropperette (Restasis) gabapentin 100 mg capsule 100 mg PO 3XD 01/18/24 01/18/24 History hydrochlorothiazide 25 mg tablet 25 mg PO DAILY 01/18/24 01/18/24 History insulin glargine 100 unit/mL (3 14 unit subcut DIRECTED 01/18/24 01/18/24 History mL) subcutaneous pen (Lantus Solostar U-100 Insulin) tamsulosin 0.4 mg capsule 0.4 mg PO DAILY 01/18/24 01/18/24 History Allergies Allergy/AdvReac Type Severity Reaction Status Date / Time No Known Drug Allergies Allergy Verified 01/18/24 21:43 Exam Narrative: Exam Narrative: He is alert and appears in no distress. He struggles to give details of his history indicating that he is very tired. He is oriented. Head is without trauma. Eyes are normal. Extraocular movements are full. No facial asymmetry. Oropharynx with small airway. Neck is supple without mass or adenopathy. Respirations are clear to auscultation. No wheezing rales or rhonchi. Cardiovascular: S1, S2, regular rate and rhythm. Abdomen: Bowel sounds are present. Abdomen is soft without tenderness or mass. External genitalia normal. Upper extremities have equal and full 5/5 strength bilaterally. Lower extremities likewise have equal strength bilaterally. He has intact sensation and pulses. No rash. Trace ankle edema. Hands and feet are well perfused. Const: Vital Signs, click to edit/add: Vital Signs - 24 hr 01/18/24 21:38 Temperature 98.1 F Pulse Rate [Right Pulse Oximeter] 73 Respiratory Rate 20 Blood Pressure [Le ft Upper Arm] 146/63 H Pulse Oximetry 97 Oxygen Delivery Me thod Room Air Documenting provider has reviewed patient's vital signs: yes Hospitalist - H&P: Result Labs Labs: Short CBC 01/18/24 Range/Units 21:44 WBC 5.51 (4.50-11.00) K/uL Hgb 12.2 L (13.5-17.5) gm/dL Hct 38.1 (37.0-53.0) % Plt Count 185 (140-440) K/uL BMP 01/18/24 21:44 Sodium 132 L Potassium 3.9 Chloride 101 Carbon Dioxide 22 BUN 38 H Creatinine 2.2 H Glucose 178 H Calcium 9.2 Cardiac Enzymes 01/18/24 Range/Units 21:44 Troponin I < 0.01 L (0.01-0.04) ng/mL Liver Function 01/18/24 Range/Units 21:44 Total Bilirubin 0.4 (0.1-1.5) mg/dL AST 14 (12-35) U/L ALT 14 (4-50) U/L Alkaline Phosphatase 76 (40-150) U/L Albumin 3.8 (3.3-5.0) g/dL Urine 01/18/24 Range/Units 22:30 Urine Color Yellow (Yellow) Urine Appearance Clear (Clear) Urine pH 5.5 (5.0-8.5) Ur Specific [place] 1.010 (1.000-1.030) Urine Protein Negative (Negative) Urine Glucose (UA) Negative (Negative) Assessment and Plan Assessment and plan (1) Diarrhea: Problem comment: Toxicity from immune therapy verses infectious. I favor immune therapy as the cause of his diarrhea. Status: Acute (2) Acute dehydration: Problem comment: Due to diarrhea and poor oral intake Status: Acute (3) Generalized weakness: Problem comment: Quite weak. Unable to ambulate independently. PT and OT to evaluate Status: Acute (4) Falls: Problem comment: Recurrent falls with profound weakness and disabling back pain Status: Acute (5) Metastatic clear cell carcinoma of kidney: Problem comment: On immunotherapy with ipilimumab and nivolumab. Dr. Tiwari, [facility] Status: Acute (6) Diabetes mellitus: Problem comment: He reports blood sugars have been fairly well controlled recently. He did have hyperglycemia a few weeks ago and was started on Lantus. He also has a continues glucose monitor in place this week. Status: Acute (7) Low back pain: Problem comment: Contribute significantly to his disability Status: Acute (8) Stage 4 chronic kidney disease: Status: Acute Plan Patient is admitted to the hospital for evaluation for serious and life-threatening conditions causing his weakness and diarrhea. Will treat diarrhea with IV fluids and consider systemic steroids in consultation with Oncology. Address weakness and disability with therapy. Total Time Spent Total Time Spent: Total time spent is 80 minutes in evaluation management
[2024-01-19 00:02] LABS: C.Difficile Negative (Negative); CDIFFEPI 027 PRESUMPTIVE NEGATIVE (Negative)
[2024-01-19] MEDS: ENOXAPARIN 30 MG/0.3ML INJ SUBCUT (00:05)
[2024-01-19] MEDS: GABAPENTIN 100 MG CAPSULE PO ×2 (00:05→09:07)
[2024-01-19 00:15] VITALS: BP 143/60; PULSE 80; RESP 20; TEMP 38.4; O2SAT 97; BMI 34.3
[2024-01-19] MEDS: 0.9 % SODIUM CHLORIDE 1000 ml 1,000 ML 125 ML IV ×2 (00:30→09:05)
[2024-01-19 03:00] VITALS: BP 137/58; PULSE 64; RESP 18; TEMP 36.7; O2SAT 95
[2024-01-19 07:00] VITALS: BP 134/56; PULSE 62; RESP 18; TEMP 36; O2SAT 96
--- NOTE | 2024-01-19 08:43 | CRLHL7_ITS ---
For Patients: As a result of the Century Cures Act, medical imaging exams and procedure reports are released immediately into your electronic medical record. You may view this report before your referring provider. If you have questions, please contact your health care provider. Indication: Knee pain Technique: Left knee 3 views Comparison: None Findings: Mild medial compartment narrowing and spurring. Spur at the quadriceps tendon insertion to the superior margin of the patella. Mild patellofemoral spurring. No joint effusion. No fracture. Impression: No sign of acute injury. Dictated by Sukhjinder Boudreaux MD @ 01/19/2024 11:14:07 AM (Electronically Signed)
[2024-01-19] MEDS: ATORVASTATIN 10 MG TABLET 20 MG PO (09:06)
[2024-01-19] MEDS: PARoxetine 20 MG TABLET PO (09:06)
[2024-01-19] MEDS: OMEPRAZOLE 20 MG CAPSULE DR PO (09:06)
[2024-01-19] MEDS: AMLODIPINE 5 MG TABLET PO (09:06)
[2024-01-19] MEDS: atenoloL 50 MG TABLET PO (09:06)
[2024-01-19] MEDS: TAMSULOSIN HCL 0.4 MG CAPSULE PO (09:06)
[2024-01-19] MEDS: buPROPion XL 150 MG TABLET PO (09:06)
[2024-01-19] MEDS: allopurinoL 100 MG TABLET PO (09:07)
[2024-01-19] MEDS: hydroCHLOROthiazide 25 MG TABLET PO (09:07)
[2024-01-19] MEDS: SODIUM CHLORIDE 0.9 % (FLUSH) 10 ML SYRINGE 5 ML IVF (09:08)
[2024-01-19] MEDS: INSULIN GLARGINE,HUM.REC.ANLOG 100 UNIT/ML INSULN.PEN 14 UNIT SUBCUT (09:11)
--- NOTE | 2024-01-19 10:25 | PM.DS1 ---
DS: Providers Provider Time Seen by Provider: 08:20 Date Seen: 01/19/24 Date of admission: 01/18/24 23:19 Primary care physician: Niall Harding MD Admitting Clinician: Santhosh Barton MD Consults: 01/18/24 23:18 Consult to Occupational Therapy [CONS] Routine Comment: Reason(s) for OT Consult:: Evaluate and Treat Any Restrictions?:: No Restrictions 01/18/24 23:19 Consult to Physical Therapy [CONS] Routine Comment: Reason(s) for PT Consult:: Evaluate and Treat Any Restrictions?:: No Restrictions Consult to Rn Family Practice [CONS] Routine Comment: Reason for Consult:: Discharge Planning Needs Attending Physician on discharge: Jyoti Dsouza MD Date of Discharge: 01/19/24 DS: Diagnosis Discharge Diagnosis (1) Diarrhea: Status: Acute Problem details: Toxicity from immune therapy verses infectious. Cdiff negative 01/18/24. Favor immune therapy as the cause of his diarrhea. (2) Acute dehydration: Status: Resolved Problem details: Due to diarrhea and poor oral intake (3) Generalized weakness: Status: Acute Problem details: Improving. Ambulating independently today. PT and OT have evaluated. Outpatient PT recommended. (4) Falls: Status: Acute Problem details: Recurrent falls with profound weakness and disabling back pain (5) Metastatic clear cell carcinoma of kidney: Status: Acute Problem details: On immunotherapy with ipilimumab and nivolumab. Dr. Tiwari, [facility] (6) Diabetes mellitus: Status: Acute Problem details: He reports blood sugars have been fairly well controlled recently. He did have hyperglycemia a few weeks ago and was started on Lantus. He also has a continues glucose monitor in place this week. (7) Low back pain: Status: Acute Problem details: Contribute significantly to his disability (8) Stage 4 chronic kidney disease: Status: Acute (9) Left knee sprain: Status: Acute Problem details: 01/19/24 L knee pain noted after fall yesterday. 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 He is being treated by [facility], Dr. Tiwari, for his metastatic cancer. He has been on combination immunotherapy with ipilimumab and nivolumab. His last treatment was Friday, 6 days prior to admission. This was his 3rd round of therapy. The previous rounds were in October and November. He had milder but similar reactions to those treatments as well. His nonbloody diarrhea but frequent and difficult to control. He has not had nausea or vomiting. He has a poor appetite and is eating poorly. He is not having abdominal pain. He does not have fever. He denies respiratory illness symptoms. He reports profound weakness. Today he was unable to walk to the bathroom due to weakness. He fell twice when attempting to walk to the bathroom. He reports urinary frequency which is chronic. He reports low back pain which is longstanding and normally interferes with his mobility. No focal weakness. No visual disturbance or sensory disturbance. No loss of consciousness. Overnight he did well and is already able to ambulate independently this morning. He c/o left knee pain for which XR was obtained. Diarrhea, Cdiff negative. D/c home today with order for outpatient PT. Please see diagnoses above for further details. Time Spent with Patient Time attestation: Total time spent providing and/or coordinating discharge services: Exam Narrative: Exam Narrative: General: No acute distress. Awake, alert, oriented x3. No pallor. No jaundice. Oropharynx: Clear. Mucous membranes moist. Cardiovascular: Regular rate and rhythm. No murmurs, gallops, or rubs. Respiratory: Clear to auscultation bilaterally. No wheezes or crackles. Abdomen: Bowel sounds present. Soft, nondistended, nontender. Extremities: No pedal edema. Neuro: Strength is 5/5 in all 4 extremities. Const: Vital Signs, click to edit/add: Vital Signs - 24 hr 01/18/24 21:38 01/19/24 00:15 01/19/24 00:15 Temperature 98.1 F 101.1 F H Pulse Rate [Pulse Oximeter] 80 Pulse Rate [Right Pulse Oximeter] 73 Respiratory Rate 20 20 20 Blood Pressure [Le ft Upper Arm] 146/63 H Blood Pressure [Ri ght Arm] 143/60 H Pulse Oximetry 97 97 97 Oxygen Delivery Me thod Room Air Room Air Room Air 01/19/24 03:00 01/19/24 07:00 01/19/24 07:00 Temperature 98.1 F 96.8 F L Pulse Rate [Pulse Oximeter] 64 62 62 Pulse Rate [Right Pulse Oximeter] Respiratory Rate 18 18 18 Blood Pressure [Le ft Upper Arm] Blood Pressure [Ri ght Arm] 137/58 L 134/56 L Pulse Oximetry 95 96 Oxygen Delivery Me thod Room Air Room Air DS: Data Data Completed and Pending Completed studies during hospitalization: 01/18/2024 EKG: Normal sinus rhythm, 73 beats per minute, normal EKG. Ordering Physician: Sean Brito M.D. Date of Service: 01/18/24 Procedure(s): CT chest abdomen pelv wo con Accession Number(s): [id number] cc: Niall Harding M.D.; Sean Brito M.D.~ For Patients: As a result of the Century Cures Act, medical imaging exams and procedure reports are released immediately into your electronic medical record. You may view this report before your referring provider. If you have questions, please contact your health care provider. Indication: Abdominal pain, diarrhea, history of renal cancer Technique: Noncontrast CT of the chest, abdomen, and pelvis with multiplanar reformats. Comparison: CT abdomen pelvis performed 10/08/2023, MRI of the abdomen performed 07/30/2023 Findings: Chest: Lungs: Allowing for respiratory motion degradation, no significant abnormality is appreciated. Mediastinum: No acute abnormality appreciated. Right chest MediPort. Calcified atherosclerosis. Mild cardiomegaly. Lymph nodes: No gross lymphadenopathy. Soft tissues: No acute abnormality appreciated. Bones: No acute abnormality appreciated. Abdomen and Pelvis: Hepatobiliary: No significant parenchymal abnormality is appreciated. Spleen: Unremarkable. Pancreas: No acute abnormality appreciated. Adrenal glands: No acute abnormality appreciated. Kidneys: Status post right nephrectomy. Partially calcified left renal nodule. Bowel: No obstruction. No focal perienteric or pericolonic stranding is appreciated. The appendix is visualized and appears unremarkable. Vascular: Calcified atherosclerosis. Lymph nodes: Enlarged upper mesenteric lymph nodes, largest measuring 14 millimeters. Peritoneum: No free air. No free fluid. : No acute abnormality appreciated. Soft tissues: No acute abnormality appreciated. Bones: No acute fracture. No lytic or blastic lesion. Lumbar fusion. Left hip replacement. Impression: 1. No acute abnormality appreciated. 2. Status post right nephrectomy. Decreased size of pulmonary nodules and abdominopelvic lymphadenopathy. Please note that all CT scans at this facility use dose modulation, iterative reconstruction, and/or weight-based dosing when appropriate to reduce radiation dose to as low as reasonably achievable. Dictated by Boubacar Taylor MD @ 01/19/2024 1:09:35 AM (Electronically Signed) Ordering Physician: Jyoti Dsouza M.D. Date of Service: 01/19/24 Procedure(s): XR knee LT 3V Accession Number(s): [id number] cc: Jyoti Dsouza M.D.; Niall Harding M.D.~ For Patients: As a result of the Cures Act, medical imaging exams and procedure reports are released immediately into your electronic medical record. You may view this report before your referring provider. If you have questions, please contact your health care provider. Indication: Knee pain Technique: Left knee 3 views Comparison: None Findings: Mild medial compartment narrowing and spurring. Spur at the quadriceps tendon insertion to the superior margin of the patella. Mild patellofemoral spurring. No joint effusion. No fracture. Impression: No sign of acute injury. Dictated by Sukhjinder Boudreaux MD @ 01/19/2024 11:14:07 AM (Electronically Signed) Labs on day of discharge: Labs from last 24 hours 01/18/24 01/18/24 01/18/24 22:40 22:39 22:30 WBC RBC Hgb Hct MCV MCH MCHC RDW Coeff of Claudia Plt Count Neut % (Auto) Lymph % (Auto) [place] % (Auto) Eos % (Auto) Baso % (Auto) Neut # (Auto) Lymph # (Auto) [place] # (Auto) Eos # (Auto) Baso # (Auto) Abs Immat Gran (auto) Imm/Tot Granulo (auto) D-Dimer Quant (PE/DVT) Sodium Potassium Chloride Carbon Dioxide Anion Gap BUN Creatinine Estimated Creat Clear Estimated GFR Glucose Lactate Calcium Total Bilirubin AST ALT Alkaline Phosphatase Troponin I C-Reactive Protein Total Protein Albumin TSH Urine Color Yellow Urine Appearance Clear Urine pH 5.5 Ur Specific [place] 1.010 Urine Protein Negative Urine Glucose (UA) Negative Urine Ketones Negative Urine Blood Negative Urine Nitrite Negative Urine Bilirubin Negative Urine Urobilinogen 0.2 Ur Leukocyte Esterase Negative Urine RBC 0-2 Urine WBC 0-2 Ur Squamous Epith Cells Few Amorphous Sediment Many A Urine Bacteria Few A Stl C. diff Tox B Gene Negative Stl C. diff [id number]-NAP1-[id number] PRESUMPTIVE NEGATIVE SARS-CoV-2 (PCR) Influenza Type A (PCR) Influenza Type B (PCR) RSV (PCR) Lab Acknowledgement Test Added 01/18/24 21:44 WBC 5.51 RBC 4.34 Hgb 12.2 L Hct 38.1 MCV 88 MCH 28 MCHC 32 RDW Coeff of Claudia 16.1 H Plt Count 185 Neut % (Auto) 53.7 Lymph % (Auto) 31.0 [place] % (Auto) 13.8 H Eos % (Auto) 1.1 Baso % (Auto) 0.0 Neut # (Auto) 2.96 Lymph # (Auto) 1.71 [place] # (Auto) 0.80 Eos # (Auto) 0.06 Baso # (Auto) 0.00 Abs Immat Gran (auto) 0.02 Imm/Tot Granulo (auto) 0.4 D-Dimer Quant (PE/DVT) 0.59 H Sodium 132 L Potassium 3.9 Chloride 101 Carbon Dioxide 22 Anion Gap 9 BUN 38 H Creatinine 2.2 H Estimated Creat Clear 27.39 Estimated GFR 31 Glucose 178 H Lactate 1.6 Calcium 9.2 Total Bilirubin 0.4 AST 14 ALT 14 Alkaline Phosphatase 76 Troponin I < 0.01 L C-Reactive Protein 6.5 H Total Protein 6.2 Albumin 3.8 TSH 0.771 Urine Color Urine Appearance Urine pH Ur Specific [place] Urine Protein Urine Glucose (UA) Urine Ketones Urine Blood Urine Nitrite Urine Bilirubin Urine Urobilinogen Ur Leukocyte Esterase Urine RBC Urine WBC Ur Squamous Epith Cells Amorphous Sediment Urine Bacteria Stl C. diff Tox B Gene Stl C. diff [id number] SARS-CoV-2 (PCR) Negative SARS-CoV-2 Influenza Type A (PCR) Negative PCR FLU A Influenza Type B (PCR) Negative PCR FLU B RSV (PCR) Negative PCR RSV Lab Acknowledgement Preliminary micro results at discharge 01/18/24 22:30 Urine Culture - Preliminary Urine,Clean Catch Culture in Progress Discharge Plan Discharge Disposition: Home, Self-Care Date of Admission: 01/18/24 23:19 Attending Provider on Discharge: Jyoti Dsouza Primary Care Provider: Niall Harding Condition: Improved Anticipated Discharge Date/Time: 01/19/24 12:00 Discharge Medications: Continued omeprazole 20 mg capsule,delayed release(DR/EC) 20 mg PO DAILY amlodipine 5 mg tablet 5 mg PO DAILY atenolol 50 mg tablet 50 mg PO DAILY trazodone 150 mg tablet 150 mg PO HS paroxetine HCl 20 mg tablet 20 mg PO DAILY (DME) Contour Next Test Strips Strip See Rx Instructions .ROUTE BID Qty: 10 Rx Instructions: As directed atorvastatin 20 mg tablet 20 mg PO DAILY bupropion HCl 150 mg tablet extended release 24 hr 150 mg PO DAILY tamsulosin 0.4 mg capsule 0.4 mg PO DAILY insulin glargine [Lantus Solostar U-100 Insulin] 100 unit/mL (3 mL) insulin pen 14 unit subcut DIRECTED Rx Instructions: Inject under the skin. Start at 14 units daily and increase 2 units every 3 days until fasting blood sugar is less than 130. Max dose 100 units. allopurinol 100 mg tablet 100 mg PO DAILY hydrochlorothiazide 25 mg tablet 25 mg PO DAILY gabapentin 100 mg capsule 100 mg PO TID cyclosporine [Restasis] 0.05 % dropperette 1 drp ophthalmic (eye) BID Discharge Orders: Discharge Order (Routine); Ordered 01/19/24 Ordered By: Jyoti Dsouza Additional Instructions: Outpatient PT eval and treat for generalized weakness and falls Activity Level: Use Walker Discharge Diet: Regular Follow Up Appointments: Niall Harding MD [Primary Care Provider] - (as needed) [facility]
--- NOTE | 2024-01-19 12:26 | PC.NURSE ---
Discharge: Patient discharged today at 1220 accompanied by spouse. IV removed intact. Belongings sheet and discharge paperwork signed. Patient verbalized understanding of discharge instructions. VSS. patient on RA. loose BM x1. SBA with walker/GB and patient tolerated ambulation in hallway accompanied by PT.
== END 2024-01-19 12:20 | disposition home or self-care (01) ==
LOC: ED 22:12 → MEDSURG 23:21
PROVIDERS: Admitting Provider Family Medicine; Emergency Provider Emergency Medicine; PCP Surgery; Visit Provider Family Medicine
DX: I10 Essential (primary) hypertension (principal)
CPT/HCPCS: 36415; 71250; 73562; 74176; 80053; 81001; 82962; 83605; 84443; 84484; 85025; 85379; 86140; 87045; 87046; 87077; 87086; 87427; 87493; 87631; 93005; 96360; 96361; 96372; 97110; 97116; 97161; 99283; 99285; A9270; G0378; J1650; J1815; J7030; J7120

== ENCOUNTER 2024-01-18 21:48 | Outpatient (CLI) | payer MEDICARE, BC, SELFPAY ==
--- OUTSIDE RECORDS SUMMARY | 2024-01-20 00:14 | XMS_ITS | Encounter Summary ---
Author Organization [facility] Address [address] [address] Phone Care Team Providers Care Keyboard Specialist Name Role Phone Niall Harding MD Primary Care Provider [phone] Encounter Details Date Type Department Care Team [...] on filedocumented in this encounter Care Teams Keyboard Specialist Relationship Specialty Start Date End Date Niall Harding MD [address] [place] [id number] PCP - General Family Medicine 12/29/23 documented as of this encounter
--- OUTSIDE RECORDS SUMMARY | 2024-01-20 00:14 | XMS_ITS | Clinical Summary ---
Author Organization [facility] Address [address] [address] Phone Care Team Providers Care Chemical Engraver Name Role Phone Niall Harding MD Primary Care Provider [phone] Allergies No known active allergies Medications Medication [...] Type Department Care Team Description 12/30/2023 Telephone [facility] Emergency Department [address] [facility] [place] [address] Karlee Romero RN 12/29/2023 3:59 PM CDT - 12/29/2023 7:27 PM CDT Emergency [facility] Emergency Department [address] [facility] [place] [address] Benito Gill MD Hyperglycemia (Primary Dx) Discharge Disposition: Home and/or Self Care 12/29/2023 Travel from Last 3 Months Immunizations Name Administration Dates Next Due Influenza Unspecified Formulation 2014,03/03/2014,02/23/2013, 2,03/01/2011,04/25/2009,03/03/2008 Pneumovax 23 01/28/2008 TD >7Yrs Preservative Free 08/01/2009 Zoster Zostavax (Shingles) 03/05/2012 Surgical History Surgery Date Site/Laterality Comments COLONOSCOPY 09/13/2015 [facility]; 5yr repeat TOTAL HIP ARTHROPLASTY [...] - 99 mg/dL 12/29/2023 7:09 PM CDT [facility]INT [facility]ARE Blood WHOLE BLOOD SPECIMEN / Unknown 12/29/2023 7:02 PM CDT 12/29/2023 7:09 PM CDT Benito Gill MD EC CHEMISTRY ORDERAB LES Performing Organization Address City/State/[facility] Co de Phone Number [facility]INT [facility] CARE [address] [place] [address] * (ABNORMAL) GLUCOSE, METER (12/29/2023 5:47 PM CDT) Glucose Meter 350(H) 70 - 99 mg/dL 12/29/2023 5:54 PM CDT [facility] POINT [facility] CARE Blood WHOLE BLOOD SPECIMEN / Unknown 12/29/2023 5:47 PM CDT 12/29/2023 5:54 PM CDT Benito Gill MD EC CHEMISTRY ORDERAB LES [facility] POINT OF CARE [address] [place] [address], [facility] * (ABNORMAL) BASIC METABOLIC PANEL (12/29/2023 4:38 PM CDT) Sodium 133(L) 134 - 143 mEq/L 12/29/2023 5:00 PM CDT [facility] Potassium 4.9 3.4 - 5.1 mEq/L 12/29/2023 5:00 PM CDT [facility] Chloride 101 99 - 110 mEq/L 12/29/2023 5:00 PM CDT [facility] Carbon Dioxide 24 19 - 29 mEq/L 12/29/2023 5:00 PM CDT [facility] Anion Gap 8.0 3.0 - 15.0 mEq/L 12/29/2023 5:00 PM CDT [facility] Blood Urea Nitrogen 43(H) 5 - 24 mg/dL 12/29/2023 5:00 PM CDT [facility] Creatinine 2.24(H) 0.70 - 1.20 mg/dL 12/29/2023 5:00 PM CDT [facility] Glomerular Filtration Rate 30(L) >60 mL/min/1. 73 m*2 12/29/2023 5:00 PM CDT [facility] Comment:Risk of cardiovascul ar disease increases when GFR is abnormal; persistently reduced GFR values are a specific indication of CKD. This calculation uses CKD- EPI 202 equation without adjustment for race; it has not been validated in women. Calcium 9.3 8.4 - 10.5 mg/dL 12/29/2023 5:00 PM CDT [facility] Glucose 416(H) 70 - 99 mg/dL 12/29/2023 5:00 PM CDT [facility] Blood BLOOD SPECIMEN / Unknown Venipuncture / Unknown 12/29/2023 4:38 PM CDT 12/29/2023 4:40 PM CDT Narrative [facility] - 12/29/2023 5:00 PM CDT [...] >250: Measured NA + (0.016X(glucose-100)) for the [employer] chemistry analyzers. Benito Gill MD EC CHEMISTRY ORDERAB LES [facility] [address] * (ABNORMAL) HEMOGRAM/DIFFERENTIAL (12/29/2023 4:38 PM CDT) WBC 8.5 3.2 - 11.0 10*9/L 12/29/2023 4:43 PM CDT [facility] RBC 4.39 4.14 - 5.76 10*12/L 12/29/2023 4:43 PM CDT [facility] HGB 12.3(L) 12.9 - 16.9 g/dL 12/29/2023 4:43 PM CDT [facility] HCT 37.5(L) 38.4 - 49.7 % 12/29/2023 4:43 PM CDT [facility] MCV 85.4 81.4 - 99.0 fL 12/29/2023 4:43 PM CDT [facility] MCH 28.0 26.7 - 33.1 pg 12/29/2023 4:43 PM [facility] MCHC 32.8 31.6 - 35.5 g/dL 12/29/2023 4:43 PM [facility] RDW 15.0(H) 11.3 - 14.6 % 12/29/2023 4:43 PM [facility] PLT 407(H) 130 - 375 10*9/L 12/29/2023 4:43 PM [facility] Neutrophils % 84.7 % 12/29/2023 4:43 PM [facility] Lymphocytes % 13.0 % 12/29/2023 4:43 PM [facility] Monocytes % 1.9 % 12/29/2023 4:43 PM [facility] Eosinophils % 0.0 % 12/29/2023 4:43 PM [facility] Basophils % 0.0 % 12/29/2023 4:43 PM [facility] Immature Granulocytes % 0.4 % 12/29/2023 4:43 PM [facility] Neutrophils Absolute 7.2 1.5 - 7.6 10*9/L 12/29/2023 4:43 PM [facility] Lymphocytes Absolute 1.1 0.8 - 3.3 10*9/L 12/29/2023 4:43 PM [facility] Monocytes Absolute 0.2 0.2 - 0.9 10*9/L 12/29/2023 4:43 PM [facility] Eosinophils Absolute 0.0 0.0 - 0.4 10*9/L 12/29/2023 4:43 PM [facility] Basophils Absolute 0.0 0.0 - 0.1 10*9/L 12/29/2023 4:43 PM [facility] Immature Granulocytes Absolute 0.03 0.00 - 0.06 10*9/L 12/29/2023 4:43 PM CDT [facility] Blood BLOOD SPECIMEN / Unknown Venipuncture / Unknown 12/29/2023 4:38 PM CDT 12/29/2023 4:41 PM CDT Benito Gill MD EC HEMATOLOGY ORDERA BLES Performing Organization Address City/[facility] Co de Phone Number [facility] [address] [place] [address] * LACTIC ACID, VENOUS (12/29/2023 4:38 PM CDT) Lactic Acid, Venous 1.2 0.5 - 2.0 mmol/L 12/29/2023 4:57 PM CDT [facility] Blood BLOOD SPECIMEN / Unknown Venipuncture / Unknown 12/29/2023 4:38 PM CDT 12/29/2023 4:40 PM CDT Benito Gill MD EC CHEMISTRY ORDERAB LES Performing Organization Address City/[facility] Co de Phone Number [facility] [address] [place] [address] * (ABNORMAL) HEMOGLOBIN A1C (12/29/2023 4:38 PM CDT) Hemoglobin A1c 9.2(H) 4.0 - 5.6 % 12/29/2023 4:50 PM CDT [facility] Estimated Average Glucose 217 mg/dL 12/29/2023 4:50 PM CDT [facility] Blood BLOOD SPECIMEN / Unknown Venipuncture / Unknown 12/29/2023 4:38 PM CDT 12/29/2023 4:41 PM CDT Narrative [facility] - 12/29/2023 4:50 PM CDT HGA1C Reference Ranges ??>= 6.5 ?? Diabetes* ??5.7-6.4 ??Impaired glucose tolerance ?? <5.7 ?Normal *In the absence of unequivocal hyperglycemia, results should be confirmed by repeat testing for the diagnosis of diabetes. [employer] 2018 Benito Gill MD EC CHEMISTRY ORDERAB LES ABN Performing Organization Address City/[facility]/ZIP Co de Phone Number [facility] [id number] [place] [address] * BETA-HYDROXYBUTYRATE (12/29/2023 4:38 PM CDT) Beta-Hydroxybu tyrate 0.07 0.02 - 0.27 mM 12/29/2023 5:00 PM CDT [facility] Blood BLOOD SPECIMEN / Unknown Venipuncture / Unknown 12/29/2023 4:38 PM CDT 12/29/2023 4:40 PM CDT Narrative [facility] - 12/29/2023 5:00 PM CDT Of the 3 ketone bodies contributing to ketosis and ketoacidosis (acetoacetate, acetone and B-hydroxybutyrate), the B-hydroxybutyrate normally represents over 75% of the total. Benito Gill MD EC CHEMISTRY ORDERAB LES Performing Organization Address [facility] Co de Phone Number [facility] [address] [address], [facility] * (ABNORMAL) GLUCOSE, METER (12/29/2023 3:01 PM CDT) Glucose Meter 405(H) 70 - 99 mg/dL 12/29/2023 3:09 PM CDT [facility] POINT [facility] CARE Blood WHOLE BLOOD SPECIMEN / Unknown 12/29/2023 3:01 PM CDT 12/29/2023 3:09 PM CDT Gregorio Mendez EC CHEMISTRY ORDERAB LES Performing Organization Address [facility] Co de Phone Number [facility] POINT OF CARE [address] [place] [address], [facility] from Last 3 Months Care Teams Chemical Engraver Relationship Specialty Start Date End Date Niall Harding MD [address] [place] [id number] PCP - General Family Medicine 12/29/23
--- OUTSIDE RECORDS SUMMARY | 2024-01-20 00:14 | XMS_ITS | Encounter Summary ---
Author Organization [facility] Address [address] [address] Phone Care Team Providers Care Assistant Director Of Public Works Name Role Phone Niall Harding MD Primary Care Provider [phone] Reason for Visit * Reason Comments High Blood Sugar- Asymptomatic Encounter Details Date Type Department Care Team (Late st Contact Info) Description 12/29/2023 3:59 PM CDT - 12/29/2023 7:27 PM CDT Emergency [facility] Emergency Department [address] [place] [id number] Benito Gill MD [address] [place] [address] [id number] Hyperglycemia (Primary Dx) Discharge Disposition: Home and/or Self Care Social History Tobacco Use Types Packs/Day Years Used Date Smoking Tobacco: Former Cigarettes Q uit: 1985 Smokeless Tobacco: Never PHQ-2 Answer Date Recorded PHQ-2 Score 0 03/08/2018 [facility] Custom IPV Answer Date Recorded Do you [...] Code Departure Means Destination Home and/or Self Senior Living documented in this encounter ED Notes * [...] HCL OR Take 10 mg by mouth. Frajsdcpiga-Jnmzhesfo-Yov C-Mn (GLUCOSAMINE CHONDR 1500 COMPLX) Cap Take [...] History: Procedure Laterality Date COLONOSCOPY 09/13/2015 Per [facility] records from [facility]; 5yr repeat TOTAL HIP ARTHROPLASTY Family [...] Disposition ED Disposition Discharge Condition Stable Comment [facility] thanks you for allowing us to assist you with your healthcare needs. This document contains patient education materials and information regarding your injury/illness. *If you need copies of your x-rays for a f ollow up appointment please call [phone] to arrangefor pickler helper. If you had an IV in place [...] (ABNORMAL) GLUCOSE, METER (12/29/2023 7:02 PM CDT) [facility] Glucose Meter 279(H) 70 - 99 mg/dL 12/29/2023 7:09 PM CDT [facility] Blood WHOLE BLOOD SPECIMEN / Unknown 12/29/2023 7:02 PM CDT 12/29/2023 7:09 PM CDT Benito Gill MD EC CHEMISTRY ORDERAB LES Performing Organization Address City/[facility] Co de Phone Number [facility] [address] * (ABNORMAL) GLUCOSE, METER (12/29/2023 5:47 PM CDT) Glucose Meter 350(H) 70 - 99 mg/dL 12/29/2023 5:54 PM CDT [facility] Blood WHOLE BLOOD SPECIMEN / Unknown 12/29/2023 5:47 PM CDT 12/29/2023 5:54 PM CDT Benito Gill MD EC CHEMISTRY ORDERAB LES Performing Organization Address [facility] de Phone Number [facility] [address] * (ABNORMAL) HEMOGLOBIN A1C (12/29/2023 4:38 PM CDT) Hemoglobin A1c 9.2(H) 4.0 - 5.6 % 12/29/2023 4:50 PM CDT [facility] Estimated Average Glucose 217 mg/dL 12/29/2023 4:50 PM CDT [facility] Blood BLOOD SPECIMEN / Unknown Venipuncture / Unknown 12/29/2023 4:38 PM CDT 12/29/2023 4:41 PM CDT Narrative [facility] - 12/29/2023 4:50 PM CDT HGA1C Reference Ranges ??>= 6.5 ?? Diabetes* ??5.7-6.4 ??Impaired glucose tolerance ?? <5.7 ?Normal *In the absence of unequivocal hyperglycemia, results should be confirmed by repeat testing for the diagnosis of diabetes. [place] 2018 Benito Gill MD EC CHEMISTRY ORDERAB LES ABN [facility] [address] * (ABNORMAL) BASIC METABOLIC PANEL (12/29/2023 4:38 PM CDT) Sodium 133(L) 134 - 143 mEq/L 12/29/2023 5:00 PM CDT [facility] Potassium 4.9 3.4 - 5.1 mEq/L 12/29/2023 5:00 PM CDT [facility] Chloride 101 99 - 110 mEq/L 12/29/2023 5:00 PM CDT [facility] Carbon Dioxide 24 19 - 29 mEq/L 12/29/2023 5:00 PM CDT [facility] Anion Gap 8.0 3.0 - 15.0 mEq/L 12/29/2023 5:00 PM CDT [facility] Blood Urea Nitrogen 43(H) 5 - 24 mg/dL 12/29/2023 5:00 PM CDT [facility] Creatinine 2.24(H) 0.70 - 1.20 mg/dL 12/29/2023 5:00 PM CDT [facility] Glomerular Filtration Rate 30(L) >60 mL/min/1. 73 m*2 12/29/2023 5:00 PM CDT [facility] Comment:Risk of cardiovascul ar disease increases when GFR is abnormal; persistently reduced GFR values are a specific indication of CKD. This calculation uses CKD- EPI 2020 equation without adjustment for race; it has not been validated in women. Calcium 9.3 8.4 - 10.5 mg/dL 12/29/2023 5:00 PM CDT [facility] Glucose 416(H) 70 - 99 mg/dL 12/29/2023 5:00 PM T [facility] Blood BLOOD SPECIMEN / Unknown Venipuncture / Unknown 12/29/2023 4:38 PM CDT 12/29/2023 4:40 PM CDT Narrative [facility] - 12/29/2023 5:00 PM [...] >250: Measured NA + (0.016X(glucose-100)) for the jigl chemistry analyzers. Benito Gill MD EC CHEMISTRY ORDERAB LES [facility] [address] [place] [address], [facility] * (ABNORMAL) HEMOGRAM/DIFFERENTIAL (12/29/2023 4:38 PM CDT) WBC 8.5 3.2 - 11.0 10*9/L 12/29/2023 4:43 PM CDT [facility] RBC 4.39 4.14 - 5.76 10*12/L 12/29/2023 4:43 PM CDT [facility] HGB 12.3(L) 12.9 - 16.9 g/dL 12/29/2023 4:43 PM CDT [facility] HCT 37.5(L) 38.4 - 49.7 % 12/29/2023 4:43 PM CDT [facility] MCV 85.4 81.4 - 99.0 fL 12/29/2023 4:43 PM CDT [facility] MCH 28.0 26.7 - 33.1 pg 12/29/2023 4:43 PM [facility] MCHC 32.8 31.6 - 35.5 g/dL 12/29/2023 4:43 PM [facility] RDW 15.0(H) 11.3 - 14.6 % 12/29/2023 4:43 PM [facility] PLT 407(H) 130 - 375 10*9/L 12/29/2023 4:43 PM [facility] Neutrophils % 84.7 % 12/29/2023 4:43 PM [facility] Lymphocytes % 13.0 % 12/29/2023 4:43 PM [facility] Monocytes % 1.9 % 12/29/2023 4:43 PM [facility] Eosinophils % 0.0 % 12/29/2023 4:43 PM [facility] Basophils % 0.0 % 12/29/2023 4:43 PM [facility] Immature Granulocytes % 0.4 % 12/29/2023 4:43 PM [facility] Neutrophils Absolute 7.2 1.5 - 7.6 10*9/L 12/29/2023 4:43 PM [facility] Lymphocytes Absolute 1.1 0.8 - 3.3 10*9/L 12/29/2023 4:43 PM [facility] Monocytes Absolute 0.2 0.2 - 0.9 10*9/L 12/29/2023 4:43 PM [facility] Eosinophils Absolute 0.0 0.0 - 0.4 10*9/L 12/29/2023 4:43 PM [facility] Basophils Absolute 0.0 0.0 - 0.1 10*9/L 12/29/2023 4:43 PM [facility] Immature Granulocytes Absolute 0.03 0.00 - 0.06 10*9/L 12/29/2023 4:43 PM CDT [facility] Blood BLOOD SPECIMEN / Unknown Venipuncture / Unknown 12/29/2023 4:38 PM CDT 12/29/2023 4:41 PM CDT Benito Gill MD EC HEMATOLOGY ORDERA BLES Performing Organization Address [facility] de Phone Number [facility] [address] [place] [address] * BETA-HYDROXYBUTYRATE (12/29/2023 4:38 PM CDT) Beta-Hydroxybu tyrate 0.07 0.02 - 0.27 mM 12/29/2023 5:00 PM CDT [facility] Blood BLOOD SPECIMEN / Unknown Venipuncture / Unknown 12/29/2023 4:38 PM CDT 12/29/2023 4:40 PM CDT Narrative [facility] - 12/29/2023 5:00 PM CDT Of the 3 ketone bodies contributing to ketosis and ketoacidosis (acetoacetate, acetone and B-hydroxybutyrate), the B-hydroxybutyrate normally represents over 75% of the total. Benito Gill MD EC CHEMISTRY ORDERAB LES Performing Organization Address [facility] de Phone Number [facility] [address] [place] [address] * LACTIC ACID, VENOUS (12/29/2023 4:38 PM CDT) Lactic Acid, Venous 1.2 0.5 - 2.0 mmol/L 12/29/2023 4:57 PM CDT [facility] Blood BLOOD SPECIMEN / Unknown Venipuncture / Unknown 12/29/2023 4:38 PM CDT 12/29/2023 4:40 PM CDT Benito Gill MD EC CHEMISTRY ORDERAB LES [facility] [address] * (ABNORMAL) GLUCOSE, METER (12/29/2023 3:01 PM CDT) Glucose Meter 405(H) 70 - 99 mg/dL 12/29/2023 3:09 PM CDT [facility] Blood WHOLE BLOOD SPECIMEN / Unknown 12/29/2023 3:01 PM CDT 12/29/2023 3:09 PM CDT Pcp Elsewhere EC CHEMISTRY ORDERAB LES Performing Organization Address City/[facility] Co de Phone Number [facility] [address] documented in this encounter Visit Diagnoses [...] 12/29/2023 documented in this encounter Care Teams Assistant Director Of Public Works Relationship Specialty Start Date End Date Niall Harding MD [address] [place] [address] PCP - General Family Medicine 12/29/23 documented as of this encounter
--- OUTSIDE RECORDS SUMMARY | 2024-01-20 00:14 | XMS_ITS | Encounter Summary ---
Author Organization [facility] Address [address] [address] Phone Care Team Providers Care Grill Prep Cook Name Role Phone Niall Harding MD Primary Care Provider [phone] Encounter Details Date Type Department Care Team (Late st Contact Info) Description 12/30/2023 Telephone [facility] Emergency Department [address] [place] [address] Karlee Romero RN Social History Tobacco Use [...] on filedocumented in this encounter Care Teams Grill Prep Cook Relationship Specialty Start Date End Date Niall Harding MD [address] [place] [address] PCP - General Family Medicine 12/29/23 documented as of this encounter
--- OUTSIDE RECORDS SUMMARY | 2024-01-20 00:15 | XMS_ITS | Referral Summary ---
Author Organization [facility] Address [address] [place] [address] Care Team Providers Care Cabinet Builder Name Role Phone Niall Harding MD Primary Care Provider [phone] Allergies No known active allergies Medications Medication [...] Comments Blood Pressure 127/52 05/05/2023 8:55 AM SAUSAGE MIXER Pulse 64 05/05/2023 8:54 AM SAUSAGE MIXER Temperature 36.6 ??C (97.8 ??F) 05/05/2023 7:20 AM CS T Respiratory Rate 18 05/05/2023 7:20 AM SAUSAGE MIXER Oxygen Saturation 96% 05/05/2023 7:20 AM SAUSAGE MIXER Inhaled Oxygen Concentration - - Weight 101.1 kg (222 lb 12.8 oz) 2022 12:36 AM SAUSAGE MIXER Height 180.3 cm (5' 11) 05/02/2023 12: 36 AM SAUSAGE MIXER Body Mass Index 31.07 05/02/2023 12:36 AM SAUSAGE MIXER Plan of Treatment Not on file Medical Devices Implanted Type Area Auto Bumper Mechanic Device Identifier Shelf Expiration Date Model / Serial / Lot Graft Bone Magnifuse [id number] - [id number] Implanted:Qty : 1 on 04/16/2023 by Thang Negrete MD at [facility] Bone/Tissu e/Biologic N/A: Spine Lumbar [employer] [id number] 03/19/2025 [id number] / [id number] / Graft Bone Fibers Dbf 6ml Inj [id number] Preloaded - [id number] Implanted:Qty : 1 on 04/16/2023 by Thang Negrete MD at [facility] Bone/Tissu e/Biologic N/A: Spine Lumbar [employer] 10/21/2024 [id number] / [id number] / Pass Lp Crosslink 40-72 Implanted:Qty : 1 on 04/16/2023 by Thang Negrete MD at [facility] Metallic Hardware/A nchor N/A: Spine Lumbar [employer] [id number] / / [id number] NOV 2022 Imp Screw Bn Medt Spine 50x6.5mm 5.5/6mm Paul - [id number] Implanted:Qty : 6 on 04/16/2023 by Thang Negrete MD at [facility] Metallic Hardware/A nchor N/A: Spine Lumbar [employer] [id number] / / [id number] NOV 2022 Imp Screw Bn Medt Spine 45x7.5mm 5.5/6mm Paul - [id number] Implanted:Qty : 2 on 04/16/2023 by Thang Negrete MD at [facility] Metallic Hardware/A nchor N/A: Spine Lumbar [employer] [id number] / / [id number] 23NOV 2022 Imp Scr Set Medt Solera Break Off 5.5mm Ti [id number] - [id number] Implanted:Qty : 8 on 04/16/2023 by Thang Negrete MD at [facility] Metallic Hardware/A nchor N/A: Spine Lumbar [employer] [id number] / / 8005 NOV [address] Medt [address] Long 7mm [id number] - [id number] Implanted:Qty : 1 on 04/16/2023 by Thang Negrete MD at [facility] Metallic Hardware/A nchor N/A: Spine Lumbar [employer] 12/26/2029 [id number] / / [id number] Imp Spi Interbody Medt Catalyft Pl Long 7mm [id number] - [id number] Implanted:Qty : 1 on 04/16/2023 by Thang Negrete MD at [facility] Metallic Hardware/A nchor N/A: Spine Lumbar [employer] 11/28/2029 [id number] / / [id number] Imp Spi Interbody Medt Catalyft [address] Long 7mm [id number] - [id number] Implanted:Qty : 1 on 04/16/2023 by Thang Negrete MD at [facility] Metallic Hardware/A nchor N/A: Spine Lumbar [employer] 11/26/2029 [id number] / / [id number] Imp Paul Medt Solera Cvd 5.5x90mm Ti [id number] - [id number] Implanted:Qty : 2 on 04/16/2023 by Thang Negrete MD at [facility] Metallic Hardware/A nchor N/A: Spine Lumbar [employer] [id number] / / [id number] 2022 Procedures Procedure Name Priority Date/Time Associated Diagnosis Comments GLUCOSE BY METER Routine 05/05/2023 1:59 AM SAUSAGE MIXER from Last 3 Months or Most Recently Relevant to Health Maintenance Results * (ABNORMAL) Glucose by meter (05/05/2023 1:59 AM SAUSAGE MIXER) [facility] GLUCOSE BY METER POCT 157(H) 70 - 99 mg/dL 05/05/2023 2:06 AM SAUSAGE MIXER LABORATORY POC Blood, Capillary BLOOD SPECIMEN / Unknown 05/05/2023 1:59 AM SAUSAGE MIXER 05/05/2023 2:06 AM SAUSAGE MIXER Rohit GIRALDO POCT LABORATORY [facility] Acute Care Lab [address] Lab (1st floor, no room number) [place] [address], [facility] [phone] from Last 3 Months or Most Recently Relevant to Health Maintenance Advance Directives For more information, please contact: [phone] * Full Code (Latest Code Status on [...] by: Other (please patricia t) Care Teams Cabinet Builder Relationship Specialty Start Date End Date Niall Harding MD [address] [place] [address] [facility] - General 04/16/23
--- OUTSIDE RECORDS SUMMARY | 2024-01-20 00:15 | XMS_ITS | Encounter Summary ---
Author Organization [facility] Address [address] [place] [address] Care Team Providers Care Addressograph Operator Name Role Phone Niall Harding MD Primary Care Provider [phone] Encounter Details Date Type Department Care Team (Late st Contact Info) Description 09/08/2023 Documentation Only [facility] [address] [place], [place] [address] [address] No, Pcp Social History Tobacco [...] on filedocumented in this encounter Care Teams Addressograph Operator Relationship Specialty Start Date End Date N[place] [address] PCP - General Family Medicine 09/08/23 documented as of this encounter
--- OUTSIDE RECORDS SUMMARY | 2024-01-20 00:15 | XMS_ITS | Encounter Summary ---
Author Organization [facility] Address [address] [place] [address] Care Team Providers Care Publishing Editor Name Role Phone Niall Harding MD Primary Care Provider [phone] Encounter Details Date Type Department Care Team (Late st Contact Info) Description 09/08/2023 Documentation Only [facility] [address] [place], [place] [address] [address] No, Pcp Social History Tobacco [...] on filedocumented in this encounter Care Teams Publishing Editor Relationship Specialty Start Date End Date Nial[place] [address] PCP - General Family Medicine 09/08/23 documented as of this encounter
--- OUTSIDE RECORDS SUMMARY | 2024-01-20 00:15 | XMS_ITS | Clinical Summary ---
Author Organization [facility] Address [address] [place] [address] Care Team Providers Care Chute Tapper Name Role Phone Niall Harding MD Primary Care Provider [phone] Allergies No known active allergies Medications Medication [...] Comments Blood Pressure 127/52 05/05/2023 8:55 AM TAX ANALYST Pulse 64 05/05/2023 8:54 AM TAX ANALYST Temperature 36.6 ??C (97.8 ??F) 05/05/2023 7:20 AM CS T Respiratory Rate 18 05/05/2023 7:20 AM TAX ANALYST Oxygen Saturation 96% 05/05/2023 7:20 AM TAX ANALYST Inhaled Oxygen Concentration - - Weight 101.1 kg (222 lb 12.8 oz) 2022 12:36 AM TAX ANALYST Height 180.3 cm (5' 11) 05/02/2023 12: 36 AM TAX ANALYST Body Mass Index 31.07 05/02/2023 12:36 AM TAX ANALYST Plan of Treatment Health Maintenance Due Date [...] this topic Medical Devices Implanted Type Area Agronomy Teacher Device Identifier Shelf Expiration Date Model / Serial / Lot Graft Bone Magnifuse [id number] - [id number] Implanted:Qty : 1 on 04/16/2023 by Thang Negrete MD at [facility] Bone/Tissu e/Biologic N/A: Spine Lumbar [employer] [id number] 03/19/2025 [id number] / [id number] / Graft Bone Fibers Dbf 6ml Inj [id number] Preloaded - [id number] Implanted:Qty : 1 on 04/16/2023 by Thang Negrete MD at [facility] Bone/Tissu e/Biologic N/A: Spine Lumbar [employer] 10/21/2024 [id number] / [id number] / Pass Lp Crosslink 40-72 Implanted:Qty : 1 on 04/16/2023 by Thang Negrete MD at [facility] Metallic Hardware/A nchor N/A: Spine Lumbar [employer] [id number] / / 8005 NOV 2022 Imp Screw Bn Medt Spine 50x6.5mm 5.5/6mm Paul - [id number] Implanted:Qty : 6 on 04/16/2023 by Thang Negrete MD at [facility] Metallic Hardware/A nchor N/A: Spine Lumbar [employer] [id number] / / [id number] NOV 2022 Imp Screw Bn Medt Spine 45x7.5mm 5.5/6mm Paul - [id number] Implanted:Qty : 2 on 04/16/2023 by Thang Negrete MD at [facility] Metallic Hardware/A nchor N/A: Spine Lumbar [employer] [id number] / / [id number] 2022 Imp Scr Set Medt Solera Break Off 5.5mm Ti [id number] - [id number] Implanted:Qty : 8 on 04/16/2023 by Thang Negrete MD at [facility] Metallic Hardware/A nchor N/A: Spine Lumbar [employer] [id number] / / [id number] 2022 Imp Spi Interbody Medt [address] Long 7mm [id number] - [id number] Implanted:Qty : 1 on 04/16/2023 by Thang Negrete MD at [facility] Metallic Hardware/A nchor N/A: Spine Lumbar [employer] 12/26/2029 [id number] / / [id number] Imp Spi Interbody Medt [address] Long 7mm [id number] - [id number] Implanted:Qty : 1 on 04/16/2023 by Thang Negrete MD at [facility] Metallic Hardware/A nchor N/A: Spine Lumbar [employer] 11/28/2029 [id number] / / [id number] Imp Spi Interbody Medt [address] Long 7mm [id number] - [id number] Implanted:Qty : 1 on 04/16/2023 by Thang Negrete MD at [facility] Metallic Hardware/A nchor N/A: Spine Lumbar [employer] 11/26/2029 [id number] / / [id number] Imp Paul Medt Solera Cvd 5.5x90mm Ti [id number] - [id number] Implanted:Qty : 2 on 04/16/2023 by Thang Negrete MD at [facility] Metallic Hardware/A nchor N/A: Spine Lumbar [employer] [id number] / / [id number] 2022 Procedures Procedure Name Priority Date/Time Associated Diagnosis Comments GLUCOSE BY METER Routine 05/05/2023 1:59 AM TAX ANALYST from Last 3 Months or Most Recently Relevant to Health Maintenance Results * (ABNORMAL) Glucose by meter (05/05/2023 1:59 AM TAX ANALYST) GLUCOSE BY METER POCT 157(H) 70 - 99 mg/dL 05/05/2023 2:06 AM TAX ANALYST LABORATORY POC Blood, Capillary BLOOD SPECIMEN / Unknown 05/05/2023 1:59 AM TAX ANALYST 05/05/2023 2:06 AM TAX ANALYST Rohit GIRALDO POCT RH LABORATORY POC [facility] Acute Care Lab [address] Lab (1st floor, no room number) [place] [address], [facility] [phone] from Last 3 Months or Most Recently Relevant to Health Maintenance Advance Directives For more information, please contact: [phone] * Full Code (Latest Code Status on [...] by: Other (please patricia t) Care Teams Chute Tapper Relationship Specialty Start Date End Date Niall Harding MD [address] [place] [address] PCP - General 04/16/23
--- OUTSIDE RECORDS SUMMARY | 2024-01-20 00:15 | XMS_ITS | Clinical Summary ---
Author Organization [facility] Address [address] [place] [address] Phone Care Team Providers Care Manager Channel Name Role Phone Niall Harding MD Primary Care Provider [phone] Allergies No known active allergies Medications Medication [...] Description 01/07/2024 Office Communication [facility] [address] [place] [address] Giorgio Callejas MD from Last 3 Months Immunizations Name Administration Dates Next Due Influenza Split High Dose Preservative Free IM 1 [employer] Sars-cov-2 (Covid-19) Vaccine, Mrna, Segundo Protein 02/17/2023 [...] age to complete this topic Care Teams Manager Channel Relationship Specialty Start Date End Date Niall Harding MD [address] [place] [address] PCP - General Family Medicine 09/08/23
--- OUTSIDE RECORDS SUMMARY | 2024-01-20 00:15 | XMS_ITS | Referral Summary ---
Author Organization [facility] Address [address] [place] [address] Care Team Providers Care Senior Electrical Estimator Name Role Phone Sukhjinder Trinidad MD Primary [...] Sex Assigned at Male 07/04/2020 1:48 PM ELECTROPLATING TECHNICIAN Gender Identity Male 07/04/2020 1:48 PM ELECTROPLATING TECHNICIAN Sexual Orientation Straight 07/04/2020 1: 48 PM ELECTROPLATING TECHNICIAN Last Filed Vital Signs Vital Sign Reading Time Taken Comments Blood Pressure 189/83 07/07/2018 12:15 PM ELECTROPLATING TECHNICIAN Pulse 65 07/07/2018 12:15 PM ELECTROPLATING TECHNICIAN Temperature 36.2 ??C (97.2 ??F) 07/07/2018 12:[address] Respiratory Rate 14 07/07/2018 12:15 PM ELECTROPLATING TECHNICIAN Oxygen Saturation 96% 07/07/2018 12:15 PM ELECTROPLATING TECHNICIAN Inhaled Oxygen Concentration - - Weight 114.8 kg (253 lb) 07/01/2018 10:20 AM ELECTROPLATING TECHNICIAN Height 175.3 cm (5' 9) 07/01/2018 10:20 AM ELECTROPLATING TECHNICIAN Body Mass Index 37.36 07/01/2018 10:20 AM ELECTROPLATING TECHNICIAN Plan of Treatment Not on file Care Teams Senior Electrical Estimator Relationship Specialty Start Date End Date Sukhjinder Trinidad MD PCP - General 01/15/16
--- OUTSIDE RECORDS SUMMARY | 2024-01-20 00:15 | XMS_ITS | Clinical Summary ---
Author Organization [facility] Address [address] [place] [address] Care Team Providers Care Computer Support Specialist Name Role Phone Sukhjinder Trinidad MD Primary [...] Sex Assigned at Male 07/04/2020 1:48 PM HIGH SCHOOL HISTORY TEACHER Gender Identity Male 07/04/2020 1:48 PM HIGH SCHOOL HISTORY TEACHER Sexual Orientation Straight 07/04/2020 1: 48 PM HIGH SCHOOL HISTORY TEACHER Last Filed Vital Signs Vital Sign Reading Time Taken Comments Blood Pressure 189/83 07/07/2018 12:15 PM HIGH SCHOOL HISTORY TEACHER Pulse 65 07/07/2018 12:15 PM HIGH SCHOOL HISTORY TEACHER Temperature 36.2 ??C (97.2 ??F) 07/07/2018 12:[address] Respiratory Rate 14 07/07/2018 12:15 PM HIGH SCHOOL HISTORY TEACHER Oxygen Saturation 96% 07/07/2018 12:15 PM HIGH SCHOOL HISTORY TEACHER Inhaled Oxygen Concentration - - Weight 114.8 kg (253 lb) 07/01/2018 10:20 AM HIGH SCHOOL HISTORY TEACHER Height 175.3 cm (5' 9) 07/01/2018 10:20 AM HIGH SCHOOL HISTORY TEACHER Body Mass Index 37.36 07/01/2018 10:20 AM HIGH SCHOOL HISTORY TEACHER Plan of Treatment Health Maintenance Due Date [...] Vaccine Completed 02/21/2020, 0701/2020, 03/05/2012 Care Teams Computer Support Specialist Relationship Specialty Start Date End Date Sukhjinder Trinidad MD PCP - General 01/15/16
--- OUTSIDE RECORDS SUMMARY | 2024-01-20 00:15 | XMS_ITS | Encounter Summary ---
Author Organization [facility] Address [address] [place] [address] Care Team Providers Care Film Recordist Name Role Phone Niall Harding MD Primary Care Provider [phone] Encounter Details Date Type Department Care Team (Late st Contact Info) Description 01/07/2024 Office Communication [facility] [address] [place] [address] Giorgio Callejas MD [address] [place] [address] Social History Tobacco Use Types [...] on filedocumented in this encounter Care Teams Film Recordist Relationship Specialty Start Date End Date Niall Harding MD [address] [place] [address] PCP - General Family Medicine 09/08/23 documented as of this encounter
--- OUTSIDE RECORDS SUMMARY | 2024-01-20 00:15 | XMS_ITS | Encounter Summary ---
Author Organization [facility] Address [address] [place] [address] Care Team Providers Care Rate Setter Name Role Phone Niall Harding MD Primary Care Provider [phone] Encounter Details Date Type Department Care Team (Late st Contact Info) Description 10/18/2023 Orders Only [facility] [address] [place] [address] Giorgio Callejas MD [address] [place] [address] Chronic kidney disease stage 4 [...] (HCC) documented in this encounter Care Teams Rate Setter Relationship Specialty Start Date End Date Niall Harding MD [address] [facility] [place] [address] PCP - General Family Medicine 09/08/23 documented as of this encounter
--- OUTSIDE RECORDS SUMMARY | 2024-01-20 00:16 | XMS_ITS | Clinical Summary ---
Author Organization [facility] Address [place], [place] [address] Care Team Providers Care Road Inspector Name Role Phone ElianaLakhwinder velasquez EDILBERTO Unavailable [phone] Niall Harding MD Primary Care Provider [phone] Allergies No known active allergies Medications Medication [...] TWICE DAILY. 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 1 Each 4 Active sensor (Dex[employer] [...] Description 01/14/2024 1:00 PM CDT Patient Outreach [address] [address] Diabetes (DM education) 01/14/2024 Travel 01/13/2024 Telephone [facility] [address] [facility] [place] [address] Niall Harding MD Glucose Levels (Elevated glucose levels) 01/12/2024 Orders Only [facility] Scanner 1 scan: (1-Ord) [place], RESULTS, 01/12/2024 01/12/2024 Orders Only [facility] Scanner 1 scan: (1-Ord) [place]COL[place], MULTIPLE LAB RESULTS, 01/12/2024 01/11/2024 Travel 01/09/2024 9:40 AM CDT Office Visit [facility] [address] [facility] [place] [address] Niall Harding MD Diabetes 01/09/2024 Travel 12/30/2023 10:05 AM CDT Phone Office Visit [facility] [address] [place] [address] Niall Harding MD Telehealth (telephone visit); Follow Up (blood sugar and gout); Refill Request (needs testing strips to [facility] [place]) 12/30/2023 Travel 12/29/2023 Nurse Triage [facility] [address] [facility] [place] [address] Niall Harding MD High Blood Sugar 12/23/2023 3:40 PM CDT Office Visit [facility] [address] [place] [address] Niall Harding MD Diabetes; Foot Problem (Right worse than left/Been going on for a couple of weeks and is getting worse) 12/23/2023 Travel 12/19/2023 3:15 PM CDT Ancillary Procedure [facility] [address] [facility] [place] [address] 12/19/2023 Travel 12/19/[address] [facility] [address] [place] [address] Karen Tiwari MBBS 11/26/2023 Refill [facility] [address] [place] [address] Niall Harding MD Refill Request (Paroxetine) 11/12/2023 Refill [facility] [address] [place] [address] King Castrejon MD Refill Request (Trazodone) 11/07/2023 Telephone [facility] [address] [place] [address] Nilal Harding MD Letter (Updated Treatment notes ) 11/05/2023 Refill [facility] [address] [place] [address] Niall Harding MD Refill Request (Oxycodone, Contour Next Test Strips) 10/23/2023 Orders Only [facility] Scanner 1 scan: (1-Ord) [facility], EYES TO THIGHS, CANCER INITAL STAGING, 10/23/2023 from Last 3 Months Immunizations Name Administration Dates Next Due AMB INFLUENZA IIV3 (AGE 65+ YRS) PF (Flu Clinic Only) 02/27/2018 COVID-19 vaccine ([facility] 30mcg/0.3mL) SATURNINO MONTIEL 02/09/2021,07/26/2020,07/05/2020 Influenza A (H1N1), [...] Description 02/04/2024 1:00 PM CDT Patient Outreach [address] [address] Kely Trevizo, RD [address] [place] [address] 02/20/2024 9:15 AM CDT Office Visit [facility] [address] [place] [address] Niall Harding MD [address] [place] [address] Health Maintenance Due Date Last Done Comments [...] CDT LIPID PANEL Routine 07/08/2023 1:39 PM BEHAVIORAL SPECIALIST Hyperlipidemia, unspecified hyperlipidemia type SCAN-COLONOSCOPY 09/19/2022 11:3 0 AM CDT ANTI HCV Routine 07/28/2020 2:14 PM BEHAVIORAL SPECIALIST Need for hepatitis C screening test US [...] * (ABNORMAL) LIPID PANEL (07/08/2023 1:39 PM BEHAVIORAL SPECIALIST) [facility] CHOLESTEROL,TOTAL 111 100 - 199 mg/dL 07/09/2023 3:37 AM BEHAVIORAL SPECIALIST [facility] Comment: Cholesterol, Total Reference Ranges Desirable <200 mg/dL Borderline 200-239 mg/dL High >=240 mg/dL TRIGLYCERIDES 225(H) <150 mg/dL 07/09/2023 3:37 AM BEHAVIORAL SPECIALIST [facility] HDL CHOLESTEROL 33(L) >40 mg/dL 3:37 AM BEHAVIORAL SPECIALIST [facility] NON-HDL CHOLESTEROL 78 <145 mg/dl 07/09/2023 3:37 AM [facility] CHOL/HDL RATIO 3.36 <4.50 07/09/2023 3:37 AM BEHAVIORAL SPECIALIST [facility] LDL CHOLESTEROL 33 <=130 mg/dL 07/09/2023 3:37 AM [facility] VLDL CHOLESTEROL 45(H) <=30 mg/dL 07/09/2023 3:37 AM BEHAVIORAL SPECIALIST [facility] PROVIDER ORDERED STATUS RANDOM 07/09/2023 3:37 AM BEHAVIORAL SPECIALIST [facility] Blood BLOOD SPECIMEN / Unknown Venipuncture / Unknown 07/08/2023 1:39 PM BEHAVIORAL SPECIALIST 07/08/2023 1:40 PM [facility] Niall Harding MD CHEMISTRY [facility] [address] [place] [address], * SCAN-COLONOSCOPY (09/19/2022 11:30 AM CDT) Narrative Procedure Note Kadeem Chavira MD - 09/19/2022 10:51 AM CDT [facility] [address] [place] [address] Patient Name: Edwardo Simons Gender: Male Exam Date: 09/19/2022 Visit Number: [id number] Age: 71 Years 11 Months Date of : 1950 Attending MD: Kadeem Pinedo MD Medical Record#: [id number] ----- Procedure: Colonoscopy Indications: Previous advanced adenomatous [...] 2 tablets percolonoscopy prep instructions received from [facility] N taking as directed glimepiride [...] oral route percolonoscopy prep instructions received from [facility] N taking as directed omeprazole [...] yes Former smoker Race: White Preferred Language: Qatari cc: Niall Harding MD cc: Juanito Weston MD [facility] [phone] Kadeem Barroso MD OTHER * ANTI HCV (07/28/2020 2:14 PM BEHAVIORAL SPECIALIST) HEPATITIS C ANTIBODY Non-React carl Non-React carl 07/28/2020 9:31 PM BEHAVIORAL SPECIALIST [facility] Comment:Antibodies to HCV no t detected; does not exclude the possibility of exposure to HCV. Blood BLOOD SPECIMEN / Unknown Venipuncture / Unknown 07/28/2020 2:14 PM BEHAVIORAL SPECIALIST 07/28/2020 2:14 PM BEHAVIORAL SPECIALIST Niall Harding MD SEND OUTS [facility] [address] [place] [address], [place] * [place] AORTA (12/31/2018 10:05 AM [...] Documents on File Type Date Recorded Patient [employer] Expl anation Healthcare Directive 01/27/2015 015 * [...] Code Status Discussion: Not Discussed Care Teams Road Inspector Relationship Specialty Start Date End Date Niall Harding MD [address] [place] [address] PCP - General Family Practice 08/07/20 Lakhwinder Monroy MBBS [address] [place] [address] Physical Medicine and Rehabilitation 09/02/12
== END 2024-01-18 21:49 | disposition home or self-care (01) ==
LOC: AMB 01-20 00:12
PROVIDERS: PCP Surgery; Visit Provider Family Medicine
DX: R55 Syncope and collapse (principal)
CPT/HCPCS: A0425; A0427

== ENCOUNTER 2024-01-19 22:56 | Inpatient (IN) | payer MEDICARE, BC, SELFPAY ==
[2024-01-19 23:05] VITALS: BP 137/59; PULSE 88; RESP 18; TEMP 37.4; O2SAT 92
--- NOTE | 2024-01-19 23:12 | ED_ITS ---
HPI - General Adult General Date Seen: 01/19/24 Chief complaint: Diarrhea Stated complaint: Diarrhea, confusion Time Seen by Provider: 01/19/24 23:12 History of Present Illness HPI narrative: 73-year-old male returnint to ER tonight for diarrhea and confusion. He has a history of renal cell carcinoma with previous right nephrectomy and follows with with [place] [facility] for treatment of his metastatic kidney cancer. He is currently on immunotherapy. He started his immunotherapy a couple of months ago. His notes he had to delay couple of rounds because he was on prednisone for gout. He finished up his prednisone therapy for gout this week and had his most recent round of immunotherapy earlier this week. 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 I saw him last night with repeated bouts of diarrhea when being to generalized weakness with two falls. He was admitted after an ER workup for his diarrhea with dehydration and falls Labs last night: 01/18/2024 WBC 5.5, hemoglobin 12.2, platelet count 185 D-dimer 0.59 (normal age adjusted) Sodium 132, potassium 3.9, chloride 101, bicarb 22, BUN 38, creatinine 2.2 (baseline from August 2.1-2.3) Glucose 178 Total bilirubin 0.4, AST 14, ALT 14, alk-phos 76 Troponin negative CRP elevated at 6.5 TSH 0.771 Urinalysis 0 white cells, 0 red cells, few bacteria, negative nitrite C diff toxin negative COVID/influenza/RSV PCR neg CT CAP Impression: 1. No acute abnormality appreciated. 2. Status post right nephrectomy. Decreased size of pulmonary nodules and abdominopelvic lymphadenopathy. He was admitted for IV hydration overnight. He was apparently feeling much better this morning was ambulatory in the hallway. Although he was still having some liquidy diarrhea he was feeling better so he was discharged home Since discharge home, early afternoon today, he has had ongoing diarrhea. He has had at least 12 loose stools today. He has been trying to drink fluids and stay hydrated. He has had a generally poor appetite and has not much solid food. He did want to eat soup that his made for supper so she may have a salad, but he did not eat much of that. He has not had any fever. He is getting weaker again but is not falling. He thinks he is still making some urine but it is hard to tell because every time he goes to the bathroom he has a bowel movement. notes that he seems a little more confused tonight. No fever. No bloody stool. No headache. No blurry vision. Although he fell twice last night, he has not fallen tonight. His recognize that he is not keeping up with his oral intake to account for what he is losing with this diarrhea and that he is clearly getting dehydrated again. She brought him back to the hospital. Related Data Home Medications ?Medication ?Instructions ?Recorded ?Confirmed amlodipine 5 mg tablet 5 mg PO DAILY 04/29/23 01/18/24 atenolol 50 mg tablet 50 mg PO DAILY 04/29/23 01/18/24 atorvastatin 20 mg tablet 20 mg PO DAILY 04/29/23 01/18/24 blood sugar diagnostic (Contour #10 ea 04/29/23 01/18/24 Next Test Strips) bupropion HCl 150 mg 24 hr tablet, 150 mg PO DAILY 04/29/23 01/18/24 extended release omeprazole 20 mg capsule,delayed 20 mg PO DAILY 04/29/23 01/18/24 release paroxetine HCl 20 mg tablet 20 mg PO DAILY 04/29/23 01/18/24 trazodone 150 mg tablet 150 mg PO HS 04/29/23 01/19/24 allopurinol 100 mg tablet 100 mg PO DAILY 01/18/24 01/18/24 cyclosporine 0.05 % eye drops in a 1 drp ophthalmic (eye) BID 01/18/24 01/18/24 dropperette (Restasis) gabapentin 100 mg capsule 100 mg PO TID 01/18/24 01/19/24 hydrochlorothiazide 25 mg tablet 25 mg PO DAILY 01/18/24 01/18/24 insulin glargine 100 unit/mL (3 14 unit subcut DIRECTED 01/18/24 01/18/24 mL) subcutaneous pen (Lantus Solostar U-100 Insulin) tamsulosin 0.4 mg capsule 0.4 mg PO DAILY 01/18/24 01/18/24 Allergies Allergy/AdvReac Type Severity Reaction Status Date / Time No Known Drug Allergies Allergy Verified 01/18/24 21:43 [facility] Medical History (Updated 09/03/24 @ 01:08 by Sean Brito MD) Stage 4 chronic kidney disease ?N18.4 - Chronic kidney disease, stage 4 (severe) (ICD-10) Obesity ?E66.9 - Obesity, unspecified (ICD-10) Gastroesophageal reflux disease ?K21.9 - Gastro-esophageal reflux disease without esophagitis (ICD-10) Hyperlipidemia ?E78.5 - Hyperlipidemia, unspecified (ICD-10) Low back pain ?M54.50 - Low back pain, unspecified (ICD-10) Hypertension ?I10 - Essential (primary) hypertension (ICD-10) Obstructive sleep apnea ?G47.33 - Obstructive sleep apnea (adult) (pediatric) (ICD-10) Diabetes mellitus ?E11.9 - Type 2 diabetes mellitus without complications (ICD-10) Metastatic clear cell carcinoma of kidney ?C64.9 - Malignant neoplasm of unspecified kidney, except renal pelvis (ICD- 10) Surgical History (Updated 01/18/24 @ 23:52 by Santhosh Barton MD) History of lumbar fusion ?Z98.1 - Arthrodesis status (ICD-10) History of nephrectomy ?Z90.5 - Acquired absence of kidney (ICD-10) H/O radiofrequency ablation (RFA) of nerve of lumbar spine ?Z98.890 - Other specified postprocedural states (ICD-10) H/O total hip arthroplasty ?Z96.649 - Presence of unspecified artificial hip joint (ICD-10) Family History (Updated 01/18/24 @ 23:49 by Santhosh Barton MD) Brother Colon cancer Heart disease Father Diabetes Mother Thyroid disease Social History (Updated 01/18/24 @ 23:50 by Santhosh Barton MD) Narrative: He lives with his Janet. She sets up in manages his medications. He is a former smoker with a remote history. He occasionally drinks beer, about 2 a week. Code status is full code for witnessed arrest. What is your current living situation?: I presently have a place to live Problems where you live: no known problems Problems where you live details: na In the past 12 months, utilities in danger of being shut off: no In past 12 months, lack of transportation kept you from medical appts, meetings, work, or getting things needed for daily living: no In the past 12 mos, have been you worried that your food would run out before you had money to buy more?: never true In the past 12 mos, the food you bought just didn't last and you didn't have money to buy more?: never true Highest level of school completed/degree received: high school graduate Smoking Status: Former smoker Do you use any of these nicotine containing products: None Second hand tobacco smoke exposure: No How often do you have a drink containing alcohol: 2-3 times a week How often do you have six or more drinks on one occasion: Never AUDIT-C Alcohol total score: 3 Non-prescribed substance use: denies use How often does anyone, including family, friends and others, physically hurt you : never How often does anyone, including family, friends and others, insult or talk down to you: never How often does anyone, including family, friends and others, threaten you with h arm: never How often does anyone, including family, friends and others, scream or curse at you: never service: No Exam Narrative: Exam Narrative: Constitutional: Appears well-developed and well-nourished. Alert. Conversant but seems a little confused. Give somewhat odd answers compared to where he was speaking last night.. HENT: Head: Atraumatic. Nose: Nose normal. Mouth/Throat: Oral mucosa is clear are dry but not as desiccated is that were last night.. no trismus. Pharynx normal. Tonsils symmetric. No tonsillar enlargement, erythema, or exudate. Eyes: Conjunctivae normal. EOM normal. Pupils equal, round, and reactive to light. No scleral icterus. Neck: Normal range of motion. Neck supple. No tracheal deviation present. Cardiovascular: Normal rate, regular rhythm. No gallop. No friction rub. No murmur heard. Symmetric radial artery pulses Pulmonary/Chest: Effort normal. No stridor. No respiratory distress. No wheezes. No rales. No rhonchi . No tenderness. Abdominal: Soft. Bowel sounds normal. No distension. No mass. No tenderness. No rebound. No guarding. Healed right lower quadrant incision from nephrectomy. Musculoskeletal: RUE: Normal range of motion. No tenderness. No deformity LUE: Normal range of motion. No tenderness. No deformity RLE: Normal range of motion. No edema. No tenderness. No deformity LLE: Normal range of motion. No edema. No tenderness. No deformity Neurological: Alert and oriented to person, place, and time. Normal strength. CN II-VII intact. No sensory deficit. GCS eye subscore is 4. GCS verbal subscore is 5. GCS motor subscore is 6. Normal coordination . Gait not assessed due to generalized weakness. Skin: Skin is warm and dry. No rash noted. No pallor. Normal capillary refill. Psychiatric: Normal mood. He is polite and has a seemingly odd sense of humor. notes that he seems a bit more confused than normal. Const: Vital Signs, click to edit/add: Vital Signs - 24 hr 01/19/24 23:05 Temperature 99.4 F Pulse Rate [Pulse Oximeter] 88 Respiratory Rate 18 Blood Pressure [Ri t Upper Arm] 137/59 L Pulse Oximetry 92 Oxygen Delivery Me thod Room Air Course Vital Signs Vital signs: Initial Vital Signs Temperature 99.4 F 01/19/24 23:05 Temperature Source Temporal Artery Scan 01/19/24 23:05 Pulse Rate 88 01/19/24 23:05 Pulse Rhythm Regular 01/19/24 23:05 Pulse Strength 3+ Normal 01/19/24 23:05 Respiratory Rate 18 01/19/24 23:05 Blood Pressure 137/59 L 01/19/24 23:05 Blood Pressure Mean 85 01/19/24 23:05 Blood Pressure Position Semi-Fowlers 01/19/24 23:05 Pulse Oximetry 92 01/19/24 23:05 Oxygen Delivery Method Room Air 01/19/24 23:05 Vital Signs Temperature 99.4 F 01/19/24 23:05 Pulse Rate 88 01/19/24 23:05 Respiratory Rate 18 01/19/24 23:05 Blood Pressure 137/59 L 01/19/24 23:05 Pulse Oximetry 92 01/19/24 23:05 Oxygen Delivery Method Room Air 01/19/24 23:05 Temperature 99.4 F 01/19/24 23:05 Pulse Rate 88 01/19/24 23:05 Respiratory Rate 18 01/19/24 23:05 Blood Pressure 137/59 L 01/19/24 23:05 Pulse Oximetry 92 01/19/24 23:05 Oxygen Delivery Method Room Air 01/19/24 23:05 Medications Administered Medications: Discontinued Medications Generic Name Dose Route Start Last Admin Trade Name Freq PRN Reason Stop Dose Admin Lactated Ringer's 1,000 ml 01/19/24 23:41 01/20/24 00:00 Lactated Ringers 1000 Ml IV 01/19/24 23:42 1,000 ml ONCE ONE Administration Medical Decision Making MDM Narrative Medical decision making narrative: 73-year-old male on immunotherapy for metastatic renal cell carcinoma returns to the ER today with ongoing diarrhea leading to recurrent generalized weakness. I had seen him in the ER last night for this diarrhea and weakness and he was admitted overnight for IV fluids but discharge this morning because he was feeling stronger. After discharge she has had ongoing diarrhea and is now developing dehydration again. Workup as above was negative for any clear infectious cause of diarrhea. This could be viral, but we suspect this may actually be a side effect of his immunotherapy. On clinical exam he is displaying signs of dehydration again and therefore we accessed his port and are missing an IV crystalloid bolus I have ordered repeat laboratory workup to double check labs. CBC with a white count of 8.1, up from 5 yesterday and hemoglobin of 11.3, which is down from 12 yesterday but I think reflects hemodilution. Comprehensive metabolic profile and lactic acid are pending at the time of this dictation He does have some mild confusion the tonight that was not present last night. No headache. No fever. With falls last night, will obtain head CT to rule out some other small intracranial hemorrhage. There is no focal deficits or low GS to suggest severe TBI. I anticipate this patient will require rehospitalization for IV fluids and hydration in the setting ongoing diarrhea. Discussed with my overnight partner, Dr. Starks will follow-up on the pending lab studies and CT. Assuming the study show no serious condition in need of transfer to an alternative facility, Dr. Starks will coordinate with the tele hospitalist for admission here at [place]. It is clear the patient cannot discharge home tonight given ongoing diarrhea and weakness. Lab Data Labs: Lab Results 01/20/24 Range/Units 00:15 WBC 8.10 (4.50-11.00) K/uL RBC 4.08 L (4.30-5.90) m/uL Hgb 11.3 L (13.5-17.5) gm/dL Hct 35.8 L (37.0-53.0) % MCV 88 (80-100) fL MCH 28 (26-34) pg MCHC 32 (32-36) gm/dL RDW Coeff of Claudia 15.8 H (11.5-15.5) % Plt Count 178 (140-440) K/uL Neut % (Auto) 57.9 (42.0-72.0) % Lymph % (Auto) 23.8 (20-44) % Millard % (Auto) 16.8 H (0.0-11.0) % Eos % (Auto) 0.5 (0.0-7.0) % Baso % (Auto) 0.1 (0.0-3.0) % Neut # (Auto) 4.69 (1.7-7.0) K/uL Lymph # (Auto) 1.93 (0.90-2.90) K/uL Millard # (Auto) 1.40 H (0.00-0.90) K/UL Eos # (Auto) 0.04 (0.00-0.50) K/uL Baso # (Auto) 0.01 (0.00-0.30) K/uL Abs Immat Gran (auto) 0.07 (0.00-0.30) K/uL Imm/Tot Granulo (auto) 0.9 % Discharge Plan Discharge Clinical Impression: Diarrhea, Acute dehydration, Weakness Prescriptions: No Action omeprazole 20 mg capsule,delayed release(DR/EC) 20 mg PO DAILY amlodipine 5 mg tablet 5 mg PO DAILY atenolol 50 mg tablet 50 mg PO DAILY trazodone 150 mg tablet 150 mg PO HS paroxetine HCl 20 mg tablet 20 mg PO DAILY (DME) Contour Next Test Strips Strip See Rx Instructions .ROUTE BID Qty: 10 Rx Instructions: As directed atorvastatin 20 mg tablet 20 mg PO DAILY bupropion HCl 150 mg tablet extended release 24 hr 150 mg PO DAILY tamsulosin 0.4 mg capsule 0.4 mg PO DAILY insulin glargine [Lantus Solostar U-100 Insulin] 100 unit/mL (3 mL) insulin pen 14 unit subcut DIRECTED Rx Instructions: Inject under the skin. Start at 14 units daily and increase 2 units every 3 days until fasting blood sugar is less than 130. Max dose 100 units. allopurinol 100 mg tablet 100 mg PO DAILY hydrochlorothiazide 25 mg tablet 25 mg PO DAILY gabapentin 100 mg capsule 100 mg PO TID cyclosporine [Restasis] 0.05 % dropperette 1 drp ophthalmic (eye) BID Follow Up/Referrals: Niall Harding MD [Primary Care Provider] -
--- OUTSIDE RECORDS SUMMARY | 2024-01-19 23:40 | XMS_ITS | Clinical Summary ---
Author Organization [facility] Address [address] [address] Phone Care Team Providers Care Housekeeping And Laundry Team Leader Name Role Phone Niall Harding MD Primary Care Provider Allergies No known active allergies Medications Medication [...] Type Department Care Team Description 12/30/2023 Telephone [facility] Emergency Department [address] [facility] [place] [address] Karlee Romero RN 12/29/2023 3:59 PM CDT - 12/29/2023 7:27 PM CDT Emergency [facility] Emergency Department [address] [facility] [place] [address] Benito Gill MD Hyperglycemia (Primary Dx) Discharge Disposition: Home and/or Self Care 12/29/2023 Travel from Last 3 Months Immunizations Name Administration Dates Next Due Influenza Unspecified Formulation 2014,03/03/2014,02/23/2013, 2,03/01/2011,04/25/2009,03/03/2008 Pneumovax 23 01/28/2008 TD >7Yrs Preservative Free 08/01/2009 Zoster Zostavax (Shingles) 03/05/2012 Surgical History Surgery Date Site/Laterality Comments COLONOSCOPY 09/13/2015 [facility]; 5yr repeat TOTAL HIP ARTHROPLASTY Medical History [...] - 99 mg/dL 12/29/2023 7:09 PM CDT [facility] Blood WHOLE BLOOD SPECIMEN / Unknown 12/29/2023 7:02 PM CDT 12/29/2023 7:09 PM CDT Benito Gill MD EC CHEMISTRY ORDERAB LES Performing Organization Address City/State/[facility] Co de Phone Number [facility] [address] [place] [address] * (ABNORMAL) GLUCOSE, METER (12/29/2023 5:47 PM CDT) Glucose Meter 350(H) 70 - 99 mg/dL 12/29/2023 5:54 PM CDT [facility] Blood WHOLE BLOOD SPECIMEN / Unknown 12/29/2023 5:47 PM CDT 12/29/2023 5:54 PM CDT Benito Gill MD EC CHEMISTRY ORDERAB LES [facility] [address] [place] [address], [facility] * (ABNORMAL) BASIC METABOLIC PANEL (12/29/2023 4:38 PM CDT) Sodium 133(L) 134 - 143 mEq/L 12/29/2023 5:00 PM CDT [facility] Potassium 4.9 3.4 - 5.1 mEq/L 12/29/2023 5:00 PM CDT [facility] Chloride 101 99 - 110 mEq/L 12/29/2023 5:00 PM CDT [facility] Carbon Dioxide 24 19 - 29 mEq/L 12/29/2023 5:00 PM CDT [facility] Anion Gap 8.0 3.0 - 15.0 mEq/L 12/29/2023 5:00 PM CDT [facility] Blood Urea Nitrogen 43(H) 5 - 24 mg/dL 12/29/2023 5:00 PM CDT [facility] Creatinine 2.24(H) 0.70 - 1.20 mg/dL 12/29/2023 5:00 PM CDT [facility] Glomerular Filtration Rate 30(L) >60 mL/min/1. 73 m*2 12/29/2023 5:00 PM CDT [facility] Comment:Risk of cardiovascul ar disease increases when GFR is abnormal; persistently reduced GFR values are a specific indication of CKD. This calculation uses CKD- EPI 202 equation without adjustment for race; it has not been validated in women. Calcium 9.3 8.4 - 10.5 mg/dL 12/29/2023 5:00 PM CDT [facility] Glucose 416(H) 70 - 99 mg/dL 12/29/2023 5:00 PM CDT [facility] Blood BLOOD SPECIMEN / Unknown Venipuncture / Unknown 12/29/2023 4:38 PM CDT 12/29/2023 4:40 PM CDT Narrative [facility] - 12/29/2023 5:00 PM CDT Current [...] >250: Measured NA + (0.016X(glucose-100)) for the [employer] chemistry analyzers. Benito Gill MD EC CHEMISTRY ORDERAB LES [facility] [address] * (ABNORMAL) HEMOGRAM/DIFFERENTIAL (12/29/2023 4:38 PM CDT) WBC 8.5 3.2 - 11.0 10*9/L 12/29/2023 4:43 PM CDT [facility] RBC 4.39 4.14 - 5.76 10*12/L 12/29/2023 4:43 PM CDT [facility] HGB 12.3(L) 12.9 - 16.9 g/dL 12/29/2023 4:43 PM CDT [facility] HCT 37.5(L) 38.4 - 49.7 % 12/29/2023 4:43 PM CDT [facility] MCV 85.4 81.4 - 99.0 fL 12/29/2023 4:43 PM CDT [facility] MCH 28.0 26.7 - 33.1 pg 12/29/2023 4:43 PM [facility] MCHC 32.8 31.6 - 35.5 g/dL 12/29/2023 4:43 PM [facility] RDW 15.0(H) 11.3 - 14.6 % 12/29/2023 4:43 PM [facility] PLT 407(H) 130 - 375 10*9/L 12/29/2023 4:43 PM [facility] Neutrophils % 84.7 % 12/29/2023 4:43 PM [facility] Lymphocytes % 13.0 % 12/29/2023 4:43 PM [facility] Monocytes % 1.9 % 12/29/2023 4:43 PM [facility] Eosinophils % 0.0 % 12/29/2023 4:43 PM [facility] Basophils % 0.0 % 12/29/2023 4:43 PM [facility] Immature Granulocytes % 0.4 % 12/29/2023 4:43 PM [facility] Neutrophils Absolute 7.2 1.5 - 7.6 10*9/L 12/29/2023 4:43 PM [facility] Lymphocytes Absolute 1.1 0.8 - 3.3 10*9/L 12/29/2023 4:43 PM [facility] Monocytes Absolute 0.2 0.2 - 0.9 10*9/L 12/29/2023 4:43 PM [facility] Eosinophils Absolute 0.0 0.0 - 0.4 10*9/L 12/29/2023 4:43 PM [facility] Basophils Absolute 0.0 0.0 - 0.1 10*9/L 12/29/2023 4:43 PM [facility] Immature Granulocytes Absolute 0.03 0.00 - 0.06 10*9/L 12/29/2023 4:43 PM CDT [facility] Blood BLOOD SPECIMEN / Unknown Venipuncture / Unknown 12/29/2023 4:38 PM CDT 12/29/2023 4:41 PM CDT Benito Gill MD EC HEMATOLOGY ORDERA BLES Performing Organization Address City/[facility] Co de Phone Number [facility] [address] [place] [address] * LACTIC ACID, VENOUS (12/29/2023 4:38 PM CDT) Lactic Acid, Venous 1.2 0.5 - 2.0 mmol/L 12/29/2023 4:57 PM CDT [facility] Blood BLOOD SPECIMEN / Unknown Venipuncture / Unknown 12/29/2023 4:38 PM CDT 12/29/2023 4:40 PM CDT Benito Gill MD EC CHEMISTRY ORDERAB LES Performing Organization Address City/[facility] Co de Phone Number [facility] [address] [place] [address] * (ABNORMAL) HEMOGLOBIN A1C (12/29/2023 4:38 PM CDT) Hemoglobin A1c 9.2(H) 4.0 - 5.6 % 12/29/2023 4:50 PM CDT [facility] Estimated Average Glucose 217 mg/dL 12/29/2023 4:50 PM CDT [facility] Blood BLOOD SPECIMEN / Unknown Venipuncture / Unknown 12/29/2023 4:38 PM CDT 12/29/2023 4:41 PM CDT Narrative [facility] - 12/29/2023 4:50 PM CDT HGA1C Reference Ranges ??>= 6.5 ?? Diabetes* ??5.7-6.4 ??Impaired glucose tolerance ?? <5.7 ?Normal *In the absence of unequivocal hyperglycemia, results should be confirmed by repeat testing for the diagnosis of diabetes. [place] [employer] 2018 Benito Gill MD EC CHEMISTRY ORDERAB LES ABN Performing Organization Address City/[facility]/ZIP Co de Phone Number [facility] [id number] [place] [address] * BETA-HYDROXYBUTYRATE (12/29/2023 4:38 PM CDT) Beta-Hydroxybu tyrate 0.07 0.02 - 0.27 mM 12/29/2023 5:00 PM CDT [facility] Blood BLOOD SPECIMEN / Unknown Venipuncture / Unknown 12/29/2023 4:38 PM CDT 12/29/2023 4:40 PM CDT Narrative [facility] - 12/29/2023 5:00 PM CDT Of the 3 ketone bodies contributing to ketosis and ketoacidosis (acetoacetate, acetone and B-hydroxybutyrate), the B-hydroxybutyrate normally represents over 75% of the total. Benito Gill MD EC CHEMISTRY ORDERAB LES Performing Organization Address [facility] Co de Phone Number [facility] [address] [address], [facility] * (ABNORMAL) GLUCOSE, METER (12/29/2023 3:01 PM CDT) Glucose Meter 405(H) 70 - 99 mg/dL 12/29/2023 3:09 PM CDT [facility] Blood WHOLE BLOOD SPECIMEN / Unknown 12/29/2023 3:01 PM CDT 12/29/2023 3:09 PM CDT Gregorio Mendez EC CHEMISTRY ORDERAB LES Performing Organization Address [facility] Co de Phone Number [facility] [address] [place] [address], [facility] from Last 3 Months Care Teams Housekeeping And Laundry Team Leader Relationship Specialty Start Date End Date Niall Harding MD [address] [place] [id number] PCP - General Family Medicine 12/29/23
--- OUTSIDE RECORDS SUMMARY | 2024-01-19 23:40 | XMS_ITS | Encounter Summary ---
Author Organization [facility] Address [address] [address] Phone Care Team Providers Care Food Service Order Clerk Name Role Phone Niall Harding MD Primary Care Provider [phone] Encounter Details Date Type Department Care Team [...] on filedocumented in this encounter Care Teams Food Service Order Clerk Relationship Specialty Start Date End Date Niall Harding MD [address] [place] [id number] PCP - General Family Medicine 12/29/23 documented as of this encounter
--- OUTSIDE RECORDS SUMMARY | 2024-01-19 23:40 | XMS_ITS | Clinical Summary ---
Author Organization [facility] Address [address] [place] [address] Phone Care Team Providers Care Monkey Breeder Name Role Phone Niall Harding MD Primary Care Provider [phone] Allergies No known active allergies Medications Medication [...] Description 01/07/2024 Office Communication [facility] [address] [address] Giorgio Callejas MD from Last 3 Months Immunizations Name Administration Dates Next Due Influenza Split High Dose Preservative Free IM 1 Ideabove Sars-cov-2 (Covid-19) Vaccine, Mrna, Segundo Protein 02/17/2023 [...] age to complete this topic Care Teams Monkey Breeder Relationship Specialty Start Date End Date Niall Harding MD [address] [place] [address] PCP - General Family Medicine 09/08/23
--- OUTSIDE RECORDS SUMMARY | 2024-01-19 23:40 | XMS_ITS | Encounter Summary ---
Author Organization [facility] Address [address] [address] Phone Care Team Providers Care Geothermal Operating Engineer Name Role Phone Niall Harding MD Primary Care Provider [phone] Encounter Details Date Type Department Care Team (Late st Contact Info) Description 12/30/2023 Telephone [facility] Emergency Department [address] [place] [address] Karlee Romero RN Social History Tobacco Use [...] on filedocumented in this encounter Care Teams Geothermal Operating Engineer Relationship Specialty Start Date End Date Niall Harding MD [address] [place] [address] PCP - General Family Medicine 12/29/23 documented as of this encounter
--- OUTSIDE RECORDS SUMMARY | 2024-01-19 23:40 | XMS_ITS | Encounter Summary ---
Author Organization [facility] Address [address] [address] Phone Care Team Providers Care Service Loss Control Consultant Name Role Phone Niall Harding MD Primary Care Provider [phone] Reason for Visit * Reason Comments High Blood Sugar- Asymptomatic Encounter Details Date Type Department Care Team (Late st Contact Info) Description 12/29/2023 3:59 PM CDT - 12/29/2023 7:27 PM CDT Emergency [facility] Emergency Department [address] [place] [address] Benito Gill MD [address] [place] [address] [phone] Hyperglycemia (Primary Dx) Discharge Disposition: Home and/or Self Care Social History Tobacco Use Types Packs/Day Years Used Date Smoking Tobacco: Former Cigarettes Q uit: 1985 Smokeless Tobacco: Never PHQ-2 Answer Date Recorded PHQ-2 Score 0 03/08/2018 [facility] Custom IPV Answer Date Recorded Do you [...] Code Departure Means Destination Home and/or Self Half-Way documented in this encounter ED Notes * [...] HCL OR Take 10 mg by mouth. Vwdhhnrawdt-Kqmaqydzt-Okk C-Mn (GLUCOSAMINE CHONDR 1500 COMPLX) Cap Take [...] History: Procedure Laterality Date COLONOSCOPY 09/13/2015 Per [facility] records from [facility]; 5yr repeat TOTAL HIP ARTHROPLASTY Family History: [...] Disposition ED Disposition Discharge Condition Stable Comment [facility] thanks you for allowing us to assist you with your healthcare needs. This document contains patient education materials and information regarding your injury/illness. *If you need copies of your x-rays for a f ollow up appointment please call [phone] to arrangefor brain picker. If you had an IV in [...] (ABNORMAL) GLUCOSE, METER (12/29/2023 7:02 PM CDT) [facility] Glucose Meter 279(H) 70 - 99 mg/dL 12/29/2023 7:09 PM CDT [facility] Blood WHOLE BLOOD SPECIMEN / Unknown 12/29/2023 7:02 PM CDT 12/29/2023 7:09 PM CDT Benito Gill MD EC CHEMISTRY ORDERAB LES Performing Organization Address City/[facility] Co de Phone Number [facility] [address] * (ABNORMAL) GLUCOSE, METER (12/29/2023 5:47 PM CDT) Glucose Meter 350(H) 70 - 99 mg/dL 12/29/2023 5:54 PM CDT [facility] Blood WHOLE BLOOD SPECIMEN / Unknown 12/29/2023 5:47 PM CDT 12/29/2023 5:54 PM CDT Benito Gill MD EC CHEMISTRY ORDERAB LES Performing Organization Address [facility] de Phone Number [facility] [address] * (ABNORMAL) HEMOGLOBIN A1C (12/29/2023 4:38 PM CDT) Hemoglobin A1c 9.2(H) 4.0 - 5.6 % 12/29/2023 4:50 PM CDT [facility] Estimated Average Glucose 217 mg/dL 12/29/2023 4:50 PM CDT [facility] Blood BLOOD SPECIMEN / Unknown Venipuncture / Unknown 12/29/2023 4:38 PM CDT 12/29/2023 4:41 PM CDT Narrative [facility] - 12/29/2023 4:50 PM CDT HGA1C Reference Ranges ??>= 6.5 ?? Diabetes* ??5.7-6.4 ??Impaired glucose tolerance ?? <5.7 ?Normal *In the absence of unequivocal hyperglycemia, results should be confirmed by repeat testing for the diagnosis of diabetes. [employer] 2018 Benito Gill MD EC CHEMISTRY ORDERAB LES ABN [facility] [address] * (ABNORMAL) BASIC METABOLIC PANEL (12/29/2023 4:38 PM CDT) Sodium 133(L) 134 - 143 mEq/L 12/29/2023 5:00 PM CDT [facility] Potassium 4.9 3.4 - 5.1 mEq/L 12/29/2023 5:00 PM CDT [facility] Chloride 101 99 - 110 mEq/L 12/29/2023 5:00 PM CDT [facility] Carbon Dioxide 24 19 - 29 mEq/L 12/29/2023 5:00 PM CDT [facility] Anion Gap 8.0 3.0 - 15.0 mEq/L 12/29/2023 5:00 PM CDT [facility] Blood Urea Nitrogen 43(H) 5 - 24 mg/dL 12/29/2023 5:00 PM CDT [facility] Creatinine 2.24(H) 0.70 - 1.20 mg/dL 12/29/2023 5:00 PM CDT [facility] Glomerular Filtration Rate 30(L) >60 mL/min/1. 73 m*2 12/29/2023 5:00 PM CDT [facility] Comment:Risk of cardiovascul ar disease increases when GFR is abnormal; persistently reduced GFR values are a specific indication of CKD. This calculation uses CKD- EPI 2020 equation without adjustment for race; it has not been validated in women. Calcium 9.3 8.4 - 10.5 mg/dL 12/29/2023 5:00 PM CDT [facility] Glucose 416(H) 70 - 99 mg/dL 12/29/2023 5:00 PM T [facility] Blood BLOOD SPECIMEN / Unknown Venipuncture / Unknown 12/29/2023 4:38 PM CDT 12/29/2023 4:40 PM CDT Narrative [facility] - 12/29/2023 5:00 PM CDT Current [...] >250: Measured NA + (0.016X(glucose-100)) for the [employer] chemistry analyzers. Benito Gill MD EC CHEMISTRY ORDERAB LES [facility] [address] [place] [address], [facility] * (ABNORMAL) HEMOGRAM/DIFFERENTIAL (12/29/2023 4:38 PM CDT) WBC 8.5 3.2 - 11.0 10*9/L 12/29/2023 4:43 PM CDT [facility] RBC 4.39 4.14 - 5.76 10*12/L 12/29/2023 4:43 PM CDT [facility] HGB 12.3(L) 12.9 - 16.9 g/dL 12/29/2023 4:43 PM CDT [facility] HCT 37.5(L) 38.4 - 49.7 % 12/29/2023 4:43 PM CDT [facility] MCV 85.4 81.4 - 99.0 fL 12/29/2023 4:43 PM CDT [facility] MCH 28.0 26.7 - 33.1 pg 12/29/2023 4:43 PM [facility] MCHC 32.8 31.6 - 35.5 g/dL 12/29/2023 4:43 PM [facility] RDW 15.0(H) 11.3 - 14.6 % 12/29/2023 4:43 PM [facility] PLT 407(H) 130 - 375 10*9/L 12/29/2023 4:43 PM [facility] Neutrophils % 84.7 % 12/29/2023 4:43 PM [facility] Lymphocytes % 13.0 % 12/29/2023 4:43 PM [facility] Monocytes % 1.9 % 12/29/2023 4:43 PM [facility] Eosinophils % 0.0 % 12/29/2023 4:43 PM [facility] Basophils % 0.0 % 12/29/2023 4:43 PM [facility] Immature Granulocytes % 0.4 % 12/29/2023 4:43 PM [facility] Neutrophils Absolute 7.2 1.5 - 7.6 10*9/L 12/29/2023 4:43 PM [facility] Lymphocytes Absolute 1.1 0.8 - 3.3 10*9/L 12/29/2023 4:43 PM [facility] Monocytes Absolute 0.2 0.2 - 0.9 10*9/L 12/29/2023 4:43 PM [facility] Eosinophils Absolute 0.0 0.0 - 0.4 10*9/L 12/29/2023 4:43 PM [facility] Basophils Absolute 0.0 0.0 - 0.1 10*9/L 12/29/2023 4:43 PM [facility] Immature Granulocytes Absolute 0.03 0.00 - 0.06 10*9/L 12/29/2023 4:43 PM CDT [facility] Blood BLOOD SPECIMEN / Unknown Venipuncture / Unknown 12/29/2023 4:38 PM CDT 12/29/2023 4:41 PM CDT Benito Gill MD EC HEMATOLOGY ORDERA BLES Performing Organization Address [facility] de Phone Number [facility] [address] [place] [address] * BETA-HYDROXYBUTYRATE (12/29/2023 4:38 PM CDT) Beta-Hydroxybu tyrate 0.07 0.02 - 0.27 mM 12/29/2023 5:00 PM CDT [facility] Blood BLOOD SPECIMEN / Unknown Venipuncture / Unknown 12/29/2023 4:38 PM CDT 12/29/2023 4:40 PM CDT Narrative [facility] - 12/29/2023 5:00 PM CDT Of the 3 ketone bodies contributing to ketosis and ketoacidosis (acetoacetate, acetone and B-hydroxybutyrate), the B-hydroxybutyrate normally represents over 75% of the total. Benito Gill MD EC CHEMISTRY ORDERAB LES Performing Organization Address [facility] de Phone Number [facility] [address] [place] [address] * LACTIC ACID, VENOUS (12/29/2023 4:38 PM CDT) Lactic Acid, Venous 1.2 0.5 - 2.0 mmol/L 12/29/2023 4:57 PM CDT [facility] Blood BLOOD SPECIMEN / Unknown Venipuncture / Unknown 12/29/2023 4:38 PM CDT 12/29/2023 4:40 PM CDT Benito Gill MD EC CHEMISTRY ORDERAB LES [facility] [address] * (ABNORMAL) GLUCOSE, METER (12/29/2023 3:01 PM CDT) Glucose Meter 405(H) 70 - 99 mg/dL 12/29/2023 3:09 PM CDT [facility] Blood WHOLE BLOOD SPECIMEN / Unknown 12/29/2023 3:01 PM CDT 12/29/2023 3:09 PM CDT Pcp Elsewhere EC CHEMISTRY ORDERAB LES Performing Organization Address City[facility] Co de Phone Number [facility] [address] documented in this encounter Visit Diagnoses [...] 12/29/2023 documented in this encounter Care Teams Service Loss Control Consultant Relationship Specialty Start Date End Date Niall Harding MD [address] [place] [id number] PCP - General Family Medicine 12/29/23 documented as of this encounter
--- OUTSIDE RECORDS SUMMARY | 2024-01-19 23:41 | XMS_ITS | Referral Summary ---
Author Organization [facility] Address [address] [place] [address] Care Team Providers Care Desk Clerks Supervisor Name Role Phone Niall Harding MD Primary Care Provider [phone] Allergies No known active allergies Medications Medication [...] mg by mouth daily Active calcium carbonate (OS-RIOG) 1500 (600 Ca) MG tablet Take 600 [...] Comments Blood Pressure 127/52 05/05/2023 8:55 AM SALES FLOOR ASSOCIATE Pulse 64 05/05/2023 8:54 AM SALES FLOOR ASSOCIATE Temperature 36.6 ??C (97.8 ??F) 05/05/2023 7:20 AM CS T Respiratory Rate 18 05/05/2023 7:20 AM SALES FLOOR ASSOCIATE Oxygen Saturation 96% 05/05/2023 7:20 AM SALES FLOOR ASSOCIATE Inhaled Oxygen Concentration - - Weight 101.1 kg (222 lb 12.8 oz) 2022 12:36 AM SALES FLOOR ASSOCIATE Height 180.3 cm (5' 11) 05/02/2023 12: 36 AM SALES FLOOR ASSOCIATE Body Mass Index 31.07 05/02/2023 12:36 AM SALES FLOOR ASSOCIATE Plan of Treatment Not on file Medical Devices Implanted Type Area Wire Coater Device Identifier Shelf Expiration Date Model / Serial / Lot Graft Bone Magnifuse [id number] - [id number] Implanted:Qty : 1 on 04/16/2023 by Thang Negrete MD at [facility] Bone/Tissu e/Biologic N/A: Spine Lumbar [employer] [id number] 03/19/2025 [id number] / [id number] / Graft Bone Fibers Dbf 6ml Inj [id number] Preloaded - [id number] Implanted:Qty : 1 on 04/16/2023 by Thang Negrete MD at [facility] Bone/Tissu e/Biologic N/A: Spine Lumbar [employer] 10/21/2024 [id number] / [id number] / Pass Lp Crosslink [id number] Implanted:Qty : 1 on 04/16/2023 by Thang Negrete MD at [facility] Metallic Hardware/A nchor N/A: Spine Lumbar [employer] [id number] / / [id number] NOV 2022 Imp Screw Bn Medt Spine 50x6.5mm 5.5/6mm Paul - [id number] Implanted:Qty : 6 on 04/16/2023 by Thang Negrete MD at [facility] Metallic Hardware/A nchor N/A: Spine Lumbar [employer] [id number] / / [id number] NOV 2022 Imp Screw Bn Medt Spine 45x7.5mm 5.5/6mm Paul - [id number] Implanted:Qty : 2 on 04/16/2023 by Thang Negrete MD at [facility] Metallic Hardware/A nchor N/A: Spine Lumbar [employer] [id number] / / [id number] 2022 Imp Scr Set Medt Solera Break Off 5.5mm Ti [id number] - [id number] Implanted:Qty : 8 on 04/16/2023 by Thang Negrete MD at [facility] Metallic Hardware/A nchor N/A: Spine Lumbar [employer] [id number] / / [id number] NOV [address]pi Interbody Medt [address] Long 7mm [id number] - [id number] Implanted:Qty : 1 on 04/16/2023 by Thang Negrete MD at [facility] Metallic Hardware/A nchor N/A: Spine Lumbar [employer] 12/26/2029 [id number] / / [id number] Imp Spi Interbody Medt Catalyft Pl Long 7mm [id number] - [id number] Implanted:Qty : 1 on 04/16/2023 by Thang Negrete MD at [facility] Metallic Hardware/A nchor N/A: Spine Lumbar [employer] 11/28/2029 [id number] / / [id number] Imp Spi Interbody Medt Catalyft [address] Long 7mm [id number] - [id number] Implanted:Qty : 1 on 04/16/2023 by Thang Negrete MD at [facility] Metallic Hardware/A nchor N/A: Spine Lumbar [employer] 11/26/2029 [id number] / / [id number] Imp Paul Medt Solera Cvd 5.5x90mm Ti [id number] - [id number] Implanted:Qty : 2 on 04/16/2023 by Thang Negrete MD at [facility] Metallic Hardware/A nchor N/A: Spine Lumbar [employer] [id number] / / [id number] 2022 Procedures Procedure Name Priority Date/Time Associated Diagnosis Comments GLUCOSE BY METER Routine 05/05/2023 1:59 AM SALES FLOOR ASSOCIATE from Last 3 Months or Most Recently Relevant to Health Maintenance Results * (ABNORMAL) Glucose by meter (05/05/2023 1:59 AM SALES FLOOR ASSOCIATE) [facility] GLUCOSE BY METER POCT 157(H) 70 - 99 mg/dL 05/05/2023 2:06 AM SALES FLOOR ASSOCIATE LABORATORY POC Blood, Capillary BLOOD SPECIMEN / Unknown 05/05/2023 1:59 AM SALES FLOOR ASSOCIATE 05/05/2023 2:06 AM SALES FLOOR ASSOCIATE Rohit GIRALDO [facility] [address] Lab (1st floor, no room number) [place] [address], [facility] [phone] from Last 3 Months or Most Recently Relevant to Health Maintenance Advance Directives For more information, please contact: [phone] * Full Code (Latest Code Status on [...] by: Other (please patricia t) Care Teams Desk Clerks Supervisor Relationship Specialty Start Date End Date Niall Harding MD [address] [place] [address] [facility] - General 04/16/23
--- OUTSIDE RECORDS SUMMARY | 2024-01-19 23:41 | XMS_ITS | Encounter Summary ---
Author Organization [facility] Address [address] [place] [address] Care Team Providers Care Drawbench Operator Helper Name Role Phone Niall Harding MD Primary Care Provider [phone] Encounter Details Date Type Department Care Team (Late st Contact Info) Description 09/08/2023 Documentation Only [facility] [address] [place], [place] [address] [address] No, Pcp Social History Tobacco [...] on filedocumented in this encounter Care Teams Drawbench Operator Helper Relationship Specialty Start Date End Date Niall Harding [place] [address] PCP - General Family Medicine 09/08/23 documented as of this encounter
--- OUTSIDE RECORDS SUMMARY | 2024-01-19 23:41 | XMS_ITS | Data Portability ---
Author Organization [facility] Address [address] [place] [address] Care Team Providers Care Catechist Name Role Phone ALYSHA TREADWELL Primary Care Provider [phone] Assessment No assessment recorded. Plan of Treatment [...] + pelvis, w/o contras t 2023 024 [facility], [address] [place], [address], 10/08/2023 08:51:15 Medication Orders None recorde d. [...] contr ast No observ ation record ed. [facility] [address], [place], [address], 11/24/2023 12:14:43 Result Notes None recorded. 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 T3b. Carlos Elizabeth MD [address] [place] [address],[address], [place], [address], [facility] 12:18:57 Problem Notes None recorded. Procedures Surgical History Date Name Laterality Status Provider Name and Address Organization Details Recorded Time 09/18/19 24 COMPLEX VISIT completed Carlos Elizabeth MD [address] [place] [address],[address], [place], [address], [facility] 09/18/2023 14:25:08 08/22/19 24 NEPHRECTOMY, HAND ASSISTED LAPAROSCOPIC (SURG) completed Teresa aguilar [facility] 08/27/2023 10:55:06 08/07/19 24 COMPLEX VISIT completed Carlos Elizabeth MD [address] [place] [address],[address], [place], [address], [facility] 08/07/2023 13:52:16 procedure on back completed Carlos Elizabeth MD [address] [place] [address],[address], [place], [address], [facility] 08/07/2023 12:10:59 total replacement of hip completed Carlos Elizabeth MD [address] [place] [address],[address], [place], [address], [facility] 08/07/2023 12:11:10 Imaging Results Imaging Date Name Status LastModified by Organiz [facility] Details LastModified Time 07/30/2023 MRI, abdomen, w/wo contrast completed Information not available 07/31/2023 16:01:11 07/24/2023 US, renal completed Information no t available 07/31/2023 16:02:06 10/08/2023 CT, chest + abdomen + pelvis, w/o contrast completed [facility] [address], [place], [address], 11/24/2023 12:14:43 Procedure Notes None recorded. Medical [...] Address Organization Details Last Updated DateTime 08/07/2023 708666.28 g 31.4 kg/m2 180.34 cm Carlos Elizabeth MD [address] [place] [address],[address] [facility] 08/07/2023 12:07:38 Date Recorded Body height Body mass index (BMI) Body weight Provider Name and Address Organization Details Last Updated DateTime 09/18/2023 180.34 cm 31.4 kg/m2 763419.28 g Carlos Elizabeth MD [address] [place] [address],[address] [facility] 09/18/2023 12:04:31 Date Recorded Body height Body mass index (BMI) Body weight Provider Name and Address Organization Details Last Updated DateTime 11/27/2023 180.34 cm 30 kg/m2 63708.36 g Carlos Elizabeth MD [address] [place] [address] [facility] 11/27/2023 12:01:31 Social History Question Answer Notes LastModified by Organizat ion Details LastModified Time Tobacco Smoking Status Former Smoker Carlos Elizabeth MD [address] [place] [address], [address] [place] [address], [facility] 08/07/2023 12:10:26 What Is Your [...] trivalent, PF 02/24/2019 completed Carlos Elizabeth MD [address] [place] [address],[address] [place] [address], [address], [facility] 08/07/2023 12:07:49 Influenza, adjuvanted, trivalent, PF 02/27/2018 completed Carlos Elizabeth MD [address] [place] [address],[address] [place] [address], [address], [facility] 08/07/2023 12:07:49 Influenza, adjuvanted, trivalent, PF 04/09/2017 completed Carlos Elizabeth MD [address] [place] [address],[address] [place] [address], [address], [facility] 08/07/2023 12:07:49 zoster recombinant 11/25/2019 completed Carlos ochoa MD [address] [place] [address],[address], [address], [facility] 08/07/2023 12:07:49 zoster recombinant 02/21/2020 completed Carlos ochoa MD [address] [place] [address],[address] [place] [address], [address], [facility] 08/07/2023 12:07:49 Influenza, high-dose, quadrivalent, PF 02/17/2023 completed Carlos Elizabeth MD [address] [place] [address],[address], [address], [facility] 08/07/2023 12:07:49 Influenza, high-dose, quadrivalent, PF 03/14/2022 completed Carlos Elizabeth MD [address] [place] [address],[address], [address], [facility] 08/07/2023 12:07:49 Influenza, adjuvanted, quadrivalent, PF 02/01/2020 completed Carlos Elizabeth MD [address] [place] [address],[address], [address], [facility] 08/07/2023 12:07:49 Influenza, adjuvanted, quadrivalent, PF 02/01/2021 completed Carlos Elizabeth MD [address] [place] [address],[address], [place], [address], [facility] 08/07/2023 12:07:49 COVID-19, mRNA, LNP-S, PF, 30 mcg/0.3 mL dose 07/05/2020 completed Carlos Elizabeth MD [address] [place] [address],[address], [place], [address], [facility] 08/07/2023 12:07:50 COVID-19, mRNA, LNP-S, PF, 30 mcg/0.3 mL dose 07/26/2020 completed Carlos Elizabeth MD [address] [place] [address],[address], [place], [address], [facility] 08/07/2023 12:07:50 COVID-19, mRNA, LNP-S, PF, 30 mcg/0.3 mL dose 02/09/2021 completed Carlos Elizabeth MD [address] [place] [address],[address], [place], [address], [facility] 08/07/2023 12:07:50 COVID-19, mRNA, LNP-S, PF, 30 mcg/0.3 mL dose, radha-sucrose 08/15/2021 completed Carlos Elizabeth MD [address] [place] [address],[address], [place], [address], [facility] 08/07/2023 12:07:50 COVID-19, mRNA, LNP-S, bivalent, PF, 30 mcg/0.3 mL dose 03/14/2022 completed Carlos Elizabeth MD [address] [place] [address],[address], [place], [address], [facility] 08/07/2023 12:07:50 RSV, recombinant, protein subunit RSVpreF, adjuvant reconstituted, 0.5 mL, PF 03/19/2023 completed Carlos Elizabeth MD [address] [place] [address],[address], [place], [address], [facility] 08/07/2023 12:07:50 COVID-19, mRNA, LNP-S, PF, radha-sucrose, 30 mcg/0.3 mL 02/17/2023 completed Carlos Elizabeth MD [address] [place] [address],[address], [place], [address], [facility] 08/07/2023 12:07:50 pneumococcal polysaccharide PPV23 01/28/2008 completed Carlos Elizabeth MD [address] [place] [address],[address], [place], [address], [facility] 08/07/2023 12:07:50 pneumococcal polysaccharide PPV23 02/24/2019 completed Carlos Elizabeth MD [address] [place] [address],[address], [place], [address], [facility] 08/07/2023 12:07:50 influenza, unspecified formulation 03/11/2018 completed Carlos Elizabeth MD [address] [place] [address],[address], [place], [address], [facility] 08/07/2023 12:07:50 Tdap 08/01/2009 completed Carlos Elizabeth MD [address] [place] [address],[address], [place], [address], [facility] 08/07/2023 12:07:50 Tdap 11/25/2019 completed Carlos Elizabeth MD [address] [place] [address],[address], [place], [address], [facility] 08/07/2023 12:07:50 Novel Ieyrehuns-V5X3-34, all formulations 04/25/2009 completed Carlos Elizabeth MD [address] [place] [address],[address], [place], [address], [facility] 08/07/2023 12:07:50 Pneumococcal conjugate PCV 13 10/30/2016 completed Carlos Elizabeth MD [address] [place] [address],[address], [place], [address], [facility] 08/07/2023 12:07:50 zoster live 03/05/2012 completed Carlos Elizabeth MD [address] [place] [address],[address], [place], [address], [facility] 08/07/2023 12:07:50 Influenza, split virus, trivalent, preservative 02/20/2015 completed Carlos Elizabeth MD [address] [place] [address],[address] [place] [address], [address], [facility] 08/07/2023 12:07:50 Influenza, split virus, trivalent, preservative 02/23/2013 completed Carlos Elizabeth MD [address] [place] [address],[address], [address], [facility] 08/07/2023 12:07:50 Influenza, split virus, trivalent, preservative 03/03/2008 completed Carlos Elizaebth MD [address] [place] [address],[address], [address], [facility] 08/07/2023 12:07:50 Influenza, split virus, trivalent, preservative 03/05/2012 completed Carlos Elizabeth MD [address] [place] [address],[address] [place] [address], [address], [facility] 08/07/2023 12:07:50 Influenza, split virus, trivalent, preservative 04/01/2007 completed Carlos Elizabeth MD [address] [place] [address],[address] [place] [address], [address], [facility] 08/07/2023 12:07:50 Influenza, split virus, trivalent, PF 03/01/2011 completed Carlos Elizabeth MD [address] [place] [address],[address] [place] [address], [address], [facility] 08/07/2023 12:07:50 Influenza, split virus, trivalent, PF 04/25/2009 completed Carlos Elizabeth MD [address] [place] [address],[address] [place] [address], [address], [facility] 08/07/2023 12:07:50 Influenza, split virus, quadrivalent, PF 03/03/2014 completed Carlos Elizabeth MD [address] [place] [address],[address], [address], [facility] 08/07/2023 12:07:50 Influenza, split virus, quadrivalent, PF 04/05/2016 completed Carlos Elizabeth MD [address] [place] [address],[address] [place] [address], [address], [facility] 08/07/2023 12:07:50 Past Encounters Encounter ID Performer Location Encounter Start Date Encounter Closed Date Diagnosis/Indication Diagnosis SNOMED-CT Code Diagnosis ICD10 Code [id number] MD ADRIANA Jasmine_[facility] [address] [place] [id number] 08/07/2023 11:55:10 08/08/2023 09:52:10 Renal mass [id number] N28.89 [id number] MD ADRIANA Jasmine_[facility] [address] [place] [address] 09/18/2023 11:53:48 09/19/2023 11:26:56 Malignant tumor of kidney 809463321 C64.9 [id number] MD ADRIANA [facility] [address] [place] [address] 11/27/2023 11:42:20 12/04/2023 11:52:06 Malignant tumor of kidney 714553502 C64.9 Health Concerns Section Related Observation LastModified by Organization Detai ls LastModified Time None Recorded Concern Status LastModified by Organization Details LastModified Time None Recorded Advance Directives Directive None Recorded Payers Encounter Date Sequence Insurance Name Policy Number Policy Lim Covered Member ID Lim Member ID Guarantor Name 08/07/2023 1 [place] [id number] Brooke J Ronak [id number] Brooke Ronak 09/18/2023 1 [place] [id number] Brooke J Ronak [id number] Brooke Ronak 11/27/2023 1 [place] [id number] Brooke J Ronak [id number] Brooke Ronak Notes Date Note Type Note [...] from a posterior approach. Carlos Elizabeth MD [address] [place] [address],[address], [place], [address], [facility] 08/07/2023 13:52:30 09/18/2023 text/html HPI Notes: Suah schaeffer up kidney cancer. He had a nephrectomy and the final pathology showed Grade 4 RCC with invasion into the hilum. Stage T3a. He came with his and son. Carlos Elizabeth MD [address], [place], [address], [facility] 09/18/2023 14:25:17 11/27/2023 text/html HPI Notes: Suha schaeffer up kidney cancer. His nephrectomy was in July,. He is undergoing immunotherapy for metastatic disease. He has lymphadenopathy and lung mets. Carlos Elizabeth MD [address] [place] [address],[address], [place], [address], [facility] 11/27/2023 12:19:08
--- OUTSIDE RECORDS SUMMARY | 2024-01-19 23:41 | XMS_ITS | Clinical Summary ---
Author Organization [facility] Address [address] [place] [address] Care Team Providers Care Tank Truck Mechanic Name Role Phone Sukhjinder Trinidad MD Primary [...] Sex Assigned at Male 07/04/2020 1:48 PM ROUTE SUPERVISOR Gender Identity Male 07/04/2020 1:48 PM ROUTE SUPERVISOR Sexual Orientation Straight 07/04/2020 1: 48 PM ROUTE SUPERVISOR Last Filed Vital Signs Vital Sign Reading Time Taken Comments Blood Pressure 189/83 07/07/2018 12:15 PM ROUTE SUPERVISOR Pulse 65 07/07/2018 12:15 PM ROUTE SUPERVISOR Temperature 36.2 ??C (97.2 ??F) 07/07/2018 12:[address] Respiratory Rate 14 07/07/2018 12:15 PM ROUTE SUPERVISOR Oxygen Saturation 96% 07/07/2018 12:15 PM ROUTE SUPERVISOR Inhaled Oxygen Concentration - - Weight 114.8 kg (253 lb) 07/01/2018 10:20 AM ROUTE SUPERVISOR Height 175.3 cm (5' 9) 07/01/2018 10:20 AM ROUTE SUPERVISOR Body Mass Index 37.36 07/01/2018 10:20 AM ROUTE SUPERVISOR Plan of Treatment Health Maintenance Due [...] Vaccine Completed 02/21/2020, 0701/2020, 03/05/2012 Care Teams Tank Truck Mechanic Relationship Specialty Start Date End Date Sukhjinder Trinidad MD PCP - General 01/15/16
--- OUTSIDE RECORDS SUMMARY | 2024-01-19 23:41 | XMS_ITS | Encounter Summary ---
Author Organization [facility] Address [address] [place] [address] Care Team Providers Care Transit Police Officer Name Role Phone Niall Harding MD Primary Care Provider [phone] Encounter Details Date Type Department Care Team (Late st Contact Info) Description 01/07/2024 Office Communication [facility] [address] [place] [address] Giorgio Callejas MD [address] [place] [address] Social History Tobacco Use Types [...] on filedocumented in this encounter Care Teams Transit Police Officer Relationship Specialty Start Date End Date Niall Harding MD [address] [place] [address] PCP - General Family Medicine 09/08/23 documented as of this encounter
--- OUTSIDE RECORDS SUMMARY | 2024-01-19 23:41 | XMS_ITS | Continuity of Care Document ---
Author Organization [facility] Address [address] [address] [place] [address] Phone Care Team Providers Care Forestry Laborer Name Role Phone Kira Brock CRNA Unavailable [...] tablets per colonoscopy prep instructions received from [facility] - Active procedure 09/19/22 Miralax 17 gram/dose oral powder Take by oral route per colonoscopy prep instructions received from [facility] - Active 09/19/22 procedure atenolol 50 mg [...] Diagnoses Date Provider Providers Copied on Encounter [facility] [address] [address], [place], [id number], [place] tel:[phone] [facility] No Information 3 Vinod Malone. [address] [facility] [address], [place], [place], [address], [place]. tel:[phone] Referring Provider: Kadeem Middleton, [address], [place], [address]. tel:[phone] [facility] IDANIA [address] [address], [place], [id number], [place] tel:[phone] [facility] GI Symptoms or Concerns (chief complaint) Personal history of colonic polypsEncount er for screening for malignant neoplasm of colonPersonal history of colonic polyps 3 Shahida Quan. [address] [facility] [address], [place], [place], [address], [place]. tel:[phone] Referring Provider: Juanito Noble, [address] , [place], [address]. tel:[phone] [facility], [address] [address], [place], [address], [place] tel:[phone] [facility] No Information 3 Nain Sharma. [address] [facility] [address], [place], [place], [address], [place]. tel:[phone] [facility], [address] [address], [place], [address], [place] tel:[phone] [facility] No Information 3 Nain Sharma. [address], [facility] [address], [place], [address], [place]. tel:[phone] [facility], [address] [address], [place], [address], [place] tel:[phone] [facility] No Information 1 Shahida Quan. [address], [facility] [address], [place], [place], [address], [place]. tel:[phone] Referring Provider: Kadeem Middleton, [address] [facility] [address], [place], [address]. tel:[phone] [facility], [address] [address], [place], [address], [place] tel:[phone] [facility] Colon adenoma 1 Shahida Quan. [address] [facility] [address], [address], [place]. tel:[phone] [facility], [address] [address], [place], [address], [place] tel:[phone] [facility] No Information 1 Shahida Quan. [address], [address], [place], [place], [address], [place]. tel:[phone] Referring Provider: Kadeem Middleton, [address], [place], [address]. tel:[phone] [facility], [address] [address], [place], [address], [place] tel:[phone] [facility] Colon adenoma 1 Shahida Quan. [address], [facility] [address], [address], [place]. tel:[phone] [facility], [address] [address], [place], [address], [place] tel:[phone] [facility] Colon adenoma 1 Shahida Quan. [address], [facility] [address], [place], [place], [address], [place]. tel:[phone] Referring Provider: Referral Self, USE FOR SELF REFERRALS. Offic Cons New/estab Low [facility], [address] [address], [place], [id number], [place] tel:[phone] [facility] GI Symptoms or Concerns (chief complaint) Personal history of colonic polyps 1 Tarik Segal. [address], [address], [place], [place], [address], [place]. tel:[phone] Referring Provider: Juanito Noble, [facility] [address] , [place], [address]. tel:[phone] [facility], [address] [address], [place], [address], [place] tel:[phone] [facility] No Information 1 Mg Carrera. [address], [place] [address], [place], [place], [address], . tel:[phone] Family History Family Member Type Diagnosis Age [...] i-directional interface ; Source: Other Registry Novel [id number], all formulations administered Note: [facility] bi-direct ional [...] Registry Payers Payer name Insurance type Covered republican ID Authoriza tion(s) [employer] [place] [employer] BL [id number] Social History Type Description Quantity Date Captured [...] involve the appendiceal orifice. The endoscopist in [place] thought there was a potential that these [...]
--- OUTSIDE RECORDS SUMMARY | 2024-01-19 23:41 | XMS_ITS | Continuity of Care Document ---
Author Organization [facility] Address [address] [place] [address] [address] [place] [address] Phone Care Team Providers Care Professor Of Musicology Name Role Phone Sean Sena Unavailable Unavailable Advance Directives Directive Yes / No Effective Date File Name No Information Encounters Encounter Description Practice Location Reason(s) For Visit Diagnoses Date Provider Providers Copied on Encounter [facility], [address] [place], [place] [address] [address], [place], [address], [place] tel:[phone] [facility] No Information Jul-2 9-200 8 Louise Estrada. [address], [place], [place], [address] , [place]. tel:[phone] Family History Family Member Type Diagnosis Age [...]
--- OUTSIDE RECORDS SUMMARY | 2024-01-19 23:41 | XMS_ITS | Referral Summary ---
Author Organization [facility] Address [address] [place] [address] Care Team Providers Care Weather Teacher Name Role Phone Sukhjinder Trinidad MD Primary [...] Sex Assigned at Male 07/04/2020 1:48 PM BOILER HOUSE MECHANIC Gender Identity Male 07/04/2020 1:48 PM BOILER HOUSE MECHANIC Sexual Orientation Straight 07/04/2020 1: 48 PM BOILER HOUSE MECHANIC Last Filed Vital Signs Vital Sign Reading Time Taken Comments Blood Pressure 189/83 07/07/2018 12:15 PM BOILER HOUSE MECHANIC Pulse 65 07/07/2018 12:15 PM BOILER HOUSE MECHANIC Temperature 36.2 ??C (97.2 ??F) 07/07/2018 12:[address] Respiratory Rate 14 07/07/2018 12:15 PM BOILER HOUSE MECHANIC Oxygen Saturation 96% 07/07/2018 12:15 PM BOILER HOUSE MECHANIC Inhaled Oxygen Concentration - - Weight 114.8 kg (253 lb) 07/01/2018 10:20 AM BOILER HOUSE MECHANIC Height 175.3 cm (5' 9) 07/01/2018 10:20 AM BOILER HOUSE MECHANIC Body Mass Index 37.36 07/01/2018 10:20 AM BOILER HOUSE MECHANIC Plan of Treatment Not on file Care Teams Weather Teacher Relationship Specialty Start Date End Date Sukhjinder Trinidad MD PCP - General 01/15/16
--- OUTSIDE RECORDS SUMMARY | 2024-01-19 23:41 | XMS_ITS | Clinical Summary ---
Author Organization [facility] Address [address] [place] [address] Care Team Providers Care Skilled Labor Name Role Phone Niall Harding MD Primary Care Provider [phone] Allergies No known active allergies Medications Medication [...] Comments Blood Pressure 127/52 05/05/2023 8:55 AM CREDIT NEGOTIATOR Pulse 64 05/05/2023 8:54 AM CREDIT NEGOTIATOR Temperature 36.6 ??C (97.8 ??F) 05/05/2023 7:20 AM CS T Respiratory Rate 18 05/05/2023 7:20 AM CREDIT NEGOTIATOR Oxygen Saturation 96% 05/05/2023 7:20 AM CREDIT NEGOTIATOR Inhaled Oxygen Concentration - - Weight 101.1 kg (222 lb 12.8 oz) 2022 12:36 AM CREDIT NEGOTIATOR Height 180.3 cm (5' 11) 05/02/2023 12: 36 AM CREDIT NEGOTIATOR Body Mass Index 31.07 05/02/2023 12:36 AM CREDIT NEGOTIATOR Plan of Treatment Health Maintenance Due Date [...] calendar year) 2023 COVID-19 Vaccine ( season) 2024 02/17/2023, 03/14/2022, 08/15/2021, Additional history exists INFLUENZA [...] this topic Medical Devices Implanted Type Area Staffing Program Manager Device Identifier Shelf Expiration Date Model / Serial / Lot Graft Bone Magnifuse [id number] - [id number] Implanted:Qty : 1 on 04/16/2023 by Thang Negrete MD at [facility] Bone/Tissu e/Biologic N/A: Spine Lumbar [employer] [id number] 03/19/2025 [id number] / [id number] / Graft Bone Fibers Dbf 6ml Inj [id number] Preloaded - [id number] Implanted:Qty : 1 on 04/16/2023 by Thang Negrete MD at [facility] Bone/Tissu e/Biologic N/A: Spine Lumbar [employer] 10/21/2024 [id number] / [id number] / Pass Lp Crosslink [id number] Implanted:Qty : 1 on 04/16/2023 by Thang Negrete MD at [facility] Metallic Hardware/A nchor N/A: Spine Lumbar [employer] [id number] / / [id number] NOV 2022 Imp Screw Bn Medt Spine 50x6.5mm 5.5/6mm Paul - [id number] Implanted:Qty : 6 on 04/16/2023 by Thang Negrete MD at [facility] Metallic Hardware/A nchor N/A: Spine Lumbar [employer] [id number] / / 8005 NOV 2022 Imp Screw Bn Medt Spine 45x7.5mm 5.5/6mm Paul - [id number] Implanted:Qty : 2 on 04/16/2023 by Thang Negrete MD at [facility] Metallic Hardware/A nchor N/A: Spine Lumbar [employer] [id number] / / [id number] 2022 Imp Scr Set Medt Solera Break Off 5.5mm Ti [id number] - [id number] Implanted:Qty : 8 on 04/16/2023 by Thang Negrete MD at [facility] Metallic Hardware/A nchor N/A: Spine Lumbar [employer] [id number] / / 8005 20[address] Imp Spi Interbody Medt [address] Long 7mm [id number] - [id number] Implanted:Qty : 1 on 04/16/2023 by Thang Negrete MD at [facility] Metallic Hardware/A nchor N/A: Spine Lumbar [employer] 12/26/2029 [id number] / / [id number] Imp Spi Interbody Medt Catalyft [address] Long 7mm [id number] - [id number] Implanted:Qty : 1 on 04/16/2023 by Thang Negrete MD at [facility] Metallic Hardware/A nchor N/A: Spine Lumbar [employer] 11/28/2029 [id number] / / [id number] Imp Spi Interbody Medt Catalyft [address] Long 7mm [id number] - [id number] Implanted:Qty : 1 on 04/16/2023 by Thang Negrete MD at [facility] Metallic Hardware/A nchor N/A: Spine Lumbar [employer] 11/26/2029 [id number] / / [id number] Imp Paul Medt Solera Cvd 5.5x90mm Ti [id number] - [id number] Implanted:Qty : 2 on 04/16/2023 by Thang Negrete MD at [facility] Metallic Hardware/A nchor N/A: Spine Lumbar [employer] [id number] / / [id number] 2022 Procedures Procedure Name Priority Date/Time Associated Diagnosis Comments GLUCOSE BY METER Routine 05/05/2023 1:59 AM CREDIT NEGOTIATOR from Last 3 Months or Most Recently Relevant to Health Maintenance Results * (ABNORMAL) Glucose by meter (05/05/2023 1:59 AM CREDIT NEGOTIATOR) GLUCOSE BY METER POCT 157(H) 70 - 99 mg/dL 05/05/2023 2:06 AM CREDIT NEGOTIATOR LABORATORY POC Blood, Capillary BLOOD SPECIMEN / Unknown 05/05/2023 1:59 AM CREDIT NEGOTIATOR 05/05/2023 2:06 AM CREDIT NEGOTIATOR Rohit GIRALDO POCT RH LABORATORY POC [facility] [address] (1st floor, no room number) [place] [address], [facility] [phone] from Last 3 Months or Most Recently Relevant to Health Maintenance Advance Directives For more information, please contact: [phone] * Full Code (Latest Code Status on [...] by: Other (please patricia t) Care Teams Skilled Labor Relationship Specialty Start Date End Date Niall Harding MD [address] [place] [address] PCP - General 04/16/23
--- OUTSIDE RECORDS SUMMARY | 2024-01-19 23:41 | XMS_ITS | Encounter Summary ---
Author Organization [facility] Address [address] [place] [address] Care Team Providers Care Program Eligibility Specialist Name Role Phone Niall Harding MD Primary Care Provider [phone] Encounter Details Date Type Department Care Team (Late st Contact Info) Description 10/18/2023 Orders Only [facility] [address] [place] [address] Giorgio Callejas MD [address] [place] [address] Chronic kidney disease stage 4 [...] (HCC) documented in this encounter Care Teams Program Eligibility Specialist Relationship Specialty Start Date End Date Niall Harding MD [address] [facility] [place] [address] PCP - General Family Medicine 09/08/23 documented as of this encounter
--- OUTSIDE RECORDS SUMMARY | 2024-01-19 23:41 | XMS_ITS | Continuity of Care Document ---
Author Organization [facility] Address [address] [place] 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 T3b. Carlos Elizabeth MD [address] [place] [address],[address] [place] [address], [phone], [facility] 12:18:57 Problem Notes None recorded. Procedures Surgical History Date Name Laterality Status Provider Name and Address Organization Details Recorded Time 09/18/19 24 COMPLEX VISIT completed Carlos Elizabeth MD [address] [place] [address],[address], [place], [address], [facility] 09/18/2023 14:25:08 08/22/19 24 NEPHRECTOMY, HAND ASSISTED LAPAROSCOPIC (SURG) completed Teresa aguilar [facility] 08/27/2023 10:55:06 08/07/19 24 COMPLEX VISIT completed Carlos Elizabeth MD [address] [place] [address],[address], [place], [address], [facility] 08/07/2023 13:52:16 procedure on back completed Carlos Elizabeth MD [address] [facility],[address], [place], [address], [facility] 08/07/2023 12:10:59 total replacement of hip completed Carlos Elizabeth MD [address] [facility] [address], [place], [address], [facility] 08/07/2023 12:11:10 Imaging Results None [...] Updated DateTime 11/27/2023 180.34 cm 30 kg/m2 72452.36 g Carlos Elizabeth MD [address] [place] [address],[address] [place] [address] [facility] 11/27/2023 12:01:31 Social History Question Answer Notes LastModified by Organizat ion Details LastModified Time Tobacco Smoking Status Former Smoker Carlos Elizabeth MD [address] [place] [address],[place] [phone] [place] [address] [facility] 08/07/2023 12:10:26 What Is Your Level [...] problems or disability Medical History Condition Response Sexually Transmitted Infection N Diabetes N Other N Bleeding Disorder N High Blood Pressure Y Kidney Stones N High Cholesterol Y GERD/Acid Reflux Y Heart Disease N Cancer N Lung Disease N Depression Y Immunizations Vaccine Type Date Status Provider Name and Address Organization Details Recorded Time Influenza, adjuvanted, trivalent, PF 02/24/2019 completed Carlos Elizabeth MD [address] [place] [address],[address], [phone] [place] [address] [facility] 08/07/2023 12:07:49 Influenza, adjuvanted, trivalent, PF 02/27/2018 completed Carlos Elizabeth MD [address] [place] [address],[address], [place], [address], [facility] 08/07/2023 12:07:49 Influenza, adjuvanted, trivalent, PF 04/09/2017 completed Carlos Elizabeth MD [address] [place] [address],[address], [place], [address], [facility] 08/07/2023 12:07:49 zoster recombinant 11/25/2019 completed Carlos ochoa MD [address] [place] [address],[address], [place], [address], [facility] 08/07/2023 12:07:49 zoster recombinant 02/21/2020 completed Carlos ochoa MD [address] [place] [address],[address], [place], [address], [facility] 08/07/2023 12:07:49 Influenza, high-dose, quadrivalent, PF 02/17/2023 completed Carlos Elizabeth MD [address] [place] [address],[address], [place], [address], [facility] 08/07/2023 12:07:49 Influenza, high-dose, quadrivalent, PF 03/14/2022 completed Carlos Elizabeth MD [address] [place] [address],[address], [place], [address], [facility] 08/07/2023 12:07:49 Influenza, adjuvanted, quadrivalent, PF 02/01/2020 completed Carlos Elizabeth MD [address] [place] [address],[address], [place], [address], [facility] 08/07/2023 12:07:49 Influenza, adjuvanted, quadrivalent, PF 02/01/2021 completed Carlos Elizabeth MD [address] [place] [address],[address], [place], [address], [facility] 08/07/2023 12:07:49 COVID-19, mRNA, LNP-S, PF, 30 mcg/0.3 mL dose 07/05/2020 completed Carlos Elizabeth MD [address] [place] [address],[address], [place], [address], [facility] 08/07/2023 12:07:50 COVID-19, mRNA, LNP-S, PF, 30 mcg/0.3 mL dose 07/26/2020 completed Carlos Elizabeth MD [address] [place] [address],[address], [place], [address], [facility] 08/07/2023 12:07:50 COVID-19, mRNA, LNP-S, PF, 30 mcg/0.3 mL dose 02/09/2021 completed Carlos Elizabeth MD [address] [place] [address],[address], [place], [address], [facility] 08/07/2023 12:07:50 COVID-19, mRNA, LNP-S, PF, 30 mcg/0.3 mL dose, radha-sucrose 08/15/2021 completed Carlos Elizabeth MD [address] [place] [address],[place] [address], [place], [address], [facility] 08/07/2023 12:07:50 COVID-19, mRNA, LNP-S, bivalent, PF, 30 mcg/0.3 mL dose 03/14/2022 completed Carlos Elizabeth MD [address] [place] [address],[address], [address], [facility] 08/07/2023 12:07:50 RSV, recombinant, protein subunit RSVpreF, adjuvant reconstituted, 0.5 mL, PF 03/19/2023 completed Carlos Elizabeth MD [address] [place] [address],[facility] [address], [place], [address], [facility] 08/07/2023 12:07:50 COVID-19, mRNA, LNP-S, PF, radha-sucrose, 30 mcg/0.3 mL 02/17/2023 completed Carlos Elizabeth MD [address] [place] [address],[address], [place], [address], [facility] 08/07/2023 12:07:50 pneumococcal polysaccharide PPV23 01/28/2008 completed Carlos Elizabeth MD [address] [place] [address],[address], [address], [facility] 08/07/2023 12:07:50 pneumococcal polysaccharide PPV23 02/24/2019 completed Carlos Elizabeth MD [address] [place] [address],[address], [place], [address], [facility] 08/07/2023 12:07:50 influenza, unspecified formulation 03/11/2018 completed Carlos Elizabeth MD [address] [place] [address],[address], [place], [address], [facility] 08/07/2023 12:07:50 Tdap 08/01/2009 completed Carlos Elizabeth MD [address] [place] [address],[address], [place], [address], [facility] 08/07/2023 12:07:50 Tdap 11/25/2019 completed Carlos Elizabeth MD [address] [place] [address],[address], [place], [address], [facility] 08/07/2023 12:07:50 Novel Qhnwzoath-F7X3-97, all formulations 04/25/2009 completed Carlos Elizabeth MD [address] [place] [address],[address], [place], [address], [facility] 08/07/2023 12:07:50 Pneumococcal conjugate PCV 13 10/30/2016 completed Carlos Elizabeth MD [address] [place] [address],[address], [place], [address], [facility] 08/07/2023 12:07:50 zoster live 03/05/2012 completed Carlos Elizabeth MD [address] [place] [address],[address], [place], [address], [facility] 08/07/2023 12:07:50 Influenza, split virus, trivalent, preservative 02/20/2015 completed Carlos Elizabeth MD [address] [place] [address],[address], [place], [address], [facility] 08/07/2023 12:07:50 Influenza, split virus, trivalent, preservative 02/23/2013 completed Carlos Elizabeth MD [address] [place] [address],[address], [place], [address], [facility] 08/07/2023 12:07:50 Influenza, split virus, trivalent, preservative 03/03/2008 completed Carlos Elizabeth MD [address] [place] [address],[address], [place], [address], [facility] 08/07/2023 12:07:50 Influenza, split virus, trivalent, preservative 03/05/2012 completed Carlos Elizabeth MD [address] [place] [address],[address] [place] [address], [address], [facility] 08/07/2023 12:07:50 Influenza, split virus, trivalent, preservative 04/01/2007 completed Carlos Elizabeth MD [address] [place] [address],[address] [place] [address], [address], [facility] 08/07/2023 12:07:50 Influenza, split virus, trivalent, PF 03/01/2011 completed Carlos Elizabeth MD [address] [place] [address],[address] [place] [address], [address], [facility] 08/07/2023 12:07:50 Influenza, split virus, trivalent, PF 04/25/2009 completed Carlos Elizabeth MD [address] [place] [address],[address] [place] [address], [address], [facility] 08/07/2023 12:07:50 Influenza, split virus, quadrivalent, PF 03/03/2014 completed Carlos Elizabeth MD [address] [place] [address],[address], [place], [address], [facility] 08/07/2023 12:07:50 Influenza, split virus, quadrivalent, PF 04/05/2016 completed Carlos Elizabeth MD [address] [place] [address],[address] [place] [address], [address], [facility] 08/07/2023 12:07:50 Past Encounters Encounter ID Performer Location Encounter Start Date Encounter Closed Date Diagnosis/Indication Diagnosis SNOMED-CT Code Diagnosis ICD10 Code [id number] Carlos Elizabeth MD [facility] [address] [phone] 11/27/2023 11:42:20 12/04/2023 11:52:06 Malignant tumor of kidney 844851338 C64.9 Health Concerns Section Related Observation LastModified by Organization Detai ls LastModified Time None Recorded Concern Status LastModified by Organization Details LastModified Time None Recorded Payers Encounter Date Sequence Insurance Name Policy Number Policy Lim Covered Member ID Lim Member ID Guarantor Name 11/27/2023 1 [employer] [employer] - MEDICARE COST [id number] Edwardo Simons [id number] Brookebrunilda Hernandeza Notes Date Note Type Note Provider Name and Address Organization Details Recorded Time 11/27/2023 text/html HPI Notes: Malloryo w up kidney cancer. His nephrectomy was in July,. He is undergoing immunotherapy for metastatic disease. He has lymphadenopathy and lung mets. Carlos Elizabeth MD [address] [facility],[address], [place], [address], [facility] 11/27/2023 12:19:08
--- OUTSIDE RECORDS SUMMARY | 2024-01-19 23:41 | XMS_ITS | Encounter Summary ---
Author Organization [facility] Address [address] [place] [address] Care Team Providers Care Phd Intern Name Role Phone Niall Harding MD Primary Care Provider [phone] Encounter Details Date Type Department Care Team (Late st Contact Info) Description 09/08/2023 Documentation Only [facility] [address] [place], [place] [address] [address] No, Pcp Social History Tobacco [...] on filedocumented in this encounter Care Teams Phd Intern Relationship Specialty Start Date End Date N[place] [address] PCP - General Family Medicine 09/08/23 documented as of this encounter
--- OUTSIDE RECORDS SUMMARY | 2024-01-19 23:42 | XMS_ITS | Clinical Summary ---
Author Organization [facility] Address [place], [place] [address] Care Team Providers Care Grocery Bagger Name Role Phone ElianaLakhwinder velasquez EIDLBERTO Unavailable + [phone] Niall Harding MD Primary Care Provider [phone] Allergies No known active allergies Medications Medication [...] TWICE DAILY. 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 1 Each 4 Active sensor (Dex[employer] [...] Description 01/14/2024 1:00 PM CDT Patient Outreach [address] [address] Diabetes (DM education) 01/14/2024 Travel 01/13/2024 Telephone [facility] [address] [facility] [place] [address] Niall Harding MD Glucose Levels (Elevated glucose levels) 01/12/2024 Orders Only [facility] Scanner 1 scan: (1-Ord) [place], [place]ULTS, 01/12/2024 01/12/2024 Orders Only [facility] Scanner 1 scan: (1-Ord) [place], MULTIPLE LAB RESULTS, 01/12/2024 01/11/2024 Travel 01/09/2024 9:40 AM CDT Office Visit [facility] [address] [facility] [place] [address] Niall Harding MD Diabetes 01/09/2024 Travel 12/30/2023 10:05 AM CDT Phone Office Visit [facility] [address] [place] [address] Niall Harding MD Telehealth (telephone visit); Follow Up (blood sugar and gout); Refill Request (needs testing strips to [facility] [place]) 12/30/2023 Travel 12/29/2023 Nurse Triage [facility] [address] [facility] [place] [address] Niall Harding MD High Blood Sugar 12/23/2023 3:40 PM CDT Office Visit [facility] [address] [place] [address] Niall Harding MD Diabetes; Foot Problem (Right worse than left/Been going on for a couple of weeks and is getting worse) 12/23/2023 Travel 12/19/2023 3:15 PM CDT Ancillary Procedure [facility] [address] [facility] [place] [address] 12/19/2023 Travel 12/19/2023 Transcribe Orders [facility] [address] [place] [address] Karen Tiwari MBBS 11/26/2023 Refill [facility] [address] [place] [address] Niall Harding MD Refill Request (Paroxetine) 11/12/2023 Refill [facility] [address] [place] [address] King Castrejon MD Refill Request (Trazodone) 11/07/2023 Telephone [facility] [address] [place] [address] Niall Harding MD Letter (Updated Treatment notes ) 11/05/2023 Refill [facility] [address] [place] [address] Niall Harding MD Refill Request (Oxycodone, Contour Next Test Strips) 10/23/2023 Orders Only [facility] Scanner 1 scan: (1-Ord) [facility], EYES TO THIGHS, CANCER INITAL STAGING, 10/23/2023 from Last 3 Months Immunizations Name Administration Dates Next Due AMB INFLUENZA IIV3 (AGE 65+ YRS) PF (Flu Clinic Only) 02/27/2018 COVID-19 vaccine ([employer] Mobile 30mcg/0.3mL) SATURNINO MONTIEL 02/09/2021,07/26/2020,07/05/2020 Influenza A (H1N1), [...] Description 02/04/2024 1:00 PM CDT Patient Outreach [address] [address] Kely Trevizo, RD [address] [place] [address] 02/20/2024 9:15 AM CDT Office Visit [facility] [address] [place] [address] Niall Harding MD [address] [place] [address] Health Maintenance Due Date Last Done Comments [...] CDT LIPID PANEL Routine 07/08/2023 1:39 PM FIELD CHECKER Hyperlipidemia, unspecified hyperlipidemia type SCAN-COLONOSCOPY 09/19/2022 11:3 0 AM CDT ANTI HCV Routine 07/28/2020 2:14 PM FIELD CHECKER Need for hepatitis C screening test US [...] * (ABNORMAL) LIPID PANEL (07/08/2023 1:39 PM FIELD CHECKER) [facility] CHOLESTEROL,TOTAL 111 100 - 199 mg/dL 07/09/2023 3:37 AM FIELD CHECKER [facility] Comment: Cholesterol, Total Reference Ranges Desirable <200 mg/dL Borderline 200-239 mg/dL High >=240 mg/dL TRIGLYCERIDES 225(H) <150 mg/dL 07/09/2023 3:37 AM FIELD CHECKER [facility] HDL CHOLESTEROL 33(L) >40 mg/dL 3:37 AM FIELD CHECKER [facility] NON-HDL CHOLESTEROL 78 <145 mg/dl 07/09/2023 3:[address] [facility] CHOL/HDL RATIO 3.36 <4.50 07/09/2023 3:37 AM FIELD CHECKER [facility] LDL CHOLESTEROL 33 <=130 mg/dL 07/09/2023 3:[address] [facility] VLDL CHOLESTEROL 45(H) <=30 mg/dL 07/09/2023 3:37 AM FIELD CHECKER [facility] PROVIDER ORDERED STATUS RANDOM 07/09/2023 3:37 AM FIELD CHECKER [facility] Blood BLOOD SPECIMEN / Unknown Venipuncture / Unknown 07/08/2023 1:39 PM FIELD CHECKER 07/08/2023 1:40 PM [facility] Niall Harding MD CHEMISTRY [facility] [address] [place] [address], * SCAN-COLONOSCOPY (09/19/2022 11:30 AM CDT) Narrative Procedure Note Kadeem Chavira MD - 09/19/2022 10:51 AM CDT [facility] [address] [place] [address] Patient Name: Edwardo Simons Gender: Male Exam Date: 09/19/2022 Visit Number: [id number] Age: 71 Years 11 Months Date of : 1950 Attending MD: Kadeem Pinedo MD Medical Record#: [id number] ----- Procedure: Colonoscopy Indications: Previous advanced adenomatous [...] 2 tablets percolonoscopy prep instructions received from [facility] N taking as directed glimepiride 2 mg [...] oral route percolonoscopy prep instructions received from [facility] N taking as directed omeprazole 20 mg [...] yes Former smoker Race: White Preferred Language: Sudanese cc: Niall Harding MD cc: Juanito Weston MD [facility] [phone] Kadeem Barroso MD OTHER * ANTI HCV (07/28/2020 2:14 PM FIELD CHECKER) HEPATITIS C ANTIBODY Non-React carl Non-React carl 07/28/2020 9:31 PM FIELD CHECKER [facility] [employer] [facility] Comment:Antibodies to HCV no t detected; does not exclude the possibility of exposure to HCV. Blood BLOOD SPECIMEN / Unknown Venipuncture / Unknown 07/28/2020 2:14 PM FIELD CHECKER 07/28/2020 2:14 PM FIELD CHECKER Niall Harding MD SEND OUTS [facility] [address] [place] [address], [place] * [place] A[place] (12/31/2018 10:05 AM [...] Documents on File Type Date Recorded Patient Supervisor Road Administrator Expl anation Healthcare Directive 01/27/2015 015 * [...] Code Status Discussion: Not Discussed Care Teams Grocery Bagger Relationship Specialty Start Date End Date Niall Harding MD [address] [place] [address] PCP - General Family Practice 08/07/20 Lakhwinder Monroy MBBS [address] [place] [address] Physical Medicine and Rehabilitation 09/02/12
[2024-01-20] VITALS (9 sets, daily range): BP systolic 124–144; BP diastolic 61–70; PULSE 53–82; RESP 16–20; TEMP 36.4–38.4; O2SAT 95–98; BMI 30.9
[2024-01-20] MEDS: LACTATED RINGERS 1000 ML IV
--- NOTE | 2024-01-20 00:45 | CRLHL7_ITS ---
For Patients: As a result of the Century Cures Act, medical imaging exams and procedure reports are released immediately into your electronic medical record. You may view this report before your referring provider. If you have questions, please contact your health care provider. Indication: New confusion, fall Technique: Noncontrast CT through the head with multiplanar reformats Comparison: None Findings: Brain: No acute hemorrhage. No acute infarct. No significant mass effect or midline shift. No gross evidence of a mass lesion or cerebral edema. Mild chronic microvascular ischemic disease. Mild global parenchymal volume loss. Ventricles: No acute abnormality appreciated. Orbits, sinuses, mastoids: No acute abnormality appreciated. Trace sinus disease. Calvarium and soft tissues: No acute abnormality appreciated. Impression: No acute abnormality appreciated. Please note that all CT scans at this facility use dose modulation, iterative reconstruction, and/or weight-based dosing when appropriate to reduce radiation dose to as low as reasonably achievable. Dictated by Boubacar Taylor MD @ 01/20/2024 1:43:43 AM (Electronically Signed)
[2024-01-20 00:47] LABS: Basophils Absolute Auto 0.01 K/uL (0.00-0.30); Basophils Percent Auto 0.1 % (0.0-3.0); Eosinophils Absolute Auto 0.04 K/uL (0.00-0.50); Eosinophils Percent Auto 0.5 % (0.0-7.0); Hematocrit 35.8 % (37.0-53.0); Hemoglobin* 11.3 gm/dL (13.5-17.5); Immature Granulocytes Abs Auto 0.07 K/uL (0.00-0.30); Immature Granulocytes Pct Auto 0.9 %; Lymphocytes Absolute Auto 1.93 K/uL (0.90-2.90); Lymphocytes Percent Auto 23.8 % (20-44); Mean Corpuscular HGB Conc 32 gm/dL (32-36); Mean Corpuscular Hemoglobin 28 pg (26-34); Mean Corpuscular Volume 88 fL (80-100); Monocytes Percent Auto 16.8 % (0.0-11.0); Neutrophils Absolute Auto 4.69 K/uL (1.7-7.0); Neutrophils Percent Auto 57.9 % (42.0-72.0); Platelet Count* 178 K/uL (140-440); RDW Coefficient of Variation % 15.8 % (11.5-15.5); Red Blood Count 4.08 m/uL (4.30-5.90)
[2024-01-20 00:48] LABS: Slide Review Reflex No
[2024-01-20 01:10] LABS: Albumin* 3.3 g/dL (3.3-5.0); Chloride* 101 mmol/L (96-114); Lactate* 0.6 mmol/L (0.5-1.9)
[2024-01-20 01:11] LABS: Potassium* 3.5 mmol/L (3.6-5.1); Sodium* 131 mmol/L (135-149)
[2024-01-20 01:13] LABS: Creatinine* 2.3 mg/dL (0.5-1.5); Estimated Glomerular Filt Rate 29 ml/min
[2024-01-20 01:14] LABS: Alanine Aminotransferase* 13 U/L (4-50); Alkaline Phosphatase* 71 U/L (40-150); Anion Gap 8 mEq/L (7-15); Aspartate Amino Transferase* 16 U/L (12-35); Bilirubin Total* 0.4 mg/dL (0.1-1.5); Blood Urea Nitrogen* 33 mg/dL (7-30); Calcium* 8.6 mg/dL (8.4-10.6); Carbon Dioxide* 22 mmol/L (20-32); Glucose* 163 mg/dL (60-115); Total Protein* 5.8 g/dL (6.0-8.3)
--- NOTE | 2024-01-20 04:35 | W.PM.THH&P_ITS ---
Telehealth- H&P: HPI History of Present Illness Date Seen: 01/20/24 Chief complaint: Diarrhea, confusion Narrative: Edwardo Simons is seen as an Interactive Telehealth visit. Edwardo Simons is a 73 year old male Who presents to the hospital with complaints of intractable diarrhea. Patient was just discharged from the hospital yesterday. At that time the patient was admitted to the hospital due to intractable diarrhea associated chemotherapy. Patient has a known history of renal cell carcinoma and is on immunotherapy nivolumab and ipilimumab. Patient has previously experienced diarrhea associated with this. Over the past 24 hours the patient has had 19 episodes of nonbloody diarrhea. Despite being on Lomotil, he continues to experience no symptom relief. Patient was feeling increasingly weak and dehydrated and his refused to let him stay at home. While at home patient endorsed having a fall and had some mild confusion.. Patient was brought to the ER. In the ER, patient's vital signs are stable, blood pressure was stable. Creatinine was elevated 2.3. CT of the head was negative for acute hemorrhage or infarct. CT scan of the chest abdomen pelvis ordered on 01/18/2024 showed no acute abnormality, status post right nephrectomy and decreased size of pulmonary nodules and abdominopelvic lymphadenopathy. There is no evidence of colitis. Review of Systems Status of ROS: Reports: 10 or more systems reviewed and unremarkable except as noted in History and below Const: Reports: chills, fatigue and malaise; Denies: fever ENMT: Denies: neck pain Cardio: Denies: chest pain, palpitations, edema, swelling of feet/ankles, lightheadedness or shortness of breath with exertion Resp: Denies: shortness of breath GI: Reports: nausea, vomiting and diarrhea; Denies: abdominal pain Musculo: Denies: back pain or neck pain Neuro: Reports: headache Psych: Denies: anxiety, mood swings, panic attacks or change in sleep pattern Endo: Reports: fatigue PFSH [facility] Medical History (Updated 01/20/24 @ 01:08 by Sean Brito MD) Stage 4 chronic kidney disease ?N18.4 - Chronic kidney disease, stage 4 (severe) (ICD-10) Obesity ?E66.9 - Obesity, unspecified (ICD-10) Gastroesophageal reflux disease ?K21.9 - Gastro-esophageal reflux disease without esophagitis (ICD-10) Hyperlipidemia ?E78.5 - Hyperlipidemia, unspecified (ICD-10) Low back pain ?M54.50 - Low back pain, unspecified (ICD-10) Hypertension ?I10 - Essential (primary) hypertension (ICD-10) Obstructive sleep apnea ?G47.33 - Obstructive sleep apnea (adult) (pediatric) (ICD-10) Diabetes mellitus ?E11.9 - Type 2 diabetes mellitus without complications (ICD-10) Metastatic clear cell carcinoma of kidney ?C64.9 - Malignant neoplasm of unspecified kidney, except renal pelvis (ICD- 10) Surgical History (Updated 01/18/24 @ 23:52 by Santhosh Barton MD) History of lumbar fusion ?Z98.1 - Arthrodesis status (ICD-10) History of nephrectomy ?Z90.5 - Acquired absence of kidney (ICD-10) H/O radiofrequency ablation (RFA) of nerve of lumbar spine ?Z98.890 - Other specified postprocedural states (ICD-10) H/O total hip arthroplasty ?Z96.649 - Presence of unspecified artificial hip joint (ICD-10) Family History (Updated 01/18/24 @ 23:49 by Santhosh Barton MD) Brother Colon cancer Heart disease Father Diabetes Mother Thyroid disease Social History (Updated 01/18/24 @ 23:50 by Santhosh Barton MD) Narrative: He lives with his Janet. She sets up in manages his medications. He is a former smoker with a remote history. He occasionally drinks beer, about 2 a week. Code status is full code for witnessed arrest. What is your current living situation?: I presently have a place to live Problems where you live: no known problems Problems where you live details: na In the past 12 months, utilities in danger of being shut off: no In past 12 months, lack of transportation kept you from medical appts, meetings, work, or getting things needed for daily living: no In the past 12 mos, have been you worried that your food would run out before you had money to buy more?: never true In the past 12 mos, the food you bought just didn't last and you didn't have money to buy more?: never true Highest level of school completed/degree received: high school graduate Smoking Status: Former smoker Do you use any of these nicotine containing products: None Second hand tobacco smoke exposure: No How often do you have a drink containing alcohol: 2-3 times a week How often do you have six or more drinks on one occasion: Never AUDIT-C Alcohol total score: 3 Non-prescribed substance use: denies use How often does anyone, including family, friends and others, physically hurt you : never How often does anyone, including family, friends and others, insult or talk down to you: never How often does anyone, including family, friends and others, threaten you with harm: never How often does anyone, including family, friends and others, scream or curse at you: never service: No Meds Home Medications and Allergies Home Medications ?Medication ?Instructions ?Recorded ?Confirmed ?Type amlodipine 5 mg tablet 5 mg PO DAILY 04/29/23 01/18/24 History atenolol 50 mg tablet 50 mg PO DAILY 04/29/23 01/18/24 History atorvastatin 20 mg tablet 20 mg PO DAILY 04/29/23 01/18/24 History blood sugar diagnostic (Contour #10 ea 04/29/23 01/18/24 History Next Test Strips) bupropion HCl 150 mg 24 hr tablet, 150 mg PO DAILY 04/29/23 01/18/24 History extended release omeprazole 20 mg capsule,delayed 20 mg PO DAILY 04/29/23 01/18/24 History release paroxetine HCl 20 mg tablet 20 mg PO DAILY 04/29/23 01/18/24 History trazodone 150 mg tablet 150 mg PO HS 04/29/23 01/19/24 History allopurinol 100 mg tablet 100 mg PO DAILY 01/18/24 01/18/24 History cyclosporine 0.05 % eye drops in a 1 drp ophthalmic (eye) BID 01/18/24 01/18/24 History dropperette (Restasis) gabapentin 100 mg capsule 100 mg PO TID 01/18/24 01/19/24 History hydrochlorothiazide 25 mg tablet 25 mg PO DAILY 01/18/24 01/18/24 History insulin glargine 100 unit/mL (3 14 unit subcut DIRECTED 01/18/24 01/18/24 History mL) subcutaneous pen (Lantus Solostar U-100 Insulin) tamsulosin 0.4 mg capsule 0.4 mg PO DAILY 01/18/24 01/18/24 History Allergies Allergy/AdvReac Type Severity Reaction Status Date / Time No Known Drug Allergies Allergy Verified 01/18/24 21:43 Exam Narrative Exam Narrative: Physical Exam GENERAL: ?vital signs reviewed, well developed and nourished, in no distress, pleasant individual HEENT: pupils are equal round and reactive to light, extraocular movements are grossly within normal limits and oral mucosa is moist. NECK: Supple without lymphadenopathy or thyromegaly according to nursing staff examination observation HEART: Regular rate and rhythm LUNGS: Clear to auscultation bilaterally with good air movement throughout ABDOMEN: Observation from nurse assisted exam, abdomen appears soft, nontender, and nondistended with Positive bowel sounds noted. EXTREMITIES: Strength and sensation is observed to be grossly within normal limits in the upper and lower extremities.? No focal strength deficit is observed. SKIN:? Observed warm and dry with color normal Const Vital Signs, click to edit/add: Vital Signs - 24 hr 01/19/24 23:05 Temperature 99.4 F Pulse Rate [Pulse Oximeter] 88 Respiratory Rate 18 Blood Pressure [Right Upper Arm] 137/59 L Pulse Oximetry 92 Oxygen Delivery Method Room Air Hospitalist - H&P: Result Labs Labs: Short CBC 01/20/24 Range/Units 00:15 WBC 8.10 (4.50-11.00) K/uL Hgb 11.3 L (13.5-17.5) gm/dL Hct 35.8 L (37.0-53.0) % Plt Count 178 (140-440) K/uL BMP 01/20/24 00:15 Sodium 131 L Potassium 3.5 L Chloride 101 Carbon Dioxide 22 BUN 33 H Creatinine 2.3 H Glucose 163 H Calcium 8.6 Liver Function 01/20/24 Range/Units 00:15 Total Bilirubin 0.4 (0.1-1.5) mg/dL AST 16 (12-35) U/L ALT 13 (4-50) U/L Alkaline Phosphatase 71 (40-150) U/L Albumin 3.3 (3.3-5.0) g/dL Assessment and Plan Assessment and plan (1) Weakness: Status: Acute (2) Acute dehydration: Status: Acute (3) Diarrhea: Status: Acute (4) Left knee sprain: Problem comment: 01/19/24 L knee pain noted after fall yesterday. XR neg for acute injury Status: Acute (5) Generalized weakness: Problem comment: Improving. Ambulating independently today. PT and OT have evaluated. Outpatient PT recommended. Status: Acute (6) Hypertension: Status: Acute (7) Obstructive sleep apnea: Status: Acute (8) Metastatic clear cell carcinoma of kidney: Problem comment: On immunotherapy with ipilimumab and nivolumab. Dr. Tiwari, [place] [facility] Status: Acute Plan Patient has arrived to the hospital after being just discharged earlier yesterday. This patient arrives due to intractable diarrhea that is contributed to dehydration and weakness. Patient had a weakness and fall episode. This is not thought to be related to this acute dehydration. Patient states that he is having approximately 19-20 bowel movements per day. I will have physical therapy available for the patient and generalized weakness. Will have PT OT on board. For the patient intractable diarrhea: Patient C. difficile is negative. Patient did have an episode of diarrhea while in the ER. I have ordered Lomotil and Imodium to be available as needed very frequently. I will also give his dose of steroids Decadron x 1 to see if they will be some immediate relief. Dehydration IV fluids: Will hold hydrochlorothiazide History of hypertension will continue amlodipine and atenolol. History of type 2 diabetes: Continue Lantus and order sliding scale, regular diet Febrile illness: Patient had a Tmax of 101. I will check the COVID-19/influenza test and order blood cultures. This patient does have a port which was accessed earlier. Telehealth Visit Today's History and Physical is provided via interactive telehealth by Dr. Zaire Breen MD. Patient is located at [facility]. Provider is located at [facility]. Nursing staff assisted with the patient's examination. The visit being done today meets criteria for a telehealth visit and the patient or patient's parent and/or gaurdian is aware the visit is a telehealth visit. Camera Start Time 4:00 AM Camera End Time 4:30 AM Total Time Spent Total Time Spent: 30 Telehealth: Statement Statement Telehealth Visit: Today's History and Physical is provided via interactive telehealth by Zaire Breen MD.? Patient is located at [facility].? Provider is located at [facility].? Nursing staff assisted with the patient's exam. The visit being done today meets criteria for a telehealth visit and the patient or patient?s parent/guardian is aware the visit is a telehealth visit. Camera Start Time: 04:00 Camera End Time: 04:30
[2024-01-20] MEDS: HEPARIN 5,000 UNIT/0.5 ML INJ 5000 UNIT SUBCUT ×3 (06:42→21:17)
[2024-01-20] MEDS: ACETAMINOPHEN 500 MG TABLET 1000 MG PO (06:42)
[2024-01-20] MEDS: 0.9 % SODIUM CHLORIDE 1000 ml 1,000 ML 125 ML IV (06:43)
[2024-01-20] MEDS: LOPERAMIDE HCL 2 MG CAPSULE 4 MG PO (06:43)
[2024-01-20] MEDS: dexAMETHasone 4 MG/ML VIAL IV (06:43)
[2024-01-20 07:50] LABS: PCR FLU A Negative PCR FLU A (Negative); PCR FLU B Negative PCR FLU B (Negative); PCR RSV Negative PCR RSV (Negative); SARS PCR* Negative SARS-CoV-2 (Negative)
[2024-01-20 08:00] LABS: Lipase* 163 U/L (23-300)
--- NOTE | 2024-01-20 08:01 | PC.NURSE ---
End of shift [id number] - Pt arrived from ED at approximately 0245. Up with standby assistance and walker/gait belt. Pt denied pain, did mention feeling stiffness in his L knee related to falls prior to hospital stay. Pt tolerating RA and fluids. Up to bathroom once during shift, able to void and experienced one loose stool. Appears to be resting comfortably in bed with call light within reach at end of shift.
[2024-01-20] MEDS: atenoloL 50 MG TABLET PO (08:52)
[2024-01-20] MEDS: ATORVASTATIN 10 MG TABLET 20 MG PO (08:52)
[2024-01-20] MEDS: AMLODIPINE 5 MG TABLET PO (08:52)
[2024-01-20] MEDS: allopurinoL 100 MG TABLET PO (08:52)
[2024-01-20] MEDS: TAMSULOSIN HCL 0.4 MG CAPSULE PO (08:52)
[2024-01-20] MEDS: OMEPRAZOLE 20 MG CAPSULE DR PO (08:53)
[2024-01-20] MEDS: buPROPion XL 150 MG TABLET PO (08:53)
[2024-01-20] MEDS: PARoxetine 20 MG TABLET PO (08:53)
[2024-01-20] MEDS: GABAPENTIN 100 MG CAPSULE PO ×3 (08:53→21:06)
[2024-01-20] MEDS: DIPHENOXYLATE-ATROP 2.5-0.025 TABLET 1 TAB PO ×2 (08:54→21:05)
[2024-01-20] MEDS: INSULIN GLARGINE,HUM.REC.ANLOG 100 UNIT/ML INSULN.PEN 24 UNIT SUBCUT (09:43)
--- NOTE | 2024-01-20 11:09 | REH.PT ---
Pt on hold for PT/OT per Will recheck in AM if pt can tolerate therapies.
--- NOTE | 2024-01-20 11:45 | PM.IMPN1 ---
Progress Note: A&P Assessment and plan (1) Diarrhea: Problem details: Acute on chronic, recurrent. In setting of immunotherapy for renal cell carcinoma. C diff 01/18/2024 GI pathogens, stool cultures ordered LFTs, lipase unremarkable Discussed probiotics and Metamucil for bulking Start Lomotil b.i.d. as patient reports Imodium ineffective Continue gentle IV hydration for now, recommend brat diet Status: Acute (2) Weakness: Problem details: Generalized, in setting of ongoing diarrhea, dehydration Suspect weakness will improve as correct stool output, improve hydration PT/OT evaluated patient during 1st admission, independent, up on his own in his room - no further inpatient therapies required. Consider outpatient PT Status: Acute (3) Acute dehydration: Problem details: In setting of diarrhea, poor oral intake Continue gentle IV hydration, discontinuing when adequate oral intake Status: Acute (4) Left knee sprain: Problem details: 01/19/24 L knee pain noted after fall yesterday. XR neg for acute injury. Pain management as needed Status: Acute (5) Hypertension: Problem details: Continue home medications, holding hydrochlorothiazide in setting of CKD, monitor and restart when downtrending Status: Acute (6) Metastatic clear cell carcinoma of kidney: Problem details: On immunotherapy with ipilimumab and nivolumab. Dr. Tiwari, [facility] Status: Acute (7) Stage 4 chronic kidney disease: Problem details: Creatinine 2.3, baseline 2.1-2.3, avoid nephrotoxic medications, continue to monitor Hold hydrochlorothiazide and allopurinol for now, restart when down trending Status: Acute (8) Falls: Problem details: Recurrent falls with profound weakness and disabling back pain. Status: Acute (9) Low back pain: Problem details: Chronic. Contribute significantly to his disability. Could consider starting a narcotic for his back pain which would perhaps help with his diarrhea due to immunotherapy Status: Acute (10) Fever: Problem details: Temp 101.1? on admission. None since. No leukocytosis. Lactate unremarkable. Urine from 01/17 unremarkable. Blood cultures pending. CT chest abdomen pelvis from 01/17 unremarkable. Monitor for recurrence. Status: Acute Plan Continue gentle IV hydration. Addition of probiotics and Metamucil for gut health. Likely discharge 1-2 days. Time Spent With Patient Total time spent: Total time spent caring for the patient today was 45 minutes. This includes time spent for the visit reviewing the chart, time spent during the visit, time spent after the visit and documentation and planning in coordination of care. Subjective Date Seen: 01/20/24 Interval history: Patient is seen sitting up in a chair this morning. Feeling pretty good. No further stools this morning. Denies headache or dizziness. Denies chest pain or shortness of breath. Denies abdominal pain or cramping. Thinks he should not have been in such a davidson to leave the hospital yesterday. Does not think he was ready yet. Exam Narrative: Exam Narrative: PHYSICAL EXAM General: Pleasant, conversant, NAD HEENT: Normocephalic, atraumatic, sclera white, EOMI, oral mucosa moist Cardiovascular: RRR, S1S2. No pitting edema Pulmonary: CTA bilaterally without rhonchi, rales, expiratory wheezes. No dyspnea Abdominal: Soft, nondistended, NTTP Neurological: Alert, answering questions appropriately, cranial nerves intact, no focal findings Extremities: No gross joint deformity or swelling. AROMI. Neurovascularly intact Skin: Warm, dry. Const: Vital Signs, click to edit/add: Vital Signs - 24 hr 01/19/24 23:05 01/20/24 05:41 01/20/24 05:41 Temperature 99.4 F 101.1 F H Pulse Rate Pulse Rate [Pulse Oximeter] 88 82 Respiratory Rate 18 20 20 Blood Pressure [Le ft Arm] 136/65 Blood Pressure [Ri ght Upper Arm] 137/59 L Pulse Oximetry 92 95 95 Oxygen Delivery Me thod Room Air Room Air Room Air 01/20/24 06:42 01/20/24 07:23 01/20/24 07:45 Temperature 101.1 F H 99.0 F Pulse Rate 71 Pulse Rate [Pulse Oximeter] 79 Respiratory Rate 20 Blood Pressure [Le ft Arm] 144/70 H Blood Pressure [Ri ght Upper Arm] Pulse Oximetry 97 Oxygen Delivery Me thod Room Air 01/20/24 11:15 Temperature 97.5 F L Pulse Rate Pulse Rate [Pulse Oximeter] 60 Respiratory Rate 18 Blood Pressure [Le ft Arm] 124/61 Blood Pressure [Ri ght Upper Arm] Pulse Oximetry 95 Oxygen Delivery Me thod Room Air Labs Labs: Laboratory Results - last 24 hr 01/20/24 01/20/24 01/20/24 00:15 07:00 07:02 WBC 8.10 RBC 4.08 L Hgb 11.3 L Hct 35.8 L MCV 88 MCH 28 MCHC 32 RDW Coeff of Claudia 15.8 H Plt Count 178 Neut % (Auto) 57.9 Lymph % (Auto) 23.8 [place] % (Auto) 16.8 H Eos % (Auto) 0.5 Baso % (Auto) 0.1 Neut # (Auto) 4.69 Lymph # (Auto) 1.93 [place] # (Auto) 1.40 H Eos # (Auto) 0.04 Baso # (Auto) 0.01 Abs Immat Gran (auto) 0.07 Imm/Tot Granulo (auto) 0.9 Sodium 131 L Potassium 3.5 L Chloride 101 Carbon Dioxide 22 Anion Gap 8 BUN 33 H Creatinine 2.3 H Estimated GFR 29 Glucose 163 H Lactate 0.6 Calcium 8.6 Total Bilirubin 0.4 AST 16 ALT 13 Alkaline Phosphatase 71 Total Protein 5.8 L Albumin 3.3 Lipase 163 SARS-CoV-2 (PCR) Negative SARS-CoV-2 Influenza Type A (PCR) Negative PCR FLU A Influenza Type B (PCR) Negative PCR FLU B RSV (PCR) Negative PCR RSV Lab Acknowledgement 01/20/24 07:47 WBC RBC Hgb Hct MCV MCH MCHC RDW Coeff of Claudia Plt Count Neut % (Auto) Lymph % (Auto) [place] % (Auto) Eos % (Auto) Baso % (Auto) Neut # (Auto) Lymph # (Auto) [place] # (Auto) Eos # (Auto) Baso # (Auto) Abs Immat Gran (auto) Imm/Tot Granulo (auto) Sodium Potassium Chloride Carbon Dioxide Anion Gap BUN Creatinine Estimated GFR Glucose Lactate Calcium Total Bilirubin AST ALT Alkaline Phosphatase Total Protein Albumin Lipase SARS-CoV-2 (PCR) Influenza Type A (PCR) Influenza Type B (PCR) RSV (PCR) Lab Acknowledgement Test Added
--- NOTE | 2024-01-20 11:46 | NUTR.NU ---
Addendum entered and electronically signed by Sue Haider RD 01/20/24 11:56: Pt reports his appetite and oral intakes has been normal. Current diet is Regular and he consumed 50% breakfast today. Original Note: RDN with MD consult for diarrhea >3 days prior to arrival. Patient admitted for intractable diarrhea. He has a history of metastatic renal cell carcinoma with previous right nephrectomy. He is currently receiving immunotherapy, which started a few months ago, through [facility]. He reports having diarrhea about 4-5 days after ever treatment. He reports receiving diet education in the past from a dietitian related to diarrhea. He reports he followed a low fiber diet up until recently. Current weight 209 lbs; height 5ft 9in; BMI 30.9 kg/m2. Patient reports his weight has been stable within the last few months. Weight history suggests he has lost about 11 lbs since September 2023, which is not significant loss at 5%. Patient reports not being concerned related to his weight given that it has been stable for the past few months. RDN offered diet education related to diarrhea. Patient agreed to receive diet education related to low fiber diet. Discussed foods to include and foods to avoid until diarrhea symptoms resolve. Recommended patient follow a low-fiber diet a few days before treatment and then until diarrhea resolves, about 6 days after treatment. Verbal and written information as well as sample menus provided from [facility].?RDN also recommended that if patient starts losing weight, under 200 lbs, that he should include a protein supplement such as Ensure or Boost. Patient verbalized understanding. RDN's contact information was provided and patient was encouraged to contact RDN with questions.
[2024-01-20] MEDS: INSULIN ASPART 100 UNIT/ML SUBCUT ×3 (12:11→21:15)
[2024-01-20] MEDS: LACTOBACILLUS ACIDOPHILUS 1 TABLET 1 TAB PO ×2 (12:12→17:28)
[2024-01-20] MEDS: PSYLLIUM HUSK (WITH SUGAR) 12 GM PACKET PO (12:12)
[2024-01-20] MEDS: 0.9 % SODIUM CHLORIDE 1000 ml 1,000 ML 75 ML IV ×2 (14:02→22:09)
--- NOTE | 2024-01-20 14:47 | NUTR.NU ---
Nutrition F/U: Spoke with patient's daughter and spouse on the phone. They had questions regarding patient's low fiber diet. We discussed low fiber foods that patient should choose. Also discussed foods that should be avoided. Patient also has diabetes. They had questions regarding balancing meals with a low fiber diet. We discussed balancing meals using the plate method with 1/4 plate lean protein, 1/4 low fiber starch/grain (white rice, white pasta, white bread, and potato without the skin), 1/4 soft cooked vegetables, and 1/4 fruit without the peel or canned fruit. We also discussed aiming for 30-60 grams carbohydrate per meal. They were encouraged to contact RDN if they have further questions. We also discussed option for a nutrition visit in the clinic if needed/desired.
[2024-01-20] MEDS: LOPERAMIDE HCL 2 MG CAPSULE PO (17:28)
--- NOTE | 2024-01-20 17:53 | PC.NURSE ---
End of shift note: Patient was up to the chair for most of the day. Did go back to bed around 1400 after company left wanting to take a nap. Stated I did not get much sleep last night. Did allow him to rest for a while. Has been afebrile for most of my shift. He started with a temp of 99.0 for me this morning. He did receive tyl from the night nurse. No complaints of pain. Sent stool sample to lab. Will give report to the next nurse shortly.
[2024-01-20] MEDS: TRAZODONE HCL 50 MG TABLET 150 MG PO (21:05)
[2024-01-21] VITALS (7 sets, daily range): BP systolic 120–140; BP diastolic 56–66; PULSE 51–68; RESP 16–20; TEMP 36.1–37; O2SAT 97–100
[2024-01-21] MEDS: 0.9 % SODIUM CHLORIDE 1000 ml 1,000 ML 75 ML IV (06:09)
[2024-01-21 06:19] LABS: Hematocrit 29.8 % (37.0-53.0); Hemoglobin* 9.8 gm/dL (13.5-17.5); Mean Corpuscular HGB Conc 33 gm/dL (32-36); Mean Corpuscular Hemoglobin 29 pg (26-34); Mean Corpuscular Volume 87 fL (80-100); Platelet Count* 156 K/uL (140-440); Red Blood Count 3.44 m/uL (4.30-5.90); White Blood Count* 5.84 K/uL (4.50-11.00)
[2024-01-21] MEDS: HEPARIN 5,000 UNIT/0.5 ML INJ 5000 UNIT SUBCUT (06:20)
[2024-01-21 06:22] LABS: Slide Review Reflex No
--- NOTE | 2024-01-21 06:40 | PC.NURSE ---
End of shift note ([id number]): Patient pleasant, alert and oriented. Transfers with stand by assist. Multiple loose stools during night. Denies?pain.?
[2024-01-21 06:55] LABS: Chloride* 107 mmol/L (96-114); Potassium* 3.5 mmol/L (3.6-5.1); Sodium* 134 mmol/L (135-149)
[2024-01-21 06:58] LABS: Anion Gap 7 mEq/L (7-15); Blood Urea Nitrogen* 31 mg/dL (7-30); Carbon Dioxide* 20 mmol/L (20-32); Creatinine* 1.8 mg/dL (0.5-1.5); Estimated Glomerular Filt Rate 40 ml/min; Glucose* 136 mg/dL (60-115)
[2024-01-21 06:59] LABS: Calcium* 8.2 mg/dL (8.4-10.6)
[2024-01-21] MEDS: POTASSIUM BICARB 25 MEQ EFFERVESCENT TAB 50 MEQ PO (07:51)
[2024-01-21] MEDS: LACTOBACILLUS ACIDOPHILUS 1 TABLET 1 TAB PO ×3 (07:51→17:58)
[2024-01-21] MEDS: PSYLLIUM HUSK (WITH SUGAR) 12 GM PACKET PO (07:52)
[2024-01-21] MEDS: DIPHENOXYLATE-ATROP 2.5-0.025 TABLET 1 TAB PO ×4 (07:52→20:51)
[2024-01-21] MEDS: OMEPRAZOLE 20 MG CAPSULE DR PO (07:53)
[2024-01-21] MEDS: ATORVASTATIN 10 MG TABLET 20 MG PO (07:53)
[2024-01-21] MEDS: LOPERAMIDE HCL 2 MG CAPSULE PO ×5 (07:53→21:31)
[2024-01-21] MEDS: AMLODIPINE 5 MG TABLET PO (07:53)
[2024-01-21] MEDS: PARoxetine 20 MG TABLET PO (07:54)
[2024-01-21] MEDS: buPROPion XL 150 MG TABLET PO (07:54)
[2024-01-21] MEDS: GABAPENTIN 100 MG CAPSULE PO ×3 (07:54→20:51)
[2024-01-21] MEDS: atenoloL 50 MG TABLET PO (07:54)
[2024-01-21] MEDS: TAMSULOSIN HCL 0.4 MG CAPSULE PO (07:54)
[2024-01-21] MEDS: INSULIN GLARGINE,HUM.REC.ANLOG 100 UNIT/ML INSULN.PEN 24 UNIT SUBCUT (09:02)
[2024-01-21 09:09] LABS: Fecal Occult Blood* Positive (Negative)
[2024-01-21] MEDS: HEPARIN 500 UNIT/5 ML SYRINGE IVF (10:37)
[2024-01-21] MEDS: SODIUM CHLORIDE 0.9 % (FLUSH) 10 ML SYRINGE 5 ML IVF ×2 (10:38→20:52)
[2024-01-21] MEDS: INSULIN ASPART 100 UNIT/ML SUBCUT ×2 (12:20→21:13)
--- NOTE | 2024-01-21 12:55 | P.IMPN_ITS ---
Progress Note: A&P Assessment and plan (1) Diarrhea: Problem details: Acute on chronic, recurrent. In setting of immunotherapy for renal cell carcinoma. C diff 01/18/2024 GI pathogens negative, C diff negative, stool cultures pending LFTs, lipase unremarkable Continue probiotics and Metamucil for bulking Nutrition consulted Maximize Lomotil q.i.d.- can decrease dosing when improved/decreased stool output - follow-up with PCP. Reports Imodium has been ineffective in past Status: Acute (2) Weakness: Problem details: Generalized, in setting of ongoing diarrhea, dehydration Suspect weakness will improve as correct stool output, improve hydration PT/OT Status: Acute (3) Acute dehydration: Problem details: In setting of diarrhea, poor oral intake IVF discontinued Status: Resolved (4) Left knee sprain: Problem details: 01/19/24 L knee pain noted after fall prior to arrival. XR neg for acute injury. Pain management as needed Status: Acute (5) Hypertension: Problem details: Continue home medications, holding hydrochlorothiazide in setting of CKD, monitor and restart when downtrending Status: Acute (6) Metastatic clear cell carcinoma of kidney: Problem details: On immunotherapy with ipilimumab and nivolumab. Dr. Tiwari, [facility] Status: Acute (7) Stage 4 chronic kidney disease: Problem details: Creatinine improved to 1.8 from 2.3, baseline 2.1-2.3, avoid nephrotoxic medications, continue to monitor Hold hydrochlorothiazide and allopurinol for now, restart when down trending Status: Acute (8) Falls: Problem details: Recurrent falls with profound weakness and disabling back pain Status: Acute (9) Low back pain: Problem details: Chronic. Contribute significantly to his disability. Could consider starting a narcotic for his back pain which would perhaps help with his diarrhea due to immunotherapy Status: Acute (10) Fever: Problem details: Temp 101.1? on admission. None since. No leukocytosis. Lactate unremarkable. Urine from 01/17 unremarkable. Blood culture negative. CT chest abdomen pelvis from 01/17 unremarkable. Monitor for recurrence - none thus far Status: Acute (11) Anemia: Problem details: Hemoglobin 9.8, trended down from 11.3 - 12.2. Small amount of blood noted in diarrhea stools this morning. FOBT positive. Colonoscopy less than 2 years ago unremarkable. May be a dilutional component as well - IVF stopped. Recheck in am. Status: Acute Plan Likely discharge 01/21 pending stable hemoglobin, ongoing clinical improvement Time Spent With Patient Total time spent: Total time spent caring for the patient today was 45 minutes. This includes time spent for the visit reviewing the chart, time spent during the visit, time spent after the visit and documentation and planning in coordination of care. Subjective Date Seen: 01/21/24 Interval history: Patient is seen sitting up in chair, at bedside, daughter on cell phone. Reports feeling a little better. Overnight, had maybe 6 loose stools. Did notice a streak of blood in 1 of them. Abdominal pain is improving. No headache or dizziness. Tolerating orals. Exam Narrative: Exam Narrative: PHYSICAL EXAM General: Pleasant, conversant, NAD Cardiovascular: RRR, S1S2. No pitting edema Pulmonary: CTA bilaterally without rhonchi, rales, expiratory wheezes. No dyspnea Abdominal: Soft, nondistended, NTTP Neurological: Alert, answering questions appropriately, cranial nerves intact, no focal findings Extremities: No gross joint deformity or swelling. AROMI. Neurovascularly intact Skin: Warm, dry. Const: Vital Signs, click to edit/add: Vital Signs - 24 hr 01/20/24 15:00 01/20/24 15:23 01/20/24 19:00 Temperature 97.7 F Pulse Rate 63 Pulse Rate [Pulse Oximeter] 60 64 Respiratory Rate 18 16 Blood Pressure [Le ft Arm] 138/61 Pulse Oximetry 98 Oxygen Delivery Me thod Room Air 01/20/24 23:00 01/20/24 23:00 01/21/24 02:33 Temperature 97.5 F L 97.5 F L Pulse Rate 53 L Pulse Rate [Pulse Oximeter] 57 L 51 L Respiratory Rate 17 18 Blood Pressure [Le ft Arm] 137/66 134/56 L Pulse Oximetry 98 98 Oxygen Delivery Me thod Room Air Room Air 01/21/24 07:45 01/21/24 10:14 01/21/24 11:48 Temperature 96.9 F L 97.9 F Pulse Rate 64 Pulse Rate [Pulse Oximeter] 68 57 L Respiratory Rate 16 16 Blood Pressure [Le ft Arm] 131/57 L 120/66 Pulse Oximetry 100 99 Oxygen Delivery Me thod Room Air Room Air Labs Labs: Laboratory Results - last 24 hr 01/21/24 01/21/24 05:44 07:11 WBC 5.84 RBC 3.44 L Hgb 9.8 L Hct 29.8 L MCV 87 MCH 29 MCHC 33 Plt Count 156 Sodium 134 L Potassium 3.5 L Chloride 107 Carbon Dioxide 20 Anion Gap 7 BUN 31 H Creatinine 1.8 H Estimated Creat Clear 37.10 Estimated GFR 40 Glucose 136 H Calcium 8.2 L Stool Occult Blood Positive
[2024-01-21 12:56] LABS: Adenovirus PCR Not Detected; Astrovirus PCR Not Detected; Campylobacter PCR Not Detected; Cryptosporidium PCR Not Detected; Cyclospora cayetanensis PCR Not Detected; Entamoeba histolytica PCR Not Detected; Enteroaggregative E coli PCR Not Detected; Enteropathogenic E coli PCR Not Detected; Enterotoxigenic E coli PCR Not Detected; Giardia lamblia PCR Not Detected; Norovirus Gi/GII PCR Not Detected; Plesiomonas shig PCR Not Detected; Rotavirus A PCR Not Detected; Salmonella PCR Not Detected; Sapovirus PCR Not Detected; Shiga toxin E coli PCR Not Detected; Shigella/Enteroinvasive E coli Not Detected; Vibrio PCR Not Detected; Vibrio cholerae PCR Not Detected; Yersinia enterocolitica PCR Not Detected
--- NOTE | 2024-01-21 13:50 | PC.NURSE ---
End of shift note: Patient has been up in chair most of today. Has chronic back pain but denies need for pain medications. Tele discontinued today. Port has been heparin locked. Has had 1 loose brown stool this shift with bright red blood streaks in it. Taking Lomotil QID and Imodium q2h PRN after stooling. Also taking Metamucil to bulk up stools. Patient denies nausea and is tolerating a regular diabetic diet. Blood sugars are controlled with insulin. Vital signs within normal limits. Lung sounds clear. Bowel sounds active. Voiding without difficulty. Patient worked with PT today. Took a shower with minimal assist. Has been ambulating with walker and stand by assist. was here for part of the day. Plans to discharge home with and follow up with oncology once medically ready.
[2024-01-21] MEDS: TRAZODONE HCL 50 MG TABLET 150 MG PO (20:50)
[2024-01-21] MEDS: ENOXAPARIN 30 MG/0.3ML INJ SUBCUT (20:51)
[2024-01-22] MEDS: LOPERAMIDE HCL 2 MG CAPSULE PO (02:36)
[2024-01-22] MEDS: SODIUM CHLORIDE 0.9 % (FLUSH) 10 ML SYRINGE 5 ML IVF ×2 (02:36→08:51)
[2024-01-22] MEDS: HEPARIN 500 UNIT/5 ML SYRINGE IVF ×2 (02:36→11:58)
[2024-01-22 02:40] VITALS: BP 145/70; PULSE 62; RESP 18; TEMP 37.1; O2SAT 97
--- NOTE | 2024-01-22 05:41 | PC.NURSE ---
End of shift note ([id number]): Patient pleasant, alert and oriented. Independent in room. Denied pain. MD updated on continued watery stools despite taking?PRN Imodium. Cholestyramine given at 2230 per new orders. Patient has had two loose stools since that time. PRN Imodium given at?0230 with last loose stool. ?
[2024-01-22 06:12] LABS: Hematocrit 31.1 % (37.0-53.0); Mean Corpuscular HGB Conc 32 gm/dL (32-36); Mean Corpuscular Hemoglobin 28 pg (26-34); Mean Corpuscular Volume 87 fL (80-100); Platelet Count* 194 K/uL (140-440); Red Blood Count 3.58 m/uL (4.30-5.90); White Blood Count* 7.67 K/uL (4.50-11.00)
[2024-01-22 06:18] LABS: Slide Review Reflex No
[2024-01-22 06:24] LABS: Chloride* 110 mmol/L (96-114); Sodium* 137 mmol/L (135-149)
[2024-01-22 06:25] LABS: Potassium* 3.8 mmol/L (3.6-5.1)
[2024-01-22 06:27] LABS: Est. Creatinine Clearance* 33.39; Estimated Glomerular Filt Rate 35 ml/min
[2024-01-22 06:28] LABS: Anion Gap 7 mEq/L (7-15); Blood Urea Nitrogen* 32 mg/dL (7-30); Calcium* 8.8 mg/dL (8.4-10.6); Carbon Dioxide* 20 mmol/L (20-32); Glucose* 112 mg/dL (60-115)
[2024-01-22 07:30] VITALS: BP 140/69; PULSE 70; RESP 18; TEMP 36.9; O2SAT 94
[2024-01-22] MEDS: LACTOBACILLUS ACIDOPHILUS 1 TABLET 1 TAB PO (07:44)
[2024-01-22] MEDS: DIPHENOXYLATE-ATROP 2.5-0.025 TABLET 1 TAB PO (08:50)
[2024-01-22] MEDS: OMEPRAZOLE 20 MG CAPSULE DR PO (08:50)
[2024-01-22] MEDS: ATORVASTATIN 10 MG TABLET 20 MG PO (08:50)
[2024-01-22] MEDS: TAMSULOSIN HCL 0.4 MG CAPSULE PO (08:50)
[2024-01-22] MEDS: buPROPion XL 150 MG TABLET PO (08:50)
[2024-01-22] MEDS: GABAPENTIN 100 MG CAPSULE PO (08:50)
[2024-01-22] MEDS: AMLODIPINE 5 MG TABLET PO (08:51)
[2024-01-22] MEDS: PARoxetine 20 MG TABLET PO (08:51)
[2024-01-22] MEDS: PSYLLIUM HUSK (WITH SUGAR) 12 GM PACKET PO (08:51)
[2024-01-22] MEDS: INSULIN GLARGINE,HUM.REC.ANLOG 100 UNIT/ML INSULN.PEN 24 UNIT SUBCUT (10:08)
--- NOTE | 2024-01-22 10:56 | PM.DS1 ---
DS: Providers Provider Date Seen: 01/22/24 Date of admission: 01/21/24 09:36 Primary care physician: Niall Harding MD Admitting Clinician: Zaire Breen MD Consults: 01/20/24 04:23 Consult to Nutrition [CONS] Routine Comment: Reason for consult:: Diarrhea > 3 days Consult to Physical Therapy [CONS] Routine Comment: Reason(s) for PT Consult:: Evaluate and Treat Any Restrictions?:: No Restrictions 01/20/24 04:27 Consult to Occupational Therapy [CONS] Routine Comment: Reason(s) for OT Consult:: Evaluate and Treat Any Restrictions?:: No Restrictions 01/20/24 07:58 Consult to Occupational Therapy [CONS] Routine Comment: Reason(s) for OT Consult:: Evaluate and Treat Any Restrictions?:: No Restrictions Consult to Physical Therapy [CONS] Routine Comment: Reason(s) for PT Consult:: Evaluate and Treat Any Restrictions?:: No Restrictions Attending Physician on discharge: CHAKA Lord, PAKatieC [facility] Date of Discharge: 01/22/24 DS: Diagnosis Discharge Diagnosis (1) Diarrhea: Status: Acute Problem details: Acute on chronic, recurrent. Suspected in setting of immunotherapy for renal cell carcinoma. No acute infectious etiologies identified. C diff 01/18/2024, GI pathogens negative, stool cultures pending. LFTs, lipase unremarkable. CT without acute abnormalities. Initiated Metamucil for bulking and probiotics daily, encourage Mauritanian yogurt, sugar free, intake as well. Nutrition consulted recommending low-fiber diet balanced with diabetic diet. Maximized Lomotil dosing, q.i.d., which can later be decreased by PCP when improved/decreased stool output. Additionally, added cholestyramine twice daily. Close outpatient follow-up with PCP for further management of these medications. PCP to consider budesonide as alternative. Reports Imodium has been ineffective in past. (2) Weakness: Status: Resolved Problem details: Generalized, in setting of ongoing diarrhea, dehydration. PT/OT consulted. Patient returning to baseline prior to discharge. (3) Acute dehydration: Status: Resolved Problem details: In setting of diarrhea, poor oral intake. Improved with IV hydration and improved oral intake. (4) Left knee sprain: Status: Acute Problem details: 01/19/24 L knee pain noted after fall prior to arrival. XR neg for acute injury. Pain management as needed. Ambulating, returning to baseline. (5) Hypertension: Status: Acute Problem details: Continue home medications, holding hydrochlorothiazide in setting of CKD - to be resumed upon discharge. (6) Metastatic clear cell carcinoma of kidney: Status: Acute Problem details: On immunotherapy with ipilimumab and nivolumab. Dr. Tiwari, [facility]. Patient and will follow-up with questions regarding therapies, side effects, management options. (7) Stage 4 chronic kidney disease: Status: Acute Problem details: Baseline creatinine 2.1-2.3. During hospital course, 1.8-2.3. PCP to continue to follow. Held hydrochlorothiazide and allopurinol - to resume on discharge. (8) Falls: Status: Acute Problem details: Recurrent falls with profound weakness and disabling back pain. Suspected in setting of significant diarrhea, dehydration. CT head without acute abnormalities. PT/OT consulted. Returning to baseline prior to discharge (9) Low back pain: Status: Acute Problem details: Chronic. Contribute significantly to his disability. Could consider starting a narcotic for his back pain which would perhaps help with his diarrhea in setting of immunotherapy. To be considered by patient and his PCP during clinic visit. (10) Fever: Status: Resolved Problem details: Temp 101.1? on admission. None since. No leukocytosis. Lactate unremarkable. Urine from 01/17 unremarkable. Blood culture negative. CT chest abdomen pelvis from 01/17 unremarkable. Monitor for recurrence - none (11) Anemia: Status: Acute Problem details: Hemoglobin 9.8 on 01/20, trended down from 11.3 - 12.2. Small amount of blood noted in diarrhea stools. FOBT positive. Suspected likely in setting of friable tissue, fissures. Colonoscopy less than 2 years ago unremarkable. May be a dilutional component as well - IVF stopped. Hemoglobin rebounding, improved to 10 prior to discharge. Recheck with PCP during outpatient visit. DS: Summary Hospital Course Hospital Course: [age] year old male was readmitted to the medical floor for ongoing diarrhea, numerous stools, >20 daily. Course of care and details as noted above. Workup rather unremarkable. Suspected in setting of immunotherapy. Initiated management with Metamucil, probiotics. Added Lomotil and cholestyramine. Significant decrease in frequency of stools without change in consistency. Will need ongoing outpatient management with PCP. Patient and to discuss therapies, side effects, management options with Oncology as well. Remainder of chronic medical comorbidities were monitored and managed with home medications. Status at Discharge Functional status at discharge: uses cane/walker Overall status at discharge: patient is progressing back to baseline Time Spent with Patient Time attestation: Total time spent providing and/or coordinating discharge services: Time spent: Greater than 30 minutes Exam Narrative: Exam Narrative: PHYSICAL EXAM General: Pleasant, conversant, NAD Cardiovascular: RRR Pulmonary: No dyspnea Neurological: Alert, answering questions appropriately Skin: Warm, dry. Const: Vital Signs, click to edit/add: Vital Signs - 24 hr 01/21/24 11:48 01/21/24 15:00 01/21/24 15:00 Temperature 97.9 F 97.6 F Pulse Rate [Pulse Oximeter] 57 L 58 L 58 L Respiratory Rate 16 16 16 Blood Pressure [Le ft Arm] 120/66 132/65 Pulse Oximetry 99 100 Oxygen Delivery Me thod Room Air Room Air 01/21/24 19:00 01/21/24 22:32 01/22/24 02:40 Temperature 98.6 F 97.6 F 98.8 F Pulse Rate [Pulse Oximeter] 58 L 60 62 Respiratory Rate 20 17 18 Blood Pressure [Le ft Arm] 133/66 140/62 H 145/70 H Pulse Oximetry 97 97 97 Oxygen Delivery Me thod Room Air Room Air Room Air 01/22/24 07:30 01/22/24 07:30 Temperature 98.4 F Pulse Rate [Pulse Oximeter] 70 70 Respiratory Rate 18 18 Blood Pressure [Le ft Arm] 140/69 H Pulse Oximetry 94 Oxygen Delivery Ar thod Room Air DS: Data Data Completed and Pending Labs on day of discharge: Labs from last 24 hours 01/22/24 01/20/24 05:44 12:00 WBC 7.67 RBC 3.58 L Hgb 10.0 L Hct 31.1 L MCV 87 MCH 28 MCHC 32 Plt Count 194 Sodium 137 Potassium 3.8 Chloride 110 Carbon Dioxide 20 Anion Gap 7 BUN 32 H Creatinine 2.0 H Estimated Creat Clear 33.39 Estimated GFR 35 Glucose 112 Calcium 8.8 Stl C. cayetanensis PCR Not Detected Stool Rotavirus A PCR Not Detected Stool Adenovirus (PCR) Not Detected Stool Astrovirus (PCR) Not Detected Stool Campylobacter PCR Not Detected Stool Cryptosporidium PCR Not Detected Stl E.coli Shiga Tox PCR Not Detected Stool E coli O157 PCR N/A Stl Enterotoxigenic E PCR Not Detected Stool EPEC (PCR) Not Detected Stool EAEC (PCR) Not Detected Stl E. histolytica PCR Not Detected Stool Giardia Lamblia PCR Not Detected Stl P. shigelloides PCR Not Detected Stool Salmonella PCR Not Detected Stool Sapovirus (PCR) Not Detected Stl Shigella/EIEC PCR Not Detected St Y.enterocolitica PCR Not Detected Stool Vibrio (PCR) Not Detected Stl Vibrio cholerae PCR Not Detected Stl Norovirus GI/GII PCR Not Detected Preliminary micro results at discharge 01/20/24 07:02 Blood Culture - Preliminary Blood NO GROWTH AFTER 48 HOURS 01/20/24 07:45 Stool Culture - Preliminary Stool Imaging CT scan - head: Attestation: I have reviewed the pertinent imaging results. Radiologist's impression: Noncontrast CT through the head with multiplanar reformats Comparison: None Findings: Brain: No acute hemorrhage. No acute infarct. No significant mass effect or midline shift. No gross evidence of a mass lesion or cerebral edema. Mild chronic microvascular ischemic disease. Mild global parenchymal volume loss. Ventricles: No acute abnormality appreciated. Orbits, sinuses, mastoids: No acute abnormality appreciated. Trace sinus disease. Calvarium and soft tissues: No acute abnormality appreciated. Impression: No acute abnormality appreciated. Discharge Plan Discharge Disposition: Home, Self-Care Date of Admission: 01/21/24 09:36 Attending Provider on Discharge: Lianne Odell Primary Care Provider: Niall Harding Condition: Improved Anticipated Discharge Date/Time: 01/22/24 10:41 Discharge Medications: New diphenoxylate-atropine 2.5-0.025 mg Tablet 1 tab PO QID Qty: 120 0RF Lactobacillus acidophilus 0.5 mg (100 million cell) Tablet 100 mmu cells PO TIDWM Qty: 90 0RF cholestyramine-aspartame 4 gram Powder In Packet 1 ea PO BID Qty: 60 0RF Metamucil Sugar-Free (aspart) 3.4 gram/5.8 gram powder 5.8 g PO DAILY Qty: 660 0RF Continued omeprazole 20 mg capsule,delayed release(DR/EC) 20 mg PO DAILY amlodipine 5 mg tablet 5 mg PO DAILY atenolol 50 mg tablet 50 mg PO DAILY trazodone 150 mg tablet 150 mg PO HS paroxetine HCl 20 mg tablet 20 mg PO DAILY atorvastatin 20 mg tablet 20 mg PO DAILY bupropion HCl 150 mg tablet extended release 24 hr 150 mg PO DAILY tamsulosin 0.4 mg capsule 0.4 mg PO DAILY insulin glargine [Lantus Solostar U-100 Insulin] 100 unit/mL (3 mL) insulin pen 24 unit subcut DAILY allopurinol 100 mg tablet 100 mg PO DAILY hydrochlorothiazide 25 mg tablet 25 mg PO DAILY gabapentin 100 mg capsule 100 mg PO TID cyclosporine [Restasis] 0.05 % dropperette 1 drp ophthalmic (eye) BID Discharge Orders: Discharge Order (Routine); Ordered 01/22/24 Ordered By: Lianne Odell Patient Education: Dehydration (GEN), Acute Diarrhea (GEN) Additional Instructions: Continue to take Metamucil and probiotics daily for your gut health. [place]ian yogurt, without added sugars, would also be beneficial. You will continue on Lomotil 4 times daily and cholestyramine twice daily until follow-up with your PCP. Further medication management to be determined at that time. Nutrition recommending low fiber diet. Follow-up with oncology to determine ongoing therapies, side effects, management options. Activity Level: Activity as Tolerated Discharge Diet: Diabetic and Low Fiber Follow Up Appointments: Niall Harding MD [Primary Care Provider] - 01/30/24 11:45 am ([facility] for follow-up.) Forms: [employer] Info Instructions
[2024-01-22] MEDS: ACETAMINOPHEN 500 MG TABLET 1000 MG PO (11:17)
[2024-01-22 11:34] VITALS: BP 126/73; PULSE 61; RESP 18; TEMP 36.4; O2SAT 99
--- NOTE | 2024-01-22 12:51 | PC.NURSE ---
Discharge: patient pleasant and cooperative, A&O. VSS, afebrile. Patient reported pain this shift managed with PRN medication, see MAR. Port de-accessed and heparinized. Discharge instructions provided, all questions answered. Discharged to home with .
== END 2024-01-22 12:45 | disposition home or self-care (01) | DRG 392 ==
LOC: ED 01-20 02:23 → MEDSURG 01-20 02:37
PROVIDERS: Physician Assistant; Admitting Provider Student in an Organized Health Care Education/Training Program; Emergency Provider Emergency Medicine; PCP Surgery; Visit Provider Student in an Organized Health Care Education/Training Program
DX: K52.89 Other specified noninfective gastroenteritis and colitis (principal); C64.1 Malignant neoplasm of right kidney, except renal pelvis; C77.9 Secondary and unspecified malignant neoplasm of lymph node, unspecified; N18.4 Chronic kidney disease, stage 4 (severe); T45.1X5A Adverse effect of antineoplastic and immunosuppressive drugs, initial encounter; R19.7 Diarrhea, unspecified; R19.5 Other fecal abnormalities; I12.9 Hypertensive chronic kidney disease with stage 1 through stage 4 chronic kidney disease, or unspecified chronic kidney disease; E11.22 Type 2 diabetes mellitus with diabetic chronic kidney disease; R53.1 Weakness; E86.0 Dehydration; D64.9 Anemia, unspecified; S83.92XA Sprain of unspecified site of left knee, initial encounter; Z91.81 History of falling; Z90.5 Acquired absence of kidney; Z79.52 Long term (current) use of systemic steroids; Z79.69 Long term (current) use of other immunomodulators and immunosuppressants; Z79.4 Long term (current) use of insulin; E66.9 Obesity, unspecified; G47.33 Obstructive sleep apnea (adult) (pediatric); M54.50 Low back pain, unspecified; G89.29 Other chronic pain; K21.9 Gastro-esophageal reflux disease without esophagitis; E78.5 Hyperlipidemia, unspecified; M10.9 Gout, unspecified
CPT/HCPCS: 36415; 70450; 71250; 73562; 74176; 80048; 80053; 81001; 82270; 82962; 83605; 83690; 84443; 84484; 85025; 85027; 85379; 86140; 87040; 87045; 87046; 87077; 87086; 87427; 87493; 87505; 87631; 93005; 96360; 96361; 96372; 97110; 97116; 97161; 97165; 97530; 99283; 99284; 99285; G0378; A9270; J1100; J1642; J1644; J1650; J1815; J7030; J7120

== ENCOUNTER 2024-03-15 14:27 | Emergency (ER) | payer MEDICARE, BC, SELFPAY ==
[2024-03-15] VITALS (18 sets, daily range): BP systolic 129–155; BP diastolic 69–81; PULSE 81–112; RESP 12–16; TEMP 36.9; O2SAT 94–99; BMI 28.9
--- OUTSIDE RECORDS SUMMARY | 2024-03-15 15:05 | XMS_ITS | Encounter Summary ---
Author Organization [facility] Address [address] [address] Phone Care Team Providers Care Type Caster Name Role Phone Niall Harding MD Primary Care Provider [phone] Encounter Details Date Type Department Care Team (Late st Contact Info) Description 12/30/2023 Telephone [facility] Emergency Department [address] [place] [id number] Karlee Romero RN Social History Tobacco Use Types Packs/Day Years Used Date Smoking Tobacco: Former Cigarettes Q uit: 1985 Smokeless Tobacco: Never PHQ-2 Answer Date Recorded PHQ-2 Score 0 03/08/2018 [facility] Custom IPV Answer Date Recorded Do you feel UNSAFE in any of your personal relationships with your family members or any other acquaintances? 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 Gender Identity Not on file Sexual Orientation Not on file documented as of this encounter Functional Status * Patient's Vision Adequate to Safely Complete Daily Activities Answer Date of Assessment Author Yes 12/29/2023 4:03 PM CDT Vanita Muniz RN * Patient's Memory Adequate to Safely Complete Daily Activities Answer Date of Assessment Author Yes 12/29/2023 4:03 PM CDT Vanita Muniz RN documented as of this encounter Mental Status * Patient's Judgment Adequate to Safely Complete Daily Activities Answer Entry Date Author Yes 12/29/2023 4:03 PM CDT Vanita Muniz RN documented in this encounter Miscellaneous Notes * Telephone Encounter [...] on filedocumented in this encounter Care Teams Type Caster Relationship Specialty Start Date End Date Niall Harding MD [address] [place] [id number] PCP - General Family Medicine 12/29/23 documented as of this encounter
--- OUTSIDE RECORDS SUMMARY | 2024-03-15 15:05 | XMS_ITS | Clinical Summary ---
Author Organization [facility] Address [address] [place] [address] Care Team Providers Care Noodle Maker Name Role Phone Sukhjinder Trinidad MD Primary [...] Administration Dates Next Due Pfizer 12+ Yrs Monovalent COVID Vaccine (purple cap) 07/26/2020,07/05/2020 Family History [...] Sex Assigned at Male 07/04/2020 1:48 PM TRAINING OFFICER Gender Identity Male 07/04/2020 1:48 PM TRAINING OFFICER Sexual Orientation Straight 07/04/2020 1: 48 PM TRAINING OFFICER Last Filed Vital Signs Vital Sign Reading Time Taken Comments Blood Pressure 189/83 07/07/2018 12:15 PM TRAINING OFFICER Pulse 65 07/07/2018 12:15 PM TRAINING OFFICER Temperature 36.2 ??C (97.2 ??F) 07/07/2018 12:[address] Respiratory Rate 14 07/07/2018 12:15 PM TRAINING OFFICER Oxygen Saturation 96% 07/07/2018 12:15 PM TRAINING OFFICER Inhaled Oxygen Concentration - - Weight 114.8 kg (253 lb) 07/01/2018 10:20 AM TRAINING OFFICER Height 175.3 cm (5' 9) 07/01/2018 10:20 AM TRAINING OFFICER Body Mass Index 37.36 07/01/2018 10:20 AM TRAINING OFFICER Plan of Treatment Health Maintenance Due Date Last Done Comments AAA Ultrasound Screening 1950 Colonoscopy 1950 Eye Exam 1950 Hepatitis C Screening 1950 Depression Assessment (PHQ-2) 09/29/1951 HgbA1C 10/21/2018 04/22/2018 Creatinine 04/22/2019 04/22/2018 Yearly Review of HCD 06/30/2019 06/30/2018, 05/18/2018, 06/05/2016, Additional history exists COVID-19 Vaccine (3 - 2023-2 5 season) 2024 07/26/2020, 07/05/2020 Influenza Vaccine (#1) 2024 6, 03/03/2014, 03/01/2011, Additional history exists RSV Vaccines (1 - 1-dose 75+ series) 09/29/2026 Adult Tetanus Booster 11/24/2029 11/25/2019 , 08/01/2009, 11/02/1994 Pneumococcal 65+ Completed 02/24/2019, , 01/28/2008 Zoster Vaccine Completed 02/21/2020, 07/0 01/2020, 03/05/2012 Care Teams Noodle Maker Relationship Specialty Start Date End Date Sukhjinder Trinidad MD PCP - General 01/15/16
--- OUTSIDE RECORDS SUMMARY | 2024-03-15 15:05 | XMS_ITS | Encounter Summary ---
Author Organization [facility] Address [address] [place] [address] Care Team Providers Care Ssis Etl Developer Name Role Phone Niall Harding MD Primary Care Provider [phone] Encounter Details Date Type Department Care Team (Late st Contact Info) Description 01/07/2024 Office Communication [facility] [address] [place] [address] Giorgio Callejas MD [address] [place] [address] Social History Tobacco Use Types Packs/Day Years Used Date Smoking Tobacco: Former Cigarettes 2 22 1 965 - 1987 Smokeless Tobacco: Never Alcohol Use Standard Drinks/Week Comments Not Currently 4 (1 standard drink = 0.6 oz pur e alcohol) Sex and Gender Information Value Date Recorded Sex Assigned at Not on file Legal Sex Male 9:14 AM EDT Gender Identity Not on file Sexual Orientation Not on file documented as of this encounter Miscellaneous Notes * Telephone Encounter - Alisha Estrada - 02/23/2024 10:04 AM CDT LVM asking for call back to schedule appt, forwarding to [place] in basket for follow up as pt is a CV pt * Telephone Encounter - Luz Rojas RN - 02/23/2024 8:55 AM CDT Pt's called and left a message stating she would like to be called to schedule the pt's FU appt with Dr Callejas. She can be reached at [phone] * Telephone Encounter - Manny Martell - 01/21/2024 4:01 PM CDT Faxed the Established Patient Letter to the PCP as we are unable to reach the patient to schedule 6M follow up in March with Dr. Callejas. * Telephone Encounter - Manny Martell - 01/07/2024 2:15 PM CDT Second call attempt made to reach the patient for scheduling. Mailed the Established Patient Letter to the patient to schedule 6M follow up in March with Dr. Callejas. 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
--- OUTSIDE RECORDS SUMMARY | 2024-03-15 15:05 | XMS_ITS | Clinical Summary ---
Author Organization [facility]! [facility] Address [address] [address] Phone Care Team Providers Care Bottle House Pumper Name Role Phone Niall Harding MD Primary Care Provider [phone] Allergies No known active allergies Medications ATENOLOL OR Take 50 mg by mouth. Active TRAZODONE HCL OR Take by mouth. Activ e HYDROcodone-ac etaminophen 2.5-325 MG oral tablet Take 1 Tab by mouth every six hours as needed for Pain or Other. Limit acetaminophen to 4000 mg per day from all sources. Active CYCLOBENZAPRIN E HCL OR Take 10 mg by mouth. Active Celecoxib (CELEBREX OR) Take 200 mg by mouth two times a day as needed. Active aspirin 81 MG chewable tablet Chew and swallow 81 mg one time a day. Take with food. Active buPROPion SR (WELLBUTRIN SR, ZYBAN) 150 MG 12 hour sustained release tablet Take 150 mg by mouth one time a day. Do not crush. Active Multiple Vitamins-Valeria als (MULTIVITAL OR) Take by mouth. Activ e Ascorbic Acid (VITAMIN C) 500 MG Cap Take by mouth. Acti ve citalopram (CELEXA) 40 MG tablet Take 40 mg by mouth one time a day. Active atorvaSTATin (LIPITOR) 20 MG tablet Take 20 mg by mouth one time a day. Active omega-3 fatty acid (FISH OIL) 1000 MG capsule Take 1,000 mg by mouth one time a day. Active Glucosamine-Ch ondroit-Vit C-Mn (GLUCOSAMINE CHONDR 1500 COMPLX) Cap Take by mouth. Act carl traZODone (DESYREL) 150 MG tablet Take 150 mg by mouth at bedtime. Active omeprazole (PRILOSEC OTC) 20 MG delayed-releas e tablet Take 20 mg by mouth every morning before breakfast. Tablet should be swallowed whole; do not crush or chew. Take before meals. Active metFORMIN (GLUCOPHAGE) 500 MG tablet Take 2 Tabs by mouth two times a day with meals. 9 Active Active Problems Problem Noted Date Diagnosed Date Essential hypertension 09/29/2015 Hyperlipidemia LDL goal <100 09/29/2015 Depression, major, in remission 09/29/2015 Prediabetes 09/29/2015 Gastroesophageal reflux disease without esophagi tis 09/29/2015 Encounters Date Type Department Care Team Description 12/30/2023 Telephone Health system Emergency Department [address] [place] [id number] Karlee Romero RN 12/29/2023 3:59 PM CDT - 12/29/2023 7:27 PM CDT Emergency Health system Emergency Department [address] [place] [address] Benito Gill MD Hyperglycemia (Primary Dx) Discharge Disposition: Home and/or Self Care 12/29/2023 Travel from Last 3 Months Immunizations Name Administration Dates Next Due Influenza Unspecified Formulation 2014,03/03/2014,02/23/2013, 2,03/01/2011,04/25/2009,03/03/2008 Pneumovax 23 01/28/2008 TD >7Yrs Preservative Free 08/01/2009 Zoster Zostavax (Shingles) 03/05/2012 Surgical History Surgery Date Site/Laterality Comments COLONOSCOPY 09/13/2015 Per [facility] records from [facility]; 5yr repeat TOTAL HIP ARTHROPLASTY Medical History [...] on file 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 Gender Identity Not on file Sexual Orientation [...] 1950 Sigmoidoscopy 1950 PERTUSSIS (Standing Order) 09/29/1970 Shingrix (Zoster recombinant) vaccine (Standing Order) (1 of 2) 04/30/2012 Pneumococcal Vaccine: 65+ yrs (Standing Order) (2 of 2 - PCV) 09/29/2016 01/28/2008 TETANUS (Standing Order) 08/02/2019 08/01/2009 COLONOSCOPY Q 5 YRS 09/12/2020 09/13/2015 ( Previously completed) COVID-19 Vaccine (2 - season) 2024 07/05/2020 Influenza Vaccine Seasonal (Standing Order) (#1) 2024 02/20/2015, 03/03/2014, 02/23/2013, Additional history exists RSV Vaccination (60+ yrs) (Abrysvo/Arexvy) (1 - 1-dose 75+ series) 09/29/2026 HPV Vaccine (Standing Order) Aged Out No [...] - 99 mg/dL 12/29/2023 7:09 PM CDT [facility] Blood WHOLE BLOOD SPECIMEN / Unknown 12/29/2023 7:02 PM CDT 12/29/2023 7:09 PM CDT us Benito Gill MD EC CHEMISTRY ORDERABLES Varsha l Result [facility] POINT OF CARE [address] [place] [address], [facility] * (ABNORMAL) GLUCOSE, METER (12/29/2023 5:47 PM CDT) Glucose Meter 350(H) 70 - 99 mg/dL 12/29/2023 5:54 PM CDT [facility]INT [facility]ARE Blood WHOLE BLOOD SPECIMEN / Unknown 12/29/2023 5:47 PM CDT 12/29/2023 5:54 PM CDT us Benito Gill MD EC CHEMISTRY ORDERABLES Varsha michael Result [facility] POINT OF CARE [address] * (ABNORMAL) BASIC METABOLIC PANEL (12/29/2023 4:38 PM CDT) Sodium 133(L) 134 - 143 mEq/L 12/29/2023 5:00 PM CDT [facility] Potassium 4.9 3.4 - 5.1 mEq/L 12/29/2023 5:00 PM CDT [facility] Chloride 101 99 - 110 mEq/L 12/29/2023 5:00 PM CDT [facility] Carbon Dioxide 24 19 - 29 mEq/L 12/29/2023 5:00 PM CDT [facility] Anion Gap 8.0 3.0 - 15.0 mEq/L 12/29/2023 5:00 PM CDT [facility] Blood Urea Nitrogen 43(H) 5 - 24 mg/dL 12/29/2023 5:00 PM CDT [facility] Creatinine 2.24(H) 0.70 - 1.20 mg/dL 12/29/2023 5:00 PM CDT [facility] Glomerular Filtration Rate 30(L) >60 mL/min/1. 73 m*2 12/29/2023 5:00 PM CDT [facility] Comment:Risk of cardiovascul ar disease increases when GFR is abnormal; persistently reduced GFR values are a specific indication of CKD. This calculation uses CKD- EPI 2020 equation without adjustment for race; it has not been validated in women. Calcium 9.3 8.4 - 10.5 mg/dL 12/29/2023 5:00 PM CDT [facility] Glucose 416(H) 70 - 99 mg/dL 12/29/2023 5:00 PM CDT [facility] Blood BLOOD SPECIMEN / Unknown Venipuncture / Unknown 12/29/2023 4:38 PM CDT 12/29/2023 4:40 PM CDT Narrative [facility] - 12/29/2023 5:00 PM CDT Current [...] >250: Measured NA + (0.016X(glucose-100)) for the [employer] chemistry analyzers. us Benito Gill MD EC CHEMISTRY ORDERABLES Varsha rodriguez Result [facility] [address] [place] [address] * (ABNORMAL) HEMOGRAM/DIFFERENTIAL (12/29/2023 4:38 PM CDT) WBC 8.5 3.2 - 11.0 10*9/L 12/29/2023 4:43 PM CDT [facility] RBC 4.39 4.14 - 5.76 10*12/L 12/29/2023 4:43 PM CDT [facility] HGB 12.3(L) 12.9 - 16.9 g/dL 12/29/2023 4:43 PM CDT [facility] HCT 37.5(L) 38.4 - 49.7 % 12/29/2023 4:43 PM [facility] MCV 85.4 81.4 - 99.0 fL 12/29/2023 4:43 [facility] MCH 28.0 26.7 - 33.1 pg 12/29/2023 4:43 PM [facility] MCHC 32.8 31.6 - 35.5 g/dL 12/29/2023 4:43 PM [facility] RDW 15.0(H) 11.3 - 14.6 % 12/29/2023 4:43 PM [facility] PLT 407(H) 130 - 375 10*9/L 12/29/2023 4:43 PM [facility] Neutrophils % 84.7 % 12/29/2023 4:43 PM [facility] Lymphocytes % 13.0 % 12/29/2023 4:43 PM [facility] Monocytes % 1.9 % 12/29/2023 4:43 PM [facility] Eosinophils % 0.0 % 12/29/2023 4:43 PM [facility] Basophils % 0.0 % 12/29/2023 4:43 PM [facility] Immature Granulocytes % 0.4 % 12/29/2023 4:43 PM [facility] Neutrophils Absolute 7.2 1.5 - 7.6 10*9/L 12/29/2023 4:43 PM [facility] Lymphocytes Absolute 1.1 0.8 - 3.3 10*9/L 12/29/2023 4:43 PM [facility] Monocytes Absolute 0.2 0.2 - 0.9 10*9/L 12/29/2023 4:43 PM [facility] Eosinophils Absolute 0.0 0.0 - 0.4 10*9/L 12/29/2023 4:43 PM [facility] Basophils Absolute 0.0 0.0 - 0.1 10*9/L 12/29/2023 4:43 PM CDT [facility] Immature Granulocytes Absolute 0.03 0.00 - 0.06 10*9/L 12/29/2023 4:43 PM CDT [facility] Blood BLOOD SPECIMEN / Unknown Venipuncture / Unknown 12/29/2023 4:38 PM CDT 12/29/2023 4:41 PM CDT Benito Gill MD EC HEMATOLOGY ORDERABLES Fin al Result Performing Organization Address City/[facility]/ZIP Co de Phone Number [facility] [address] [place] [address] * LACTIC ACID, VENOUS (12/29/2023 4:38 PM CDT) Lactic Acid, Venous 1.2 0.5 - 2.0 mmol/L 12/29/2023 4:57 PM CDT [facility] Blood BLOOD SPECIMEN / Unknown Venipuncture / Unknown 12/29/2023 4:38 PM CDT 12/29/2023 4:40 PM CDT Benito Gill MD EC CHEMISTRY ORDERABLES Varsha l Result Performing Organization Address City/[facility] Co de Phone Number [facility] [address] [place] [address] * (ABNORMAL) HEMOGLOBIN A1C (12/29/2023 4:38 PM CDT) Hemoglobin A1c 9.2(H) 4.0 - 5.6 % 12/29/2023 4:50 PM CDT [facility] Estimated Average Glucose 217 mg/dL 12/29/2023 4:50 PM CDT [facility] Blood BLOOD SPECIMEN / Unknown Venipuncture / Unknown 12/29/2023 4:38 PM CDT 12/29/2023 4:41 PM CDT Narrative [facility] - 12/29/2023 4:50 PM CDT HGA1C Reference Ranges ??>= 6.5 ?? Diabetes* ??5.7-6.4 ??Impaired glucose tolerance ?? <5.7 ?Normal *In the absence of unequivocal hyperglycemia, results should be confirmed by repeat testing for the diagnosis of diabetes. [employer] 2018 Benito Gill MD EC CHEMISTRY ORDERABLES ABN Final Result Performing Organization Address [facility] Co de Phone Number [facility] [address] [address], [facility] * BETA-HYDROXYBUTYRATE (12/29/2023 4:38 PM CDT) Beta-Hydroxybu tyrate 0.07 0.02 - 0.27 mM 12/29/2023 5:00 PM CDT [facility] Blood BLOOD SPECIMEN / Unknown Venipuncture / Unknown 12/29/2023 4:38 PM CDT 12/29/2023 4:40 PM CDT Narrative [facility] - 12/29/2023 5:00 PM CDT Of the 3 ketone bodies contributing to ketosis and ketoacidosis (acetoacetate, acetone and B-hydroxybutyrate), the B-hydroxybutyrate normally represents over 75% of the total. us Benito Gill MD EC CHEMISTRY ORDERABLES Varsha l Result Performing Organization Address [facility] Co de Phone Number [facility] [address] [address], [facility] * (ABNORMAL) GLUCOSE, METER (12/29/2023 3:01 PM CDT) Glucose Meter 405(H) 70 - 99 mg/dL 12/29/2023 3:09 PM CDT [facility]INT [facility] Blood WHOLE BLOOD SPECIMEN / Unknown 12/29/2023 3:01 PM CDT 12/29/2023 3:09 PM CDT us Pcp Elsewhere EC CHEMISTRY ORDERABLES Final Re sult [facility] POINT [facility] CARE [address] [place] [address], [facility] from Last 3 Months Insurance MEDICARE COST [employer]/[facility]ANTAGE [facility]UE [facility] ACCT Care Teams Bottle House Pumper Relationship Specialty Start Date End Date Niall Harding MD [address] [place] [address] [phone] PCP - General Family Medicine 12/29/23
--- OUTSIDE RECORDS SUMMARY | 2024-03-15 15:05 | XMS_ITS | Encounter Summary ---
Author Organization [facility] Address [address] [place] [address] Care Team Providers Care Branch Associate Name Role Phone Niall Harding MD Primary Care Provider [phone] Encounter Details Date Type Department Care Team (Late st Contact Info) Description 09/08/2023 Documentation Only [facility] [place] [address] No, Pcp Social History Tobacco [...] [facility] [place] [address] Giorgio Callejas MD [address] [place] [address] Chronic kidney disease stage 4 (HCC) 04/20/2024 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
--- OUTSIDE RECORDS SUMMARY | 2024-03-15 15:05 | XMS_ITS | Encounter Summary ---
Author Organization [facility] Address [address] [address] Phone Care Team Providers Care Health Service Coordinator Name Role Phone Niall Harding MD Primary Care Provider [phone] Encounter Details Date Type Department Care Team (Latest Contact Info) Description 12/29/2023 Travel Social History Tobacco Use Types Packs/Day Years Used Date Smoking Tobacco: Former Cigarettes Q uit: 1985 Smokeless Tobacco: Never PHQ-2 Answer Date Recorded PHQ-2 Score 0 03/08/2018 [facility] Custom IPV Answer Date Recorded Do you feel UNSAFE in any of your personal relationships with your family members or any other acquaintances? 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
--- OUTSIDE RECORDS SUMMARY | 2024-03-15 15:05 | XMS_ITS | Encounter Summary ---
Author Organization [facility] Address [address] [address] Phone Care Team Providers Care Accountant Clerk Name Role Phone Niall Harding MD Primary Care Provider [phone] Reason for Visit * Reason Comments High Blood Sugar- Asymptomatic Encounter Details Date Type Department Care Team (Late st Contact Info) Description 12/29/2023 3:59 PM CDT - 12/29/2023 7:[address] [facility] Emergency Department [address] [place] [id number] Benito Gill MD [address] [place] [address] [phone] Hyperglycemia (Primary Dx) Discharge Disposition: Home and/or Self Care Social History Tobacco Use Types Packs/Day Years Used Date Smoking Tobacco: Former Cigarettes Q uit: 1985 Smokeless Tobacco: Never PHQ-2 Answer Date Recorded PHQ-2 Score 0 03/08/2018 [facility] Custom IPV Answer Date Recorded Do you feel UNSAFE in any of your personal relationships with your family members or any other acquaintances? 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 Follow-up with primary care provider tomorrow by phone as planned. documented in this encounter Medications at Time of Discharge metFORMIN (GLUCOPHAGE) 500 MG tablet Take 2 Tabs by mouth two times a day with meals. 10/09/2018 aspirin 81 MG chewable tablet Chew and swallow 81 mg one time a day. Take with food. buPROPion SR (WELLBUTRIN SR, ZYBAN) 150 MG 12 hour sustained release tablet Take 150 mg by mouth one time a day. Do not crush. Multiple Vitamins-Mineral s (MULTIVITAL OR) Take by mouth. Ascorbic Acid (VITAMIN C) 500 MG Cap Take by mouth. citalopram (CELEXA) 40 MG tablet Take 40 mg by mouth one time a day. atorvaSTATin (LIPITOR) 20 MG tablet Take 20 mg by mouth one time a day. omega-3 fatty acid (FISH OIL) 1000 MG capsule Take 1,000 mg by mouth one time a day. Glucosamine-Hemal droit-Vit C-Mn (GLUCOSAMINE CHONDR 1500 COMPLX) Cap Take by mouth. traZODone (DESYREL) 150 MG tablet Take 150 mg by mouth at bedtime. omeprazole (PRILOSEC OTC) 20 MG delayed-release tablet Take 20 mg by mouth every morning before breakfast. Tablet should be swallowed whole; do not crush or chew. Take before meals. ATENOLOL OR Take 50 mg by mouth. TRAZODONE HCL OR Take by mouth. HYDROcodone-acet aminophen 2.5-325 MG oral tablet Take 1 Tab [...] Code Departure Means Destination Home and/or Self Fdc documented in this encounter ED Notes * [...] HCL OR Take 10 mg by mouth. Pqscqonqndh-Gxezbnpnb-Lzy C-Mn (GLUCOSAMINE CHONDR 1500 COMPLX) Cap Take [...] History: Procedure Laterality Date COLONOSCOPY 09/13/2015 Per [facility] records from [facility]; 5yr repeat TOTAL HIP ARTHROPLASTY [...] infusion 1,000 mL (0 mL Intravenous Stopped 12/29/231748) sodium chloride 0.9% (NS) infusion 1,000 mL (0 mL Intravenous Stopped 12/29/231905) insulin regular (HumuLIN-R) 10 Units in sodium chloride 0.9 % PF (NS) IV syringe (10 Units IV Push Given 12/29/231818) Procedures: Procedures Medical Decision Making Problems Addressed: Hyperglycemia: complicated acute illness or injury Amount and/or Complexity of Data Reviewed Labs: ordered. Risk Prescription drug management. Assessment: Hyperglycemia (Primary) Plan: Discharge Discharge Prescriptions None Disposition: ED Disposition ED Disposition Discharge Condition Stable Comment [facility] thanks you for allowing us to assist you with your healthcare needs. This document contains patient education materials and information regarding your injury/illness. *If you need copies of your x-rays for a f ollow up appointment please call [phone] to arrangefor picking tech. If you had an IV in place [...] - 99 mg/dL 12/29/2023 7:09 PM CDT [facility] Blood WHOLE BLOOD SPECIMEN / Unknown 12/29/2023 7:02 PM CDT 12/29/2023 7:09 PM CDT Benito Gill MD EC CHEMISTRY ORDERABLES Varsha l Result Performing Organization Address City/[facility]/ZIP Co de Phone Number [facility]INT [facility] CARE [address] [place] [address] * (ABNORMAL) GLUCOSE, METER (12/29/2023 5:47 PM CDT) Glucose Meter 350(H) 70 - 99 mg/dL 12/29/2023 5:54 PM CDT [facility] Blood WHOLE BLOOD SPECIMEN / Unknown 12/29/2023 5:47 PM CDT 12/29/2023 5:54 PM CDT Benito Gill MD EC CHEMISTRY ORDERABLES Varsha l Result Performing Organization Address City/[facility]/ZIP Co de Phone Number [facility]INT [facility] CARE [address] [place] [address] * (ABNORMAL) HEMOGLOBIN A1C (12/29/2023 4:38 PM CDT) Hemoglobin A1c 9.2(H) 4.0 - 5.6 % 12/29/2023 4:50 PM CDT [facility] Estimated Average Glucose 217 mg/dL 12/29/2023 4:50 PM CDT [facility] Blood BLOOD SPECIMEN / Unknown Venipuncture / Unknown 12/29/2023 4:38 PM CDT 12/29/2023 4:41 PM CDT Narrative [facility] - 12/29/2023 4:50 PM CDT HGA1C Reference Ranges ??>= 6.5 ?? Diabetes* ??5.7-6.4 ??Impaired glucose tolerance ?? <5.7 ?Normal *In the absence of unequivocal hyperglycemia, results should be confirmed by repeat testing for the diagnosis of diabetes. [employer] 2018 us Benito Gill MD EC CHEMISTRY ORDERABLES ABN Final Result [facility] [address] [place] [address] * (ABNORMAL) BASIC METABOLIC PANEL (12/29/2023 4:38 PM CDT) Sodium 133(L) 134 - 143 mEq/L 12/29/2023 5:00 PM CDT [facility] Potassium 4.9 3.4 - 5.1 mEq/L 12/29/2023 5:00 PM CDT [facility] Chloride 101 99 - 110 mEq/L 12/29/2023 5:00 PM CDT [facility] Carbon Dioxide 24 19 - 29 mEq/L 12/29/2023 5:00 PM CDT [facility] Anion Gap 8.0 3.0 - 15.0 mEq/L 12/29/2023 5:00 PM CDT [facility] Blood Urea Nitrogen 43(H) 5 - 24 mg/dL 12/29/2023 5:00 PM CDT [facility] Creatinine 2.24(H) 0.70 - 1.20 mg/dL 12/29/2023 5:00 PM CDT [facility] Glomerular Filtration Rate 30(L) >60 mL/min/1. 73 m*2 12/29/2023 5:00 PM CDT [facility] Comment:Risk of cardiovascul ar disease increases when GFR is abnormal; persistently reduced GFR values are a specific indication of CKD. This calculation uses CKD- EPI 202 equation without adjustment for race; it has not been validated in women. Calcium 9.3 8.4 - 10.5 mg/dL 12/29/2023 5:00 PM CDT [facility] Glucose 416(H) 70 - 99 mg/dL 12/29/2023 5:00 PM CDT [facility] Blood BLOOD SPECIMEN / Unknown Venipuncture / Unknown 12/29/2023 4:38 PM CDT 12/29/2023 4:40 PM CDT Narrative [facility] - 12/29/2023 5:00 PM [...] MD EC CHEMISTRY ORDERABLES Varsha rodriguez Result [facility] [address] [place] [address] * (ABNORMAL) HEMOGRAM/DIFFERENTIAL (12/29/2023 4:38 PM CDT) WBC 8.5 3.2 - 11.0 10*9/L 12/29/2023 4:43 PM CDT [facility] RBC 4.39 4.14 - 5.76 10*12/L 12/29/2023 4:43 PM CDT [facility] HGB 12.3(L) 12.9 - 16.9 g/dL 12/29/2023 4:43 [facility] HCT 37.5(L) 38.4 - 49.7 % 12/29/2023 4:43 [facility] MCV 85.4 81.4 - 99.0 fL 12/29/2023 4:43 [facility] MCH 28.0 26.7 - 33.1 pg 12/29/2023 4:43 PM CDT [facility] MCHC 32.8 31.6 - 35.5 g/dL 12/29/2023 4:43 PM [facility] RDW 15.0(H) 11.3 - 14.6 % 12/29/2023 4:43 PM [facility] PLT 407(H) 130 - 375 10*9/L 12/29/2023 4:43 PM CDT [facility] Neutrophils % 84.7 % 12/29/2023 4:43 [facility] Lymphocytes % 13.0 % 12/29/2023 4:43 PM [facility] Monocytes % 1.9 % 12/29/2023 4:43 PM [facility] Eosinophils % 0.0 % 12/29/2023 4:43 PM [facility] Basophils % 0.0 % 12/29/2023 4:43 PM [facility] Immature Granulocytes % 0.4 % 12/29/2023 4:43 [facility] Neutrophils Absolute 7.2 1.5 - 7.6 10*9/L 12/29/2023 4:43 PM [facility] Lymphocytes Absolute 1.1 0.8 - 3.3 10*9/L 12/29/2023 4:43 PM [facility] Monocytes Absolute 0.2 0.2 - 0.9 10*9/L 12/29/2023 4:43 PM CDT [facility] Eosinophils Absolute 0.0 0.0 - 0.4 10*9/L 12/29/2023 4:43 PM CDT [facility] Basophils Absolute 0.0 0.0 - 0.1 10*9/L 12/29/2023 4:43 PM CDT [facility] Immature Granulocytes Absolute 0.03 0.00 - 0.06 10*9/L 12/29/2023 4:43 PM CDT [facility] Blood BLOOD SPECIMEN / Unknown Venipuncture / Unknown 12/29/2023 4:38 PM CDT 12/29/2023 4:41 PM CDT Benito Gill MD EC HEMATOLOGY ORDERABLES Fin al Result Performing Organization Address [facility] de Phone Number [facility] [address] [place] [address] * BETA-HYDROXYBUTYRATE (12/29/2023 4:38 PM CDT) Beta-Hydroxybu tyrate 0.07 0.02 - 0.27 mM 12/29/2023 5:00 PM CDT [facility] Blood BLOOD SPECIMEN / Unknown Venipuncture / Unknown 12/29/2023 4:38 PM CDT 12/29/2023 4:40 PM CDT Narrative [facility] - 12/29/2023 5:00 PM CDT Of the 3 ketone bodies contributing to ketosis and ketoacidosis (acetoacetate, acetone and B-hydroxybutyrate), the B-hydroxybutyrate normally represents over 75% of the total. Benito Gill MD EC CHEMISTRY ORDERABLES Varsha l Result Performing Organization Address [facility] Co de Phone Number [facility] [address] [place] [address] * LACTIC ACID, VENOUS (12/29/2023 4:38 PM CDT) Lactic Acid, Venous 1.2 0.5 - 2.0 mmol/L 12/29/2023 4:57 PM CDT [facility] Blood BLOOD SPECIMEN / Unknown Venipuncture / Unknown 12/29/2023 4:38 PM CDT 12/29/2023 4:40 PM CDT us Benito Gill MD EC CHEMISTRY ORDERABLES Varsha l Result Performing Organization Address [facility] Co de Phone Number [facility] [id number] [place] [address] * (ABNORMAL) GLUCOSE, METER (12/29/2023 3:01 PM CDT) Glucose Meter 405(H) 70 - 99 mg/dL 12/29/2023 3:09 PM CDT [facility] Blood WHOLE BLOOD SPECIMEN / Unknown 12/29/2023 3:01 PM CDT 12/29/2023 3:09 PM CDT us Pcp Elsewhere EC CHEMISTRY ORDERABLES Final Re sult Performing Organization Address [facility] Phone Number [facility] [address] [place] [address], [facility] documented in this encounter Visit Diagnoses Diagnosis [...] 12/29/2023 documented in this encounter Care Teams Accountant Clerk Relationship Specialty Start Date End Date Niall Harding MD [address] [place] [id number] PCP - General Family Medicine 12/29/23 documented as of this encounter
--- OUTSIDE RECORDS SUMMARY | 2024-03-15 15:05 | XMS_ITS | Clinical Summary ---
Author Organization [facility] [place] Address [address] [place] [address] Phone Care Team Providers Care Snake Charmer Name Role Phone Niall Harding MD Primary Care Provider [phone] Allergies No known active allergies Medications omeprazole (PriLOSEC) [address] capsule Take 20 mg by mouth 1 (one) time each day 1 Active melatonin 3 MG tablet Take 6 mg by mouth 1 (one) time each day 4 Active oxyCODONE (ROXICODONE) 5 MG immediate release tablet Take 5 mg by mouth every 6 (six) hours if needed (pain) 4 Active tamsulosin (FLOMAX) 0.4 MG 24 hr capsule Take 0.4 mg by mouth 1 (one) time each day 4 Active traZODone (DESYREL) 150 MG tablet TAKE ONE TABLET BY MOUTH ONE TIME DAILY AT BEDTIME* 1 Active PARoxetine (PAXIL) 20 MG tablet Take 20 mg by mouth 1 (one) time each day in the morning 3 Active cycloSPORINE (Restasis) 0.05 % ophthalmic emulsion Administer 1 drop into both eyes every 12 (twelve) hours 9 Active Glycerin-Hyprom ellose-PEG 400 0.2-0.2-1 % solution Place 1 Drop into both eyes 2 times daily if needed for Dry Eyes. 4 Active atenolol (TENORMIN) 50 MG tablet Take 50 mg by mouth 1 (one) time each day 1 Active allopurinol (ZYLOPRIM) 100 MG tablet Take 100 mg by mouth 1 (one) time each day 4 Active amLODIPine (NORVASC) 5 MG tablet Take 5 mg by mouth 1 (one) time each day 1 Active atorvastatin (LIPITOR) 20 MG tablet Take 20 mg by mouth 1 (one) time each day 1 Active Docusate Sodium (DSS) 100 MG capsule Take 1 Capsule (100 mg) by mouth 2 times daily if needed for Constipation. 4 Active hydroCHLOROthia zide 25 MG tablet Take 25 mg by mouth 1 (one) time each day 4 Active buPROPion XL (WELLBUTRIN XL) 150 MG 24 hr tablet Take 150 mg by mouth 1 (one) time each day in the morning 1 Active predniSONE (DELTASONE) 20 MG tablet take 2 tablets by mouth every day for the first 5 days; then 1 tablet daily for the next 5 days* 4 Active Active Problems Problem Noted Date Diagnosed Date Hyperkalemia 09/24/2023 Assessment & Plan (09/25/2023 2:29 PM CDT): As result of diminished GFR. Continue current medications as ordered, including hydrochlorothiazide to maintain normokalemia. If this becomes a recurrent, troubling issue, I would consider hydrochlorothiazide discontinuation in favor of loop diuretic initiation at 40 mg a day. No plans to initiate GI based potassium binder at this time. Acute kidney failure with tubular necrosis 09/23 Renal mass 09/24/2023 Overview (09/25/2023): Right kidney is first identified on renal [...] cysts. Chronic kidney disease stage 4 06/17/2021 Overview (09/24/2023): Baseline creatinine between 1.2-1.4 range stretching back [...] at 2.4 x 5.5 x 5.1 cm. Assessment & Plan (09/25/2023 2:30 PM CDT): Expected loss of GFR following 50% of [...] I through stage IV, or unspecified 03/05/2007 Assessment & Plan (09/25/2023 2:28 PM CDT): Currently fine shape overall. Appropriate to maintain [...] Description 01/07/2024 Office Communication [facility] [address] [place] [address] Giorgio Callejas MD from Last 3 Months Immunizations Name Administration Dates Next Due Influenza Split High Dose Preservative Free IM 1 [employer] Sars-cov-2 (Covid-19) Vaccine, Mrna, Segundo Protein 02/17/2023 [...] Encounters Date Type Department Care Team (Late Contact Info) Description 03/27/2024 Orders Only [facility] [address] [place] [address] [address] Giorgio Callejas MD [address] [place] [phone] Chronic kidney disease stage 4 (HCC) 04/20/2024 10:30 AM SLAB POLISHER Office Visit [facility] [address] [place] [address] Goirgio Callejas MD [address] [place] [address] Health Maintenance Due Date Last Done Comments [...] on patient's age to complete this topic Insurance [facility] MEDICARE [place] [id number] Care Teams Snake Charmer Relationship Specialty Start Date End Date Niall Harding MD [address] [place] [address] PCP - General Family Medicine 09/08/23
--- OUTSIDE RECORDS SUMMARY | 2024-03-15 15:05 | XMS_ITS | Encounter Summary ---
Author Organization [facility] Address [address] [place] [address] Care Team Providers Care Plastic Design Applier Name Role Phone Niall Harding MD Primary Care Provider Encounter Details Date Type Department Care Team (Late st Contact Info) Description 10/18/2023 Orders Only [facility] [place] [address] Giorgio Callejas MD [address] [place] [address] Chronic kidney disease stage 4 [...] [address] [address] Giorgio Callejas MD [address] [place] [address] Chronic kidney disease stage 4 (HCC) 04/20/2024 10:30 AM SUPPLY CHAIN PLANNER Office Visit [facility] [address] [place] [phone] Giorgio Callejas MD [address] [phone] documented as of this encounter Visit Diagnoses Diagnosis Chronic kidney disease stage 4 (HCC) Chronic kidney disease stage 4 (HCC) documented in this encounter Care Teams Plastic Design Applier Relationship Specialty Start Date End Date Niall Hrading MD [address] [place] [address] PCP - General Family Medicine 09/08/23 documented as of this encounter
--- OUTSIDE RECORDS SUMMARY | 2024-03-15 15:05 | XMS_ITS | Encounter Summary ---
Author Organization [facility] Address [address] [place] [address] Care Team Providers Care Product Safety Administrator Name Role Phone Niall Harding MD Primary Care Provider [phone] Encounter Details Date Type Department Care Team [...] [place] [address] Giorgio Callejas MD [address] [place] [address] Chronic kidney disease stage 4 (HCC) 04/20/2024 10:30 AM LOOM STARTER Office Visit [facility] [place] [address] Giorgio Callejas MD [address] [place] [address] documented as of this encounter Visit Diagnoses Not on filedocumented in this encounter Care Teams Product Safety Administrator Relationship Specialty Start Date End Date Niall Harding MD [address] [place] [address] PCP - General Family Medicine 09/08/23 documented as of this encounter
--- OUTSIDE RECORDS SUMMARY | 2024-03-15 15:06 | XMS_ITS | Clinical Summary ---
Author Organization [employer] [facility] Address [place], [place] [address] Care Team Providers Care Record Press Operator Name Role Phone ElianaLakhwinder meier EDILBERTO Unavailable + [phone] Niall Harding MD Primary Care Provider [phone] Allergies No known active allergies Medications Medication Sig Dispensed Refills Start Date End Date Status multivitamin (MULTIPLE VITAMINS) tablet Take 1 tablet by mouth once daily. 0 3 Active artificial tears, peg 400-propylene glycol, (SYSTANE) 0.4-0.3 % drop ophthalmic Place 1 Drop into both eyes 2 times daily if needed for Dry Eyes. 0.1 mL 0 4 Active loratadine-pseudoe phedrine, 5-120 mg, 12hr (CLARITIN-D 12 HOUR) tablet Take 1 tablet. by mouth 2 times daily if needed for Allergy Symptoms. 0 5 Active RESTASIS 0.05 % ophthalmic emulsion Place 1 Drop into both eyes every 12 hours. 9 Active amLODIPine (NORVASC) 5 mg tabletIndications: HTN (hypertension) Take 1 Tablet (5 mg) by mouth once daily. 90 Tablet 3 4 Active atorvastatin (LIPITOR) 20 mg tabletIndications: Hyperlipidemia, unspecified hyperlipidemia type Take 1 Tablet (20 mg) by mouth once daily. 90 Tablet 3 4 Active melatonin 3 mg tablet Take 2 Tablets (6 mg) by mouth once daily. 4 Active omeprazole (PRILOSEC) 20 mg Delayed-Release capsuleIndications :Gastroesophageal reflux disease, unspecified whether esophagitis present Take 1 Capsule (20 mg) by mouth once daily before a meal. 90 Capsule 3 4 Active docusate (COLACE) 100 mg capsuleIndications :Renal mass Take 1 Capsule (100 mg) by mouth 2 times daily if needed for Constipation. 20 Capsule 4 Active hydroCHLOROthiazid e (HCTZ) 25 mg tabletIndications: Hypertension, unspecified type Take 1 Tablet (25 mg) by mouth once daily. 90 Tablet 3 4 Active allopurinoL (ZYLOPRIM) 100 mg tabletIndications: Gout, unspecified cause, unspecified chronicity, unspecified site Take 1 Tablet (100 mg) by mouth once daily. 90 Tablet 3 4 Active buPROPion (WELLBUTRIN XL) 150 mg Extended-Release tabletIndications: Major depressive disorder, recurrent, moderate (HC) Take 1 Tablet (150 mg) by mouth once daily. TAKE ONE TABLET BY MOUTH ONE TIME DAILY 90 Tablet 3 4 Active tamsulosin (FLOMAX) 0.4 mg capsuleIndications :BPH without urinary obstruction Take 1 Capsule (0.4 mg) by mouth once daily after a meal. 90 Capsule 3 4 Active oxyCODONE (ROXICODONE) 5 mg immediate release tabletIndications: Lumbosacral spondylosis without myelopathy Take 1 Tablet (5 mg) by mouth every 6 hours if needed for Pain. for pain 30 Tablet 4 Active PARoxetine (PAXIL) 20 mg tabletIndications: Major depressive disorder, recurrent, moderate (HC),Anxiety TAKE ONE TABLET BY MOUTH EVERY DAY IN THE MORNING. 90 Tablet 1 4 Active pen needle 32 gauge x 5/32 (disposable insulin pen needle)Indications :Type 2 diabetes mellitus with stage 3b chronic kidney disease, without long-term current use of insulin (HC) Remove the 2 covers on the pen needle before administering medication dose. 100 Each 4 Active hydrocortisone 1 % creamIndications:B alanitis Apply topically to affected area(s) two times daily. 30 g 1 4 Active blood sugar diagnostic (Contour Next Test Strips) stripIndications:T ype 2 diabetes mellitus with stage 3b chronic kidney disease, without long-term current use of insulin (HC) USE TO TEST BLOOD GLUCOSE LEVELS TWICE DAILY. 200 Each 2 4 Active blocking machine tender (Dexcom G6 Wrecking Car Driver) for continuous blood glucose monitor (CGM)Indications:T ype 2 diabetes mellitus with stage 3b chronic kidney disease, without long-term current use of insulin (HC) To be used to read blood sugars follow clinic receptionist directions. 1 Each 4 Active sensor (Dexcom G6 Sensor) for continuous blood glucose monitor (CGM)Indications:T ype 2 diabetes mellitus with stage 3b chronic kidney disease, without long-term current use of insulin (HC) To be used to read blood sugars, change sensor every 10 days. 9 Each 3 4 Active transmitter (Dexcom G6 Transmitter) for continuous blood glucose monitor (CGM)Indications:T ype 2 diabetes mellitus with stage 3b chronic [...] by mouth three times daily. 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 Length of need: 99 months 1 Each 4 Active Lantus Solostar U-100 Insulin 100 unit/mL (3 mL) penIndications:Typ e 2 diabetes mellitus with stage 3b chronic kidney disease, without long-term current use of insulin (HC) Inject 26 units subcutaneous before bedtime. 24 mL 3 4 Active cholestyramine-asp artame (QUESTRAN LIGHT; PREVALITE) 4 gram packet Mix 1 Packet in liquid then take by mouth two times daily. 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 Grade 4, T3a growing into renal vein. T3b. Gastroesophageal reflux disease without esophagi tis 09/29/2015 Hyperlipidemia LDL goal <100 09/29/2015 LILY 03/02/2013 AHI- 47 03/15/2013 Colon polyp 04/26/2010 Overview (08/18/2020): Colonoscopy 04/2010 polyps repeat in 3 years [...] Encounters Date Type Department Care Team Description 03/15/2024 Nurse Triage [facility] [address] [place] [address] Niall Harding MD Gi Problem 02/25/[address] [address] Niall Harding MD Refill Request (Diphenoxylate-atro pine (2.5-0.025 Mg)) 02/21/[address] [address] King Castrejon MD Refill Request (Trazodone) 02/20/2024 9:15 AM CDT Office Visit [address] [place] [address] Niall Harding MD Diabetes 02/20/2024 Travel 02/16/2024 Travel 02/05/2024 Nurse Triage [address] [place] [address] Niall Harding MD GoLytely prep causing low blood sugar 02/04/2024 Orders Only [facility] Scanner 1 scan: (1-Ord) [facility] [place], PET CT BODY SKULL BASE TO MID THIGH, 02/04/2024 01/29/2024 2:15 PM CDT Ancillary Procedure [address] [place] [address] 01/29/2024 12:45 PM CDT Office Visit [address] [place] [address] Niall Harding MD Follow Up 01/29/2024 Travel 01/24/2024 Travel 01/23/[address] [address] Niall Harding MD Medication Management (prednisone urgent care) 01/23/2024 Nurse Triage [facility] [address] [facility] [place] [address] Niall Harding MD Joint Pain; Foot Pain/problem 01/20/2024 Orders Only [facility] Scanner 1 scan: (1-Ord) [facility], CT HEAD/BRAIN W/O CON, 01/20/2024 01/19/2024 Orders Only [facility] Scanner 1 scan: (1-Ord) [facility], XR KNEE LT 3V, 01/19/2024 01/18/2024 Orders Only [facility] Scanner 1 scan: (1-Ord) [facility], CT CHEST ABD PELV WO CON, 01/18/2024 01/14/2024 1:00 PM CDT Patient Outreach [address] [address] Diabetes (DM education) 01/14/2024 Travel 01/13/2024 Telephone [facility] [address] [facility] [place] [address] Niall Harding MD Glucose Levels (Elevated glucose levels) 01/12/2024 Orders Only [facility] Scanner 1 scan: (1-Ord) [place] [facility], RESULTS, 01/12/2024 01/12/2024 Orders Only [facility] Scanner 1 scan: (1-Ord) [place] [facility], MULTIPLE LAB RESULTS, 01/12/2024 01/11/2024 Travel 01/09/2024 9:40 AM CDT Office Visit [facility] [address] [facility] [place] [address] Niall Harding MD Diabetes 01/09/2024 Travel 12/30/2023 10:05 AM CDT Phone Office Visit [facility] [address] [facility] [place] [address] Niall Harding MD Telehealth (telephone visit); Follow Up (blood sugar and gout); Refill Request (needs testing strips to [facility] [place]) 12/30/2023 Travel 12/29/2023 Nurse Triage [facility] [address] [facility] [address] Niall Harding MD High Blood Sugar 12/23/2023 3:40 PM CDT Office Visit [facility] [address] [facility] [address] Niall Harding MD Diabetes; Foot Problem (Right worse than left/Been going on for a couple of weeks and is getting worse) 12/23/2023 Travel 12/19/2023 3:15 PM CDT Ancillary Procedure [facility] [address] [facility] [address] 12/19/2023 Travel 12/19/2023 Transcribe Orders [facility] [address] [place] [address] Karen Tiwari MBBS from Last 3 Months Immunizations Name Administration Dates Next Due AMB INFLUENZA IIV3 (AGE 65+ YRS) PF (Flu Clinic Only) 02/27/2018 COVID-19 vaccine ([employer] 30mcg/0.3mL) PF, MDV 02/09/2021,07/26/2020,07/05/2020 Influenza A (H1N1), [...] 0 05/26/2023 Social Connections Answer Date Recorded Do you often feel lonely or isolated from those around you? 0 08/22/2023 Alcohol Use Answer Date Recorded How often [...] file 07/08/2023 Food Insecurity Answer Date Recorded Do you worry your food will run out before you are able to buy more? 1 08/22/2023 Transportation Needs Answer Date Record ed Does lack of transportation keep you from medica l appointments? 1 08/22/2023 Does lack of transportation keep you from work, meetings or getting things that you need? 1 08/22/2023 Housing Stability Answer Date Recorded What is your housing situation today? 1 08/22/2023 Sex and Gender Information Value Date Recorded Sex Assigned at Not on file Gender Identity Not on file Sexual Orientation Not on file Obstetrics History Last Filed Vital Signs Vital Sign Reading Time Taken Comments Blood Pressure 128/75 02/20/2024 9:20 AM CDT Pulse 72 02/20/2024 9:20 AM CDT Temperature 36.6 ??C (97.9 ??F) 08/24/2023 7:26 AM CD T Respiratory Rate 16 08/24/2023 7:26 AM CDT Oxygen Saturation 99% 02/20/2024 9:20 AM CDT Inhaled Oxygen Concentration - - Weight 92 kg (202 lb 12.8 oz) 02/20/2024 9:20 AM CDT Height 177.8 cm (5' 10) 08/22/2023 8:48 AM CDT Body Mass Index 29.1 08/22/2023 8:48 AM CDT Plan of Treatment Upcoming Encounters Date Type Department Care Team (Late st Contact Info) Description 03/25/2024 8:30 AM LABORATORY SAMPLER Office Visit [facility] [address] [place] [address] Niall Harding MD [address] [place] [address] Health Maintenance Due Date Last Done Comments Influenza for age 65+ 01/18/2024 02/17/2023 , 03/14/2022, 02/01/2021, Additional history exists COVID-19 vaccine series ( season) 2024 02/03/2024, 02/17/2023, 03/14/2022, Additional history exists Depression screening for age [...] Priority Date/Time Associated Diagnosis Comments HEMOGLOBIN A1C MONITORING (POCT) Routine 02/20/2024 10:59 AM CDT Type 2 diabetes mellitus with stage 3b chronic kidney disease, without long-term current use of insulin (HC) SCAN-OPERATIVE/PROCEDU RE REPORT 02/06/2024 10:30 AM CDT SCAN-PET SCAN 02/04/2024 12:00 AM CDT XR KNEE 3 VIEWS RIGHT Routine 01/29/2024 2:15 PM CDT Chronic pain of right knee SCAN-CT INTERPRETATION 4 12:00 AM CDT SCAN-RADIOLOGY REPORT 01/19/2024 12:00 AM CDT SCAN-CT INTERPRETATION 4 12:00 AM CDT SCAN-LABORATORY REPORT 4 12:00 AM CDT SCAN-LABORATORY REPORT 12:00 AM CDT US VENOUS LOWER EXTREMITY RIGHT VAISHALI 12/19/2023 3:32 PM CDT Clear cell renal cell carcinoma (HC) Cancer with pulmonary metastases (HC) Chronic kidney disease, stage 3a (HC) Diabetes mellitus, type 2 (HC) Edema of leg Hypertensive disorder LIPID PANEL Routine 07/08/2023 1:39 PM LABORATORY SAMPLER Hyperlipidemia, unspecified hyperlipidemia type SCAN-COLONOSCOPY 09/19/2022 11:3 0 AM CDT ANTI HCV Routine 07/28/2020 2:14 PM LABORATORY SAMPLER Need for hepatitis C screening test US AORTA Routine 12/31/2018 10:05 AM CDT Screening for AAA (abdominal aortic aneurysm) from Last 3 Months or Most Recently Relevant to Health Maintenance Results * (ABNORMAL) HEMOGLOBIN A1C MONITORING (POCT) (02/20/2024 10:59 AM CDT) POC HEMOGLOBIN A1C 8.1(H) <6.0 % OF TOTAL HGB [facility] Comment: Any point of care results exhibiting inconsistency with the patient's clinical status should be repeated using a different testing method. Blood BLOOD SPECIMEN / Unknown 02/20/2024 10:59 AM CDT 02/20/2024 11:00 AM CDT Niall Harding MD CHEMISTRY [facility] [address] [place] [address], [facility] [address] [place] [address] * SCAN-OPERATIVE/PROCEDURE REPORT (02/06/2024 10:30 AM CDT) Narrative Procedure Note Roberto Rodgers MD - 02/06/2024 10:23 AM CDT [facility] [address] [facility], [address], [place] [address] Patient Name: Edwardo Simons Gender: Male Exam Date: 02/06/2024 Visit Number: [id number] Age: 73 Years Date of : 1950 Attending MD: Roberto Rodgers MD Medical Record#: [id number] ----- Procedure: Sigmoidoscopy Indications: Provider: Roberto Rodgers MD Referring MD: Primary MD: Medications: Intra Procedure Medications: No IV medications given during procedure. Complications: Procedure: The risks and benefits were explained to the patient, who appeared tounderstand. After obtaining informed consent, the scope was passed underdirect vision. The scope was introduced through the anus and withoutdifficulty. The quality of the prep was. Findings: Inflammation. Descriptor(s) - erythema. Pattern - patchy. Location -entire colon. Maneuver - random biopsies obtained with cold biopsyforceps. Polyp location: descending colon-proximal. Quantity: 1. Size: 4 mm.Polyp shape: sessile. Maneuver: polypectomy was performed with a cold snare. Removal: complete. Retrieval: complete. Bleeding: none. Polyp location: sigmoid. Quantity: 1. Size: 5 mm. Polyp shape: sessile. Maneuver: polypectomy was performed with a cold snare. Removal: complete. Retrieval: complete. Bleeding: none. Location: descending colon-proximal. Probable metastatic lesion, 2 cmin diameter, noted in the proximal descending colon, erythematous,malignant-appearing with a center depression. Manuever: cold biopsyforceps. Impression: Pathology Results: A: COLON, DESCENDING, POLYP: 1. Inflammatory polyp 2. Negative for dysplasia B: COLON, DESCENDING, BIOPSY: 1. Colonic mucosa with ulceration and extensive granulation tissueformation 2. No definitive tumor identified, see comment C: COLON, SIGMOID, POLYP: 1. Tubular adenoma 2. Negative for high grade dysplasia 3. Per the colonoscopy report: a. Polyp size: 5 mm b. Resection: Complete c. Retrieval: Complete D: COLON, RANDOM, BIOPSY: 1. 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 Lymphocytic colitis pattern 2. CMV immunohistochemistry: Negative COMMENTS B. The patient's history is noted. We examined multiple deeper levels anddo not see definitive evidence of metastatic renal cell carcinoma. Theulceration and granulation tissue could certainly be caused by a deeperunsampled neoplasm. Close follow-up with repeat tissue sampling, ifclinically indicated, is recommended. This part was seen in consultation with Dr. Neves. Chandler. The constellation of histologic features, which includes cryptdropout/apoptosis, in this clinical context fit well for immune checkpointinhibitor-induced colitis. MICROSCOPIC A: Performed B: Performed C: Performed D: Performed SPECIAL STAINING/DEEPER B: Deeper D: IHC Stains: CMV Electronically signed by: Chriss Patino MD Support for the interpretation of this case may have included the use ofimmunohistochemistry that were performed by [facility] and whose performance characteristics were evaluated bypathologists from [facility]. These tests have not beencleared or approved by the U.S. Food and Drug Administration. The FDA hasdetermined that such clearance or approval is not necessary. These testsare used for clinical purposes and should not be regarded asinvestigational or for research. This laboratory is certified under theClinical Laboratory Improvement Amendments of 1988 (CLIA) as qualified toperform high complexity clinical laboratory testing. Interpreted at [facility], [address] [place] [address],[place] [address] Orders Instruction(s)/Education: Instruction/Education Timeframe Assessment Colon Cancer Prevention K63.5 Colon Polyps K63.5 Final Plan: Repeat colonoscopy 4-year. We will attempt to contact you at [...] our office so that we can updateyour record. Additional Comments: As we discussed over the phone, biopsies of the colon showed inflammationconsistent with immune therapy mediated inflammation. We will forward theresults to Dr. Tiwari at [facility]. In regards to the lesion that was noted on colonoscopy, biopsies showednonspecific findings suggestive of ulcer and granulation tissue. Nocancer tissue was found. _Electronically signed by: Roberto Rodgers MD 02/06/2024 cc: Niall Harding MD Roberto Rodgers MD OTHER * SCAN-PET SCAN (02/04/2024 12:00 AM CDT) Anatomical Region Laterality Modality Other Scanner OTHER * XR KNEE 3 VIEWS RIGHT (01/29/2024 2:15 PM CDT) Anatomical Region Laterality Modality KNEES, KNEE R Computed Radiogr aphy 01/30/2024 2:23 PM CDT Narrative 01/30/2024 2:23 PM CDT For Patients: ??As a result of the Century Cures Act, medical imaging exams and procedure reports are released immediately into your electronic medical record. ??You may view this report before your referring provider. ??If you have questions, please contact your health care provider. Indication: Knee pain Technique: Right knee 3 views Comparison: None Findings: Mild narrowing and spurring at the patellofemoral joint with a small joint effusion. Mild medial compartment narrowing. No fracture. Impression: Mild medial and patellofemoral compartment degenerative joint disease with small joint effusion. Dictated by Sukhjinder Boudreaux MD @ 01/30/2024 2:23:59 PM (Electronically Signed) Procedure Note Sukhjinder Boudreaux MD - 01/30/2024 For Patients: As a result of the Cures Act, medical imagingexams and procedure reports are released immediately into your electronicmedical record. You may view this report before your referring provider.If you have questions, please contact your health care provider. Indication: Knee pain Technique: Right knee 3 views Comparison: None Findings: Mild narrowing and spurring at the patellofemoral joint with a small jointeffusion. Mild medial compartment narrowing. No fracture. Impression: Mild medial and patellofemoral compartment degenerative joint disease withsmall joint effusion. Dictated by Sukhjinder Boudreaux MD @ 01/30/2024 2:23:59 PM (Electronically Signed) Niall Harding MD GENERAL IMAGING * SCAN-CT INTERPRETATION (01/20/2024 12:00 AM CDT) Only the most recent of2 resultswithin the time period is included. Anatomical Region Laterality Modality Other Scanner OTHER * SCAN-RADIOLOGY REPORT (01/19/2024 12:00 AM CDT) Anatomical Region Laterality Modality Other Scanner OTHER * SCAN-LABORATORY REPORT (01/12/2024 12:00 AM CDT) [...] 12/19/2023 3:33:59 PM (Electronically Signed) Karen CASANOVA * (ABNORMAL) LIPID PANEL (07/08/2023 1:39 PM LABORATORY SAMPLER) [facility] CHOLESTEROL,TOTAL 111 100 - 199 mg/dL 07/09/2023 3:37 AM [facility] Comment: Cholesterol, Total Reference Ranges Desirable <200 mg/dL Borderline 200-239 mg/dL High >=240 mg/dL TRIGLYCERIDES 225(H) <150 mg/dL 07/09/2023 3:37 AM [facility] HDL CHOLESTEROL 33(L) >40 mg/dL 3:37 AM [facility] NON-HDL CHOLESTEROL 78 <145 mg/dl 07/09/2023 3:37 AM LABORATORY SAMPLER [facility] CHOL/HDL RATIO 3.36 <4.50 07/09/2023 3:37 AM [facility] LDL CHOLESTEROL 33 <=130 mg/dL 07/09/2023 3:37 AM [facility] VLDL CHOLESTEROL 45(H) <=30 mg/dL 07/09/2023 3:37 AM [facility] TRA LABORATORY PROVIDER ORDERED STATUS RANDOM 07/09/2023 3:37 AM [facility] Blood BLOOD SPECIMEN / Unknown Venipuncture / Unknown 07/08/2023 1:39 PM LABORATORY SAMPLER 07/08/2023 1:40 PM LABORATORY SAMPLER Niall Harding MD CHEMISTRY [facility] [address] [place] [address], * SCAN-COLONOSCOPY (09/19/2022 11:30 AM CDT) Narrative Procedure Note Kadeem Chavira MD - 09/19/2022 10:51 AM CDT [facility] [address] [place] [address], [address], [place] [address] Patient Name: Edwardo Simons Gender: Male Exam Date: 09/19/2022 Visit Number: [id number] Age: 71 Years 11 Months Date of : 1950 Attending MD: Kadeem Pinedo MD Medical Record#: [id number] ----- Procedure: Colonoscopy Indications: Previous advanced adenomatous [...] 2 tablets percolonoscopy prep instructions received from [facility] N taking as directed glimepiride 2 [...] oral route percolonoscopy prep instructions received from [facility] N taking as directed omeprazole 20 [...] yes Former smoker Race: White Preferred Language: Nicaraguan cc: Niall aHrding MD cc: Juanito Weston MD [facility] [phone] Kadeem Barroso MD OTHER * ANTI HCV (07/28/2020 2:14 PM LABORATORY SAMPLER) HEPATITIS C ANTIBODY Non-React carl Non-React carl 07/28/2020 9:31 PM LABORATORY SAMPLER [facility] Comment:Antibodies to HCV no t detected; does not exclude the possibility of exposure to HCV. Blood BLOOD SPECIMEN / Unknown Venipuncture / Unknown 07/28/2020 2:14 PM LABORATORY SAMPLER 07/28/2020 2:14 PM LABORATORY SAMPLER Niall Harding MD SEND OUTS [facility] 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
--- OUTSIDE RECORDS SUMMARY | 2024-03-15 15:06 | XMS_ITS | Referral Summary ---
Author Organization [facility] Address [address] [place] [address] Care Team Providers Care Manager Database Name Role Phone Niall Harding MD Primary Care Provider [phone] Allergies No known active allergies Medications amLODIPine (NORVASC) 5 MG tablet Take 5 mg by mouth daily Active atenolol (TENORMIN) 50 MG tablet Take 50 mg by mouth daily Active Glucosamine Sulfate 1500 MG PACK Take 1,500 mg by mouth 2 times daily 1500/1200 Active lisinopril-hydr ochlorothiazide (ZESTORETIC) 20-25 MG tablet Take 1 tablet [...] by mouth at bedtime Active Vitamin D3 (CHOLECALCIFERO L) 25 mcg (1000 units) tabletIndicatio ns:S/P lumbar fusion Take 1 tablet (25 mcg) by mouth 2 times daily 180 tablet 3 Active senna-docusate (SENOKOT-S/OSMANY COLACE) 8.6-50 MG tabletIndicatio ns:S/P lumbar fusion Take 1-2 tablets by mouth 2 times daily Take while on oral narcotics to prevent or treat constipation. 30 tablet 3 Active oxyCODONE (ROXICODONE) 5 MG tabletIndicatio ns:S/P lumbar fusion Take 1-2 tablets (5-10 mg) by mouth every 4 hours as needed for moderate to severe pain 30 tablet 3 Active acetaminophen (TYLENOL) 500 MG tablet Take [...] at Not on file Legal Sex Male 9:27 AM CDT Gender Identity Not on file Sexual Orientation Not on file Last Filed Vital Signs Vital Sign Reading Time Taken Comments Blood Pressure 127/52 05/05/2023 8:55 AM HEALTHCARE FACILITY ADMINISTRATOR Pulse 64 05/05/2023 8:54 AM HEALTHCARE FACILITY ADMINISTRATOR Temperature 36.6 ??C (97.8 ??F) 05/05/2023 7:20 AM CS T Respiratory Rate 18 05/05/2023 7:20 AM HEALTHCARE FACILITY ADMINISTRATOR Oxygen Saturation 96% 05/05/2023 7:20 AM HEALTHCARE FACILITY ADMINISTRATOR Inhaled Oxygen Concentration - - Weight 101.1 kg (222 lb 12.8 oz) 2022 12:36 AM HEALTHCARE FACILITY ADMINISTRATOR Height 180.3 cm (5' 11) 05/02/2023 12: 36 AM HEALTHCARE FACILITY ADMINISTRATOR Body Mass Index 31.07 05/02/2023 12:36 AM HEALTHCARE FACILITY ADMINISTRATOR Plan of Treatment Not on file Medical Devices Implanted Type Area Seafood Fisherman Device Identifier Shelf Expiration Date Model / Serial / Lot Graft Bone Magnifuse [id number] - [id number] Implanted:Qty : 1 on 04/16/2023 by Thang Negrete MD at [facility] Bone/Tissu e/Biologic N/A: Spine Lumbar [employer] [id number] 03/19/2025 [id number] / [id number] / Graft Bone Fibers Dbf 6ml Inj [id number] Preloaded - [id number] Implanted:Qty : 1 on 04/16/2023 by Thang Negrete MD at [facility] Bone/Tissu e/Biologic N/A: Spine Lumbar [employer] 10/21/2024 [id number] / [id number] / Pass Lp Crosslink 40-72 Implanted:Qty : 1 on 04/16/2023 by Thang Negrete MD at [facility] Metallic Hardware/A nchor N/A: Spine Lumbar [employer] [id number] / / [id number] NOV 2022 Imp Screw Bn Medt Spine 50x6.5mm 5.5/6mm Paul - [id number] Implanted:Qty : 6 on 04/16/2023 by Thang Negrete MD at [facility] Metallic Hardware/A nchor N/A: Spine Lumbar [employer] [id number] / / [id number] 2022 Imp Screw Bn Medt Spine 45x7.5mm 5.5/6mm Paul - [id number] Implanted:Qty : 2 on 04/16/2023 by Thang Negrete MD at [facility] Metallic Hardware/A nchor N/A: Spine Lumbar [employer] [id number] / / [id number] 23MAR 2023 Imp Scr Set Medt Solera Break Off 5.5mm Ti [id number] - [id number] Implanted:Qty : 8 on 04/16/2023 by Thang Negrete MD at [facility] Metallic Hardware/A nchor N/A: Spine Lumbar [employer] [id number] / / [id number] 23NOV [address] Imp [address]pi Interbody Medt [address] Long 7mm [id number] - [id number] Implanted:Qty : 1 on 04/16/2023 by Thang Negrete MD at [facility] Metallic Hardware/A nchor N/A: Spine Lumbar [employer] 12/26/2029 [id number] / / [id number] Imp Spi Interbody Medt Catalyft Pl Long 7mm [id number] - [id number] Implanted:Qty : 1 on 04/16/2023 by Thang Negrete MD at [facility] Metallic Hardware/A nchor N/A: Spine Lumbar [employer] 11/28/2029 [id number] / / [id number] Imp Spi Interbody Medt Catalyft Pl Long 7mm [id number] - [id number] Implanted:Qty : 1 on 04/16/2023 by Thang Negrete MD at [facility] Metallic Hardware/A nchor N/A: Spine Lumbar [employer] 11/26/2029 [id number] / / [id number] Imp Paul Medt Solera Cvd 5.5x90mm Ti [id number] - [id number] Implanted:Qty : 2 on 04/16/2023 by Thang Negrete MD at [facility] Metallic Hardware/A nchor N/A: Spine Lumbar [employer] [id number] / / [id number] 28NOV 2022 Procedures Procedure Name Priority Date/Time Associated Diagnosis Comments GLUCOSE BY METER Routine 05/05/2023 1:59 AM HEALTHCARE FACILITY ADMINISTRATOR from Last 3 Months or Most Recently Relevant to Health Maintenance Results * (ABNORMAL) Glucose by meter (05/05/2023 1:59 AM HEALTHCARE FACILITY ADMINISTRATOR) [facility] GLUCOSE BY METER POCT 157(H) 70 - 99 mg/dL 05/05/2023 2:06 AM HEALTHCARE FACILITY ADMINISTRATOR LABORATORY POC Blood, Capillary BLOOD SPECIMEN / Unknown 05/05/2023 1:59 AM HEALTHCARE FACILITY ADMINISTRATOR 05/05/2023 2:06 AM HEALTHCARE FACILITY ADMINISTRATOR us Rohit Page MD LAB - ENZO POCT Final Re sult RH LABORATORY [facility] [address] [facility] Lab (1st floor, no room number) [place] [address], [place] [phone] from Last 3 Months or Most Recently Relevant to Health Maintenance Insurance BC[place] [facility] Address: [address] [address] [place] [address] MEDICARE [place] MED[place]ARE [facility] Advance Directives For more information, please contact: [phone] * Full Code (Latest Code Status on [...] by: Other (please documen t) Care Teams Manager Database Relationship Specialty Start Date End Date Niall Harding MD [address] [place] [address] PCP - General 04/16/23
--- OUTSIDE RECORDS SUMMARY | 2024-03-15 15:06 | XMS_ITS | Referral Summary ---
Author Organization [facility] Address [address] [place] [address] Care Team Providers Care Security Management Specialist Name Role Phone Sukhjinder Trinidad MD [...] Yrs Monovalent COVID Vaccine (purple cap) 07/26/2020,07/05/2020 Social History Tobacco Use Types Packs/Day Years Used Date Smoking Tobacco: Former Smokeless Tobacco: Never Comments:quit 1984 Alcohol Use Standard Drinks/Week Comments Yes 4 (1 standard drink = 0.6 oz pur e alcohol) weekly Sex and Gender Information Value Date Recorded Sex Assigned at Male 07/04/2020 1:48 PM ELECTRIC RAZOR ASSEMBLER Gender Identity Male 07/04/2020 1:48 PM ELECTRIC RAZOR ASSEMBLER Sexual Orientation Straight 07/04/2020 1: 48 PM ELECTRIC RAZOR ASSEMBLER Last Filed Vital Signs Vital Sign Reading Time Taken Comments Blood Pressure 189/83 07/07/2018 12:15 PM ELECTRIC RAZOR ASSEMBLER Pulse 65 07/07/2018 12:15 PM ELECTRIC RAZOR ASSEMBLER Temperature 36.2 ??C (97.2 ??F) 07/07/2018 12:[address] Respiratory Rate 14 07/07/2018 12:15 PM ELECTRIC RAZOR ASSEMBLER Oxygen Saturation 96% 07/07/2018 12:15 PM ELECTRIC RAZOR ASSEMBLER Inhaled Oxygen Concentration - - Weight 114.8 kg (253 lb) 07/01/2018 10:20 AM ELECTRIC RAZOR ASSEMBLER Height 175.3 cm (5' 9) 07/01/2018 10:20 AM ELECTRIC RAZOR ASSEMBLER Body Mass Index 37.36 07/01/2018 10:20 AM ELECTRIC RAZOR ASSEMBLER Plan of Treatment Not on file Care Teams Security Management Specialist Relationship Specialty Start Date End Date Sukhjinder Trinidad MD PCP - General 01/15/16
--- OUTSIDE RECORDS SUMMARY | 2024-03-15 15:06 | XMS_ITS | Clinical Summary ---
Author Organization [facility] Address [address] [place] [address] Care Team Providers Care Stave Planer Tender Name Role Phone Niall Harding MD Primary Care Provider [phone] Allergies No known active allergies Medications amLODIPine [...] Comments Blood Pressure 127/52 05/05/2023 8:55 AM WOOD FLOUR MILLER Pulse 64 05/05/2023 8:54 AM WOOD FLOUR MILLER Temperature 36.6 ??C (97.8 ??F) 05/05/2023 7:20 AM CS T Respiratory Rate 18 05/05/2023 7:20 AM WOOD FLOUR MILLER Oxygen Saturation 96% 05/05/2023 7:20 AM WOOD FLOUR MILLER Inhaled Oxygen Concentration - - Weight 101.1 kg (222 lb 12.8 oz) 2022 12:36 AM WOOD FLOUR MILLER Height 180.3 cm (5' 11) 05/02/2023 12: 36 AM WOOD FLOUR MILLER Body Mass Index 31.07 05/02/2023 12:36 AM WOOD FLOUR MILLER Plan of Treatment Health Maintenance Due Date Last Done Comments ADVANCE CARE PLANNING 1950 ANNUAL REVIEW OF HM ORDERS 1950 CT COLONOGRAPHY 1950 FIT 1950 FLEX SIG 1950 LIPID 1950 sDNA (Cologuard) 1950 COLONOSCOPY 09/29/1961 COLORECTAL CANCER SCREENING 09/29/1961 HEPATITIS C SCREENING 09/29/1969 FALL RISK ASSESSMENT 09/29/2016 MEDICARE ANNUAL WELLNESS VISIT 04/15/2023 04/15/2022, 03/13/2021 PHQ-2 (once per calendar year) 2023 COVID-19 Vaccine ( season) 2024 02/17/2023, 03/14/2022, 08/15/2021, Additional history exists INFLUENZA VACCINE (#1) 2024 , 03/14/2022, 02/01/2021, Additional history exists GLUCOSE 05/05/2026 05/05/2023, 04/18, 05/05/2023, Additional history exists RSV VACCINE (1 - 1-dose 75+ series) 09/29/2026 DTAP/TDAP/TD IMMUNIZATION (3 - Td or Tdap) [...] this topic Medical Devices Implanted Type Area Fly Rail Operator Device Identifier Shelf Expiration Date Model / Serial / Lot Graft Bone Magnifuse [id number] - [id number] Implanted:Qty : 1 on 04/16/2023 by Thang Negrete MD at [facility] Bone/Tissu e/Biologic N/A: Spine Lumbar [employer] [id number] 03/19/2025 [id number] / [id number] / Graft Bone Fibers Dbf 6ml Inj [id number] Preloaded - [id number] Implanted:Qty : 1 on 04/16/2023 by Thang Negrete MD at [facility] Bone/Tissu e/Biologic N/A: Spine Lumbar [employer] 10/21/2024 [id number] / [id number] / Pass Lp Crosslink 40-72 Implanted:Qty : 1 on 04/16/2023 by Thang Negrete MD at [facility] Metallic Hardware/A nchor N/A: Spine Lumbar [employer] [id number] / / [id number] 2022 Imp Screw Bn Medt Spine 50x6.5mm 5.5/6mm Paul - [id number] Implanted:Qty : 6 on 04/16/2023 by Thang Negrete MD at [facility] Metallic Hardware/A nchor N/A: Spine Lumbar [employer] [id number] / / [id number] 2022 Imp Screw Bn Medt Spine 45x7.5mm 5.5/6mm Paul - [id number] Implanted:Qty : 2 on 04/16/2023 by Thang Negrete MD at [facility] Metallic Hardware/A nchor N/A: Spine Lumbar [employer] [id number] / / [id number] 2022 Imp Scr Set Medt Solera Break Off 5.5mm Ti [id number] - [id number] Implanted:Qty : 8 on 04/16/2023 by Thang Negrete MD at [facility] Metallic Hardware/A nchor N/A: Spine Lumbar [employer] [id number] / / [id number] 2022 Imp Spi Interbody Medt [address] Long 7mm [id number] - [id number] Implanted:Qty : 1 on 04/16/2023 by Thang Negrete MD at [facility] Metallic Hardware/A nchor N/A: Spine Lumbar [employer] 12/26/2029 [id number] / / [id number] Imp Spi Interbody Medt Catalyft Pl Long 7mm [id number] - [id number] Implanted:Qty : 1 on 04/16/2023 by Thang Negrete MD at [facility] Metallic Hardware/A nchor N/A: Spine Lumbar [employer] 11/28/2029 [id number] / / [id number] Imp Spi Interbody Medt [address]ft [address] Long 7mm [id number] - [id number] Implanted:Qty : 1 on 04/16/2023 by Thang Negrete MD at [facility] Metallic Hardware/A nchor N/A: Spine Lumbar [employer] 11/26/2029 [id number] / / [id number] Imp Paul Medt Solera Cvd 5.5x90mm Ti [id number] - [id number] Implanted:Qty : 2 on 04/16/2023 by Thang Negrete MD at [facility] Metallic Hardware/A nchor N/A: Spine Lumbar [employer] [id number] / / [id number] 2022 Procedures Procedure Name Priority Date/Time Associated Diagnosis Comments GLUCOSE BY METER Routine 05/05/2023 1:59 AM WOOD FLOUR MILLER from Last 3 Months or Most Recently Relevant to Health Maintenance Results * (ABNORMAL) Glucose by meter (05/05/2023 1:59 AM WOOD FLOUR MILLER) GLUCOSE BY METER POCT 157(H) 70 - 99 mg/dL 05/05/2023 2:06 AM WOOD FLOUR MILLER LABORATORY POC Blood, Capillary BLOOD SPECIMEN / Unknown 05/05/2023 1:59 AM WOOD FLOUR MILLER 05/05/2023 2:06 AM WOOD FLOUR MILLER us Rohit GUIDRY - ENZO POCT Final Re sult RH LABORATORY [facility] [address] Lab (1st floor, no room number) [place] [address], [facility] [phone] from Last 3 Months or Most Recently Relevant to Health Maintenance Insurance BS [place] MEDICARE [facility] [place] BLUE MEDICARE [facility] [place] Advance Directives For more information, please contact: [phone] * Full Code (Latest Code Status on [...] by: Other (please documen t) Care Teams Stave Planer Tender Relationship Specialty Start Date End Date Niall Harding MD [address] [place] [address] PCP - General 04/16/23
[2024-03-15] MEDS: PANTOPRAZOLE SODIUM 40 MG INJ 80 MG IVP (15:33)
[2024-03-15] MEDS: 0.9 % SODIUM CHLORIDE 500 ML 500 ML IV (15:33)
[2024-03-15 15:38] LABS: Hemoglobin* 11.6 gm/dL (13.5-17.5); Immature Granulocytes Abs Auto 0.01 K/uL (0.00-0.30); Immature Granulocytes Pct Auto 0.2 %; Lymphocytes Percent Auto 13.3 % (20-44); Mean Corpuscular HGB Conc 31 gm/dL (32-36); Mean Corpuscular Hemoglobin 30 pg (26-34); Mean Corpuscular Volume 95 fL (80-100); Monocytes Percent Auto 3.4 % (0.0-11.0); Neutrophils Percent Auto 83.1 % (42.0-72.0); Platelet Count* 240 K/uL (140-440); RDW Coefficient of Variation % 16.8 % (11.5-15.5); Red Blood Count 3.88 m/uL (4.30-5.90); White Blood Count* 6.24 K/uL (4.50-11.00)
[2024-03-15 15:41] LABS: Troponin, Point-of-Care* 0.01 ng/ml (0.01-0.04)
[2024-03-15 15:48] LABS: Slide Review Reflex No
[2024-03-15 15:56] LABS: INR 1.06 (0.91-1.10); Prothrombin Time 14.4 Seconds
[2024-03-15 16:03] LABS: Lactate* 0.9 mmol/L (0.5-1.9)
[2024-03-15 16:22] LABS: Albumin* 3.6 g/dL (3.3-5.0); Chloride* 100 mmol/L (96-114); Sodium* 136 mmol/L (135-149)
[2024-03-15 16:23] LABS: Potassium* 4.3 mmol/L (3.6-5.1)
[2024-03-15 16:25] LABS: Creatinine* 2.2 mg/dL (0.5-1.5); Est. Creatinine Clearance* 32.33; Estimated Glomerular Filt Rate 31 ml/min
[2024-03-15 16:26] LABS: Alanine Aminotransferase* 24 U/L (4-50); Alkaline Phosphatase* 66 U/L (40-150); Anion Gap 10 mEq/L (7-15); Aspartate Amino Transferase* 24 U/L (12-35); Bilirubin Direct* 0.2 mg/dL (0.0-0.5); Bilirubin Total* 0.3 mg/dL (0.1-1.5); Blood Urea Nitrogen* 34 mg/dL (7-30); Calcium* 8.6 mg/dL (8.4-10.6); Carbon Dioxide* 26 mmol/L (20-32); Glucose* 123 mg/dL (60-115); Lipase* 282 U/L (23-300)
[2024-03-15 16:27] LABS: Magnesium* 1.3 mg/dL (1.5-2.6)
[2024-03-15 16:29] LABS: C Reactive Protein* 1.6 mg/dL (0.5-1.0)
[2024-03-15 16:39] LABS: Troponin I* < 0.01 ng/mL (0.01-0.04)
--- NOTE | 2024-03-15 16:53 | ED.GENADULT ---
HPI - General Adult General Chief complaint: Abdominal Pain Stated complaint: black stool Time Seen by Provider: 03/15/24 14:51 Source: patient Mode of arrival: ambulatory Limitations: no limitations History of Present Illness HPI narrative: Patient is a 73-year-old male presenting today concerned about black stools that started yesterday. They began as dark and tarry stools and now he has just black liquid. He states that he had multiple episodes yesterday and about 5 episodes prior to lunch today. He has been taking Imodium and has not had a bowel movement since lunchtime. He denies any fevers or chills. He does not have significant abdominal pain. He denies difficulty urinating. He is not lightheaded or dizzy. He denies chest pain or shortness of breath. He did vomit a few times yesterday. Has not vomited today. 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 Last colonoscopy was a few months ago according to the patient. Related Data Home Medications ?Medication ?Instructions ?Recorded ?Confirmed amlodipine 5 mg tablet 5 mg PO DAILY 04/29/23 03/15/24 atorvastatin 20 mg tablet 20 mg PO DAILY 04/29/23 03/15/24 bupropion HCl 150 mg 24 hr tablet, 150 mg PO DAILY 04/29/23 03/15/24 extended release omeprazole 20 mg capsule,delayed 20 mg PO DAILY 04/29/23 03/15/24 release paroxetine HCl 20 mg tablet 20 mg PO DAILY 04/29/23 03/15/24 trazodone 150 mg tablet 150 mg PO HS 04/29/23 03/15/24 allopurinol 100 mg tablet 100 mg PO DAILY 01/18/24 03/15/24 cyclosporine 0.05 % eye drops in a 1 drp ophthalmic (eye) BID 01/18/24 01/23/24 dropperette (Restasis) gabapentin 100 mg capsule 100 mg PO TID 01/18/24 03/15/24 hydrochlorothiazide 25 mg tablet 25 mg PO DAILY 01/18/24 03/15/24 insulin glargine 100 unit/mL (3 24 unit subcut DAILY 01/18/24 03/15/24 mL) subcutaneous pen (Lantus Solostar U-100 Insulin) tamsulosin 0.4 mg capsule 0.4 mg PO DAILY 01/18/24 03/15/24 Previous Rx's ?Medication ?Instructions ?Recorded Lactobacillus acidophilus 0.5 mg 100 mmu cells PO TIDWM #90 tabs 01/22/24 (100 million cell) tablet cholestyramine-aspartame 4 gram 1 ea PO BID #60 ea 01/22/24 oral powder for susp in a packet diphenoxylate-atropine 2.5 1 tab PO QID #120 tabs 01/22/24 mg-0.025 mg tablet psyllium husk (aspartame) 3.4 5.8 g PO DAILY #660 grams 01/22/24 gram/5.8 gram oral powder (Metamucil Sugar-Free (aspartame)) Allergies Allergy/AdvReac Type Severity Reaction Status Date / Time No Known Drug Allergies Allergy Verified 01/23/24 14:43 Review of Systems Status of ROS: Reports: 10 or more systems reviewed and unremarkable except as noted in History and below [facility] Medical History Stage 4 chronic kidney disease ?N18.4 - Chronic kidney disease, stage 4 (severe) (ICD-10) Obesity ?E66.9 - Obesity, unspecified (ICD-10) Gastroesophageal reflux disease ?K21.9 - Gastro-esophageal reflux disease without esophagitis (ICD-10) Hyperlipidemia ?E78.5 - Hyperlipidemia, unspecified (ICD-10) Low back pain ?M54.50 - Low back pain, unspecified (ICD-10) Hypertension ?I10 - Essential (primary) hypertension (ICD-10) Obstructive sleep apnea ?G47.33 - Obstructive sleep apnea (adult) (pediatric) (ICD-10) Diabetes mellitus ?E11.9 - Type 2 diabetes mellitus without complications (ICD-10) Metastatic clear cell carcinoma of kidney ?C64.9 - Malignant neoplasm of unspecified kidney, except renal pelvis (ICD-10) Surgical History History of lumbar fusion ?Z98.1 - Arthrodesis status (ICD-10) History of nephrectomy ?Z90.5 - Acquired absence of kidney (ICD-10) H/O radiofrequency ablation (RFA) of nerve of lumbar spine ?Z98.890 - Other specified postprocedural states (ICD-10) H/O total hip arthroplasty ?Z96.649 - Presence of unspecified artificial hip joint (ICD-10) Family History Brother Colon cancer Heart disease Father Diabetes Mother Thyroid disease Social History Narrative: He lives with his Janet. She sets up in manages his medications. He is a former smoker with a remote history. He occasionally drinks beer, about 2 a week. Code status is full code for witnessed arrest. What is your current living situation?: I presently have a place to live Problems where you live: no known problems Problems where you live details: n/a In the past 12 months, utilities in danger of being shut off: no In past 12 months, lack of transportation kept you from medical appts, meetings, work, or getting things needed for daily living: no In the past 12 mos, have been you worried that your food would run out before you had money to buy more?: never true In the past 12 mos, the food you bought just didn't last and you didn't have money to buy more?: never true Highest level of school completed/degree received: high school graduate Smoking Status: Former smoker Do you use any of these nicotine containing products: None Second hand tobacco smoke exposure: No How often do you have a drink containing alcohol: monthly or less How often do you have six or more drinks on one occasion: Never AUDIT-C Alcohol total score: 1 Non-prescribed substance use: denies use Caffeine: No How often does anyone, including family, friends and others, physically hurt you: never How often does anyone, including family, friends and others, insult or talk down to you: never How often does anyone, including family, friends and others, threaten you with harm: never How often does anyone, including family, friends and others, scream or curse at you: never service: No Exam Narrative: Exam Narrative: Well-nourished well-developed patient in no acute distress. Alert and oriented. Answers questions appropriately. Mood and affect are appropriate. Thoughts are goal oriented and rational. No tangential or magical thinking noted. Patient speaks in full sentences without needing to catch his breath. Does not appear pale. HEENT: Normocephalic atraumatic. Pupils are equally round reactive to light. Extraocular muscles are intact. Conjunctivae are moist without any icterus noted. Slightly dry mucous membranes. Posterior pharynx is normal. Neck is soft. Cardiovascular: Heart is regular rate and rhythm S1 and S2 are present without any murmurs. Lungs: Clear to auscultation bilaterally no wheezes rhonchi or rales are appreciated. Abdomen: Soft and nontender nondistended with normal bowel sounds. Skin: Well perfused. Normal capillary refill. Rectal exam reveals dark specks of stool around the anus. No stool in the rectal vault. Normal rectal tone. No active bleeding. No bright red blood noted. Const: Vital Signs, click to edit/add: Vital Signs - 24 hr 03/15/24 14:33 03/15/24 15:31 03/15/24 15:42 Temperature 98.4 F Pulse Rate 94 87 Pulse Rate [Pulse Oximeter] 112 H Respiratory Rate 12 Blood Pressure 131/74 Blood Pressure [Ri ght Upper Arm] 132/76 Pulse Oximetry 96 96 96 Oxygen Delivery Me thod Room Air 03/15/24 15:45 03/15/24 16:00 03/15/24 16:01 Temperature Pulse Rate 86 88 84 Pulse Rate [Pulse Oximeter] Respiratory Rate Blood Pressure 131/70 Blood Pressure [Ri ght Upper Arm] Pulse Oximetry 96 95 94 Oxygen Delivery Me thod 03/15/24 16:02 03/15/24 16:15 03/15/24 16:22 Temperature Pulse Rate 82 86 81 Pulse Rate [Pulse Oximeter] Respiratory Rate 16 Blood Pressure 129/69 Blood Pressure [Ri ght Upper Arm] Pulse Oximetry 95 95 95 Oxygen Delivery Me thod 03/15/24 16:32 03/15/24 16:42 03/15/24 16:45 Temperature Pulse Rate 90 84 86 Pulse Rate [Pulse Oximeter] Respiratory Rate Blood Pressure 133/72 Blood Pressure [Ri ght Upper Arm] Pulse Oximetry 95 99 95 Oxygen Delivery Me thod 03/15/24 17:02 03/15/24 17:22 03/15/24 17:42 Temperature Pulse Rate Pulse Rate [Pulse Oximeter] Respiratory Rate 16 Blood Pressure 139/69 135/70 138/77 Blood Pressure [Ri ght Upper Arm] Pulse Oximetry Oxygen Delivery Me thod Course Course ED Course: IV established and patient given 500 mL of normal saline and IV Protonix. EKG, read by me, shows normal sinus rhythm with a pulse of 89. Diffuse early repolarization. CBC shows a hemoglobin of 11.6. Hemoglobin was 10 in January. INR 1.06. Electrolytes are unremarkable. His creatinine is elevated at 2.2. This appears to be slightly above his baseline. BUN is 34. Magnesium is low at 1.3. Normal troponin. Normal LFTs. Magnesium replaced with 1 g IV. Stool occult blood negative. Spoke with Dr. Dickens recommends admission and an upper endoscopy in the morning. Discussed recommendation with the patient. We also discussed the fact that he is hemodynamically stable, has not had any bowel movement since he has been here. We discussed that we can do this as an outpatient. Given the fact that patient's blood pressure is normal, his hemoglobin has not dropped and in fact is higher than it was normal ago, I think it would be reasonable to manage this as outpatient. Patient is on omeprazole 20 mg daily, will increase this to 40 mg daily. He will call his primary care provider in the morning to get an EGD scheduled. If his symptoms worsen, he will return to the ER. Patient and were in agreement with this plan. Vital Signs Vital signs: Initial Vital Signs Temperature 98.4 F 03/15/24 14:33 Temperature Source Temporal Artery Scan 03/15/24 14:33 Pulse Rate 112 H 03/15/24 14:33 Respiratory Rate 12 03/15/24 14:33 Blood Pressure 132/76 03/15/24 14:33 Blood Pressure Mean 94 03/15/24 14:33 Blood Pressure Position Sitting 03/15/24 14:33 Pulse Oximetry 96 03/15/24 14:33 Oxygen Delivery Method Room Air 03/15/24 14:33 Vital Signs Temperature 98.4 F 03/15/24 14:33 Pulse Rate 112 H 03/15/24 14:33 Respiratory Rate 12 03/15/24 14:33 Blood Pressure 132/76 03/15/24 14:33 Pulse Oximetry 96 03/15/24 14:33 Oxygen Delivery Method Room Air 03/15/24 14:33 Temperature 98.4 F 03/15/24 14:33 Pulse Rate 86 03/15/24 16:45 Respiratory Rate 16 03/15/24 17:22 Blood Pressure 138/77 03/15/24 17:42 Pulse Oximetry 95 03/15/24 16:45 Oxygen Delivery Method Room Air 03/15/24 14:33 Medications Administered Medications: Discontinued Medications Generic Name Dose Route Start Last Admin Trade Name Celia PRN Reason Stop Dose Admin Sodium Chloride 500 mls @ 500 mls/hr 03/15/24 14:59 03/15/24 16:37 0.9 % Sodium Chloride 500 Ml IV 03/15/24 15:58 Infused .Q1H ONE Infusion Magnesium Sulfate/Dextrose 1 gm in 100 mls @ 100 mls/hr 03/15/24 16:32 03/15/24 18:11 Magnesium Sulf 1 G/100 Ml-D5w IVPB 03/15/24 17:31 Infused ONCE ONE Infusion Pantoprazole Sodium 80 mg 03/15/24 14:59 03/15/24 15:33 Pantoprazole Sodium 40 Mg Inj IVP 03/15/24 15:00 80 mg ONCE ONE Administration Medical Decision Making MDM Narrative Medical decision making narrative: Black stools. Plan per above. Lab Data Lab results reviewed: Yes I reviewed the patient's lab results Labs: Lab Results 03/15/24 03/15/24 03/15/24 Range/Units 15:00 15:10 15:10 WBC 6.24 (4.50-11.00) K/uL RBC 3.88 L (4.30-5.90) m/uL Hgb 11.6 L (13.5-17.5) gm/dL Hct 37.0 (37.0-53.0) % MCV 95 (80-100) fL MCH 30 (26-34) pg MCHC 31 L (32-36) gm/dL RDW Coeff of Claudia 16.8 H (11.5-15.5) % Plt Count 240 (140-440) K/uL Neut % (Auto) 83.1 H (42.0-72.0) % Lymph % (Auto) 13.3 L (20-44) % [place] % (Auto) 3.4 (0.0-11.0) % Eos % (Auto) 0.0 (0.0-7.0) % Baso % (Auto) 0.0 (0.0-3.0) % Neut # (Auto) 5.20 (1.7-7.0) K/uL Lymph # (Auto) 0.80 L (0.90-2.90) K/uL [place] # (Auto) 0.20 (0.00-0.90) K/UL Eos # (Auto) 0.00 (0.00-0.50) K/uL Baso # (Auto) 0.00 (0.00-0.30) K/uL Abs Immat Gran (auto) 0.01 (0.00-0.30) K/uL Imm/Tot Granulo (auto) 0.2 % INR 1.06 (0.91-1.10) Sodium Cancelled 136 Potassium Cancelled Chloride Carbon Dioxide Anion Gap BUN Creatinine Estimated Creat Clear Estimated GFR Glucose Lactate (0.5-1.9) mmol/L Calcium Magnesium (1.5-2.6) mg/dL Total Bilirubin (0.1-1.5) mg/dL Direct Bilirubin (0.0-0.5) mg/dL AST (12-35) U/L ALT (4-50) U/L Alkaline Phosphatase (40-150) U/L Troponin I (0.01-0.04) ng/mL C-Reactive Protein Total Protein (6.0-8.3) g/dL Albumin (3.3-5.0) g/dL Lipase (23-300) U/L Stool Occult Blood (Negative) POC Troponin I 0.01 (0.01-0.04) ng/ml 03/15/24 03/15/24 03/15/24 Range/Units 15:10 15:10 15:10 WBC (4.50-11.00) K/uL RBC (4.30-5.90) m/uL Hgb (13.5-17.5) gm/dL Hct (37.0-53.0) % MCV (80-100) fL MCH (26-34) pg MCHC (32-36) gm/dL RDW Coeff of Claudia (11.5-15.5) % Plt Count (140-440) K/uL Neut % (Auto) (42.0-72.0) % Lymph % (Auto) (20-44) % [place] % (Auto) (0.0-11.0) % Eos % (Auto) (0.0-7.0) % Baso % (Auto) (0.0-3.0) % Neut # (Auto) (1.7-7.0) K/uL Lymph # (Auto) (0.90-2.90) K/uL [place] # (Auto) (0.00-0.90) K/UL Eos # (Auto) (0.00-0.50) K/uL Baso # (Auto) (0.00-0.30) K/uL Abs Immat Gran (auto) (0.00-0.30) K/uL Imm/Tot Granulo (auto) % INR (0.91-1.10) Sodium Potassium 4.3 Chloride Cancelled 100 Carbon Dioxide Cancelled 26 Anion Gap Cancelled BUN Creatinine Estimated Creat Clear Estimated GFR Glucose Lactate (0.5-1.9) mmol/L Calcium Magnesium (1.5-2.6) mg/dL Total Bilirubin (0.1-1.5) mg/dL Direct Bilirubin (0.0-0.5) mg/dL AST (12-35) U/L ALT (4-50) U/L Alkaline Phosphatase (40-150) U/L Troponin I (0.01-0.04) ng/mL C-Reactive Protein Total Protein (6.0-8.3) g/dL Albumin (3.3-5.0) g/dL Lipase (23-300) U/L Stool Occult Blood (Negative) POC Troponin I (0.01-0.04) ng/ml 03/15/24 03/15/24 03/15/24 Range/Units 15:10 15:10 15:10 WBC (4.50-11.00) K/uL RBC (4.30-5.90) m/uL Hgb (13.5-17.5) gm/dL Hct (37.0-53.0) % MCV (80-100) fL MCH (26-34) pg MCHC (32-36) gm/dL RDW Coeff of Claudia (11.5-15.5) % Plt Count (140-440) K/uL Neut % (Auto) (42.0-72.0) % Lymph % (Auto) (20-44) % [place] % (Auto) (0.0-11.0) % Eos % (Auto) (0.0-7.0) % Baso % (Auto) (0.0-3.0) % Neut # (Auto) (1.7-7.0) K/uL Lymph # (Auto) (0.90-2.90) K/uL [place] # (Auto) (0.00-0.90) K/UL Eos # (Auto) (0.00-0.50) K/uL Baso # (Auto) (0.00-0.30) K/uL Abs Immat Gran (auto) (0.00-0.30) K/uL Imm/Tot Granulo (auto) % INR (0.91-1.10) Sodium Potassium Chloride Carbon Dioxide Anion Gap 10 BUN Cancelled 34 H Creatinine Cancelled 2.2 H Estimated Creat Clear Cancelled Estimated GFR Glucose Lactate (0.5-1.9) mmol/L Calcium Magnesium (1.5-2.6) mg/dL Total Bilirubin (0.1-1.5) mg/dL Direct Bilirubin (0.0-0.5) mg/dL AST (12-35) U/L ALT (4-50) U/L Alkaline Phosphatase (40-150) U/L Troponin I (0.01-0.04) ng/mL C-Reactive Protein Total Protein (6.0-8.3) g/dL Albumin (3.3-5.0) g/dL Lipase (23-300) U/L Stool Occult Blood (Negative) POC Troponin I (0.01-0.04) ng/ml 03/15/24 03/15/24 03/15/24 Range/Units 15:10 15:10 15:10 WBC (4.50-11.00) K/uL RBC (4.30-5.90) m/uL Hgb (13.5-17.5) gm/dL Hct (37.0-53.0) % MCV (80-100) fL MCH (26-34) pg MCHC (32-36) gm/dL RDW Coeff of Claudia (11.5-15.5) % Plt Count (140-440) K/uL Neut % (Auto) (42.0-72.0) % Lymph % (Auto) (20-44) % [place] % (Auto) (0.0-11.0) % Eos % (Auto) (0.0-7.0) % Baso % (Auto) (0.0-3.0) % Neut # (Auto) (1.7-7.0) K/uL Lymph # (Auto) (0.90-2.90) K/uL [place] # (Auto) (0.00-0.90) K/UL Eos # (Auto) (0.00-0.50) K/uL Baso # (Auto) (0.00-0.30) K/uL Abs Immat Gran (auto) (0.00-0.30) K/uL Imm/Tot Granulo (auto) % INR (0.91-1.10) Sodium Potassium Chloride Carbon Dioxide Anion Gap BUN Creatinine Estimated Creat Clear 32.33 Estimated GFR Cancelled 31 Glucose Cancelled 123 H Lactate 0.9 (0.5-1.9) mmol/L Calcium Cancelled Magnesium (1.5-2.6) mg/dL Total Bilirubin (0.1-1.5) mg/dL Direct Bilirubin (0.0-0.5) mg/dL AST (12-35) U/L ALT (4-50) U/L Alkaline Phosphatase (40-150) U/L Troponin I (0.01-0.04) ng/mL C-Reactive Protein Total Protein (6.0-8.3) g/dL Albumin (3.3-5.0) g/dL Lipase (23-300) U/L Stool Occult Blood (Negative) POC Troponin I (0.01-0.04) ng/ml 03/15/24 03/15/24 03/15/24 Range/Units 15:10 15:10 16:45 WBC (4.50-11.00) K/uL RBC (4.30-5.90) m/uL Hgb (13.5-17.5) gm/dL Hct (37.0-53.0) % MCV (80-100) fL MCH (26-34) pg MCHC (32-36) gm/dL RDW Coeff of Claudia (11.5-15.5) % Plt Count (140-440) K/uL Neut % (Auto) (42.0-72.0) % Lymph % (Auto) (20-44) % [place] % (Auto) (0.0-11.0) % Eos % (Auto) (0.0-7.0) % Baso % (Auto) (0.0-3.0) % Neut # (Auto) (1.7-7.0) K/uL Lymph # (Auto) (0.90-2.90) K/uL [place] # (Auto) (0.00-0.90) K/UL Eos # (Auto) (0.00-0.50) K/uL Baso # (Auto) (0.00-0.30) K/uL Abs Immat Gran (auto) (0.00-0.30) K/uL Imm/Tot Granulo (auto) % INR (0.91-1.10) Sodium Potassium Chloride Carbon Dioxide Anion Gap BUN Creatinine Estimated Creat Clear Estimated GFR Glucose Lactate (0.5-1.9) mmol/L Calcium 8.6 Magnesium 1.3 L (1.5-2.6) mg/dL Total Bilirubin 0.3 (0.1-1.5) mg/dL Direct Bilirubin 0.2 (0.0-0.5) mg/dL AST 24 (12-35) U/L ALT 24 (4-50) U/L Alkaline Phosphatase 66 (40-150) U/L Troponin I < 0.01 L (0.01-0.04) ng/mL C-Reactive Protein Cancelled 1.6 H Total Protein 6.0 (6.0-8.3) g/dL Albumin 3.6 (3.3-5.0) g/dL Lipase 282 (23-300) U/L Stool Occult Blood Negative (Negative) POC Troponin I (0.01-0.04) ng/ml ECG Data Attestation: I personally reviewed and interpreted this ECG as follows: Discharge Plan Discharge Clinical Impression: Black stools Instructions: Melena (ED) Additional Instructions: Increase your omeprazole to 40 mg daily. Call your primary care provider 1st thing in the morning and let them know that you are experiencing dark stools and that an EGD (upper endoscopy) is recommended. Avoid Pepto-Bismol. Return to the ER if you develop weakness, clamminess, chest pain or shortness of breath. Return to the ER if you develop bright red blood per rectum. Prescriptions: No Action omeprazole 20 mg capsule,delayed release(DR/EC) 20 mg PO DAILY amlodipine 5 mg tablet 5 mg PO DAILY trazodone 150 mg tablet 150 mg PO HS paroxetine HCl 20 mg tablet 20 mg PO DAILY atorvastatin 20 mg tablet 20 mg PO DAILY bupropion HCl 150 mg tablet extended release 24 hr 150 mg PO DAILY tamsulosin 0.4 mg capsule 0.4 mg PO DAILY insulin glargine [Lantus Solostar U-100 Insulin] 100 unit/mL (3 mL) insulin pen 24 unit subcut DAILY allopurinol 100 mg tablet 100 mg PO DAILY hydrochlorothiazide 25 mg tablet 25 mg PO DAILY gabapentin 100 mg capsule 100 mg PO TID cyclosporine [Restasis] 0.05 % dropperette 1 drp ophthalmic (eye) BID diphenoxylate-atropine 2.5-0.025 mg Tablet 1 tab PO QID Qty: 120 0RF Lactobacillus acidophilus 0.5 mg (100 million cell) Tablet 100 mmu cells PO TIDWM Qty: 90 0RF cholestyramine-aspartame 4 gram Powder In Packet 1 ea PO BID Qty: 60 0RF Metamucil Sugar-Free (aspart) 3.4 gram/5.8 gram powder 5.8 g PO DAILY Qty: 660 0RF Follow Up/Referrals: Niall Harding MD [Primary Care Provider] - Stand Alone Forms: [facility] Info Instructions
[2024-03-15 17:07] LABS: Fecal Occult Blood* Negative (Negative)
[2024-03-15] MEDS: HEPARIN 500 UNIT/5 ML SYRINGE IVF (18:25)
== END 2024-03-15 18:27 | disposition home or self-care (01) ==
PROVIDERS: Emergency Provider Family Medicine; PCP Surgery
DX: K92.1 Melena (principal)
CPT/HCPCS: 36415; 80048; 80076; 82270; 83605; 83690; 83735; 84484; 85025; 85610; 86140; 93005; 94761; 96365; 96375; 99284; J1642; J2470; J3475; J7030

== ENCOUNTER 2024-03-26 12:10 | Outpatient (CLI) | payer MEDICARE, BC, SELFPAY ==
--- NOTE | 2024-03-26 13:16 | W.ANESCHARGE ---
Anesthesia Charges Start Date/Time Anesthesia Start Date: 03/26/24 Anesthesia Start Time: 12:58 Stop Date/Time Anesthesia Stop Date: 03/26/24 Anesthesia Stop Time: 13:14 Summary Extremes of Age - Over 70 or under 1: MOVING [employer]ER
--- NOTE | 2024-03-26 13:28 | W.ANESCHARGE ---
Anesthesia Charges Start Date/Time Anesthesia Start Date: 03/26/24 Anesthesia Start Time: 12:58 Stop Date/Time Anesthesia Stop Date: 03/26/24 Anesthesia Stop Time: 13:14 Summary Extremes of Age - Over 70 or under 1: MDA
== END 2024-03-26 12:11 | disposition home or self-care (01) ==
LOC: OP CLINIC 12:11
PROVIDERS: PCP Surgery; Visit Provider Internal Medicine Gastroenterology
DX: K92.2 Gastrointestinal hemorrhage, unspecified (principal)
CPT/HCPCS: 00731; 43235; 99100; J2704

== ENCOUNTER 2025-01-24 11:15 | Outpatient (RCR) | payer MEDICARE, BC, SELFPAY | END 2025-03-31 09:57 | disposition home or self-care (01) | PROVIDERS: PCP Surgery; Visit Provider Surgery | DX: R42 Dizziness and giddiness (principal); Z51.89 Encounter for other specified aftercare | CPT/HCPCS: 97112; 97140; 97161; 97535 ==

== ENCOUNTER 2025-01-25 08:16 | Outpatient (CLI) | payer MEDICARE, BC, SELFPAY ==
--- NOTE | 2025-01-25 08:15 | CRLHL7_ITS ---
For Patients: As a result of the Century Cures Act, medical imaging exams and procedure reports are released immediately into your electronic medical record. You may view this report before your referring provider. If you have questions, please contact your health care provider. INDICATION: Clear cell renal cell carcinoma. TECHNIQUE: Multiplanar MRI of the brain was performed with and without the administration of intravenous contrast. IV contrast: 20 mL Dotarem. COMPARISON: Head CT 01/20/2024 FINDINGS: No evidence of acute infarction or intracranial hemorrhage. No abnormal parenchymal or leptomeningeal enhancement. Mild scattered T2/FLAIR hyperintensities in the subcortical and periventricular white matter. While nonspecific, these can be seen as sequela of chronic small vessel ischemia. The ventricles and sulci are prominent and proportionate reflecting mild diffuse brain volume loss. Mild mucosal thickening/secretions in the maxillary and ethmoid sinuses. There intra-ocular lens replacements bilaterally. No significant mastoid effusion. No suspicious marrow signal abnormality. IMPRESSION: No evidence of intracranial metastases. Dictated by Miller Urias MD @ 01/26/2025 9:43:34 AM (Electronically Signed)
== END 2025-01-25 08:17 | disposition home or self-care (01) ==
LOC: MRI 08:16
PROVIDERS: PCP Surgery; Visit Provider Internal Medicine Hematology & Oncology
DX: C64.9 Malignant neoplasm of unspecified kidney, except renal pelvis (principal); C78.01 Secondary malignant neoplasm of right lung; R10.9 Unspecified abdominal pain; R63.4 Abnormal weight loss
CPT/HCPCS: 70553; A9575

== ENCOUNTER 2025-04-21 14:55 | Outpatient (CLI) | payer MEDICARE, BC, SELFPAY ==
--- NOTE | 2025-04-21 15:00 | CRLHL7_ITS ---
For Patients: As a result of the 21st Century Cures Act, medical imaging exams and procedure reports are released immediately into your electronic medical record. You may view this report before your referring provider. If you have questions, please contact your health care provider. EXAM: FDG PET-CT Skull Base to Thighs CLINICAL INFORMATION: 74-year-old man with history of renal cell carcinoma. Restaging. TECHNIQUE: Radiopharmaceutical: 18F-fluorodeoxyglucose (18F-FDG) Dose: 14.45 MilliCurie. Blood glucose: 76 mg/dL. Image acquisition: At approximately 60 minutes following IV tracer administration via a left antecubital vein, positron emission tomography was performed from the skull base through the mid thigh. Non-contrast low-dose helical CT imaging was performed over the same range without breath-hold for attenuation correction of PET images and anatomic correlation; it is neither sufficient, nor should it be substituted for diagnostic purposes. COMPARISON: FDG PET-CT 07/28/2024. MRI abdomen 07/30/2023. FINDINGS: Mediastinal blood pool FDG uptake: SUVMax 2.6 (Image 99) Liver background parenchymal FDG uptake: SUVMax 3.2 (Image 135) PET Findings: Prior right nephrectomy. No abnormal focal increased FDG uptake in the nephrectomy bed. No evidence of FDG avid traci metastatic disease. No substantial change of a faintly FDG avid partially calcified 2.1 x 1.4 cm left-sided mesenteric nodule abutting the distal transverse colon SUVmax 1.8, (image 149). No definite evidence of FDG avid distant metastatic disease. Tracer uptake elsewhere is physiologic. Non-PET findings: Bilateral lens replacements. Partial opacification of right maxillary sinus and minimal opacification of the left maxillary sinus. Right internal jugular port catheter with the tip terminating in the right atrium. Coronary artery calcifications. Atherosclerotic calcifications of the thoracic and abdominal aorta. No focal FDG uptake at an unchanged 2.0 x 1.4 cm heterogeneously calcified renal lesion in the anterior left interpolar renal region (image 170), remeasured from 07/28/2024 (301:160, 202:159). This was previously characterized as a Bosniak 2 F cystic lesion on the renal protocol MRI of the abdomen 07/30/2023. Additional left renal cyst. Stimulator device in the left flank with the distal lead terminating in the central spinal canal at the level of T7. Left hip arthroplasty with streak artifact partially obscuring adjacent soft tissues in the pelvis. Posterior fusion L2-L5. Laminectomy changes L2-L5. Multilevel degenerative changes in the spine. IMPRESSION: 1. Prior right nephrectomy. No evidence of FDG avid locally recurrent neoplasm in the right nephrectomy bed. 2. No substantial change of a faintly FDG avid partially calcified 2.1 x 1.4 cm left-sided mesenteric nodule abutting the distal transverse colon. 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 3. No definite evidence of FDG avid traci or distant metastatic disease. Dictated by Santhosh Argueta MD @ 04/23/2025 12:53:48 PM (Electronically Signed)
== END 2025-04-21 14:56 | disposition home or self-care (01) ==
LOC: RAD 14:58
PROVIDERS: PCP Surgery; Visit Provider Internal Medicine Hematology & Oncology
DX: C64.1 Malignant neoplasm of right kidney, except renal pelvis (principal); C78.01 Secondary malignant neoplasm of right lung
CPT/HCPCS: 78815; A9552